=== PATIENT | female | born 1940 | race Caucasian/White ===

== ENCOUNTER 2016-11-28 10:21 | Outpatient (CLI) | payer MEDICARE ==
[2016-11-28 10:58] LABS: Anion Gap 14 mmol/L (10-20); BUN (Urea Nitrogen) 19 mg/dL (9.8-20.1); Calc. Creatinine Clearance 0 mL/min (70-130); Calcium 8.8 mg/dL (7.8-10.44); Carbon Dioxide 26 mmol/L (23-31); Chloride 103 mmol/L (98-107); Estimated GFR-MDRD 75; Glucose 204 mg/dL (83-110); Potassium 4.4 mmol/L (3.5-5.1); Sodium 139 mmol/L (136-145)
== END 2016-11-28 10:22 ==
LOC: MADLABBHPM 10:21
PROVIDERS: ATTEND Family Medicine
DX: I87.2 Venous insufficiency (chronic) (peripheral) (principal)
CPT/HCPCS: 36415; 80048

== ENCOUNTER 2016-12-05 14:43 | Inpatient (IN) | payer MEDICARE ==
[~2016-12-05 14:43] MED LIST: Sodium Chloride 0.9% 100 ML BAG ONE
[2016-12-05 15:14] LABS: INR-International Normal Ratio 1.1; PTT 29.1 SEC (22.9-36.1)
[2016-12-05 15:15] LABS: #Basophils 0.1 thou/uL (0.0-0.2); #Eosinphils 0.4 thou/uL (0.0-0.7); #Lymphocytes 1.8 thou/uL (1.20-3.40); #Monocytes 0.4 thou/uL (0.11-0.59); #Neutrophils 3.6 thou/uL (1.40-6.50); %Basophils 1.1 % (0.0-1.0); %Lymphocytes 29.4 % (21.0-51.0); %Monocytes 5.9 % (0.0-10.0); %Neutrophils 57.6 % (42.0-75.0); Hemoglobin 11.6 g/dL (12.0-16.0); Mean Corpuscular HGB CONC 32.8 g/dL (32.0-36.0); Mean Corpuscular Hemoglobin 27.5 pg (27.0-31.0); Mean Corpuscular Volume 83.9 fl (81.0-99.0); Mean Platelet Volume 8.9 fL (7.4-10.4); Platelet Count 234 thou/uL (130-400); RBC Distribution Width 12.4 % (11.5-14.5); Red Blood Cell (RBC) Count 4.23 mill/uL (4.20-5.40); White Blood Cell (WBC) Count 6.2 thou/uL (4.8-10.8)
[2016-12-05] MEDS ORDERED: Adacel (T-DAP) 0.5 ML VIAL ONE (15:16)
[2016-12-05] MEDS ORDERED: Furosemide 40 MG/4 ML VIAL ONE (15:16)
[2016-12-05 15:26] LABS: ALT (SGPT) 7 U/L (0-55); AST (SGOT) 11 U/L (5-34); Albumin 4.1 g/dL (3.4-4.8); Alkaline Phosphatase 95 U/L (40-150); Anion Gap 16 mmol/L (10-20); BUN (Urea Nitrogen) 14 mg/dL (9.8-20.1); Bilirubin, Total Less than 0.3 mg/dL (0.2-1.2); CK (CPK) 98 U/L (29-168); Calc. Creatinine Clearance 0 mL/min (70-130); Calcium 8.8 mg/dL (7.8-10.44); Carbon Dioxide 24 mmol/L (23-31); Chloride 102 mmol/L (98-107); Estimated GFR-MDRD 54; Globulin 2.7 g/dL (2.4-3.5); Glucose 204 mg/dL (83-110); Potassium 4.6 mmol/L (3.5-5.1); Protein, Total 6.8 g/dL (5.8-8.1); Sodium 137 mmol/L (136-145)
[2016-12-05 15:27] LABS: CKMB 2.7 ng/mL (0-6.6); Troponin I Less than 0.010 ng/mL (< 0.028)
--- NOTE | 2016-12-05 15:39 | RAD ---
PORTABLE CHEST 1 VIEW: DATE: 12/05/16. TIME: 3:11 p.m. HISTORY: Dyspnea. FINDINGS: Comparison is made with the exam of 10/25/15. The heart is enlarged. No confluent areas of consolidation, pneumothorax, gera pulmonary edema, or pleural effusions are seen. There is continued elevation of the right hemidiaphragm. IMPRESSION: Stable exam. No acute process. POS: SHAYLEE
[2016-12-05 15:50] LABS: Bilirubin Negative (Negative); Blood, Urine Moderate (Negative); Glucose, Urine (Dipstick) Negative (Negative); Leukocyte Small (Negative); Nitrite Positive (Negative); Protein, Urine (Dipstick) Negative (Neg-Trace)
[2016-12-05 15:54] LABS: Clarity Cloudy (Clear)
[2016-12-05 15:55] LABS: Bacteria/HPF 3+ HPF (None Seen); Other Microscopic Description C&S SET UP; Squamous Epithelial 0-3 HPF (0-3)
[2016-12-05] MEDS ORDERED: Ciprofloxacin 500 MG TAB ONE (16:16)
[2016-12-05] MEDS ORDERED: cefTRIAXone\\ROCEPHIN 1 GM VIAL ONE (16:16)
[2016-12-05] MEDS ORDERED: Bisacodyl 5 MG TAB PO PRN (20:21)
[2016-12-05] MEDS ORDERED: Loperamide HCl 2 MG CAP PO PRN ×2 (20:21→20:22)
[2016-12-05] MEDS ORDERED: Sodium Chloride 0.9% 1,000 ML IV SCH (20:30)
[2016-12-05] MEDS ORDERED: Enoxaparin Sodium 40 MG/0.4 ML SYRINGE SC SCH (20:30)
[2016-12-05] MEDS ORDERED: Clotrimazole 1% Cream 15 GM TUBE TOP SCH (21:30)
[2016-12-05] MEDS: traMADol HCl 50 MG TAB PO PRN (21:43)
[2016-12-05] MEDS ORDERED: Gabapentin 100 MG CAP PO SCH (22:00)
[2016-12-06] MEDS: Acetaminophen 325 MG TAB PO PRN (01:09)
[2016-12-06] MEDS: cefTRIAXone\\ROCEPHIN 1 GM in Sodium Chloride 0.9% 100 ML IVPB SCH ×2 (03:46→16:39)
[2016-12-06 05:24] LABS: #Basophils 0.1 thou/uL (0.0-0.2); #Eosinphils 0.2 thou/uL (0.0-0.7); #Lymphocytes 1.5 thou/uL (1.20-3.40); #Monocytes 0.4 thou/uL (0.11-0.59); %Basophils 1.1 % (0.0-1.0); %Eosinophils 3.9 % (0.0-10.0); %Lymphocytes 23.8 % (21.0-51.0); %Monocytes 7.1 % (0.0-10.0); %Neutrophils 64.1 % (42.0-75.0); Hemoglobin 10.5 g/dL (12.0-16.0); Mean Corpuscular Hemoglobin 27.7 pg (27.0-31.0); Mean Corpuscular Volume 84.1 fl (81.0-99.0); Mean Platelet Volume 8.3 fL (7.4-10.4); Platelet Count 196 thou/uL (130-400); RBC Distribution Width 12.3 % (11.5-14.5); Red Blood Cell (RBC) Count 3.79 mill/uL (4.20-5.40); White Blood Cell (WBC) Count 6.2 thou/uL (4.8-10.8)
[2016-12-06] MEDS: Levothyroxine Sodium 100 MCG TAB PO SCH (05:38)
[2016-12-06 05:42] LABS: Anion Gap 15 mmol/L (10-20)
[2016-12-06] MEDS ORDERED: Furosemide 40 MG/4 ML VIAL SLOW IVP SCH (06:00)
[2016-12-06] MEDS ORDERED: Non-Formulary Item 1 EACH (Cyclobenzaprine Hcl [Cyclobenzaprine Hcl] 5 MG) PO PRN (08:15)
[2016-12-06] MEDS ORDERED: traMADol HCl 50 MG TAB PO PRN (08:15)
[2016-12-06] MEDS ORDERED: Cyclobenzaprine 10 MG TAB PO PRN (08:28)
[2016-12-06] MEDS: Spironolactone 25 MG TAB PO SCH (08:37)
[2016-12-06] MEDS: Aspirin 325 MG TAB PO SCH (08:38)
[2016-12-06] MEDS: Clotrimazole 1% Cream 15 GM TUBE TOP SCH ×2 (08:38→20:58)
[2016-12-06] MEDS: Lisinopril 10 MG TAB PO SCH (08:39)
[2016-12-06] MEDS: Gabapentin 100 MG CAP PO SCH ×3 (08:39→20:57)
[2016-12-06] MEDS: Furosemide 40 MG TAB PO SCH ×2 (08:48→14:08)
[2016-12-06] MEDS ORDERED: Levothyroxine Sodium 100 MCG TAB PO SCH (09:00)
[2016-12-06] MEDS ORDERED: Gabapentin 100 MG CAP PO SCH (09:00)
[2016-12-06] MEDS ORDERED: Lisinopril 10 MG TAB PO SCH (09:00)
[2016-12-06 09:03] LABS: ALT (SGPT) 8 U/L (0-55); AST (SGOT) 11 U/L (5-34); Albumin 3.4 g/dL (3.4-4.8); Alkaline Phosphatase 81 U/L (40-150); BUN (Urea Nitrogen) 15 mg/dL (9.8-20.1); Bilirubin, Total Less than 0.3 mg/dL (0.2-1.2); Calc. Creatinine Clearance 55 mL/min (70-130); Calcium 8.6 mg/dL (7.8-10.44); Carbon Dioxide 25 mmol/L (23-31); Chloride 101 mmol/L (98-107); Estimated GFR-MDRD 58; Globulin 2.7 g/dL (2.4-3.5); Glucose 109 mg/dL (83-110); Potassium 4.5 mmol/L (3.5-5.1); Protein, Total 6.1 g/dL (5.8-8.1); Sodium 137 mmol/L (136-145)
--- NOTE | 2016-12-06 10:21 | HP ---
DATE OF ADMISSION: 12/05/2016 CHIEF COMPLAINT: Swelling and redness of the right lower leg. HISTORY OF PRESENT ILLNESS: The patient is a 76-year-old white female who has a history of severe v enous insufficiency of the lower extremity, complicated by chronic edema and stasis dermatitis. 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 She now resides in assisted living where she is able to ambulate with the use of a walker and transfer independently and dress independently. The patient was last seen in my office on 11/28/2016 for acute paronychia of the left thumb that was treated with Septra witho ut problem with resolution of the paronychia. The patient was brought to the emergency room on the late afternoon of the day of admission because of marked increased swelling in her lower extremities with increased redness and blistering in the r ight leg. She was not running fever. She was evaluated in the emergency room and felt to have flui d overload and cellulitis and marked edema of the lower extremities. Her chest x-ray showed cardiom egaly with no evidence of acute failure. Her lab work showed H and H of 11.6 and 35.5 with a white cell count of 6200 with 58% neutrophils, 29% lymphocytes, and platelet count of 234,000. Her sodium was 137, potassium 4.6, BUN 14, creatinine 1, GFR 54, glucose 204. B-type natriuretic peptide 64, troponin I less than 0.01. CK-MB 2.7. TSH 2.6, albumin 4.1. Her urinalysis showed specific gravit y of 1.020, positive nitrite, 7-10 RBCs, 11-20 WBCs, 0-3 epithelials cells and 3+ bacteria. Her INR is 1.1. D-dimer was 4.2, normal less than 0.43. Patient was admitted with the diagnosis of cellul itis of the right lower extremity complicated by blistering of the right lower leg and fluid overloa d. The patient was started on IV antibiotics with Levaquin and ceftriaxone and was given an initial dose of Lasix 80 mg IV and was placed at bed rest. The patient was seen early on the morning of 12/06/2016, she said she was feeling good, her leg was not hurting, she was able to review with me the history of the above. Patient said her leg is not h urting, but had been very red and more swelled than usual yesterday. Patient said her leg feels goo d today and the swelling has gone down. PAST HISTORY: Patient has hypertension, severe venous insufficiency of the lower extremities, compl icated by chronic stasis dermatitis, generalized osteoarthritis, hypothyroidism, history of cervical myelopathy from a severe cervical stenosis presenting with paralysis of the right upper extremity a nd severe weakness of the left upper extremity. Patient underwent a decompression in [facility] on 10/2014 with marked improvement, but has been left with some weakness in the right upper extrem ity. 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 Patient has had tonsillectomy, low back surgery with laminectomy in 1961, 1965 and the third time in 1979. She has also had a hysterectomy. Patient was hospitalized in 10/2015 for hemoptysis, felt to be se condary to bronchiectasis and has resolved. The patient underwent an EGD by Dr. Antony on 10/24/2015, showed blood in the hypopharynx, otherwise unremarkable. During that admission, a CTA was done felice t showed probable bronchiectasis that resolved on the antibiotics. PRESENT MEDICINES: Tramadol 50 mg 1 b.i.d. p.r.n., triamcinolone cream 0.1% applied to the areas of itch, rash 3 times a day as needed, gabapentin 100 mg 2 t.i.d., levothyroxine 100 mcg daily, Lasix 40 mg b.i.d., lisinopril 10 mg daily, cyclobenzaprine 5 mg 1 t.i.d. as needed, ibuprofen 200 mg 1 ev geri 6 hours as needed. ALLERGIES: MORPHINE causes nausea and vomiting, SULFAMETHOXAZOLE, TRIMETHOPRIM was listed as an all ergy, but patient just completed a course of this without difficulty. REVIEW OF SYSTEMS: CONSTITUTIONAL: The patient has had no fever. She has had no change in her weight. HEAD AND NECK: No complaints. PULMONARY: The patient said she has not been short of breath. CARDIOVASCULAR: No chest pain. GASTROINTESTINAL: The patient said she had just a little nausea last evening, but that is passed. Patient has had no abdominal pain. The patient had no change in her bowel habits. GENITOURINARY: No complaints. ADLs: The patient is able to dress herself, can shower with standby assistance, ambulates with the use of a walker and can transfer independently. HABITS: Alcohol, none. Tobacco, none. SOCIAL HISTORY: Patient is a who resides in assisted living. PHYSICAL EXAMINATION: GENERAL: Shows a very pleasant 76-year-old white female, who is lying in bed. She is awake, alert, answers questions appropriately. She is oriented x3. VITAL SIGNS: Shows a temperature of 99, pulse 77, respirations 18, O2 sat 96% on room air, blood pr essure 129/60, her weight is 153. Her output has been approximately 1500 since admission last eveni ng. HEAD: Normocephalic. EYES: Pupils were equal, round, and reactive. Sclerae nonicteric. EARS: TMs are clear. NOSE: Normal. MOUTH AND THROAT: Normal. NECK: Carotids are equal and strong, no bruits. Thyroid not enlarged. LUNGS: Clear. HEART: Regular rate, no murmurs. ABDOMEN: Obese. There is no organomegaly nor areas of tenderness. EXTREMITIES: Lower extremities: The edema is almost totally resolved in the lower extremities. Th ere is just trace edema left. Patient has some chronic discoloration of the legs with brown, initia lly little scaling from her chronic stasis and on the right lower leg over the distal third, the ski n is pink and warm to the touch. Apparently on admission, this was very red. On the anterior right lower leg, there is a blister that is intact. It is about 6 x 4 cm. Left thumb, the area of the a cute paronychia, the swelling has gone. The skin is just a little pink, but appears the paronychia is resolved. NEUROLOGIC: Patient is alert and oriented x3. Patient has moderate strength in the lower extremiti es are equal. In the upper extremities, the right arm is weaker than the left. She has a little tr ouble with extension in the hand and abducting the arm, has just a few degrees of abduction. IMPRESSION: 1. Cellulitis of the right lower leg. 2. Severe venous insufficiency of the lower extremities. A. Complicated by acute exacerbation with marked increase edema, particularly of the right leg, prob ably prompted by the cellulitis that has improved as of the morning of 12/06/2016. B. Complicated by chronic stasis dermatitis. 3. Hypertension. 4. Hypothyroidism. 5. Generalized osteoarthritis. 6. Severe cervical spinal stenosis, complicated by myelopathy with weakness of the upper extremitie s. Status post decompression in anterior fusion 10/2014 with marked improvement in weakness in the upper extremities. 7. Failed surgical low back syndrome. 8. Generalized weakness. 9. Acute paronychia of the left thumb on 11/28/2016, resolved. PLAN: Patient will be admitted to the hospital for IV antibiotics, IV Lasix. She has already had a n excellent diuresis with resolution of the swelling. We will continue the IV antibiotics. We will switch her to oral Lasix and have PT and OT work with her. CODE STATUS: Full code.
[2016-12-06] MEDS: traMADol HCl 50 MG TAB PO PRN ×2 (14:07→21:14)
[2016-12-06] MEDS: Enoxaparin Sodium 40 MG/0.4 ML SYRINGE SC SCH (17:15)
[2016-12-07] MEDS: Ondansetron ODT 4 MG TAB PO PRN ×3 (00:22→21:01)
[2016-12-07] MEDS: cefTRIAXone\\ROCEPHIN 1 GM in Sodium Chloride 0.9% 100 ML IVPB SCH ×2 (04:10→16:21)
[2016-12-07 04:58] LABS: #Basophils 0.1 thou/uL (0.0-0.2); #Eosinphils 0.3 thou/uL (0.0-0.7); #Lymphocytes 1.8 thou/uL (1.20-3.40); #Monocytes 0.4 thou/uL (0.11-0.59); #Neutrophils 3.5 thou/uL (1.40-6.50); %Basophils 0.9 % (0.0-1.0); %Eosinophils 4.9 % (0.0-10.0); %Lymphocytes 30.1 % (21.0-51.0); %Monocytes 6.4 % (0.0-10.0); %Neutrophils 57.7 % (42.0-75.0); Hemoglobin 11.4 g/dL (12.0-16.0); Mean Corpuscular HGB CONC 32.4 g/dL (32.0-36.0); Mean Corpuscular Hemoglobin 27.6 pg (27.0-31.0); Mean Platelet Volume 7.9 fL (7.4-10.4); Platelet Count 199 thou/uL (130-400); RBC Distribution Width 12.2 % (11.5-14.5); Red Blood Cell (RBC) Count 4.14 mill/uL (4.20-5.40); White Blood Cell (WBC) Count 6.1 thou/uL (4.8-10.8)
[2016-12-07 05:00] LABS: Manual Diff?? NO
[2016-12-07] MEDS: Levothyroxine Sodium 100 MCG TAB PO SCH (05:14)
[2016-12-07 05:20] LABS: Anion Gap 16 mmol/L (10-20); BUN (Urea Nitrogen) 19 mg/dL (9.8-20.1); Calc. Creatinine Clearance 47 mL/min (70-130); Calcium 8.7 mg/dL (7.8-10.44); Carbon Dioxide 26 mmol/L (23-31); Chloride 100 mmol/L (98-107); Estimated GFR-MDRD 49; Glucose 130 mg/dL (83-110); Potassium 4.9 mmol/L (3.5-5.1); Sodium 137 mmol/L (136-145)
[2016-12-07] MEDS: traMADol HCl 50 MG TAB PO PRN (08:14)
[2016-12-07] MEDS: Aspirin 325 MG TAB PO SCH (08:16)
[2016-12-07] MEDS: Furosemide 40 MG TAB PO SCH ×2 (08:16→14:05)
[2016-12-07] MEDS: Gabapentin 100 MG CAP PO SCH ×3 (08:16→21:01)
[2016-12-07] MEDS: Lisinopril 10 MG TAB PO SCH (08:16)
[2016-12-07] MEDS: Clotrimazole 1% Cream 15 GM TUBE TOP SCH ×2 (08:17→21:03)
[2016-12-07] MEDS: Spironolactone 25 MG TAB PO SCH (08:17)
--- NOTE | 2016-12-07 09:23 | PRG ---
DATE OF SERVICE: 12/07/2016 SUBJECTIVE: The patient said her legs feel better. She said her back is sore, which is a chronic p roblem due to her failed surgical back syndrome. OBJECTIVE: The patient is lying in bed, looks a little uncomfortable from her back. Otherwise, she in no acute distress. Her temp is 97.9, pulse 70, respirations 20, O2 saturation 94% on room air, blood pressure 119/58. Lungs are clear. Heart, regular rate. Lower extremities, the edema has res olved. The redness is resolved. Blister on the anterior lower leg has ruptured. There is just sav e serous drainage on the dressing. Lab shows an H\T\H of 11.4 and 35.2, white cell count 6100 with 58% segs, 30% lymphocytes, platelet count of 199,000. Sodium 135, potassium 4.9, BUN 19, creatinine 1.09, GFR 49, glucose 130. ASSESSMENT: 1. Cellulitis of the right lower leg. A. Resolving as of 12/07/2016. 2. Severe venous insufficiency of the lower extremities. A. Complicated by acute exacerbation with marked increase edema, particularly the right leg, pr obably prompted by the cellulitis. Edema has resolving and cellulitis resolving as of 12/07/2016. B. Complicated by chronic stasis dermatitis. 3. Hypertension. 4. Hypothyroidism. 5. Generalized osteoarthritis. 6. Severe cervical spinal stenosis, complicated by myelopathy with weakness of the upper extremitie s. Status post decompression in anterior fusion 10/2014 with marked improvement in weakness in the upper extremities. 7. Failed surgical low back syndrome. 8. Generalized weakness. 9. Acute paronychia of the left thumb on 11/28/2016, resolved. PLAN: Continue the IV antibiotics. Continue oral furosemide. Will change the dressing on the righ t lower leg to just an Adaptic over the blistered area that ruptured, covered by Mepilex. Continue physical therapy. Will order Tylenol for the pain and also order a Gaymar pump for moist heat to th e back.
[2016-12-07] MEDS: Enoxaparin Sodium 40 MG/0.4 ML SYRINGE SC SCH (18:00)
[2016-12-08] MEDS: cefTRIAXone\\ROCEPHIN 1 GM in Sodium Chloride 0.9% 100 ML IVPB SCH ×2 (04:37→17:00)
[2016-12-08] MEDS: Levothyroxine Sodium 100 MCG TAB PO SCH (05:39)
--- NOTE | 2016-12-08 09:10 | PRG ---
DATE OF SERVICE: 12/08/2016 SUBJECTIVE: The patient said she is feeling better. Her legs feel better. She has asked to leave the catheter in another day because it is so hard for her to get up. The swelling has been down in her legs. She said the Gaymar pump providing the moist heat has been a great help for her back. OBJECTIVE: The patient is sitting up in her bed eating her breakfast. She looks very comfortable a nd in no distress. Her temperature is 98.1, pulse 74, respirations 18, O2 sat 92% on room air, bloo d pressure 117/54. Lungs are clear. Heart, regular rate. Extremities, no edema. The blistered ar ea over the anterior lower leg is no longer distended. There is only drainage from the area. There is no overlying redness. The area looks much improved. The patient's urine grew gram negative terry , colony count greater than 100,000. Sensitivity pending. ASSESSMENT: 1. Cellulitis of the right lower leg. A. Resolving as of 12/07/2016. 2. Severe venous insufficiency of the lower extremities. A. Complicated by acute exacerbation with marked increased edema as a result of the cellulitis. 1. Edema is controlled and cellulitis resolved. The blister is drying up on the right lowe r leg as of 12/08/2016. B. Complicated by chronic stasis dermatitis. 1. Controlled. 3. Hypertension. 4. Hypothyroidism. 5. Generalized osteoarthritis. 6. Severe cervical spinal stenosis, complicated by myelopathy with weakness of the upper extremitie s. Status post decompression in anterior fusion 10/2014 with marked improvement in weakness in the upper extremities. 7. Failed surgical low back syndrome. 8. Generalized weakness. 9. Acute paronychia of the left thumb on 11/28/2016, resolved. 10. Urinary tract infection. A. Culture pending as of 12/08/2016. PLAN: Overall the patient looks better. Continue present care. Apply Claudia lotion with Kenalog to the legs b.i.d., continue physical therapy.
[2016-12-08] MEDS: Gabapentin 100 MG CAP PO SCH ×4 (09:29→20:47)
[2016-12-08] MEDS: Spironolactone 25 MG TAB PO SCH (09:29)
[2016-12-08] MEDS: Ibuprofen 200 MG TAB PO PRN ×2 (09:29→20:52)
[2016-12-08] MEDS: Aspirin 325 MG TAB PO SCH (09:29)
[2016-12-08] MEDS: Furosemide 40 MG TAB PO SCH ×3 (09:30→17:05)
[2016-12-08] MEDS: Lisinopril 10 MG TAB PO SCH (09:30)
[2016-12-08] MEDS: Clotrimazole 1% Cream 15 GM TUBE TOP SCH ×2 (09:33→20:46)
[2016-12-08] MEDS: Ondansetron ODT 4 MG TAB PO PRN (11:07)
[2016-12-08] MEDS: Emollient 15 oz bottle 450 ML, Triamcinolone Acetonide 200 MG TOP SCH ×4 (15:17→20:47)
[2016-12-08] MEDS: Acetaminophen 325 MG TAB PO PRN (17:05)
[2016-12-08] MEDS: Enoxaparin Sodium 40 MG/0.4 ML SYRINGE SC SCH (18:35)
[2016-12-09] MEDS: cefTRIAXone\\ROCEPHIN 1 GM in Sodium Chloride 0.9% 100 ML IVPB SCH (04:09)
[2016-12-09] MEDS: Levothyroxine Sodium 100 MCG TAB PO SCH (05:13)
[2016-12-09 05:30] VITALS: BMI 39.0
[2016-12-09] MEDS ORDERED: Sterile Water Irrigation 1,000 ML BOT ONE (07:00)
[2016-12-09 08:16] VITALS: BP 132/63; TEMP 97.9
[2016-12-09] MEDS: Spironolactone 25 MG TAB PO SCH (08:17)
[2016-12-09] MEDS: Furosemide 40 MG TAB PO SCH (08:18)
[2016-12-09] MEDS: Aspirin 325 MG TAB PO SCH (08:18)
[2016-12-09] MEDS: Gabapentin 100 MG CAP PO SCH (08:18)
[2016-12-09] MEDS: traMADol HCl 50 MG TAB PO PRN (08:19)
[2016-12-09] MEDS: Acetaminophen 325 MG TAB PO PRN (08:21)
[2016-12-09] MEDS: Lisinopril 10 MG TAB PO SCH (08:21)
--- NOTE | 2016-12-09 09:17 | PRG ---
DATE OF SERVICE: 12/09/2016 SUBJECTIVE: This morning, physical therapy has had her up and walking with a walker. She walks slow ly, requires assistance with transferring, her legs feeling better, but she said her disorder is alejandro ulders, which is a chronic ache and pain. OBJECTIVE: The patient is sitting in a wheelchair, taking a break from her walking with the physica l therapist. She is a little uncomfortable from shoulder pain. Her temp is 97.9, pulse 62, respira tions 20, O2 sat 95%, blood pressure 132/63. Her lungs are clear. Heart, regular rate. Lower extr emities: No edema, no redness. Her urine culture grew an E. coli, colony count greater than 100,00 0, susceptibility report pending. ASSESSMENT: 1. Cellulitis of the right lower leg. A. Resolved as of 12/09/2016. 2. Severe venous insufficiency of the lower extremities. A. Complicated by acute exacerbation with marked increased edema as a result of the cellulitis. 1. Edema is controlled and cellulitis resolved. The blister is drying up on the right lowe r leg as of 12/09/2016. B. Complicated by chronic stasis dermatitis. 1. Controlled. 3. Hypertension. 4. Hypothyroidism. 5. Generalized osteoarthritis. 6. Severe cervical spinal stenosis, complicated by myelopathy with weakness of the upper extremitie s. Status post decompression in anterior fusion 10/2014 with marked improvement in weakness in the upper extremities. 7. Failed surgical low back syndrome. 8. Generalized weakness. A. Little improved where she is able to ambulate with a walker with assistance, but still requi res assistance with transference. 9. Acute paronychia of the left thumb on 11/28/2016, resolved. 10. Urinary tract infection. A. Culture growing E. coli, colony count greater than 100,000, susceptibility report is pending as of 12/09/2016. PLAN: We will stop the IV access and the Levaquin and ceftriaxone. We will continue the Levaquin p.o. We will move patient to an extended care for continuation of physical therapy. [facility] to [facility], the patient had been in an assisted living. This acute illness has left her too weak to be able to manage at her functional level in an assisted living. Patient is still not able to transfer independently and walking ability is limited. We will move the patient for extended care for zi nuation of physical therapy in an effort to try to improve her general functional capabilities.
== END 2016-12-09 11:19 | disposition swing bed (61) | DRG 603 ==
LOC: MADERS 14:43 → MADMS 18:46
PROVIDERS: ADMIT Family Medicine; ATTEND Family Medicine
DX: L03.115 Cellulitis of right lower limb (principal); I11.0 Hypertensive heart disease with heart failure; I50.9 Heart failure, unspecified; N39.0 Urinary tract infection, site not specified; I87.2 Venous insufficiency (chronic) (peripheral); E03.9 Hypothyroidism, unspecified; M19.90 Unspecified osteoarthritis, unspecified site; M48.02 Spinal stenosis, cervical region; Z98.1 Arthrodesis status; M54.5 Low back pain; E87.70 Fluid overload, unspecified; R53.1 Weakness; B96.20 Unspecified Escherichia coli [E. coli] as the cause of diseases classified elsewhere
CPT/HCPCS: 36415; 51702; 71010; 80048; 80053; 81003; 81015; 82550; 82553; 83880; 84443; 84484; 85025; 85379; 85610; 85730; 87077; 87086; 87186; 90471; 90715; 96365; 96367; 96375; A4216; A4217; G8978-GP-CL; G8979-GP-CJ; J0696; J1650; J1940; J1956; J3301; J7050; Q0162

== ENCOUNTER 2016-12-09 07:05 | Inpatient (IN) | payer MEDICARE ==
[2016-12-09] MEDS ORDERED: Non-Formulary Item 1 EACH (Cyclobenzaprine Hcl [Cyclobenzaprine Hcl] 5 MG) PO PRN (08:41)
[2016-12-09] MEDS: Furosemide 40 MG TAB PO SCH ×2 (12:56→21:03)
[2016-12-09] MEDS: Levothyroxine Sodium 100 MCG TAB PO SCH (12:56)
[2016-12-09] MEDS: Lisinopril 10 MG TAB PO SCH (12:56)
[2016-12-09] MEDS: Gabapentin 100 MG CAP PO SCH ×3 (12:56→21:03)
[2016-12-09] MEDS: Keri Lotion 15 oz BOT TOP SCH ×2 (16:28→21:33)
[2016-12-09] MEDS: Enoxaparin Sodium 40 MG/0.4 ML SYRINGE SC SCH (18:26)
[2016-12-09] MEDS: traMADol HCl 50 MG TAB PO PRN (19:00)
[2016-12-09] MEDS ORDERED: Triamcinolone 0.1% Cream 15 GM TUBE TOP SCH (21:00)
[2016-12-09] MEDS: Betamethasone 0.1% Cream 15 GM TUBE TOP SCH (21:33)
[2016-12-09] MEDS: Ondansetron ODT 4 MG TAB SL PRN (22:53)
[2016-12-10] MEDS: Spironolactone 25 MG TAB PO SCH (08:45)
[2016-12-10] MEDS: Gabapentin 100 MG CAP PO SCH ×3 (08:45→21:34)
[2016-12-10] MEDS: Furosemide 40 MG TAB PO SCH ×2 (08:45→21:34)
[2016-12-10] MEDS: Levothyroxine Sodium 100 MCG TAB PO SCH (08:46)
[2016-12-10] MEDS: Betamethasone 0.1% Cream 15 GM TUBE TOP SCH ×2 (08:46→21:47)
[2016-12-10] MEDS: Lisinopril 10 MG TAB PO SCH (08:46)
[2016-12-10] MEDS: Keri Lotion 15 oz BOT TOP SCH ×2 (08:47→21:47)
--- NOTE | 2016-12-10 13:52 | PRG ---
DATE OF SERVICE: 12/10/2016 SUBJECTIVE: The patient said she is feeling better today, just weak. She seems to give out easily much more than prior to this acute illness today, though she feels a little better, yesterday she koch d a little nausea and headache but she woke up free of the headache. OBJECTIVE: GENERAL: The patient is alert and appears in no acute distress. VITAL SIGNS: Her vital signs shows a temperature of 97.7, pulse 61, blood pressure 130/61, respirat ions 16, O2 sat 95% on room air. Her weight is 249. LUNGS: Clear. HEART: Regular rate. EXTREMITIES: There is no edema. The blistered areas have drained and the overlying skin is drying on the lower leg. There is little redness from the stasis dermatitis on the lower legs. LABORATORY DATA: Urine culture has grown E. coli, colony count greater than 100,000. Organism is r esistant to the Levaquin, sensitive to the ceftriaxone and nitrofurantoin. ASSESSMENT: 1. Cellulitis of the right lower leg. A. Resolved as of 12/09/2016. 2. Severe venous insufficiency of the lower extremities. A. Complicated by acute exacerbation with marked increased edema as a result of the cellulitis. 1. Edema is controlled and cellulitis resolved. The blister is drying up on the right lowe r leg as of 12/10/2016. B. Complicated by chronic stasis dermatitis. 1. Controlled except for some mild redness and irritation to the skin as of 12/10/2016. 3. Hypertension. 4. Hypothyroidism. 5. Generalized osteoarthritis. 6. Severe cervical spinal stenosis, complicated by myelopathy with weakness of the upper extremitie s. Status post decompression in anterior fusion 10/2014 with marked improvement in weakness in the upper extrem ities. 7. Failed surgical low back syndrome. 8. Generalized weakness. A. Little improved where she is able to ambulate with a walker with assistance, but still requi res assistance with transference. 9. Acute paronychia of the left thumb on 11/28/2016, resolved. 10. Urinary tract infection. A. Culture grew E. coli, colony count greater than 100, 000, organism resistant to Levaquin, bu t sensitive to ceftriaxone and cephalosporins. PLAN: Continue physical therapy. We will stop the Levaquin and place her instead on Omnicef or cef dinir 300 mg b.i.d., continue physical therapy, continue the Claudia Kenalog to the legs b.i.d.
[2016-12-10] MEDS: Enoxaparin Sodium 40 MG/0.4 ML SYRINGE SC SCH (17:47)
[2016-12-10] MEDS: Cefdinir 300 MG CAP PO SCH (21:34)
[2016-12-11] MEDS: Spironolactone 25 MG TAB PO SCH (08:33)
[2016-12-11] MEDS: Furosemide 40 MG TAB PO SCH ×2 (08:34→20:53)
[2016-12-11] MEDS: Gabapentin 100 MG CAP PO SCH ×3 (08:34→20:53)
[2016-12-11] MEDS: Levothyroxine Sodium 100 MCG TAB PO SCH (08:34)
[2016-12-11] MEDS: Betamethasone 0.1% Cream 15 GM TUBE TOP SCH ×2 (08:35→20:52)
[2016-12-11] MEDS: Cefdinir 300 MG CAP PO SCH ×2 (08:35→20:53)
[2016-12-11] MEDS: Lisinopril 10 MG TAB PO SCH (08:35)
[2016-12-11] MEDS: Keri Lotion 15 oz BOT TOP SCH ×2 (08:36→20:53)
[2016-12-11] MEDS: traMADol HCl 50 MG TAB PO PRN (12:07)
[2016-12-11] MEDS: Ondansetron ODT 4 MG TAB SL PRN (12:07)
[2016-12-11] MEDS: Ibuprofen 200 MG TAB PO PRN (12:54)
[2016-12-11] MEDS: Cyclobenzaprine 10 MG TAB PO PRN (15:59)
[2016-12-11] MEDS: Enoxaparin Sodium 40 MG/0.4 ML SYRINGE SC SCH (18:12)
[2016-12-12] MEDS: Cyclobenzaprine 10 MG TAB PO PRN (04:10)
[2016-12-12] MEDS: Cefdinir 300 MG CAP PO SCH ×2 (08:21→20:38)
[2016-12-12] MEDS: Lisinopril 10 MG TAB PO SCH (08:21)
[2016-12-12] MEDS: Gabapentin 100 MG CAP PO SCH ×3 (08:22→20:38)
[2016-12-12] MEDS: Levothyroxine Sodium 100 MCG TAB PO SCH (08:22)
[2016-12-12] MEDS: Furosemide 40 MG TAB PO SCH ×2 (08:22→20:38)
[2016-12-12] MEDS: Spironolactone 25 MG TAB PO SCH (08:22)
[2016-12-12] MEDS: Ondansetron ODT 4 MG TAB SL PRN (09:53)
--- NOTE | 2016-12-12 10:11 | PRG ---
DATE OF SERVICE: 12/12/2016 SUBJECTIVE: The patient said she is feeling better. Her legs feel good. OBJECTIVE: The patient is lying in bed with the head elevated. She appears very comfortable and in no distress. Her temperature is 98, pulse 61, respirations 20, O2 saturation 94% on room air, bloo d pressure 119/61. Her lungs are clear. Heart, regular rate. Extremities, no edema. The lower le gs, there is no edema. There is no redness. The area where the blister is, is all healing. There is no open area on the right lower leg. The left lower leg, there is no open lesion, ASSESSMENT: 1. Cellulitis of the right lower leg. A. Resolved as of 12/09/2016. B. No recurrence as of 12/12/2016. 2. Severe venous insufficiency of the lower extremities. A. Complicated by acute exacerbation with marked increased edema as a result of the cellulitis. 1. Edema is controlled, cellulitis resolved. The blistered area has healed on the right l ower leg as of 12/12/2016. B. Complicated by chronic stasis dermatitis. 1. Controlled as of 12/12/2016. 3. Hypertension. 4. Hypothyroidism. 5. Generalized osteoarthritis. 6. Severe cervical spinal stenosis, complicated by myelopathy with weakness of the upper extremitie s. Status post decompression in anterior fusion 10/2014 with marked improvement in weakness in the upper extrem ities. 7. Failed surgical low back syndrome. 8. Generalized weakness. A. Improved as of 12/12/2016. 9. Acute paronychia of the left thumb on 11/28/2016, resolved. 10. Urinary tract infection. A. Culture grew E. coli, colony count greater than 100, 000, organism resistant to Levaquin, bu t sensitive to ceftriaxone and cephalosporins. PLAN: Continue physical therapy. Had suggested removal of catheter, but the patient said she is st ill weak would like to leave it just a little bit longer until her strength gets a little better. W e will leave this in for another day or 2 and then stop. Continue physical therapy.
[2016-12-12] MEDS: traMADol HCl 50 MG TAB PO PRN (11:01)
[2016-12-12] MEDS: Acetaminophen 325 MG TAB PO PRN (11:02)
[2016-12-12] MEDS: Betamethasone 0.1% Cream 15 GM TUBE TOP SCH (11:04)
[2016-12-12] MEDS: Keri Lotion 15 oz BOT TOP SCH (11:04)
[2016-12-12] MEDS: Enoxaparin Sodium 40 MG/0.4 ML SYRINGE SC SCH (17:11)
[2016-12-13] MEDS: Lisinopril 10 MG TAB PO SCH (08:51)
[2016-12-13] MEDS: traMADol HCl 50 MG TAB PO PRN ×2 (08:51→15:35)
[2016-12-13] MEDS: Cefdinir 300 MG CAP PO SCH ×2 (08:52→20:57)
[2016-12-13] MEDS: Gabapentin 100 MG CAP PO SCH ×3 (08:52→20:57)
[2016-12-13] MEDS: Spironolactone 25 MG TAB PO SCH (08:52)
[2016-12-13] MEDS: Furosemide 40 MG TAB PO SCH ×2 (08:52→20:56)
[2016-12-13] MEDS: Levothyroxine Sodium 100 MCG TAB PO SCH (08:53)
[2016-12-13] MEDS: Keri Lotion 15 oz BOT TOP SCH ×3 (08:53→20:56)
[2016-12-13] MEDS: Triamcinolone 0.1% Cream 15 GM TUBE TOP SCH ×3 (08:53→20:58)
[2016-12-13] MEDS: Ibuprofen 200 MG TAB PO PRN (17:19)
[2016-12-13] MEDS: Enoxaparin Sodium 40 MG/0.4 ML SYRINGE SC SCH (17:19)
[2016-12-14 09:21] LABS: #Basophils 0.1 thou/uL (0.0-0.2); #Eosinphils 0.5 thou/uL (0.0-0.7); #Lymphocytes 1.6 thou/uL (1.20-3.40); #Monocytes 0.3 thou/uL (0.11-0.59); #Neutrophils 4.1 thou/uL (1.40-6.50); %Basophils 1.3 % (0.0-1.0); %Eosinophils 7.4 % (0.0-10.0); %Lymphocytes 24.2 % (21.0-51.0); %Monocytes 4.8 % (0.0-10.0); %Neutrophils 62.2 % (42.0-75.0); Hemoglobin 12.3 g/dL (12.0-16.0); Mean Corpuscular Hemoglobin 27.4 pg (27.0-31.0); Mean Corpuscular Volume 85.8 fl (81.0-99.0); Mean Platelet Volume 8.3 fL (7.4-10.4); Platelet Count 222 thou/uL (130-400); RBC Distribution Width 12.7 % (11.5-14.5); Red Blood Cell (RBC) Count 4.48 mill/uL (4.20-5.40); White Blood Cell (WBC) Count 6.6 thou/uL (4.8-10.8)
[2016-12-14] MEDS: Levothyroxine Sodium 100 MCG TAB PO SCH (09:26)
[2016-12-14] MEDS: Gabapentin 100 MG CAP PO SCH ×3 (09:26→20:17)
[2016-12-14] MEDS: Keri Lotion 15 oz BOT TOP SCH ×2 (09:27→20:17)
[2016-12-14] MEDS: Lisinopril 10 MG TAB PO SCH (09:27)
[2016-12-14] MEDS: Spironolactone 25 MG TAB PO SCH (09:27)
[2016-12-14] MEDS: Furosemide 40 MG TAB PO SCH ×2 (09:27→20:17)
[2016-12-14] MEDS: Cefdinir 300 MG CAP PO SCH ×2 (09:27→20:17)
[2016-12-14] MEDS: Triamcinolone 0.1% Cream 15 GM TUBE TOP SCH ×2 (09:28→20:18)
--- NOTE | 2016-12-14 12:20 | PRG ---
DATE OF SERVICE: 12/14/2016 SUBJECTIVE: The patient said she is doing very well. Her strength is better and she is walking a l ittle further transferring a little easier. Still has requested the catheter remain in until she ge ts a little stronger. OBJECTIVE: The patient lying in bed, looks comfortable and in no distress. Her vital signs shows a temperature of 96.8, pulse 61, respirations 22, O2 sat 96%, blood pressure 96/48, earlier 120/[address] evening, this morning is pending. Lungs clear. Heart, regular rate. Lower extremities, edema i s resolved, blistered area is healed. The patient has some petechial or eruption over the distal th ird of both lower legs. ASSESSMENT: 1. Cellulitis of the right lower leg. A. Resolved as of 12/09/2016. B. No recurrence as of 12/14/2016. 2. Severe venous insufficiency of the lower extremities. A. Complicated by acute exacerbation with marked increased edema as a result of the cellulitis. 1. Edema is controlled, cellulitis resolved. The blistered area has healed on the right l ower leg as of 12/12/2016. B. Complicated by chronic stasis dermatitis. 1. Controlled as of 12/14/2016. 3. Hypertension. 4. Hypothyroidism. 5. Generalized osteoarthritis. 6. Severe cervical spinal stenosis, complicated by myelopathy with weakness of the upper extremitie s. Status post decompression in anterior fusion 10/2014 with marked improvement in weakness in the upper extrem ities. 7. Failed surgical low back syndrome. 8. Generalized weakness. A. Improved as of 12/14/2016. 9. Acute paronychia of the left thumb on 11/28/2016, resolved. 10. Urinary tract infection. A. Culture grew E. coli, colony count greater than 100, 000, organism resistant to Levaquin, bu t sensitive to ceftriaxone and cephalosporins. 11. Petechial eruption on the lower legs. PLAN: We will check CBC and platelet count. We will stop the ibuprofen. Continue PT.
[2016-12-14] MEDS: traMADol HCl 50 MG TAB PO PRN (14:45)
[2016-12-14] MEDS: Enoxaparin Sodium 40 MG/0.4 ML SYRINGE SC SCH (18:04)
[2016-12-15] MEDS: Lisinopril 10 MG TAB PO SCH (08:32)
[2016-12-15] MEDS: Cefdinir 300 MG CAP PO SCH ×2 (08:32→20:18)
[2016-12-15] MEDS: Gabapentin 100 MG CAP PO SCH ×3 (08:32→20:18)
[2016-12-15] MEDS: Spironolactone 25 MG TAB PO SCH (08:33)
[2016-12-15] MEDS: Clotrimazole 1% Cream 15 GM TUBE TOP PRN (08:33)
[2016-12-15] MEDS: Furosemide 40 MG TAB PO SCH ×2 (08:33→20:18)
[2016-12-15] MEDS: Levothyroxine Sodium 100 MCG TAB PO SCH (08:33)
[2016-12-15] MEDS: Keri Lotion 15 oz BOT TOP SCH ×2 (08:34→20:18)
[2016-12-15] MEDS: Triamcinolone 0.1% Cream 15 GM TUBE TOP SCH ×2 (08:35→20:19)
[2016-12-15] MEDS: Enoxaparin Sodium 40 MG/0.4 ML SYRINGE SC SCH (18:00)
[2016-12-15] MEDS: traMADol HCl 50 MG TAB PO PRN (20:28)
[2016-12-16] MEDS: Polyethylene Glycol 3350 17 GM Packet PO SCH (09:36)
[2016-12-16] MEDS: Gabapentin 100 MG CAP PO SCH ×3 (09:36→20:30)
[2016-12-16] MEDS: Lisinopril 10 MG TAB PO SCH (09:36)
[2016-12-16] MEDS: Cefdinir 300 MG CAP PO SCH ×2 (09:36→20:31)
[2016-12-16] MEDS: Levothyroxine Sodium 100 MCG TAB PO SCH (09:37)
[2016-12-16] MEDS: Furosemide 40 MG TAB PO SCH ×2 (09:37→20:31)
[2016-12-16] MEDS: Spironolactone 25 MG TAB PO SCH (09:37)
[2016-12-16] MEDS: Keri Lotion 15 oz BOT TOP SCH ×2 (09:39→20:31)
[2016-12-16] MEDS: Triamcinolone 0.1% Cream 15 GM TUBE TOP SCH ×2 (09:39→20:31)
[2016-12-16] MEDS: Clotrimazole 1% Cream 15 GM TUBE TOP PRN (09:40)
--- NOTE | 2016-12-16 16:12 | PRG ---
DATE OF SERVICE: 12/16/2016 SUBJECTIVE: The patient said she is feeling better. She is doing better with her therapy and trans eddie. She is not, though, back to her baseline to where she could adequately manage herself back at assisted living. Her legs feel better. OBJECTIVE: The patient is lying in bed. She is in very good spirits and appears very comfortable. Her temperature is 98, pulse 64, respirations 18, O2 sat 94% on room air, blood pressure 134/60. T he patient's lungs are clear. Heart, regular rate. Extremities have trace edema. There is still t he petechial rash over the distal third of both lower legs, but this is stable. A CBC that was done on the showed an H\T\H of 12.3 and 38.4, WBC count 6600 and platelet count was 222,000. ASSESSMENT: 1. Cellulitis of the right lower leg. A. Resolved as of 12/09/2016. B. No recurrence as of 12/16/2016. 2. Severe venous insufficiency of the lower extremities. A. Complicated by acute exacerbation with marked increased edema as a result of the cellulitis. 1. Edema is controlled, cellulitis resolved. The blistered area has healed on the right l ower leg as of 12/12/2016. B. Complicated by chronic stasis dermatitis. 1. Controlled. Petechial rash of the lower legs is stable as of 12/16/2016. 3. Hypertension. 4. Hypothyroidism. 5. Generalized osteoarthritis. 6. Severe cervical spinal stenosis, complicated by myelopathy with weakness of the upper extremitie s. Status post decompression in anterior fusion 10/2014 with marked improvement in weakness in the upper extrem ities. 7. Failed surgical low back syndrome. 8. Generalized weakness. A. Improved as of 12/16/2016. 9. Acute paronychia of the left thumb on 11/28/2016, resolved. 10. Urinary tract infection. A. Culture grew E. coli, colony count greater than 100, 000, organism resistant to Levaquin, bu t sensitive to ceftriaxone and cephalosporins. PLAN: Complete the antibiotics for the urinary tract infection. Continue physical therapy. The alma mejia still would like to have the cath a little longer. Anticipate that this will be removed on Mo nday 12/19/2016 which she is agreeable with.
[2016-12-16] MEDS: Enoxaparin Sodium 40 MG/0.4 ML SYRINGE SC SCH (18:00)
[2016-12-17] MEDS: Cefdinir 300 MG CAP PO SCH ×2 (08:44→20:00)
[2016-12-17] MEDS: Spironolactone 25 MG TAB PO SCH (08:44)
[2016-12-17] MEDS: Polyethylene Glycol 3350 17 GM Packet PO SCH (08:44)
[2016-12-17] MEDS: Gabapentin 100 MG CAP PO SCH ×3 (08:44→20:01)
[2016-12-17] MEDS: Lisinopril 10 MG TAB PO SCH (08:44)
[2016-12-17] MEDS: Levothyroxine Sodium 100 MCG TAB PO SCH (08:45)
[2016-12-17] MEDS: Furosemide 40 MG TAB PO SCH ×2 (08:45→20:01)
[2016-12-17] MEDS: Keri Lotion 15 oz BOT TOP SCH (08:48)
[2016-12-17] MEDS: Triamcinolone 0.1% Cream 15 GM TUBE TOP SCH (08:48)
[2016-12-17] MEDS: Enoxaparin Sodium 40 MG/0.4 ML SYRINGE SC SCH (17:48)
[2016-12-18] MEDS ORDERED: Furosemide 40 MG TAB PO SCH (06:45)
[2016-12-18] MEDS: Cefdinir 300 MG CAP PO SCH ×2 (08:22→20:55)
[2016-12-18] MEDS: Gabapentin 100 MG CAP PO SCH ×3 (08:22→20:55)
[2016-12-18] MEDS: Polyethylene Glycol 3350 17 GM Packet PO SCH (08:22)
[2016-12-18] MEDS: Levothyroxine Sodium 100 MCG TAB PO SCH (08:22)
[2016-12-18] MEDS: Furosemide 40 MG TAB PO SCH ×2 (08:23→15:13)
[2016-12-18] MEDS: Lisinopril 10 MG TAB PO SCH (08:24)
[2016-12-18] MEDS: Spironolactone 25 MG TAB PO SCH (08:24)
[2016-12-18] MEDS: Keri Lotion 15 oz BOT TOP SCH ×3 (08:27→21:16)
[2016-12-18] MEDS: Triamcinolone 0.1% Cream 15 GM TUBE TOP SCH ×3 (08:27→21:17)
[2016-12-18] MEDS: Enoxaparin Sodium 40 MG/0.4 ML SYRINGE SC SCH (17:50)
[2016-12-19] MEDS: Furosemide 40 MG TAB PO SCH ×2 (05:32→14:51)
[2016-12-19] MEDS: Cefdinir 300 MG CAP PO SCH (08:21)
[2016-12-19] MEDS: Spironolactone 25 MG TAB PO SCH (08:21)
[2016-12-19] MEDS: Polyethylene Glycol 3350 17 GM Packet PO SCH (08:21)
[2016-12-19] MEDS: Levothyroxine Sodium 100 MCG TAB PO SCH (08:22)
[2016-12-19] MEDS: Lisinopril 10 MG TAB PO SCH (08:22)
[2016-12-19] MEDS: Gabapentin 100 MG CAP PO SCH ×3 (08:22→21:02)
[2016-12-19] MEDS: Keri Lotion 15 oz BOT TOP SCH ×2 (08:23→21:03)
[2016-12-19] MEDS: Triamcinolone 0.1% Cream 15 GM TUBE TOP SCH ×2 (08:25→21:02)
[2016-12-19] MEDS: traMADol HCl 50 MG TAB PO PRN (08:29)
--- NOTE | 2016-12-19 09:39 | PRG ---
DATE OF SERVICE: 12/19/2016 SUBJECTIVE: The patient said she is feeling better. She is feeling stronger. Her legs are feeling better. The patient has requested that her Hopson catheter removed on 12/17/2016. This w as removed and she has since not had any trouble voiding. She said it was starting to interfere wit h her ability to get around. She is doing fine voiding. OBJECTIVE: The patient is sitting up in wheelchair eating her breakfast. She is alert and appears very comfortable, in no distress. Temp 96.8, pulse 62, blood pressure 145/67, respirations 18, O2 s aturation 98%. Lungs are clear. Heart, regular rate. Extremities; there is no edema. The petechi al rash has sort of coalesced and has a little purplish discoloration. There is no broken area to t he skin and this rash is not any larger and there is no new petechial eruption. This is overall imp roved. ASSESSMENT: 1. Cellulitis of the right lower leg. A. Resolved as of 12/09/2016. B. No recurrence as of 12/19/2016. 2. Severe venous insufficiency of the lower extremities. A. Complicated by acute exacerbation with marked increased edema as a result of the cellulitis. 1. Edema is controlled, cellulitis resolved. The blistered area has healed on the right l ower leg as of 12/12/2016. B. Complicated by chronic stasis dermatitis. 1. Control petechial rash fading as of 12/23/2016. 3. Hypertension. 4. Hypothyroidism. 5. Generalized osteoarthritis. 6. Severe cervical spinal stenosis, complicated by myelopathy with weakness of the upper extremitie s. Status post decompression in anterior fusion 10/2014 with marked improvement in weakness in the upper extrem ities. 7. Failed surgical low back syndrome. 8. Generalized weakness. A. Improved as of 12/23/2016. 9. Acute paronychia of the left thumb on 11/28/2016, resolved. 10. Urinary tract infection. A. Culture grew E. coli, colony count greater than 100, 000, organism resistant to Levaquin, bu t sensitive to ceftriaxone and cephalosporins. PLAN: Hopson catheter was removed on 12/17/2016 and she has had no subsequent difficulty voiding. H er strength is improving. The patient has completed a 10 day course of the cefdinir for the urinary tract infection. We will stop the cefdinir. Continue physical therapy.
[2016-12-19] MEDS: Acetaminophen 325 MG TAB PO PRN (14:54)
[2016-12-19] MEDS: Enoxaparin Sodium 40 MG/0.4 ML SYRINGE SC SCH (17:11)
[2016-12-20] MEDS: Furosemide 40 MG TAB PO SCH ×2 (05:57→15:24)
[2016-12-20] MEDS: Lisinopril 10 MG TAB PO SCH (08:25)
[2016-12-20] MEDS: Gabapentin 100 MG CAP PO SCH ×3 (08:25→20:23)
[2016-12-20] MEDS: Spironolactone 25 MG TAB PO SCH (08:25)
[2016-12-20] MEDS: Polyethylene Glycol 3350 17 GM Packet PO SCH (08:26)
[2016-12-20] MEDS: Levothyroxine Sodium 100 MCG TAB PO SCH (08:26)
[2016-12-20] MEDS: Keri Lotion 15 oz BOT TOP SCH ×2 (08:27→20:24)
[2016-12-20] MEDS: Triamcinolone 0.1% Cream 15 GM TUBE TOP SCH ×2 (08:27→20:24)
[2016-12-20] MEDS: Enoxaparin Sodium 40 MG/0.4 ML SYRINGE SC SCH (17:27)
[2016-12-20] MEDS: traMADol HCl 50 MG TAB PO PRN (20:23)
[2016-12-21] MEDS: Furosemide 40 MG TAB PO SCH ×2 (05:54→15:10)
[2016-12-21] MEDS: Polyethylene Glycol 3350 17 GM Packet PO SCH (08:22)
[2016-12-21] MEDS: Lisinopril 10 MG TAB PO SCH (08:22)
[2016-12-21] MEDS: Levothyroxine Sodium 100 MCG TAB PO SCH (08:22)
[2016-12-21] MEDS: Gabapentin 100 MG CAP PO SCH ×3 (08:22→20:13)
[2016-12-21] MEDS: Triamcinolone 0.1% Cream 15 GM TUBE TOP SCH ×2 (08:23→20:14)
[2016-12-21] MEDS: Spironolactone 25 MG TAB PO SCH (08:23)
[2016-12-21] MEDS: Keri Lotion 15 oz BOT TOP SCH ×2 (08:23→20:13)
--- NOTE | 2016-12-21 10:23 | PRG ---
DATE OF SERVICE: 12/21/2016 SUBJECTIVE: The patient said she is doing better. She is transferring easier. She is walking furt her. Her legs are feeling better. The patient thinks she is making good progress with therapy. OBJECTIVE: The patient is sitting up in a wheelchair. She is alert, talkative spirits are happy. Her vital signs shows a temperature of 97.6, pulse 67, blood pressure 138/62, respirations 20, O2 sa t 95% on room air. Her lungs are clear. Heart; regular rate. Extremities; there is no edema. The re is still the purplish discoloration to areas over the distal third of lower legs where the petech ial rash was present. This is stable and anticipate gradual continual fading. ASSESSMENT: 1. Cellulitis of the right lower leg. A. Resolved as of 12/09/2016. B. No recurrence as of 12/21/2016. 2. Severe venous insufficiency of the lower extremities. A. Complicated by acute exacerbation with marked increased edema as a result of the cellulitis. 1. Edema is controlled, cellulitis resolved. The blistered area has healed on the right l ower leg as of 12/12/2016. B. Complicated by chronic stasis dermatitis. 1. Control petechial rash fading as of 12/21/2016. C. Controlled as of 12/21/2016. 3. Hypertension. 4. Hypothyroidism. 5. Generalized osteoarthritis. 6. Severe cervical spinal stenosis, complicated by myelopathy with weakness of the upper extremitie s. Status post decompression in anterior fusion 10/2014 with marked improvement in weakness in the upper extrem ities. 7. Failed surgical low back syndrome. 8. Generalized weakness. A. Improved as of 12/21/2016. 9. Acute paronychia of the left thumb on 11/28/2016, resolved. 10. Urinary tract infection. A. Culture grew E. coli, colony count greater than 100, 000, organism resistant to Levaquin, bu t sensitive to ceftriaxone and cephalosporins. B. Completed a 10 day course of Cefdinir on 12/19/2016. PLAN: Continue physical therapy. The patient has made excellent overall progress. Will continue t he physical therapy and will target 1 more week here for continued therapy and then I think the juan pablo ent will be able to return to assisted living. She is good with this plan.
[2016-12-21] MEDS: Enoxaparin Sodium 40 MG/0.4 ML SYRINGE SC SCH (18:11)
[2016-12-21] MEDS: traMADol HCl 50 MG TAB PO PRN (19:47)
[2016-12-22] MEDS: traMADol HCl 50 MG TAB PO PRN (02:47)
[2016-12-22] MEDS: Furosemide 40 MG TAB PO SCH ×2 (05:51→14:37)
[2016-12-22] MEDS: Cyclobenzaprine 10 MG TAB PO PRN (08:15)
[2016-12-22] MEDS: Lisinopril 10 MG TAB PO SCH (08:15)
[2016-12-22] MEDS: Gabapentin 100 MG CAP PO SCH ×3 (08:16→20:25)
[2016-12-22] MEDS: Spironolactone 25 MG TAB PO SCH (08:16)
[2016-12-22] MEDS: Polyethylene Glycol 3350 17 GM Packet PO SCH (08:17)
[2016-12-22] MEDS: Levothyroxine Sodium 100 MCG TAB PO SCH (08:17)
[2016-12-22] MEDS: Keri Lotion 15 oz BOT TOP SCH ×2 (08:34→20:27)
[2016-12-22] MEDS: Triamcinolone 0.1% Cream 15 GM TUBE TOP SCH ×2 (08:35→20:27)
[2016-12-22] MEDS: Enoxaparin Sodium 40 MG/0.4 ML SYRINGE SC SCH (18:02)
[2016-12-23] MEDS: Furosemide 40 MG TAB PO SCH ×2 (05:21→14:01)
[2016-12-23] MEDS: Keri Lotion 15 oz BOT TOP SCH ×2 (08:10→20:45)
[2016-12-23] MEDS: Lisinopril 10 MG TAB PO SCH (08:12)
[2016-12-23] MEDS: Gabapentin 100 MG CAP PO SCH ×3 (08:12→20:47)
[2016-12-23] MEDS: Spironolactone 25 MG TAB PO SCH (08:12)
[2016-12-23] MEDS: traMADol HCl 50 MG TAB PO PRN (08:13)
[2016-12-23] MEDS: Levothyroxine Sodium 100 MCG TAB PO SCH (08:13)
[2016-12-23] MEDS: Polyethylene Glycol 3350 17 GM Packet PO SCH (08:14)
[2016-12-23] MEDS: Triamcinolone 0.1% Cream 15 GM TUBE TOP SCH ×2 (08:17→20:50)
[2016-12-23 10:12] LABS: #Basophils 0.1 thou/uL (0.0-0.2); #Eosinphils 0.3 thou/uL (0.0-0.7); #Lymphocytes 1.5 thou/uL (1.20-3.40); #Monocytes 0.3 thou/uL (0.11-0.59); #Neutrophils 3.9 thou/uL (1.40-6.50); %Basophils 0.9 % (0.0-1.0); %Eosinophils 5.6 % (0.0-10.0); %Lymphocytes 24.4 % (21.0-51.0); %Monocytes 5.3 % (0.0-10.0); %Neutrophils 63.8 % (42.0-75.0); Mean Corpuscular HGB CONC 32.1 g/dL (32.0-36.0); Mean Corpuscular Hemoglobin 27.6 pg (27.0-31.0); Mean Platelet Volume 8.4 fL (7.4-10.4); Platelet Count 203 thou/uL (130-400); RBC Distribution Width 12.6 % (11.5-14.5); Red Blood Cell (RBC) Count 3.99 mill/uL (4.20-5.40); White Blood Cell (WBC) Count 6.1 thou/uL (4.8-10.8)
[2016-12-23 10:22] LABS: Anion Gap 14 mmol/L (10-20); BUN (Urea Nitrogen) 23 mg/dL (9.8-20.1); Calc. Creatinine Clearance 107 mL/min (70-130); Calcium 8.6 mg/dL (7.8-10.44); Carbon Dioxide 24 mmol/L (23-31); Chloride 104 mmol/L (98-107); Estimated GFR-MDRD 69; Glucose 189 mg/dL (83-110); Potassium 4.5 mmol/L (3.5-5.1); Sodium 137 mmol/L (136-145)
--- NOTE | 2016-12-23 10:45 | PRG ---
DATE OF SERVICE: 12/23/2016 SUBJECTIVE: The patient said she is feeling better, a little tired this morning as she just complet ed a PT session. Therapist said she is doing very good. Her endurance is improving. Her walking i s improving. She is walking with a walker with wheels with just standby assistance. OBJECTIVE: The patient is standing, walking with the use of her walker. She appears very comfortab le, in no distress. Her temperature is 98.3, pulse 67, respirations 20, O2 sat 96% on room air, blo od pressure 143/76. Her weight is 256, 4 pounds over the last 4 days, up 2 pounds from yesterday. The patient's lungs are clear. Heart, regular rate. Extremities, no edema. A petechial rash that had become confluent and then purplish is fading was no expansion. ASSESSMENT: 1. Cellulitis of the right lower leg. A. Resolved as of 12/09/2016. B. No recurrence as of 12/23/2016. 2. Severe venous insufficiency of the lower extremities. A. Complicated by acute exacerbation with marked increased edema as a result of the cellulitis. 1. Edema is controlled, cellulitis resolved. The blistered area has healed on the right l ower leg as of 12/12/2016. B. Complicated by chronic stasis dermatitis. 1. Control petechial rash fading as of 12/21/2016. C. Controlled as of 12/23/2016. 3. Hypertension. 4. Hypothyroidism. 5. Generalized osteoarthritis. 6. Severe cervical spinal stenosis, complicated by myelopathy with weakness of the upper extremitie s. Status post decompression in anterior fusion 10/2014 with marked improvement in weakness in the upper extrem ities. 7. Failed surgical low back syndrome. 8. Generalized weakness. A. Improved as of 12/23/2016. 9. Acute paronychia of the left thumb on 11/28/2016, resolved. 10. Urinary tract infection. A. Culture grew E. coli, colony count greater than 100, 000, organism resistant to Levaquin, bu t sensitive to ceftriaxone and cephalosporins. B. Completed a 10 day course of Cefdinir on 12/19/2016. PLAN: Continue present care. Continue physical therapy. We will check CBC and basic metabolic [place].
[2016-12-23] MEDS: Enoxaparin Sodium 40 MG/0.4 ML SYRINGE SC SCH (17:45)
[2016-12-23] MEDS: Cyclobenzaprine 10 MG TAB PO PRN (19:38)
[2016-12-23] MEDS: Acetaminophen 325 MG TAB PO PRN (19:38)
[2016-12-24] MEDS: Furosemide 40 MG TAB PO SCH ×2 (05:07→14:29)
[2016-12-24] MEDS: Polyethylene Glycol 3350 17 GM Packet PO SCH (08:28)
[2016-12-24] MEDS: Gabapentin 100 MG CAP PO SCH ×3 (08:28→20:05)
[2016-12-24] MEDS: Levothyroxine Sodium 100 MCG TAB PO SCH (08:31)
[2016-12-24] MEDS: Spironolactone 25 MG TAB PO SCH (08:31)
[2016-12-24] MEDS: Lisinopril 10 MG TAB PO SCH (08:32)
[2016-12-24] MEDS: Keri Lotion 15 oz BOT TOP SCH ×2 (08:32→20:05)
[2016-12-24] MEDS: Triamcinolone 0.1% Cream 15 GM TUBE TOP SCH ×2 (08:33→20:05)
[2016-12-24] MEDS: Enoxaparin Sodium 40 MG/0.4 ML SYRINGE SC SCH (17:07)
[2016-12-25] MEDS: Cyclobenzaprine 10 MG TAB PO PRN (04:29)
[2016-12-25] MEDS: Furosemide 40 MG TAB PO SCH ×2 (05:50→14:12)
[2016-12-25] MEDS: Polyethylene Glycol 3350 17 GM Packet PO SCH (08:20)
[2016-12-25] MEDS: Gabapentin 100 MG CAP PO SCH ×3 (08:21→21:02)
[2016-12-25] MEDS: Levothyroxine Sodium 100 MCG TAB PO SCH (08:23)
[2016-12-25] MEDS: Lisinopril 10 MG TAB PO SCH (08:23)
[2016-12-25] MEDS: Spironolactone 25 MG TAB PO SCH (08:24)
[2016-12-25] MEDS: Triamcinolone 0.1% Cream 15 GM TUBE TOP SCH ×2 (08:25→21:04)
[2016-12-25] MEDS: Keri Lotion 15 oz BOT TOP SCH ×2 (08:25→21:04)
[2016-12-25] MEDS: traMADol HCl 50 MG TAB PO PRN (08:45)
[2016-12-25] MEDS: Enoxaparin Sodium 40 MG/0.4 ML SYRINGE SC SCH (17:07)
[2016-12-26] MEDS: Furosemide 40 MG TAB PO SCH ×2 (06:12→14:50)
[2016-12-26] MEDS: Gabapentin 100 MG CAP PO SCH ×3 (08:25→20:38)
[2016-12-26] MEDS: Lisinopril 10 MG TAB PO SCH (08:26)
[2016-12-26] MEDS: Levothyroxine Sodium 100 MCG TAB PO SCH (08:26)
[2016-12-26] MEDS: Spironolactone 25 MG TAB PO SCH (08:26)
[2016-12-26] MEDS: Keri Lotion 15 oz BOT TOP SCH (08:29)
[2016-12-26] MEDS: Clotrimazole 1% Cream 15 GM TUBE TOP PRN (08:29)
[2016-12-26] MEDS: Polyethylene Glycol 3350 17 GM Packet PO SCH (08:29)
--- NOTE | 2016-12-26 09:21 | PRG ---
DATE OF SERVICE: 12/26/2016 SUBJECTIVE: The patient said she is feeling better. Her legs feel better. She is walking better a nd a little further. She said she is still getting up, but has some assistance. She is really not back to her baseline strength to where she will be able to safely manage in assisted living. OBJECTIVE: The patient is sitting up in a wheelchair, looks very comfortable and in no distress. H er vital signs shows a temperature of 97.8, pulse 70, respirations are 18, O2 sat 95% on room air, b lood pressure 127/60. Her lungs are clear. Heart; regular rate. Extremities, no edema. The purpl deirdre rash on the lower leg continues to fade. This is a result of a petechial rash that became confl uent. No new lesions have occurred. ASSESSMENT: 1. Cellulitis of the right lower leg. A. Resolved as of 12/09/2016. B. No recurrence as of 12/26/2016. 2. Severe venous insufficiency of the lower extremities. A. Complicated by acute exacerbation with marked increased edema as a result of the cellulitis. 1. Edema is controlled, cellulitis resolved. The blistered area has healed on the right l ower leg as of 12/12/2016. B. Complicated by chronic stasis dermatitis. 1. Petechial rash that had become confluent and purplish is still present, but gradually fa ding as of 12/26/2016. C. Controlled as of 12/26/2016. 3. Hypertension. 4. Hypothyroidism. 5. Generalized osteoarthritis. 6. Severe cervical spinal stenosis, complicated by myelopathy with weakness of the upper extremitie s. Status post decompression in anterior fusion 10/2014 with marked improvement in weakness in the upper extrem ities. 7. Failed surgical low back syndrome. 8. Generalized weakness. A. Improved as of 12/23/2016. 9. Acute paronychia of the left thumb on 11/28/2016, resolved. 10. Urinary tract infection. A. Culture grew E. coli, colony count greater than 100, 000, organism resistant to Levaquin, bu t sensitive to ceftriaxone and cephalosporins. B. Completed a 10 day course of Cefdinir on 12/19/2016. PLAN: The patient continues to improve. The petechial rash that had become confluent and purplish is gradually fading. We will continue the physical therapy. She is doing better overall, but has n ot yet reached a safe ability to transfer that would allow her to return to assisted living. Romana coronel had considered letting her go back to assisted living in the next 2-3 days, but think she is goi ng to need longer stay here, probably at least another week to try to help improve on her transfers .
[2016-12-26] MEDS: Triamcinolone 0.1% Cream 15 GM TUBE TOP SCH (14:50)
[2016-12-26] MEDS: Enoxaparin Sodium 40 MG/0.4 ML SYRINGE SC SCH (18:06)
[2016-12-26] MEDS: Emollient 15 oz bottle 450 ML, Triamcinolone Acetonide 200 MG TOP SCH ×2 (21:00)
[2016-12-27] MEDS: Furosemide 40 MG TAB PO SCH ×2 (06:29→13:24)
[2016-12-27] MEDS: Levothyroxine Sodium 100 MCG TAB PO SCH (06:30)
[2016-12-27] MEDS: Lisinopril 10 MG TAB PO SCH (08:45)
[2016-12-27] MEDS: Cyclobenzaprine 10 MG TAB PO PRN (08:45)
[2016-12-27] MEDS: Spironolactone 25 MG TAB PO SCH (08:45)
[2016-12-27] MEDS: Gabapentin 100 MG CAP PO SCH ×3 (08:45→20:47)
[2016-12-27] MEDS: Polyethylene Glycol 3350 17 GM Packet PO SCH (08:46)
[2016-12-27] MEDS: Emollient 15 oz bottle 450 ML, Triamcinolone Acetonide 200 MG TOP SCH ×4 (08:47→20:51)
[2016-12-27] MEDS: Enoxaparin Sodium 40 MG/0.4 ML SYRINGE SC SCH (17:27)
[2016-12-27 22:07] LABS: Bilirubin Negative (Negative); Blood, Urine Negative (Negative); Clarity Hazy (Clear); Glucose, Urine (Dipstick) Negative (Negative); Leukocyte Trace (Negative); Nitrite Negative (Negative); Protein, Urine (Dipstick) Negative (Neg-Trace); Specific Gravity, Urine 1.015 (1.005-1.030); Urobilinogen 0.2 mg/dL (0.2-1.0); pH, Urine 5.5 (5.0-9.0)
[2016-12-27 22:43] LABS: RBC/HPF 0-3 HPF (0-3)
[2016-12-27 22:44] LABS: Bacteria/HPF 4+ HPF (None Seen)
[2016-12-28] MEDS: traMADol HCl 50 MG TAB PO PRN (04:45)
[2016-12-28] MEDS: Furosemide 40 MG TAB PO SCH ×2 (06:11→15:00)
[2016-12-28] MEDS: Levothyroxine Sodium 100 MCG TAB PO SCH (06:12)
[2016-12-28] MEDS: Polyethylene Glycol 3350 17 GM Packet PO SCH (08:18)
[2016-12-28] MEDS: Spironolactone 25 MG TAB PO SCH (08:18)
[2016-12-28] MEDS: Lisinopril 10 MG TAB PO SCH (08:18)
[2016-12-28] MEDS: Gabapentin 100 MG CAP PO SCH ×3 (08:18→20:41)
[2016-12-28] MEDS: Emollient 15 oz bottle 450 ML, Triamcinolone Acetonide 200 MG TOP SCH ×4 (08:19→20:41)
[2016-12-28] MEDS: Cipro 250 MG TAB PO SCH ×2 (08:55→18:00)
[2016-12-28] MEDS ORDERED: Cipro 250 MG TAB PO SCH (09:00)
--- NOTE | 2016-12-28 09:09 | PRG ---
DATE OF SERVICE: 12/28/2016 SUBJECTIVE: The patient said she thinks she is doing a little better with her walking, still needs assistance with transfer such that she could not manage back at assisted living. The patient said s he thinks she has aggravated her chronic low back pain. She has a Gaymar pump that she will use on this and it has helped her with other aches and pains. OBJECTIVE: The patient is sitting up in a wheelchair. She is alert, talkative, appears comfortable and in no distress. Her temperature is 96.4, pulse 74, respirations 20, O2 saturation 94%, blood p ressure 127/60. Lungs are clear. Heart, regular rate. Extremities, trace edema. The purplish ar ea on the left lower leg is continuing to fade. A voided urine specimen was done in response to genevieve quent urination and shows 11-20 WBCs, 4-6 epithelial cells, 4+ bacteria, nitrite negative. ASSESSMENT: 1. Cellulitis of the right lower leg. A. Resolved as of 12/09/2016. B. No recurrence as of 12/28/2016. 2. Severe venous insufficiency of the lower extremities. A. Complicated by acute exacerbation with marked increased edema as a result of the cellulitis. 1. Edema is controlled, cellulitis resolved. The blistered area has healed on the right l ower leg as of 12/12/2016. B. Complicated by chronic stasis dermatitis. 1. Petechial rash that had become confluent and purplish is still present, but gradually fa ding as of 12/28/2016. C. Controlled as of 12/28/2016. 3. Hypertension. 4. Hypothyroidism. 5. Generalized osteoarthritis. 6. Severe cervical spinal stenosis, complicated by myelopathy with weakness of the upper extremitie s. Status post decompression in anterior fusion 10/2014 with marked improvement in weakness in the upper extrem ities. 7. Failed surgical low back syndrome. 8. Generalized weakness. A. Improved as of 12/23/2016. 9. Acute paronychia of the left thumb on 11/28/2016, resolved. 10. Urinary tract infection. A. Culture grew E. coli, colony count greater than 100, 000, organism resistant to Levaquin, bu t sensitive to ceftriaxone and cephalosporins. B. Completed a 10 day course of Cefdinir on 12/19/2016. C. Possible urinary tract infection manifest with frequent urination. Urine culture pending as of 12/28/2016. PLAN: Continue physical therapy. Utilize the Gaymar pump for the low back pain. This will provide moist heat. Continue physical therapy. We will start patient on Cipro for a possible UTI.
[2016-12-28] MEDS: Enoxaparin Sodium 40 MG/0.4 ML SYRINGE SC SCH (17:59)
[2016-12-29] MEDS: traMADol HCl 50 MG TAB PO PRN ×2 (05:19→23:01)
[2016-12-29] MEDS: Cipro 250 MG TAB PO SCH ×2 (05:20→17:50)
[2016-12-29] MEDS: Furosemide 40 MG TAB PO SCH ×2 (05:20→15:55)
[2016-12-29] MEDS: Levothyroxine Sodium 100 MCG TAB PO SCH (05:20)
[2016-12-29] MEDS: Polyethylene Glycol 3350 17 GM Packet PO SCH (09:26)
[2016-12-29] MEDS: Gabapentin 100 MG CAP PO SCH ×3 (09:26→20:22)
[2016-12-29] MEDS: Lisinopril 10 MG TAB PO SCH (09:27)
[2016-12-29] MEDS: Spironolactone 25 MG TAB PO SCH (09:27)
[2016-12-29] MEDS: Emollient 15 oz bottle 450 ML, Triamcinolone Acetonide 200 MG TOP SCH ×4 (09:28→20:22)
[2016-12-29] MEDS: Enoxaparin Sodium 40 MG/0.4 ML SYRINGE SC SCH (17:51)
[2016-12-30] MEDS: Furosemide 40 MG TAB PO SCH ×2 (05:27→14:23)
[2016-12-30] MEDS: Cyclobenzaprine 10 MG TAB PO PRN (05:27)
[2016-12-30] MEDS: Levothyroxine Sodium 100 MCG TAB PO SCH (05:27)
[2016-12-30] MEDS: Cipro 250 MG TAB PO SCH (05:27)
[2016-12-30] MEDS: Spironolactone 25 MG TAB PO SCH (08:24)
[2016-12-30] MEDS: Gabapentin 100 MG CAP PO SCH ×3 (08:25→20:48)
[2016-12-30] MEDS: Emollient 15 oz bottle 450 ML, Triamcinolone Acetonide 200 MG TOP SCH ×4 (08:25→20:48)
[2016-12-30] MEDS: Polyethylene Glycol 3350 17 GM Packet PO SCH (08:25)
[2016-12-30] MEDS: Lisinopril 10 MG TAB PO SCH (08:25)
--- NOTE | 2016-12-30 09:34 | PRG ---
DATE OF SERVICE: 12/30/2016 SUBJECTIVE: The patient said she feels good this morning. Her legs feel good. The rash on the low er legs is fading. She said she is making progress with therapy, but still a little trouble getting up and down. She has not yet at a point where she is comfortable trying to go back to assisted [facility], but that certainly is her goal. OBJECTIVE: The patient is sitting up in a wheelchair, preparing to eat her breakfast. She looks ve ry comfortable, smiling and in no distress. Her vital signs show a temperature of 98.2, pulse 67, r espirations 18, O2 sat 97% on room air, blood pressure 146/65, earlier 128/63. Her lungs are clear. Heart, regular rate. Extremities; there is no edema. The rash over the anterior lower leg is fad ing. The urine culture is growing E. coli, colony count greater than 100,000. Organism is resistan t to Cipro, but sensitive to nitrofurantoin. ASSESSMENT: 1. Cellulitis of the right lower leg. A. Resolved as of 12/09/2016. B. No recurrence as of 12/30/2016. 2. Severe venous insufficiency of the lower extremities. A. Complicated by acute exacerbation with marked increased edema as a result of the cellulitis. 1. Edema is controlled, cellulitis resolved. The blistered area has healed on the right l ower leg as of 12/12/2016. B. Complicated by chronic stasis dermatitis. 1. Petechial rash that had become confluent and purplish is still present, but gradually fa ding as of 12/30/2016. C. Controlled as of 12/30/2016. 3. Hypertension. 4. Hypothyroidism. 5. Generalized osteoarthritis. 6. Severe cervical spinal stenosis, complicated by myelopathy with weakness of the upper extremitie s. Status post decompression in anterior fusion 10/2014 with marked improvement in weakness in the upper extrem ities. 7. Failed surgical low back syndrome. 8. Generalized weakness. A. Improved as of 12/30/2016. 9. Acute paronychia of the left thumb on 11/28/2016, resolved. 10. Urinary tract infection. A. Culture grew E. coli, colony count greater than 100, 000, organism resistant to Levaquin, bu t sensitive to ceftriaxone and cephalosporins. B. Completed a 10 day course of Cefdinir on 12/19/2016. C. Recurrent urinary tract infection, manifest with urinary frequency. Urine culture collected on 12/28/2016 is growing E. coli, colony count greater than 100,000, resistant to the Cipro that was started on 12/28/2016, but sensitive to nitrofurantoin. PLAN: Continue physical therapy. I visited with patient about her continued stay. She is very hap py to remain because her strength and ability to transfer is not such that she could safely go back to assisted living and she really does not want enter a [place] [facility] facility. We will continue therapy. I feel like her condition will continue to improve that will allow her to return to assisted living. We will discontinue the Cipro since the E. coli is resistant and place her on Macrobid 100 mg b.i.d. for 10 days, which the E. coli is sensitive to.
[2016-12-30] MEDS: Nitrofurantoin Monohyd/M-Cryst 100 MG CAP PO SCH ×2 (09:43→20:48)
[2016-12-30] MEDS: Enoxaparin Sodium 40 MG/0.4 ML SYRINGE SC SCH (17:11)
[2016-12-31] MEDS: Furosemide 40 MG TAB PO SCH ×2 (05:45→15:04)
[2016-12-31] MEDS: Levothyroxine Sodium 100 MCG TAB PO SCH (05:45)
[2016-12-31] MEDS: Spironolactone 25 MG TAB PO SCH (08:57)
[2016-12-31] MEDS: Gabapentin 100 MG CAP PO SCH ×3 (08:57→21:24)
[2016-12-31] MEDS: Polyethylene Glycol 3350 17 GM Packet PO SCH (08:57)
[2016-12-31] MEDS: Nitrofurantoin Monohyd/M-Cryst 100 MG CAP PO SCH ×2 (08:58→21:23)
[2016-12-31] MEDS: Lisinopril 10 MG TAB PO SCH (08:58)
[2016-12-31] MEDS: Emollient 15 oz bottle 450 ML, Triamcinolone Acetonide 200 MG TOP SCH ×4 (08:58→21:24)
[2016-12-31] MEDS: Enoxaparin Sodium 40 MG/0.4 ML SYRINGE SC SCH (17:52)
[2017-01-01] MEDS: traMADol HCl 50 MG TAB PO PRN (02:57)
[2017-01-01] MEDS: Levothyroxine Sodium 100 MCG TAB PO SCH (05:18)
[2017-01-01] MEDS: Furosemide 40 MG TAB PO SCH ×2 (05:18→14:57)
[2017-01-01] MEDS: Nitrofurantoin Monohyd/M-Cryst 100 MG CAP PO SCH ×2 (08:19→20:46)
[2017-01-01] MEDS: Lisinopril 10 MG TAB PO SCH (08:19)
[2017-01-01] MEDS: Polyethylene Glycol 3350 17 GM Packet PO SCH (08:20)
[2017-01-01] MEDS: Gabapentin 100 MG CAP PO SCH ×3 (08:20→20:46)
[2017-01-01] MEDS: Spironolactone 25 MG TAB PO SCH (08:20)
[2017-01-01] MEDS: Emollient 15 oz bottle 450 ML, Triamcinolone Acetonide 200 MG TOP SCH ×4 (08:21→20:46)
[2017-01-01] MEDS: Enoxaparin Sodium 40 MG/0.4 ML SYRINGE SC SCH (17:51)
[2017-01-01] MEDS: Ondansetron ODT 4 MG TAB SL PRN (20:46)
[2017-01-02] MEDS: Levothyroxine Sodium 100 MCG TAB PO SCH (05:07)
[2017-01-02] MEDS: Furosemide 40 MG TAB PO SCH ×2 (05:07→14:01)
[2017-01-02] MEDS: Gabapentin 100 MG CAP PO SCH ×3 (08:39→20:15)
--- NOTE | 2017-01-02 08:39 | PRG ---
DATE OF SERVICE: 01/02/2017 SUBJECTIVE: The patient said she is doing alright. She just feels a little weaker. She has been h aving some intermittent nausea, but no vomiting. Suspect this has been related to the Macrobid and I asked the nurse to be sure this is given with food. OBJECTIVE: The patient is sitting up in her wheelchair. She is alert, looks very comfortable, in n o distress. Temp 97.2, pulse 65, respirations 22, O2 sat 98% on room air, blood pressure 131/99. L ungs are clear. Heart, regular rate. Extremities; there is no edema. The purplish discolored rash over the anterior lower leg is still present, but still continues to get a little smaller and fade. ASSESSMENT: 1. Cellulitis of the right lower leg. A. Resolved as of 12/09/2016. B. No recurrence as of 01/02/2017. 2. Severe venous insufficiency of the lower extremities. A. Complicated by acute exacerbation with marked increased edema as a result of the cellulitis. 1. Edema is controlled, cellulitis resolved. The blistered area has healed on the right l ower leg as of 12/12/2016. B. Complicated by chronic stasis dermatitis. 1. Petechial rash that had become confluent and purplish is still present, but gradually fa ding as of 01/02/2017. C. Controlled as of 01/02/2017. 3. Hypertension. 4. Hypothyroidism. 5. Generalized osteoarthritis. 6. Severe cervical spinal stenosis, complicated by myelopathy with weakness of the upper extremitie s. Status post decompression in anterior fusion 10/2014 with marked improvement in weakness in the upper extrem ities. 7. Failed surgical low back syndrome. 8. Generalized weakness. A. Improved as of 01/02/2017. 9. Acute paronychia of the left thumb on 11/28/2016, resolved. 10. Urinary tract infection. A. Culture grew E. coli, colony count greater than 100, 000, organism resistant to Levaquin, bu t sensitive to ceftriaxone and cephalosporins. B. Completed a 10 day course of Cefdinir on 12/19/2016. C. Started on Macrobid on 12/30/2016. PLAN: The patient is on her fourth day of 10 of nitrofurantoin. This is to be given with food to t ry to minimize some of the intermittent nausea. Continue physical therapy.
[2017-01-02] MEDS: Lisinopril 10 MG TAB PO SCH (08:40)
[2017-01-02] MEDS: Nitrofurantoin Monohyd/M-Cryst 100 MG CAP PO SCH ×2 (08:41→20:16)
[2017-01-02] MEDS: Spironolactone 25 MG TAB PO SCH (08:41)
[2017-01-02] MEDS: Polyethylene Glycol 3350 17 GM Packet PO SCH (08:42)
[2017-01-02] MEDS: Emollient 15 oz bottle 450 ML, Triamcinolone Acetonide 200 MG TOP SCH ×4 (08:42→20:16)
[2017-01-02] MEDS: Enoxaparin Sodium 40 MG/0.4 ML SYRINGE SC SCH (17:58)
[2017-01-02] MEDS: Ondansetron ODT 4 MG TAB SL PRN (20:16)
[2017-01-03] MEDS: Furosemide 40 MG TAB PO SCH ×2 (06:11→13:38)
[2017-01-03] MEDS: Levothyroxine Sodium 100 MCG TAB PO SCH (06:12)
[2017-01-03] MEDS: Gabapentin 100 MG CAP PO SCH ×3 (08:46→20:13)
[2017-01-03] MEDS: Polyethylene Glycol 3350 17 GM Packet PO SCH (08:46)
[2017-01-03] MEDS: Nitrofurantoin Monohyd/M-Cryst 100 MG CAP PO SCH ×2 (08:47→20:13)
[2017-01-03] MEDS: Lisinopril 10 MG TAB PO SCH (08:47)
[2017-01-03] MEDS: Emollient 15 oz bottle 450 ML, Triamcinolone Acetonide 200 MG TOP SCH ×4 (08:47→20:16)
[2017-01-03] MEDS: Spironolactone 25 MG TAB PO SCH (08:47)
[2017-01-03] MEDS: Enoxaparin Sodium 40 MG/0.4 ML SYRINGE SC SCH (17:10)
[2017-01-03] MEDS: traMADol HCl 50 MG TAB PO PRN (20:14)
[2017-01-04] MEDS: Furosemide 40 MG TAB PO SCH ×2 (05:53→16:10)
[2017-01-04] MEDS: Levothyroxine Sodium 100 MCG TAB PO SCH (05:54)
[2017-01-04] MEDS: Gabapentin 100 MG CAP PO SCH ×3 (08:55→21:16)
[2017-01-04] MEDS: Spironolactone 25 MG TAB PO SCH (08:55)
[2017-01-04] MEDS: Lisinopril 10 MG TAB PO SCH (08:55)
[2017-01-04] MEDS: Nitrofurantoin Monohyd/M-Cryst 100 MG CAP PO SCH ×2 (08:55→21:16)
[2017-01-04] MEDS: Polyethylene Glycol 3350 17 GM Packet PO SCH (08:56)
--- NOTE | 2017-01-04 10:26 | PRG ---
DATE OF SERVICE: 01/04/2017 SUBJECTIVE: The patient said she is doing better. Her strength is better. She feels better, but s he is still not back to her baseline to where she feels like she can comfortably manage at the [facility]. OBJECTIVE: The patient is sitting up in a wheelchair, alert and oriented x3, appears very comfortab le, in no distress. Temp 98.7, pulse 81, respirations 20, O2 sat 93% on room air, blood pressure 12 2/58. Lungs are clear. Heart, regular rate. Extremities have trace edema, rash present on the low er legs, but this purplish discoloration is very slowly fading. ASSESSMENT: 1. Cellulitis of the right lower leg. A. Resolved as of 12/09/2016. B. No recurrence as of 01/04/2017. 2. Severe venous insufficiency of the lower extremities. A. Complicated by acute exacerbation with marked increased edema as a result of the cellulitis. 1. Edema is controlled, cellulitis resolved. The blistered area has healed on the right l ower leg as of 12/12/2016. B. Complicated by chronic stasis dermatitis. 1. Petechial rash that had become confluent and purplish is still present, but gradually fa ding as of 01/02/2017. C. Controlled as of 01/04/2017. 3. Hypertension. 4. Hypothyroidism. 5. Generalized osteoarthritis. 6. Severe cervical spinal stenosis, complicated by myelopathy with weakness of the upper extremitie s. Status post decompression in anterior fusion 10/2014 with marked improvement in weakness in the upper extrem ities. 7. Failed surgical low back syndrome. 8. Generalized weakness. A. Improved as of 01/04/2017. 9. Acute paronychia of the left thumb on 11/28/2016, resolved. 10. Urinary tract infection. A. Culture grew E. coli, colony count greater than 100, 000, organism resistant to Levaquin, bu t sensitive to ceftriaxone and cephalosporins. B. Completed a 10 day course of Cefdinir on 12/19/2016. C. Started on Macrobid on 12/30/2016. PLAN: The patient continues to gradually improve, her strength is improving, but she is still not s kai enough to be able to manage in assisted living. She is not wanting to go to a [place] [facility] [place]. I think that she will continue to gradually improve such that she will eventually be able to return to assisted living, at least this is the goal that she is trying to achieve and this certainly I thi nk is reasonable. We will continue her physical therapy at least for another week [facility].
[2017-01-04] MEDS: Ondansetron ODT 4 MG TAB SL PRN (13:26)
[2017-01-04] MEDS: Emollient 15 oz bottle 450 ML, Triamcinolone Acetonide 200 MG TOP SCH ×4 (13:27→21:16)
[2017-01-04] MEDS: Enoxaparin Sodium 40 MG/0.4 ML SYRINGE SC SCH (18:48)
[2017-01-05] MEDS: Furosemide 40 MG TAB PO SCH ×2 (06:06→14:58)
[2017-01-05] MEDS: Levothyroxine Sodium 100 MCG TAB PO SCH (06:06)
[2017-01-05] MEDS: Spironolactone 25 MG TAB PO SCH (08:37)
[2017-01-05] MEDS: Lisinopril 10 MG TAB PO SCH (08:38)
[2017-01-05] MEDS: Gabapentin 100 MG CAP PO SCH ×3 (08:38→20:44)
[2017-01-05] MEDS: Nitrofurantoin Monohyd/M-Cryst 100 MG CAP PO SCH ×2 (08:39→20:45)
[2017-01-05] MEDS: Polyethylene Glycol 3350 17 GM Packet PO SCH (08:40)
[2017-01-05] MEDS: Emollient 15 oz bottle 450 ML, Triamcinolone Acetonide 200 MG TOP SCH ×4 (09:51→20:46)
[2017-01-05] MEDS: Enoxaparin Sodium 40 MG/0.4 ML SYRINGE SC SCH (17:32)
[2017-01-06] MEDS: Furosemide 40 MG TAB PO SCH ×2 (05:43→14:35)
[2017-01-06] MEDS: Levothyroxine Sodium 100 MCG TAB PO SCH (05:43)
[2017-01-06] MEDS: Acetaminophen 325 MG TAB PO PRN ×3 (07:51→20:45)
[2017-01-06] MEDS: Spironolactone 25 MG TAB PO SCH (07:51)
[2017-01-06 08:13] LABS: Bilirubin Negative (Negative); Blood, Urine Negative (Negative); Clarity Clear (Clear); Glucose, Urine (Dipstick) Negative (Negative); Leukocyte Negative (Negative); Nitrite Negative (Negative); Protein, Urine (Dipstick) Negative (Neg-Trace); Specific Gravity, Urine 1.015 (1.005-1.030); Urobilinogen 0.2 mg/dL (0.2-1.0); pH, Urine 6.5 (5.0-9.0)
[2017-01-06 08:22] LABS: RBC/HPF None Seen HPF (0-3)
[2017-01-06 08:23] LABS: Bacteria/HPF None Seen HPF (None Seen); WBC/HPF 0-3 HPF (0-3)
[2017-01-06 08:44] LABS: Eosinophils 7 % (0-10); Hemoglobin 11.1 g/dL (12.0-16.0); Lymphocytes 15 % (21-51); MDiff Complete? YES; Mean Corpuscular HGB CONC 33.1 g/dL (32.0-36.0); Mean Corpuscular Hemoglobin 28.7 pg (27.0-31.0); Mean Corpuscular Volume 86.5 fl (81.0-99.0); Mean Platelet Volume 9.2 fL (7.4-10.4); Monocytes 4 % (0-10); Neutrophil 74 % (42-75); PLT Morphology Comment Appears Adequate; Platelet Count 156 thou/uL (130-400); RBC Distribution Width 12.8 % (11.5-14.5); Red Blood Cell (RBC) Count 3.88 mill/uL (4.20-5.40); White Blood Cell (WBC) Count 8.4 thou/uL (4.8-10.8)
[2017-01-06] MEDS: Gabapentin 100 MG CAP PO SCH ×3 (08:58→20:13)
[2017-01-06] MEDS: Lisinopril 10 MG TAB PO SCH (08:58)
[2017-01-06] MEDS: Nitrofurantoin Monohyd/M-Cryst 100 MG CAP PO SCH ×2 (08:58→20:12)
[2017-01-06] MEDS: Polyethylene Glycol 3350 17 GM Packet PO SCH (08:58)
[2017-01-06] MEDS: Emollient 15 oz bottle 450 ML, Triamcinolone Acetonide 200 MG TOP SCH ×4 (08:59→20:13)
[2017-01-06] MEDS: Ondansetron ODT 4 MG TAB SL PRN ×2 (09:06→17:24)
--- NOTE | 2017-01-06 09:10 | PRG ---
DATE OF SERVICE: 01/06/2017 SUBJECTIVE: The patient said she does not feel quite as well this morning, yet she said she has had a little chill. She said the nurses told her she had a little fever this morning. Yesterday she s aid she was coughing a little bit. OBJECTIVE: The patient is lying in bed, is alert and appears comfortable in no distress. Her vital signs show her temp is 100.8. Her pulse 86, respirations 20, O2 sat was 93% on 2 liters. Earlier the O2 sat was 88, blood pressure 136/63. Lungs are clear. Heart, regular rate. Lower extremities , no edema. The purplish rash on the lower legs continues to fade. A cath UA was done and showed s pecific gravity 1.015, nitrite was negative, WBCs, 0-3, epithelials cells, 4-6, RBCs none seen, and no bacteria was seen. Chest x-ray has been just completed, report has not yet been seen and CBC pen ding. ASSESSMENT: 1. Cellulitis of the right lower leg. A. Resolved as of 12/09/2016. B. No recurrence as of 01/06/2017. 2. Severe venous insufficiency of the lower extremities. A. Complicated by acute exacerbation with marked increased edema as a result of the cellulitis. 1. Edema is controlled, cellulitis resolved. The blistered area has healed on the right l ower leg as of 12/12/2016. B. Complicated by chronic stasis dermatitis. 1. Petechial rash that had become confluent and purplish is still present, but gradually fa ding as of 01/06/2017. C. Controlled as of 01/06/2017. 3. Hypertension. 4. Hypothyroidism. 5. Generalized osteoarthritis. 6. Severe cervical spinal stenosis, complicated by myelopathy with weakness of the upper extremitie s. Status post decompression in anterior fusion 10/2014 with marked improvement in weakness in the upper extrem ities. 7. Failed surgical low back syndrome. 8. Generalized weakness. A. Improved as of 01/04/2017. 9. Acute paronychia of the left thumb on 11/28/2016, resolved. 10. Urinary tract infection. A. Culture grew E. coli, colony count greater than 100, 000, organism resistant to Levaquin, bu t sensitive to ceftriaxone and cephalosporins. B. Completed a 10 day course of Cefdinir on 12/19/2016. C. Started on Macrobid on 12/30/2016. D. Cath UA shows no WBCs, nor bacteria as of 01/06/2017. 11. Fever up to 100.8 as of 01/06/2017. PLAN: Cath UA was obtained this morning and reviewed and showed no evidence of infection. CBC orde red and pending and chest x-ray has been completed, but film has not been posted, this will be revie wed. The patient is presently on the Macrodantin for the urinary tract infection that she will comp lete on 01/08/2017. We will review chest x-ray before further recommendations are made.
--- NOTE | 2017-01-06 10:25 | RAD ---
PORTABLE CHEST 1 VIEW: Date: 01/06/17 Time: 0904 hours HISTORY: Coronary artery disease. FINDINGS: Comparison made with exam of 12/05/16. The heart is enlarged. The lungs are well expanded without focal areas of consolidation, pneumothora x, gera pulmonary edema, or pleural effusions. There is continued mild elevation of the right hemid iaphragm. IMPRESSION: No acute process. POS: DOUGLAS
[2017-01-06] MEDS: Enoxaparin Sodium 40 MG/0.4 ML SYRINGE SC SCH (18:02)
[2017-01-07] MEDS: Furosemide 40 MG TAB PO SCH ×2 (04:40→14:25)
[2017-01-07] MEDS: Acetaminophen 325 MG TAB PO PRN ×3 (04:40→16:52)
[2017-01-07] MEDS: Levothyroxine Sodium 100 MCG TAB PO SCH (04:40)
[2017-01-07] MEDS: Polyethylene Glycol 3350 17 GM Packet PO SCH (08:50)
[2017-01-07] MEDS: Nitrofurantoin Monohyd/M-Cryst 100 MG CAP PO SCH (08:50)
[2017-01-07] MEDS: Spironolactone 25 MG TAB PO SCH (08:50)
[2017-01-07] MEDS: Lisinopril 10 MG TAB PO SCH (08:52)
[2017-01-07] MEDS: Gabapentin 100 MG CAP PO SCH ×3 (08:52→20:41)
[2017-01-07] MEDS: Emollient 15 oz bottle 450 ML, Triamcinolone Acetonide 200 MG TOP SCH ×4 (08:58→20:44)
[2017-01-07 09:20] LABS: Hemoglobin 10.2 g/dL (12.0-16.0); Mean Corpuscular HGB CONC 33.3 g/dL (32.0-36.0); Mean Corpuscular Volume 86.9 fl (81.0-99.0); Mean Platelet Volume 8.9 fL (7.4-10.4); Platelet Count 152 thou/uL (130-400); RBC Distribution Width 12.6 % (11.5-14.5); Red Blood Cell (RBC) Count 3.51 mill/uL (4.20-5.40); White Blood Cell (WBC) Count 9.4 thou/uL (4.8-10.8)
[2017-01-07 09:21] LABS: Lymphocytes 15 % (21-51); MDiff Complete? YES; Neutrophil 77 % (42-75)
[2017-01-07 09:22] LABS: Eosinophils 5 % (0-10); Hypochromia SLIGHT = 6-15 cells (100X) (0-5/hpf); Monocytes 3 % (0-10)
--- NOTE | 2017-01-07 12:43 | PRG ---
DATE OF SERVICE: 01/07/2017 SUBJECTIVE: The patient said she feels better today. Yesterday, she developed headache, generalize d aches and pains, fatigue, sore throat and temperature did go up to 102. Her chest x-ray showed no change. No evidence of acute infiltrate. CBC and urine were normal. A nasal swab was performed f or influenza A and B both of which were negative. It is felt that the patient probably has flu-like illness, just remained symptomatically, now this is morning of 01/07/2017, she said she feels santos r. Her throat is not hurting her. Her head is not hurting. She is still a little tired. The nurs es noticed that she developed a little rash over her lower extremities. The patient did say she had a little itching on her bottom. OBJECTIVE: The patient lying in bed, looks alert, looks like she feels well and appears in no distr ess. Her vital signs shows a temperature of 100.8, her temperature max went up to 101.9 last evenin g, her blood pressure is 107/53, pulse 80, respirations 18, O2 sat 92% on 1 liter. Her O2 sat had b een down to 86% on room air. Lungs are clear. Heart, regular rate. Lower extremities, there is tr garima edema. A purplish confluent petechial rash that had formed over the lower leg continues to fade . The patient though has developed a new rash over the lower extremities that is macular eruption a nd did not see any on the trunk as of yet. Her lab shows an H\T\H of 10.2 and 30.4. White cell cou nt 9400 with 77% segs, 15% lymphocytes, and platelet count 152,000. ASSESSMENT: 1. Cellulitis of the right lower leg. A. Resolved as of 12/09/2016. B. No recurrence as of 01/07/2017. 2. Severe venous insufficiency of the lower extremities. A. Complicated by acute exacerbation with marked increased edema as a result of the cellulitis. 1. Edema is controlled, cellulitis resolved. The blistered area has healed on the right l ower leg as of 12/12/2016. B. Complicated by chronic stasis dermatitis. 1. Petechial rash that had become confluent and purplish is still present, but gradually fa ding as of 01/07/2017. C. Controlled except for some mild edema as of 01/07/2017. 3. Hypertension. 4. Hypothyroidism. 5. Generalized osteoarthritis. 6. Severe cervical spinal stenosis, complicated by myelopathy with weakness of the upper extremitie s. Status post decompression in anterior fusion 10/2014 with marked improvement in weakness in the upper extrem ities. 7. Failed surgical low back syndrome. 8. Generalized weakness. A. Improved as of 01/04/2017. 9. Acute paronychia of the left thumb on 11/28/2016, resolved. 10. Urinary tract infection. A. Culture grew E. coli, colony count greater than 100, 000, organism resistant to Levaquin, bu t sensitive to ceftriaxone and cephalosporins. B. Completed a 10 day course of Cefdinir on 12/19/2016. C. Started on Macrobid on 12/30/2016. D. Cath UA shows no WBCs, nor bacteria as of 01/06/2017. 11. Flu-like illness, onset 01/06/2017. A. Symptoms little improved, fever diminished, but not resolved as of 01/07/2017. 12. Macular eruption over the lower extremity. A. Suspect related to the Macrobid that was started on 12/30/2016. PLAN: The patient overall looks better today. I do not see any source of any bacterial infection. I feel like this has probably been a flu-like illness. We will continue to observe her. She has d eveloped a little macular eruption over the lower extremity that may be associated with this febrile illness, probable viral, but also could be related to the Macrobid. This is patient's 9th day of M acrobid. She did receive a dose this morning. We will discontinue this. Continue to observe if sh e spikes temperature, again we will obtain blood cultures. For now we will just continue symptomati c therapy.
[2017-01-07] MEDS: Enoxaparin Sodium 40 MG/0.4 ML SYRINGE SC SCH (17:56)
[2017-01-07] MEDS: traMADol HCl 50 MG TAB PO PRN (20:41)
[2017-01-08] MEDS: Levothyroxine Sodium 100 MCG TAB PO SCH (05:46)
[2017-01-08] MEDS: Furosemide 40 MG TAB PO SCH ×2 (05:46→13:58)
[2017-01-08] MEDS: Acetaminophen 325 MG TAB PO PRN (05:48)
[2017-01-08 08:10] LABS: Anion Gap 14 mmol/L (10-20); BUN (Urea Nitrogen) 28 mg/dL (9.8-20.1); Calc. Creatinine Clearance 77 mL/min (70-130); Calcium 7.8 mg/dL (7.8-10.44); Carbon Dioxide 25 mmol/L (23-31); Chloride 101 mmol/L (98-107); Estimated GFR-MDRD 48; Glucose 123 mg/dL (83-110); Potassium 4.1 mmol/L (3.5-5.1); Sodium 136 mmol/L (136-145)
[2017-01-08 08:23] LABS: #Basophils 0.1 thou/uL (0.0-0.2); #Eosinphils 0.8 thou/uL (0.0-0.7); #Lymphocytes 1.2 thou/uL (1.20-3.40); #Monocytes 0.5 thou/uL (0.11-0.59); %Basophils 0.7 % (0.0-1.0); %Eosinophils 8.2 % (0.0-10.0); %Lymphocytes 12.8 % (21.0-51.0); %Monocytes 5.6 % (0.0-10.0); %Neutrophils 72.7 % (42.0-75.0); Hemoglobin 9.9 g/dL (12.0-16.0); Mean Corpuscular HGB CONC 34.7 g/dL (32.0-36.0); Mean Corpuscular Volume 86.4 fl (81.0-99.0); Mean Platelet Volume 8.8 fL (7.4-10.4); Platelet Count 158 thou/uL (130-400); RBC Distribution Width 12.6 % (11.5-14.5); Red Blood Cell (RBC) Count 3.31 mill/uL (4.20-5.40); White Blood Cell (WBC) Count 9.7 thou/uL (4.8-10.8)
[2017-01-08] MEDS: Gabapentin 100 MG CAP PO SCH ×3 (08:24→20:50)
[2017-01-08] MEDS: Spironolactone 25 MG TAB PO SCH (08:24)
[2017-01-08] MEDS: Polyethylene Glycol 3350 17 GM Packet PO SCH (08:25)
[2017-01-08] MEDS: Emollient 15 oz bottle 450 ML, Triamcinolone Acetonide 200 MG TOP SCH ×4 (08:28→20:53)
[2017-01-08] MEDS: Lisinopril 10 MG TAB PO SCH (10:03)
--- NOTE | 2017-01-08 13:45 | PRG ---
DATE OF SERVICE: 01/08/2017 SUBJECTIVE: The patient said she feels better today. Still just a little nauseated, but has not koch d any vomiting. Her headaches are much better and she is no longer having the sore throat. She has been coughing some, intermittently has required supplemental O2. Overall, she thinks she is better . OBJECTIVE: GENERAL: The patient is sitting up in bed, having just eaten her breakfast. She appears comfortabl e and in no distress. VITAL SIGNS: Her temperature is 99.8; maximum temp last evening is 101.4. Her pulse 94, respiratio ns 19, O2 sat 91% on room air, blood pressure 127/61. LUNGS: Clear. HEART: Regular rate. EXTREMITIES: Patient's macular eruption over the lower extremities, more pronounced today. LABORATORY DATA: Her lab shows an H\T\H of 9.9 and 28.6, white cell count 9700 with 73% segs, 13% l ymphocytes, and platelet count of 158,000. Her sodium is 136, potassium 4.1, BUN 28, creatinine 1.1 , glucose 122. ASSESSMENT: 1. Cellulitis of the right lower leg. A. Resolved as of 12/09/2016. B. No recurrence as of 01/08/2017. 2. Severe venous insufficiency of the lower extremities. A. Complicated by acute exacerbation with marked increased edema as a result of the cellulitis. 1. Edema is controlled, cellulitis resolved. The blistered area has healed on the right l ower leg as of 12/12/2016. B. Complicated by chronic stasis dermatitis. 1. Petechial rash that had become confluent and purplish is still present, but gradually fa ding as of 01/08/2017. C. Controlled except for some mild edema as of 01/08/2017. 3. Hypertension. 4. Hypothyroidism. 5. Generalized osteoarthritis. 6. Severe cervical spinal stenosis, complicated by myelopathy with weakness of the upper extremitie s. Status post decompression in anterior fusion 10/2014 with marked improvement in weakness in the upper extrem ities. 7. Failed surgical low back syndrome. 8. Generalized weakness. A. Improved as of 01/04/2017. 9. Acute paronychia of the left thumb on 11/28/2016, resolved. 10. Urinary tract infection. A. Culture grew E. coli, colony count greater than 100, 000, organism resistant to Levaquin, bu t sensitive to ceftriaxone and cephalosporins. B. Completed a 10 day course of Cefdinir on 12/19/2016. C. Started on Macrobid on 12/30/2016. D. Cath UA shows no WBCs, nor bacteria as of 01/06/2017. 11. Flu-like illness, onset 01/06/2017. A. Symptoms have continud to improve, still running a low-grade fever as of 01/08/2017. 12. Macular eruption over the lower extremity. A. Suspect related to the Macrobid that was started on 12/30/2016. B. Etiology suspect related to the Macrobid and/or the underlying flu-like illness, stable as o f 01/08/2017. PLAN: Continue present care.
[2017-01-08] MEDS: Enoxaparin Sodium 40 MG/0.4 ML SYRINGE SC SCH (18:21)
[2017-01-09] MEDS: Furosemide 40 MG TAB PO SCH ×2 (05:13→15:11)
[2017-01-09] MEDS: Levothyroxine Sodium 100 MCG TAB PO SCH (05:13)
[2017-01-09 07:16] LABS: #Basophils 0.1 thou/uL (0.0-0.2); #Eosinphils 0.9 thou/uL (0.0-0.7); #Lymphocytes 1.3 thou/uL (1.20-3.40); #Monocytes 0.5 thou/uL (0.11-0.59); #Neutrophils 4.2 thou/uL (1.40-6.50); %Basophils 0.9 % (0.0-1.0); %Eosinophils 12.3 % (0.0-10.0); %Lymphocytes 19.2 % (21.0-51.0); %Monocytes 7.2 % (0.0-10.0); %Neutrophils 60.5 % (42.0-75.0); Hemoglobin 10.2 g/dL (12.0-16.0); Mean Corpuscular HGB CONC 33.1 g/dL (32.0-36.0); Mean Corpuscular Hemoglobin 28.5 pg (27.0-31.0); Mean Corpuscular Volume 86.1 fl (81.0-99.0); Mean Platelet Volume 8.2 fL (7.4-10.4); Platelet Count 172 thou/uL (130-400); RBC Distribution Width 12.7 % (11.5-14.5); Red Blood Cell (RBC) Count 3.57 mill/uL (4.20-5.40); White Blood Cell (WBC) Count 6.9 thou/uL (4.8-10.8)
[2017-01-09] MEDS: Lisinopril 10 MG TAB PO SCH (08:20)
[2017-01-09] MEDS: Gabapentin 100 MG CAP PO SCH ×3 (08:21→20:03)
[2017-01-09] MEDS: Spironolactone 25 MG TAB PO SCH (08:22)
[2017-01-09] MEDS: Polyethylene Glycol 3350 17 GM Packet PO SCH (08:23)
[2017-01-09] MEDS: Emollient 15 oz bottle 450 ML, Triamcinolone Acetonide 200 MG TOP SCH ×4 (08:24→20:03)
--- NOTE | 2017-01-09 10:19 | PRG ---
DATE OF SERVICE: 01/09/2017 SUBJECTIVE: The patient said she is feeling better. There is no headache, no sore throat. She meliza d her rash is not bothering her, but it has become more diffuse. OBJECTIVE: The patient is sitting up in a wheelchair. She is alert and appears comfortable in no d istress. Her temperature is 98.8, pulse 71, respirations 18, O2 sat 91% on room air, blood pressure 139/63. Lungs are clear. Heart, regular rate. Skin; the patient has a macular eruption particula rly over the legs, but it has also spread to the trunk and some areas become more confluent. Her la b shows an H\T\H of 10.2 and 30.7, WBC count 6900 with 61% segs, 19% lymphocytes, a platelet count 1 72,000. Yesterday, her sodium was 136, potassium 4.1, BUN 28, creatinine 1.1, GFR of 48, glucose 12 3. ASSESSMENT: 1. Cellulitis of the right lower leg. A. Resolved as of 12/09/2016. B. No recurrence as of 01/09/2017. 2. Severe venous insufficiency of the lower extremities. A. Complicated by acute exacerbation with marked increased edema as a result of the cellulitis. 1. Edema is controlled, cellulitis resolved. The blistered area has healed on the right l ower leg as of 12/12/2016. B. Complicated by chronic stasis dermatitis. 1. Petechial rash that had become confluent and purplish is still present, but gradually fa ding as of 01/08/2017. C. Controlled except for some mild edema as of 01/09/2017. 3. Hypertension. 4. Hypothyroidism. 5. Generalized osteoarthritis. 6. Severe cervical spinal stenosis, complicated by myelopathy with weakness of the upper extremitie s. Status post decompression in anterior fusion 10/2014 with marked improvement in weakness in the upper extrem ities. 7. Failed surgical low back syndrome. 8. Generalized weakness. A. Improved as of 01/04/2017. 9. Acute paronychia of the left thumb on 11/28/2016, resolved. 10. Urinary tract infection. A. Culture grew E. coli, colony count greater than 100, 000, organism resistant to Levaquin, bu t sensitive to ceftriaxone and cephalosporins. B. Completed a 10 day course of Cefdinir on 12/19/2016. C. Started on Macrobid on 12/30/2016. D. Cath UA shows no WBCs, nor bacteria as of 01/06/2017. 11. Flu-like illness, onset 01/06/2017. A. Symptoms have resolved and also the fever as of 01/09/2017. 12. Macular rash over the trunk and extremities. A. Suspect related to her underlying viral illness. PLAN: Continue present care. Continue physical therapy. May utilized the Kenalog cream over the a reas of rash that are itchy.
[2017-01-09] MEDS: Enoxaparin Sodium 40 MG/0.4 ML SYRINGE SC SCH (17:52)
[2017-01-10] MEDS: Furosemide 40 MG TAB PO SCH ×2 (05:40→13:22)
[2017-01-10] MEDS: Levothyroxine Sodium 100 MCG TAB PO SCH (05:40)
[2017-01-10] MEDS: Gabapentin 100 MG CAP PO SCH ×3 (08:07→20:35)
[2017-01-10] MEDS: Lisinopril 10 MG TAB PO SCH (08:07)
[2017-01-10] MEDS: traMADol HCl 50 MG TAB PO PRN (08:08)
[2017-01-10] MEDS: Spironolactone 25 MG TAB PO SCH (08:08)
[2017-01-10] MEDS: Polyethylene Glycol 3350 17 GM Packet PO SCH (08:43)
[2017-01-10] MEDS: Emollient 15 oz bottle 450 ML, Triamcinolone Acetonide 200 MG TOP SCH ×4 (08:43→20:35)
--- NOTE | 2017-01-10 10:14 | PRG ---
DATE OF SERVICE: 01/10/2017 SUBJECTIVE: The patient said she is feeling better today. She said she thinks her rash is better a nd she has had no fever. OBJECTIVE: The patient is sitting up in a wheelchair having breakfast. She appears very comfortabl e and in no distress. Her temperature is 97.9, pulse 65, respirations 20, O2 sat 96% on room air, b lood pressure 153/70. Lungs are clear. Heart, regular rate. Skin; the macular rash that is over t he trunk and extremities that has become confluent in many areas is fading, but not resolved. ASSESSMENT: 1. Cellulitis of the right lower leg. A. Resolved as of 12/09/2016. B. No recurrence as of 01/10/2017. 2. Severe venous insufficiency of the lower extremities. A. Complicated by acute exacerbation with marked increased edema as a result of the cellulitis. 1. Edema is controlled, cellulitis resolved. The blistered area has healed on the right l ower leg as of 12/12/2016. B. Complicated by chronic stasis dermatitis. 1. Petechial rash that had become confluent and purplish is still present, but gradually fa ding as of 01/08/2017. C. Controlled except for some mild edema as of 01/10/2017. 3. Hypertension. 4. Hypothyroidism. 5. Generalized osteoarthritis. 6. Severe cervical spinal stenosis, complicated by myelopathy with weakness of the upper extremitie s. Status post decompression in anterior fusion 10/2014 with marked improvement in weakness in the upper extrem ities. 7. Failed surgical low back syndrome. 8. Generalized weakness. A. Improved as of 01/04/2017. 9. Acute paronychia of the left thumb on 11/28/2016, resolved. 10. Urinary tract infection. A. Culture grew E. coli, colony count greater than 100, 000, organism resistant to Levaquin, bu t sensitive to ceftriaxone and cephalosporins. B. Completed a 10 day course of Cefdinir on 12/19/2016. C. Started on Macrobid on 12/30/2016. D. Cath UA shows no WBCs, nor bacteria as of 01/06/2017. 11. Flu-like illness, onset 01/06/2017. A. Symptoms have resolved and also the fever as of 01/09/2017. B. Patient remains afebrile, symptoms resolved and rash beginning to fade a little as of 2016. 12. Macular rash over the trunk and extremities. A. Suspect related to her underlying viral illness. B. Improved as of 01/10/2017. PLAN: Continue present care. Continue PT.
[2017-01-10] MEDS: Enoxaparin Sodium 40 MG/0.4 ML SYRINGE SC SCH (17:52)
[2017-01-10] MEDS: Acetaminophen 325 MG TAB PO PRN (21:47)
[2017-01-11 05:06] LABS: Anion Gap 13 mmol/L (10-20); BUN (Urea Nitrogen) 19 mg/dL (9.8-20.1); Calc. Creatinine Clearance 111 mL/min (70-130); Calcium 8.3 mg/dL (7.8-10.44); Carbon Dioxide 25 mmol/L (23-31); Chloride 104 mmol/L (98-107); Estimated GFR-MDRD 72; Glucose 136 mg/dL (83-110); Sodium 138 mmol/L (136-145)
[2017-01-11] MEDS: Furosemide 40 MG TAB PO SCH ×2 (05:13→14:30)
[2017-01-11] MEDS: Levothyroxine Sodium 100 MCG TAB PO SCH (05:13)
[2017-01-11] MEDS: Spironolactone 25 MG TAB PO SCH (08:05)
[2017-01-11] MEDS: Polyethylene Glycol 3350 17 GM Packet PO SCH (08:05)
[2017-01-11] MEDS: Gabapentin 100 MG CAP PO SCH ×3 (08:06→20:06)
[2017-01-11] MEDS: Lisinopril 10 MG TAB PO SCH (08:06)
[2017-01-11] MEDS: Emollient 15 oz bottle 450 ML, Triamcinolone Acetonide 200 MG TOP SCH ×4 (08:08→20:06)
--- NOTE | 2017-01-11 08:57 | PRG ---
DATE OF SERVICE: 01/11/2017 SUBJECTIVE: The patient feels good this morning. She said she has not had any more fever and her r homer is fading. She is working with physical therapy and making progress. She does not yet feel com fortable yet trying to return to assisted living. OBJECTIVE: The patient is sitting up in a wheelchair. She is alert and appears very comfortable an d in no distress. Her vital signs show a temperature of 97.5, pulse 84, respirations 22, O2 sat 97% on room air, blood pressure 139/60. Lungs are clear. Heart, regular rate. Legs have just trace e myles, a little purplish rash over the anterior lower legs has continued to fade and resolve. Her ma cular eruption over the extremities and trunk is fading and looks much better. ASSESSMENT: 1. Cellulitis of the right lower leg. A. Resolved as of 12/09/2016. B. No recurrence as of 01/11/2017. 2. Severe venous insufficiency of the lower extremities. A. Complicated by acute exacerbation with marked increased edema as a result of the cellulitis. 1. Edema is controlled, cellulitis resolved. The blistered area has healed on the right l ower leg as of 12/12/2016. B. Complicated by chronic stasis dermatitis. 1. Petechial rash that had become confluent and purplish is still present, but gradually fa ding as of 01/08/2017. C. Controlled except for some mild edema as of 01/11/2017. 3. Hypertension. 4. Hypothyroidism. 5. Generalized osteoarthritis. 6. Severe cervical spinal stenosis, complicated by myelopathy with weakness of the upper extremitie s. Status post decompression in anterior fusion 10/2014 with marked improvement in weakness in the upper extrem ities. 7. Failed surgical low back syndrome. 8. Generalized weakness. A. Improved as of 01/11/2017. 9. Acute paronychia of the left thumb on 11/28/2016, resolved. 10. Urinary tract infection. A. Culture grew E. coli, colony count greater than 100, 000, organism resistant to Levaquin, bu t sensitive to ceftriaxone and cephalosporins. B. Completed a 10 day course of Cefdinir on 12/19/2016. C. Started on Macrobid on 12/30/2016. D. Cath UA shows no WBCs, nor bacteria as of 01/06/2017. 11. Flu-like illness, onset 01/06/2017. A. Symptoms have resolved and also the fever as of 01/09/2017. B. Resolved with gradual fading of the macular rash as of 01/11/2017. 12. Macular rash over the trunk and extremities. A. Suspect related to her underlying viral illness. B. Improved with fading of the rash as of 01/11/2017. PLAN: Continue present care. Continue physical therapy. The patient's condition is gradually impr oving. Her strength is gradually improving, but she is still not quite ready to return to assisted living. She is still having some trouble with transfers. We will target next week for probable dis charge to assisted living.
[2017-01-11] MEDS: Enoxaparin Sodium 40 MG/0.4 ML SYRINGE SC SCH (18:14)
[2017-01-11] MEDS: Cyclobenzaprine 10 MG TAB PO PRN (18:22)
[2017-01-12] MEDS: Furosemide 40 MG TAB PO SCH ×2 (05:45→14:04)
[2017-01-12] MEDS: Levothyroxine Sodium 100 MCG TAB PO SCH (05:45)
[2017-01-12] MEDS: Polyethylene Glycol 3350 17 GM Packet PO SCH (08:25)
[2017-01-12] MEDS: Gabapentin 100 MG CAP PO SCH ×3 (08:26→20:11)
[2017-01-12] MEDS: Spironolactone 25 MG TAB PO SCH (08:26)
[2017-01-12] MEDS: Lisinopril 10 MG TAB PO SCH (08:27)
[2017-01-12] MEDS: Emollient 15 oz bottle 450 ML, Triamcinolone Acetonide 200 MG TOP SCH ×4 (08:27→20:11)
[2017-01-12] MEDS: Cyclobenzaprine 10 MG TAB PO PRN (09:13)
[2017-01-12] MEDS: Acetaminophen 325 MG TAB PO PRN (09:13)
[2017-01-12] MEDS: Enoxaparin Sodium 40 MG/0.4 ML SYRINGE SC SCH (17:59)
[2017-01-13] MEDS: Acetaminophen 325 MG TAB PO PRN (03:13)
[2017-01-13] MEDS: Cyclobenzaprine 10 MG TAB PO PRN (03:13)
[2017-01-13] MEDS: Levothyroxine Sodium 100 MCG TAB PO SCH (05:48)
[2017-01-13] MEDS: Furosemide 40 MG TAB PO SCH ×2 (05:48→14:38)
[2017-01-13] MEDS: Spironolactone 25 MG TAB PO SCH (08:47)
[2017-01-13] MEDS: Gabapentin 100 MG CAP PO SCH ×3 (08:47→20:36)
[2017-01-13] MEDS: Lisinopril 10 MG TAB PO SCH (08:47)
[2017-01-13] MEDS: Polyethylene Glycol 3350 17 GM Packet PO SCH (08:48)
[2017-01-13] MEDS: Emollient 15 oz bottle 450 ML, Triamcinolone Acetonide 200 MG TOP SCH ×4 (08:48→20:37)
--- NOTE | 2017-01-13 10:34 | PRG ---
DATE OF SERVICE: 01/13/2017 SUBJECTIVE: The patient said she is feeling good. She had a good night. She has had no more fever . She is getting better with her strength, still having trouble with her transfer, but this is also improving. OBJECTIVE: The patient is sitting up in a wheelchair. She is alert, smiling, and appears very comf ortable and in no distress. Her temperature is 98, pulse 67, respirations 20, O2 sat 95% on room ai r, blood pressure 173/74, last night was 130/60. The patient has not yet had her blood pressure med icine this morning. Her lungs are clear. Heart, regular rate. Extremities, no edema. The macular eruption over the trunk and extremities are all resolving. The purplish rash over the anterior low er leg continues to fade and slowly resolve. ASSESSMENT: 1. Cellulitis of the right lower leg. A. Resolved as of 12/09/2016. B. No recurrence as of 01/13/2017. 2. Severe venous insufficiency of the lower extremities. A. Complicated by acute exacerbation with marked increased edema as a result of the cellulitis. 1. Edema is controlled, cellulitis resolved. The blistered area has healed on the right l ower leg as of 12/12/2016. B. Complicated by chronic stasis dermatitis. 1. Petechial rash that had become confluent and purplish is still present, but gradually fa ding as of 01/08/2017. C. Controlled as of 01/13/2017. 3. Hypertension. 4. Hypothyroidism. 5. Generalized osteoarthritis. 6. Severe cervical spinal stenosis, complicated by myelopathy with weakness of the upper extremitie s. Status post decompression in anterior fusion 10/2014 with marked improvement in weakness in the upper extrem ities. 7. Failed surgical low back syndrome. 8. Generalized weakness. A. Improved, still is needing assistance with transfers as of 01/13/2017. 9. Acute paronychia of the left thumb on 11/28/2016, resolved. 10. Urinary tract infection. A. Culture grew E. coli, colony count greater than 100, 000, organism resistant to Levaquin, bu t sensitive to ceftriaxone and cephalosporins. B. Completed a 10 day course of Cefdinir on 12/19/2016. C. Started on Macrobid on 12/30/2016. D. Cath UA shows no WBCs, nor bacteria as of 01/06/2017. 11. Flu-like illness, onset 01/06/2017. A. Symptoms have resolved and also the fever as of 01/09/2017. B. Resolved as of 01/13/2017. 12. Macular rash over the trunk and extremities. A. Suspect related to her underlying viral illness. B. Resolving as of 01/13/2017. PLAN: Continue present care. Continue the physical therapy. The patient's hope is maybe next week to return to assisted living, but that will depend upon by her ability to safely transfer independe ntly. Therapy is working on this.
[2017-01-13] MEDS: Enoxaparin Sodium 40 MG/0.4 ML SYRINGE SC SCH (18:02)
[2017-01-13] MEDS: traMADol HCl 50 MG TAB PO PRN (20:36)
[2017-01-14] MEDS: Furosemide 40 MG TAB PO SCH ×2 (05:44→14:53)
[2017-01-14] MEDS: Levothyroxine Sodium 100 MCG TAB PO SCH (05:44)
[2017-01-14] MEDS: Lisinopril 10 MG TAB PO SCH (09:37)
[2017-01-14] MEDS: Spironolactone 25 MG TAB PO SCH (09:37)
[2017-01-14] MEDS: Gabapentin 100 MG CAP PO SCH ×3 (09:37→20:41)
[2017-01-14] MEDS: Polyethylene Glycol 3350 17 GM Packet PO SCH (09:38)
[2017-01-14] MEDS: Emollient 15 oz bottle 450 ML, Triamcinolone Acetonide 200 MG TOP SCH ×4 (09:38→20:43)
[2017-01-14] MEDS: Enoxaparin Sodium 40 MG/0.4 ML SYRINGE SC SCH (17:55)
[2017-01-15] MEDS: traMADol HCl 50 MG TAB PO PRN (03:23)
[2017-01-15] MEDS: Furosemide 40 MG TAB PO SCH ×2 (05:27→14:52)
[2017-01-15] MEDS: Levothyroxine Sodium 100 MCG TAB PO SCH (05:27)
[2017-01-15] MEDS: Polyethylene Glycol 3350 17 GM Packet PO SCH (08:45)
[2017-01-15] MEDS: Emollient 15 oz bottle 450 ML, Triamcinolone Acetonide 200 MG TOP SCH ×4 (08:46→20:56)
[2017-01-15] MEDS: Lisinopril 10 MG TAB PO SCH (08:46)
[2017-01-15] MEDS: Gabapentin 100 MG CAP PO SCH ×3 (08:46→20:55)
[2017-01-15] MEDS: Spironolactone 25 MG TAB PO SCH (08:46)
[2017-01-15] MEDS: Enoxaparin Sodium 40 MG/0.4 ML SYRINGE SC SCH (17:36)
[2017-01-16] MEDS: Levothyroxine Sodium 100 MCG TAB PO SCH (06:01)
[2017-01-16] MEDS: Furosemide 40 MG TAB PO SCH ×2 (06:01→14:00)
[2017-01-16] MEDS: Spironolactone 25 MG TAB PO SCH (07:59)
[2017-01-16] MEDS: Polyethylene Glycol 3350 17 GM Packet PO SCH (09:35)
[2017-01-16] MEDS: Gabapentin 100 MG CAP PO SCH ×3 (09:35→20:34)
[2017-01-16] MEDS: Lisinopril 10 MG TAB PO SCH (09:36)
[2017-01-16] MEDS: Emollient 15 oz bottle 450 ML, Triamcinolone Acetonide 200 MG TOP SCH ×4 (09:37→20:34)
--- NOTE | 2017-01-16 10:54 | PRG ---
DATE OF SERVICE: 01/16/2017 SUBJECTIVE: The patient thinks she is doing fine. She has no complaints this morning. OBJECTIVE: GENERAL: The patient is sitting up in her wheelchair. She is alert and appears very comfortable an d in no distress. VITAL SIGNS: Her temperature is 98, pulse 72, blood pressure 126/60, respirations 20, and O2 satura tions 96% on room air. LUNGS: Clear. HEART: Regular rate. EXTREMITIES: Lower extremities, edema is just trace. The purplish rash on the anterior lower legs continues to fade and she gradually resolving, macular ruptures resolved. ASSESSMENT: 1. Cellulitis of the right lower leg. A. Resolved as of 12/09/2016. B. No recurrence as of 01/16/2017. 2. Severe venous insufficiency of the lower extremities. A. Complicated by acute exacerbation with marked increased edema as a result of the cellulitis. 1. Edema is controlled, cellulitis resolved. The blistered area has healed on the right l ower leg as of 12/12/2016. B. Complicated by chronic stasis dermatitis. 1. Petechial rash that had become confluent and purplish is still present, but gradually fa ding as of 01/08/2017. C. Controlled as of 01/16/2017. 3. Hypertension. 4. Hypothyroidism. 5. Generalized osteoarthritis. 6. Severe cervical spinal stenosis, complicated by myelopathy with weakness of the upper extremitie s. Status post decompression in anterior fusion 10/2014 with marked improvement in weakness in the upper extrem ities. 7. Failed surgical low back syndrome. 8. Generalized weakness. A. Continued improvement and still needing assistance with transfers as of 01/16/2017. 9. Acute paronychia of the left thumb on 11/28/2016, resolved. 10. Urinary tract infection. A. Culture grew E. coli, colony count greater than 100, 000, organism resistant to Levaquin, bu t sensitive to ceftriaxone and cephalosporins. B. Completed a 10 day course of Cefdinir on 12/19/2016. C. Started on Macrobid on 12/30/2016. D. Cath UA shows no WBCs, nor bacteria as of 01/06/2017. 11. Flu-like illness, onset 01/06/2017. A. Symptoms have resolved and also the fever as of 01/09/2017. B. Resolved as of 01/16/2017. 12. Macular rash over the trunk and extremities. A. Suspect related to her underlying viral illness. B. Resolving as of 01/13/2017. PLAN: Continue physical therapy, once the patient is able to more independently transfer and safely , we will consider transferring back to assisted living.
[2017-01-16] MEDS: Enoxaparin Sodium 40 MG/0.4 ML SYRINGE SC SCH (17:47)
[2017-01-17] MEDS: Levothyroxine Sodium 100 MCG TAB PO SCH (05:41)
[2017-01-17] MEDS: Furosemide 40 MG TAB PO SCH ×2 (05:42→13:20)
[2017-01-17] MEDS: Lisinopril 10 MG TAB PO SCH (08:24)
[2017-01-17] MEDS: Spironolactone 25 MG TAB PO SCH (08:24)
[2017-01-17] MEDS: Polyethylene Glycol 3350 17 GM Packet PO SCH (08:24)
[2017-01-17] MEDS: Gabapentin 100 MG CAP PO SCH ×3 (08:24→20:37)
[2017-01-17] MEDS: Emollient 15 oz bottle 450 ML, Triamcinolone Acetonide 200 MG TOP SCH ×4 (08:25→20:38)
[2017-01-17] MEDS: Cyclobenzaprine 10 MG TAB PO PRN (16:58)
[2017-01-17] MEDS: traMADol HCl 50 MG TAB PO PRN (16:59)
[2017-01-17] MEDS: Enoxaparin Sodium 40 MG/0.4 ML SYRINGE SC SCH (17:02)
[2017-01-18] MEDS: Furosemide 40 MG TAB PO SCH ×2 (05:58→14:09)
[2017-01-18] MEDS: Levothyroxine Sodium 100 MCG TAB PO SCH (05:59)
[2017-01-18] MEDS: Spironolactone 25 MG TAB PO SCH (08:04)
--- NOTE | 2017-01-18 09:08 | PRG ---
DATE OF SERVICE: 01/18/2017 SUBJECTIVE: The patient said she feels better. She has had no fever. She said she is walking bett er. She is getting up easier, but still says she has get up off at night, still needs a little help . She is still unsure if she could accomplish this without us, at least a standby assistance in an assisted living. OBJECTIVE: GENERAL: The patient is sitting up in a wheelchair. She is alert and appears very comfortable, in no distress. VITAL SIGNS: Show temperature 97.8, pulse 60, respirations 18, O2 sat 97% on room air, blood pressu re 137/60. LUNGS: Clear. HEART: Regular rate. SKIN: Macular eruption has resolved. Her rash over the anterior lower leg continues to fade. She does have just trace edema of the lower legs. ASSESSMENT: 1. Cellulitis of the right lower leg. A. Resolved as of 12/09/2016. B. No recurrence as of 01/18/2017. 2. Severe venous insufficiency of the lower extremities. A. Complicated by acute exacerbation with marked increased edema as a result of the cellulitis. 1. Edema is controlled, cellulitis resolved. The blistered area has healed on the right l ower leg as of 12/12/2016. B. Complicated by chronic stasis dermatitis. 1. Petechial rash that had become confluent and purplish is still present, but gradually fa ding as of 01/08/2017. C. Controlled as of 01/18/2017. 3. Hypertension. 4. Hypothyroidism. 5. Generalized osteoarthritis. 6. Severe cervical spinal stenosis, complicated by myelopathy with weakness of the upper extremitie s. Status post decompression in anterior fusion 10/2014 with marked improvement in weakness in the upper extrem ities. 7. Failed surgical low back syndrome. 8. Generalized weakness. A. Continued improvement and still needing assistance with transfers as of 01/16/2017. 9. Acute paronychia of the left thumb on 11/28/2016, resolved. 10. Urinary tract infection. A. Culture grew E. coli, colony count greater than 100, 000, organism resistant to Levaquin, bu t sensitive to ceftriaxone and cephalosporins. B. Completed a 10 day course of Cefdinir on 12/19/2016. C. Started on Macrobid on 12/30/2016. D. Cath UA shows no WBCs, nor bacteria as of 01/06/2017. 11. Flu-like illness, onset 01/06/2017. A. Symptoms have resolved and also the fever as of 01/09/2017. B. Resolved as of 01/16/2017. 12. Macular rash over the trunk and extremities. A. Suspect related to her underlying viral illness. B. Resolving as of 01/13/2017. PLAN: Overall, the patient is making continual progress. She still though having a little trouble with her transfer and needing at least some standby assistance. I am sure that she will have adequa te help in the assisted living. After visiting with her, she will remain here for continued strengt hening exercise, gait training, and work on her transfers. She hopes to be able to return to assist ed living.
[2017-01-18] MEDS: Polyethylene Glycol 3350 17 GM Packet PO SCH (09:18)
[2017-01-18] MEDS: Lisinopril 10 MG TAB PO SCH (09:19)
[2017-01-18] MEDS: Gabapentin 100 MG CAP PO SCH ×3 (09:19→21:37)
[2017-01-18] MEDS: Emollient 15 oz bottle 450 ML, Triamcinolone Acetonide 200 MG TOP SCH ×4 (09:27→21:38)
[2017-01-18] MEDS: Enoxaparin Sodium 40 MG/0.4 ML SYRINGE SC SCH (17:57)
[2017-01-19] MEDS: traMADol HCl 50 MG TAB PO PRN (06:22)
[2017-01-19] MEDS: Furosemide 40 MG TAB PO SCH ×2 (06:22→14:41)
[2017-01-19] MEDS: Levothyroxine Sodium 100 MCG TAB PO SCH (06:22)
[2017-01-19] MEDS: Spironolactone 25 MG TAB PO SCH (06:26)
[2017-01-19] MEDS: Emollient 15 oz bottle 450 ML, Triamcinolone Acetonide 200 MG TOP SCH ×4 (08:40→22:27)
[2017-01-19] MEDS: Lisinopril 10 MG TAB PO SCH (08:41)
[2017-01-19] MEDS: Polyethylene Glycol 3350 17 GM Packet PO SCH (08:41)
[2017-01-19] MEDS: Gabapentin 100 MG CAP PO SCH ×3 (08:46→22:25)
[2017-01-19] MEDS: Enoxaparin Sodium 40 MG/0.4 ML SYRINGE SC SCH (17:53)
[2017-01-20] MEDS: traMADol HCl 50 MG TAB PO PRN ×3 (06:10→21:13)
[2017-01-20] MEDS: Levothyroxine Sodium 100 MCG TAB PO SCH (06:10)
[2017-01-20] MEDS: Furosemide 40 MG TAB PO SCH ×2 (06:11→15:19)
[2017-01-20] MEDS: Spironolactone 25 MG TAB PO SCH (09:14)
[2017-01-20] MEDS: Lisinopril 10 MG TAB PO SCH (09:14)
[2017-01-20] MEDS: Polyethylene Glycol 3350 17 GM Packet PO SCH (09:15)
[2017-01-20] MEDS: Gabapentin 100 MG CAP PO SCH ×3 (09:15→21:14)
[2017-01-20] MEDS: Emollient 15 oz bottle 450 ML, Triamcinolone Acetonide 200 MG TOP SCH ×4 (09:16→21:15)
--- NOTE | 2017-01-20 14:44 | PRG ---
DATE OF SERVICE: 01/20/2017 SUBJECTIVE: The patient thinks she is doing pretty well with the exception. She is having a lot of pain in her low back. She has spondylosis of her low back and has periodic flareups. She said thi s has been limiting her activity, presently the medication and the heat alone helps, but it does not completely relieve the symptoms. OBJECTIVE: GENERAL: The patient is sitting up in a wheelchair. She is alert and appears comfortable in no dis tress. VITAL SIGNS: Her temperature is 98, pulse 68, blood pressure 149/69, respirations 20, O2 sat 93% on room air and blood pressure 135/65. LUNGS: Clear. HEART: Regular rate. EXTREMITIES: Just recent edema. ASSESSMENT: 1. Cellulitis of the right lower leg. A. Resolved as of 12/09/2016. B. No recurrence as of 01/20/2017. 2. Severe venous insufficiency of the lower extremities. A. Complicated by acute exacerbation with marked increased edema as a result of the cellulitis. 1. Edema is controlled, cellulitis resolved. The blistered area has healed on the right l ower leg as of 12/12/2016. B. Complicated by chronic stasis dermatitis. 1. Petechial rash that had become confluent and purplish is still present, but gradually fa ding as of 01/08/2017. C. Controlled as of 01/20/2017. 3. Hypertension. 4. Hypothyroidism. 5. Generalized osteoarthritis. 6. Severe cervical spinal stenosis, complicated by myelopathy with weakness of the upper extremitie s. Status post decompression in anterior fusion 10/2014 with marked improvement in weakness in the upper extrem ities. 7. Failed surgical low back syndrome. A. Acute exacerbation as of 01/20/2017. 8. Generalized weakness. A. Continued improvement and still needing assistance with transfers as of 01/20/2017. 9. Acute paronychia of the left thumb on 11/28/2016, resolved. 10. Urinary tract infection. A. Culture grew E. coli, colony count greater than 100, 000, organism resistant to Levaquin, bu t sensitive to ceftriaxone and cephalosporins. B. Completed a 10 day course of Cefdinir on 12/19/2016. C. Started on Macrobid on 12/30/2016. D. Cath UA shows no WBCs, nor bacteria as of 01/06/2017. 11. Flu-like illness, onset 01/06/2017. A. Symptoms have resolved and also the fever as of 01/09/2017. B. Resolved as of 01/16/2017. 12. Macular rash over the trunk and extremities. A. Suspect related to her underlying viral illness. B. Resolved as of 01/20/2017. PLAN: Will continue the Gaymar pump for more steep to the back. Continue the Tylenol. We will topher ce the patient on prednisone. We will start her off on 20 mg for several days and then taper this. We will also discontinue her Lovenox with her increased activity which she has requested. Continue physical therapy.
[2017-01-21] MEDS: Furosemide 40 MG TAB PO SCH ×2 (06:04→14:02)
[2017-01-21] MEDS: Levothyroxine Sodium 100 MCG TAB PO SCH (06:05)
[2017-01-21] MEDS: Polyethylene Glycol 3350 17 GM Packet PO SCH (08:32)
[2017-01-21] MEDS: Gabapentin 100 MG CAP PO SCH ×3 (08:33→21:22)
[2017-01-21] MEDS: Spironolactone 25 MG TAB PO SCH (08:33)
[2017-01-21] MEDS: Lisinopril 10 MG TAB PO SCH (08:34)
[2017-01-21] MEDS: predniSONE 20 MG TAB PO SCH (08:34)
[2017-01-21] MEDS: Emollient 15 oz bottle 450 ML, Triamcinolone Acetonide 200 MG TOP SCH ×4 (08:34→21:23)
[2017-01-21] MEDS: Acetaminophen 325 MG TAB PO PRN (21:22)
[2017-01-22] MEDS: Furosemide 40 MG TAB PO SCH ×2 (05:27→13:46)
[2017-01-22] MEDS: Levothyroxine Sodium 100 MCG TAB PO SCH (05:27)
[2017-01-22] MEDS: Cyclobenzaprine 10 MG TAB PO PRN ×2 (08:19→22:03)
[2017-01-22] MEDS: Polyethylene Glycol 3350 17 GM Packet PO SCH (08:19)
[2017-01-22] MEDS: Gabapentin 100 MG CAP PO SCH ×3 (08:19→22:02)
[2017-01-22] MEDS: traMADol HCl 50 MG TAB PO PRN (08:20)
[2017-01-22] MEDS: Spironolactone 25 MG TAB PO SCH (08:20)
[2017-01-22] MEDS: Lisinopril 10 MG TAB PO SCH (08:20)
[2017-01-22] MEDS: Emollient 15 oz bottle 450 ML, Triamcinolone Acetonide 200 MG TOP SCH ×4 (08:21→21:00)
[2017-01-22] MEDS: predniSONE 20 MG TAB PO SCH (08:21)
[2017-01-23] MEDS: Levothyroxine Sodium 100 MCG TAB PO SCH (05:54)
[2017-01-23] MEDS: Furosemide 40 MG TAB PO SCH ×2 (05:54→14:30)
[2017-01-23] MEDS: Spironolactone 25 MG TAB PO SCH (09:11)
[2017-01-23] MEDS: Lisinopril 10 MG TAB PO SCH (09:12)
[2017-01-23] MEDS: predniSONE 20 MG TAB PO SCH (09:12)
[2017-01-23] MEDS: Polyethylene Glycol 3350 17 GM Packet PO SCH (09:12)
[2017-01-23] MEDS: Gabapentin 100 MG CAP PO SCH ×3 (09:12→21:27)
--- NOTE | 2017-01-23 09:14 | PRG ---
DATE OF SERVICE: 01/23/2017 SUBJECTIVE: The patient said she is little more tired this morning. Her back is feeling better. OBJECTIVE: The patient is sitting up in a chair. She is alert and appears comfortable and in no di stress. Temp 97.8, pulse 69, respirations 18, blood pressure 133/67, O2 sat 97% on room air. Lungs clear. Heart, regular rate. Extremities have trace edema. ASSESSMENT: 1. Cellulitis of the right lower leg. A. Resolved as of 12/09/2016. B. No recurrence as 01/23/2017. 2. Severe venous insufficiency of the lower extremities. A. Complicated by acute exacerbation with marked increased edema as a result of the cellulitis. 1. Edema is controlled, cellulitis resolved. The blistered area has healed on the right l ower leg as of 12/12/2016. B. Complicated by chronic stasis dermatitis. 1. Petechial rash that had become confluent and purplish is still present, but gradually fa ding as of 01/08/2017. C. Controlled as of 01/23/2017. 3. Hypertension. 4. Hypothyroidism. 5. Generalized osteoarthritis. 6. Severe cervical spinal stenosis, complicated by myelopathy with weakness of the upper extremitie s. Status post decompression in anterior fusion 10/2014 with marked improvement in weakness in the upper extrem ities. 7. Failed surgical low back syndrome. A. Acute exacerbation as of 01/20/2017. 1. Improved as of 01/23/2017. 8. Generalized weakness. A. Continual improvement, still a little bit less anxious about her ability to transfer indepen dently. 9. Acute paronychia of the left thumb on 11/28/2016, resolved. 10. Urinary tract infection. A. Culture grew E. coli, colony count greater than 100, 000, organism resistant to Levaquin, bu t sensitive to ceftriaxone and cephalosporins. B. Completed a 10 day course of Cefdinir on 12/19/2016. C. Started on Macrobid on 12/30/2016. D. Cath UA shows no WBCs, nor bacteria as of 01/06/2017. 11. Flu-like illness, onset 01/06/2017. A. Symptoms have resolved and also the fever as of 01/09/2017. B. Resolved as of 01/16/2017. 12. Macular rash over the trunk and extremities. A. Suspect related to her underlying viral illness. B. Resolved as of 01/20/2017. PLAN: Continue present care. Continue the prednisone. This is her third day of 20 mg.
[2017-01-23] MEDS: Emollient 15 oz bottle 450 ML, Triamcinolone Acetonide 200 MG TOP SCH ×2 (20:00)
[2017-01-23] MEDS: traMADol HCl 50 MG TAB PO PRN (21:24)
[2017-01-24] MEDS: Furosemide 40 MG TAB PO SCH ×2 (05:32→14:43)
[2017-01-24] MEDS: Levothyroxine Sodium 100 MCG TAB PO SCH (05:33)
[2017-01-24] MEDS: Emollient 15 oz bottle 450 ML, Triamcinolone Acetonide 200 MG TOP SCH ×6 (07:42→20:54)
[2017-01-24] MEDS: Spironolactone 25 MG TAB PO SCH (07:43)
[2017-01-24] MEDS: Gabapentin 100 MG CAP PO SCH ×3 (09:01→20:53)
[2017-01-24] MEDS: predniSONE 20 MG TAB PO SCH (09:01)
[2017-01-24] MEDS: Lisinopril 10 MG TAB PO SCH (09:01)
[2017-01-24] MEDS: Polyethylene Glycol 3350 17 GM Packet PO SCH (09:01)
[2017-01-24] MEDS: Acetaminophen 325 MG TAB PO PRN (20:53)
[2017-01-25] MEDS: Furosemide 40 MG TAB PO SCH ×2 (05:59→14:24)
[2017-01-25] MEDS: Levothyroxine Sodium 100 MCG TAB PO SCH (05:59)
[2017-01-25] MEDS: Spironolactone 25 MG TAB PO SCH (08:29)
[2017-01-25] MEDS: predniSONE 20 MG TAB PO SCH (08:32)
[2017-01-25] MEDS: Gabapentin 100 MG CAP PO SCH ×3 (08:32→20:48)
[2017-01-25] MEDS: Lisinopril 10 MG TAB PO SCH (08:32)
[2017-01-25] MEDS: Emollient 15 oz bottle 450 ML, Triamcinolone Acetonide 200 MG TOP SCH ×4 (08:33→20:48)
[2017-01-25] MEDS: Polyethylene Glycol 3350 17 GM Packet PO SCH (08:33)
--- NOTE | 2017-01-25 21:12 | PRG ---
DATE OF SERVICE: 01/25/2017 SUBJECTIVE: The patient said she is feeling better. Her back is better. She is doing better with therapy, getting up and down on her own. OBJECTIVE: GENERAL: The patient is sitting up in a wheelchair, alert, appears in no distress. VITAL SIGNS: Her temp is 97.6, pulse 62, blood pressure 144/78, respirations 18, O2 sat 96% on room air. LUNGS: Clear. HEART: Regular rate. EXTREMITIES: Show chronic stasis changes and trace edema. ASSESSMENT: 1. Cellulitis of the right lower leg. A. Resolved as of 12/09/2016. B. No recurrence as 01/25/2017. 2. Severe venous insufficiency of the lower extremities. A. Complicated by acute exacerbation with marked increased edema as a result of the cellulitis. 1. Edema is controlled, cellulitis resolved. The blistered area has healed on the right l ower leg as of 12/12/2016. B. Complicated by chronic stasis dermatitis. 1. Petechial rash that had become confluent and purplish is still present, but gradually fa ding as of 01/08/2017. C. Controlled as of 01/25/2017. 3. Hypertension. 4. Hypothyroidism. 5. Generalized osteoarthritis. 6. Severe cervical spinal stenosis, complicated by myelopathy with weakness of the upper extremitie s. Status post decompression in anterior fusion 10/2014 with marked improvement in weakness in the upper extrem ities. 7. Failed surgical low back syndrome. A. Acute exacerbation as of 01/20/2017. 1. Continued to improve as of 01/25/2017. 8. Generalized weakness. A. Continued improvement. 9. Acute paronychia of the left thumb on 11/28/2016, resolved. 10. Urinary tract infection. A. Culture grew E. coli, colony count greater than 100, 000, organism resistant to Levaquin, bu t sensitive to ceftriaxone and cephalosporins. B. Completed a 10 day course of Cefdinir on 12/19/2016. C. Started on Macrobid on 12/30/2016. D. Cath UA shows no WBCs, nor bacteria as of 01/06/2017. 11. Flu-like illness, onset 01/06/2017. A. Symptoms have resolved and also the fever as of 01/09/2017. B. Resolved as of 01/16/2017. 12. Macular rash over the trunk and extremities. A. Suspect related to her underlying viral illness. B. Resolved as of 01/20/2017. PLAN: Continue present care. We will reduce the prednisone to 10 mg a day. We will target the dis charge to assisted living on 01/27/2017. The patient thinks her strength has improved such that [facility]
[2017-01-26 04:57] VITALS: BMI 38.8
[2017-01-26] MEDS: Cyclobenzaprine 10 MG TAB PO PRN ×2 (05:16→23:21)
[2017-01-26] MEDS: Furosemide 40 MG TAB PO SCH (05:16)
[2017-01-26] MEDS: Levothyroxine Sodium 100 MCG TAB PO SCH (05:16)
[2017-01-26] MEDS: predniSONE 10 MG TAB PO SCH (08:48)
[2017-01-26] MEDS: Lisinopril 10 MG TAB PO SCH (08:48)
[2017-01-26] MEDS: Gabapentin 100 MG CAP PO SCH ×2 (08:48→20:16)
[2017-01-26] MEDS: Spironolactone 25 MG TAB PO SCH (08:48)
[2017-01-26] MEDS: Polyethylene Glycol 3350 17 GM Packet PO SCH (08:49)
[2017-01-26] MEDS: Emollient 15 oz bottle 450 ML, Triamcinolone Acetonide 200 MG TOP SCH ×4 (08:50→20:18)
[2017-01-27] MEDS: Furosemide 40 MG TAB PO SCH ×3 (05:47→14:54)
[2017-01-27] MEDS: Levothyroxine Sodium 100 MCG TAB PO SCH (05:48)
[2017-01-27] MEDS: Gabapentin 100 MG CAP PO SCH ×2 (07:17→09:55)
[2017-01-27 08:20] VITALS: BP 155/68; TEMP 97.8
[2017-01-27] MEDS: Lisinopril 10 MG TAB PO SCH (09:55)
[2017-01-27] MEDS: predniSONE 10 MG TAB PO SCH (09:55)
[2017-01-27] MEDS: Polyethylene Glycol 3350 17 GM Packet PO SCH (09:56)
[2017-01-27] MEDS: Spironolactone 25 MG TAB PO SCH (09:56)
[2017-01-27] MEDS: Emollient 15 oz bottle 450 ML, Triamcinolone Acetonide 200 MG TOP SCH ×2 (14:54)
--- NOTE | 2017-01-27 22:58 | DIS ---
DATE OF ADMISSION: To Acute Care on 12/06/2016, transferred to extended care on 12/09/2016. DATE OF DISCHARGE: 01/27/2017 FINAL DIAGNOSES: 1. Cellulitis of the right lower leg. A. Resolved as of 12/09/2016. B. No recurrence as 01/27/2017. 2. Severe venous insufficiency of the lower extremities. A. Complicated by acute exacerbation with marked increased edema as a result of the cellulitis. 1. Edema is controlled, cellulitis resolved. The blistered area has healed on the right l ower leg as of 12/12/2016. B. Complicated by chronic stasis dermatitis. 1. Petechial rash that had become confluent and purplish is still present, but gradually fa ding as of 01/08/2017. C. Controlled as of 01/27/2017. 3. Hypertension. 4. Hypothyroidism. 5. Generalized osteoarthritis. 6. Severe cervical spinal stenosis, complicated by myelopathy with weakness of the upper extremitie s. Status post decompression in anterior fusion 10/2014 with marked improvement in weakness in the upper extrem ities. 7. Failed surgical low back syndrome. A. Resolved as of 01/27/2017. 8. Generalized weakness. A. Improved as of 01/27/2017. 9. Acute paronychia of the left thumb on 11/28/2016, resolved. 10. Urinary tract infection. A. Culture grew E. coli, colony count greater than 100, 000, organism resistant to Levaquin, bu t sensitive to ceftriaxone and cephalosporins. B. Completed a 10 day course of Cefdinir on 12/19/2016. C. Started on Macrobid on 12/30/2016. D. Cath UA shows no WBCs, nor bacteria as of 01/06/2017. 11. Flu-like illness, onset 01/06/2017. A. Symptoms have resolved and also the fever as of 01/09/2017. B. Resolved as of 01/16/2017. 12. Macular rash over the trunk and extremities. A. Suspect related to her underlying viral illness. B. Resolved as of 01/20/2017. SUMMARY: The patient is a 76-year-old white female who has a history of severe venous insufficiency of the lower extremities complicated by chronic edema and stasis dermatitis. Additionally, she has hypertension and a failed surgical back syndrome. She also has a history of severe cervical stenos is complicated by myelopathy that left her with near total paralysis of the right upper extremity an d some in the lab after which she underwent a decompressive surgery and anterior fusion on 5 with marked improvement in her use of her arms. She still left weak and difficulty with ambulatio n, but has been able to progress functionally to where she could manage in an assisted living. She ambulates with the use of a walker and was able to transfer and dress independently. The patient wa s brought to the emergency room on the afternoon of the day of admission because of marked increased swelling in the lower extremities and marked increased redness and blistering on the right lower le g. She was much weaker than usual and could not transfer independently and could not ambulate with the use of a walker. On her exam, she appeared weak, but oriented x3. Her temp was 99, O2 sat 96%. Lungs clear. Her legs showed edema of the lower extremities and chronic reddish blue few to the l ower extremity with chronic stasis changes of the right lower leg over the distal third was very pin k and warm to the touch and had been very red and had been blistering over the anterior part of the lower leg. She had recently been treated for an acute paronychia of the left thumb that had resolve d. The patient was admitted to the hospital with the diagnosis of cellulitis of the right lower leg and severe venous insufficiency of the lower extremity. Complicated by an acute exacerbation with marked increased edema, particularly of the right complicated by cellulitis and blistering of the sk in. She also had marked increase weakness where she was at this time, no longer able to managed her ADLs or ambulate her transfer. HOSPITAL COURSE: The patient was admitted to the hospital where she was initially treated with IV L asix and IV antibiotics. She was initially placed at bed rest and she was placed on Claudia lotion wit h Kenalog for the stasis dermatitis and a dressing was applied over the ulcerated skin area, coverin g that area with Silvadene, Adaptic and a wrap, this quickly healed and the cellulitis gradually res olved and the edema resolved allowing her to be switched to oral antibiotics. She was moved to [facility] on 12/09/2016 to complete the IV antibiotics in the care of the legs, the blistered area o f the legs, resolved and the edema resolved. She was left extremely weak and was not able to transf er independently and needed help with walking. Initially during her hospitalization due to her weak ness and the use of the IV Lasix. Hopson catheter was used, this was later stopped. Her edema resol neal and her strength improved some. She was also placed on Lovenox for DVT prophylaxis. Her IV ant ibiotics were able to be discontinued. During her admission, she developed a urinary tract infectio n with E. coli with colony count greater than 100,000, that was sensitive to ceftriaxone. She compl eted a 10-day course of cefdinir on 12/19/2016 and completed a 10-day course of Macrobid. The patie nt had another urinary tract infection that again grew E. coli on 12/28 that was resistant to Cipro and the cephalosporins, but sensitive to nitrofurantoin. She was treated with a 10-day course of [facility] Macrobid and had no more recurrence of the UTI. The patient also developed a viral exanthem manif est with just achiness, fever and a macular eruption that resolved. The patient continued to [facility], made continue progress with her physical therapy. Eventually, she was walking up to 275 feet wit h her rolling walker with just standby assistance. [facility]. She was doing very well. All the edema was resolved. The macular rash had resolved. The ulceration on the anterior right lower leg had resolved. The c ellulitis had resolved. Her strength was back to her baseline where she was ambulating with the use of a walker and transferring independently. She felt at this point, she can now managed back at [facility] assisted living. The patient was discharged to assisted living in [place] on 01/27/2017. DISPOSITION: DIET: Regular diet, no added salt. MEDICATIONS: Acetaminophen 325 mg 2 every 4 hours as needed, cyclobenzaprine 5 mg t.i.d. p.r.n., fu rosemide 40 mg b.i.d., gabapentin 200 mg t.i.d., levothyroxine 100 mcg daily, lisinopril 10 mg daily , Claudia lotion 15 ounces and triamcinolone 200 mg apply to the legs sparingly b.i.d., spironolactone 12.5 mg daily, tramadol 50 mg b.i.d. as needed for pain. FOLLOW UP: The patient will be seen in my office in 2 weeks with a CBC and basic metabolic panel. CODE STATUS: FULL CODE.
== END 2017-01-27 14:50 | DRG 603 ==
LOC: MADMS 11:24
PROVIDERS: ADMIT Family Medicine; ATTEND Family Medicine
DX: L03.115 Cellulitis of right lower limb (principal); G95.89 Other specified diseases of spinal cord; M48.02 Spinal stenosis, cervical region; N39.0 Urinary tract infection, site not specified; L97.911 Non-pressure chronic ulcer of unspecified part of right lower leg limited to breakdown of skin; B96.20 Unspecified Escherichia coli [E. coli] as the cause of diseases classified elsewhere; L03.012 Cellulitis of left finger; B09 Unspecified viral infection characterized by skin and mucous membrane lesions; I87.2 Venous insufficiency (chronic) (peripheral); I10 Essential (primary) hypertension; M15.9 Polyosteoarthritis, unspecified; E03.9 Hypothyroidism, unspecified; Z98.1 Arthrodesis status; R60.0 Localized edema; Z16.23 Resistance to quinolones and fluoroquinolones; M96.1 Postlaminectomy syndrome, not elsewhere classified; M47.896 Other spondylosis, lumbar region
CPT/HCPCS: 36415; 71010; 80048; 81001; 81003; 81015; 85007; 85025; 85027; 87077; 87086; 87186; A4353; G8978-GP-CK; G8979-GP-CJ; J1650; J3301; J7506; J7512; Q0162

== ENCOUNTER 2017-02-24 08:53 | Outpatient (CLI) | payer MEDICARE ==
[2017-02-24 09:36] LABS: Anion Gap 14 mmol/L (10-20); BUN (Urea Nitrogen) 22 mg/dL (9.8-20.1); Calc. Creatinine Clearance 0 mL/min (70-130); Carbon Dioxide 28 mmol/L (23-31); Chloride 103 mmol/L (98-107); Estimated GFR-MDRD 70; Glucose 166 mg/dL (83-110); Potassium 4.6 mmol/L (3.5-5.1); Sodium 140 mmol/L (136-145)
== END 2017-02-24 08:54 | disposition home or self-care (01) ==
LOC: MADLABBHPM 08:53
PROVIDERS: ATTEND Family Medicine
DX: I87.2 Venous insufficiency (chronic) (peripheral) (principal)
CPT/HCPCS: 36415; 80048

== ENCOUNTER 2017-04-07 17:07 | Emergency (ER) | payer MEDICARE ==
[2017-04-07] MEDS ORDERED: cefTRIAXone\\ROCEPHIN 2 GM VIAL ONE (18:16)
[2017-04-07] MEDS ORDERED: Sodium Chloride 0.9% 100 ML BAG ONE (18:20)
[2017-04-07] MEDS ORDERED: Acetaminophen/Codeine 30-300mg Tablet ONE (18:24)
[2017-04-07] MEDS ORDERED: Doxycycline 100 MG CAP ONE (18:24)
[2017-04-07] MEDS ORDERED: diphenhydrAMINE HCl 50 MG/ML 1 ML VIAL ONE (18:24)
[2017-04-07 19:04] LABS: #Basophils 0.1 thou/uL (0.0-0.2); #Eosinphils 0.3 thou/uL (0.0-0.7); #Lymphocytes 1.5 thou/uL (1.20-3.40); #Monocytes 0.5 thou/uL (0.11-0.59); #Neutrophils 5.4 thou/uL (1.40-6.50); %Basophils 0.8 % (0.0-1.0); %Eosinophils 4.1 % (0.0-10.0); %Lymphocytes 19.6 % (21.0-51.0); %Monocytes 5.8 % (0.0-10.0); %Neutrophils 69.8 % (42.0-75.0); Hemoglobin 11.2 g/dL (12.0-16.0); Mean Corpuscular Hemoglobin 28.2 pg (27.0-31.0); Mean Corpuscular Volume 87.9 fl (81.0-99.0); Platelet Count 180 thou/uL (130-400); RBC Distribution Width 12.1 % (11.5-14.5); Red Blood Cell (RBC) Count 3.99 mill/uL (4.20-5.40); White Blood Cell (WBC) Count 7.8 thou/uL (4.8-10.8)
[2017-04-07 19:26] LABS: ALT (SGPT) 10 U/L (8-55); AST (SGOT) 13 U/L (5-34); Albumin 3.9 g/dL (3.4-4.8); Alkaline Phosphatase 82 U/L (40-150); Anion Gap 17 mmol/L (10-20); BUN (Urea Nitrogen) 18 mg/dL (9.8-20.1); Bilirubin, Total 0.3 mg/dL (0.2-1.2); CRP (Inflammatory) 1.59 mg/dL (= or < 0.5); Calc. Creatinine Clearance 0 mL/min (70-130); Calcium 8.8 mg/dL (7.8-10.44); Carbon Dioxide 25 mmol/L (23-31); Chloride 101 mmol/L (98-107); Estimated GFR-MDRD 53; Globulin 3.1 g/dL (2.4-3.5); Glucose 163 mg/dL (83-110); Sodium 139 mmol/L (136-145)
== END 2017-04-07 19:55 ==
LOC: MADERS 17:07
DX: L03.116 Cellulitis of left lower limb (principal); L03.115 Cellulitis of right lower limb; E87.70 Fluid overload, unspecified; I11.0 Hypertensive heart disease with heart failure; I50.9 Heart failure, unspecified; M19.90 Unspecified osteoarthritis, unspecified site; E03.9 Hypothyroidism, unspecified; Z86.73 Personal history of transient ischemic attack (TIA), and cerebral infarction without residual deficits
CPT/HCPCS: 36415; 80053; 83880; 85025; 86140; 96365; 96375; J0696; J1200; J7050

== ENCOUNTER 2017-04-10 16:07 | Inpatient (IN) | payer MEDICARE ==
[2017-04-10 17:25] LABS: #Basophils 0.1 thou/uL (0.0-0.2); #Eosinphils 0.3 thou/uL (0.0-0.7); #Lymphocytes 1.8 thou/uL (1.20-3.40); #Monocytes 0.4 thou/uL (0.11-0.59); #Neutrophils 4.4 thou/uL (1.40-6.50); %Basophils 1.3 % (0.0-1.0); %Eosinophils 4.8 % (0.0-10.0); %Lymphocytes 25.7 % (21.0-51.0); %Monocytes 5.1 % (0.0-10.0); %Neutrophils 63.1 % (42.0-75.0); Hemoglobin 11.5 g/dL (12.0-16.0); Mean Corpuscular HGB CONC 33.1 g/dL (32.0-36.0); Mean Corpuscular Hemoglobin 28.5 pg (27.0-31.0); Platelet Count 195 thou/uL (130-400); RBC Distribution Width 11.9 % (11.5-14.5); Red Blood Cell (RBC) Count 4.04 mill/uL (4.20-5.40); White Blood Cell (WBC) Count 6.9 thou/uL (4.8-10.8)
[2017-04-10] MEDS ORDERED: traMADol HCl 50 MG TAB PO PRN (17:29)
[2017-04-10 17:36] LABS: ALT (SGPT) 9 U/L (8-55); AST (SGOT) 13 U/L (5-34); Alkaline Phosphatase 82 U/L (40-150); Anion Gap 20 mmol/L (10-20); BUN (Urea Nitrogen) 27 mg/dL (9.8-20.1); Bilirubin, Total 0.3 mg/dL (0.2-1.2); Calc. Creatinine Clearance 67 mL/min (70-130); Calcium 8.8 mg/dL (7.8-10.44); Carbon Dioxide 21 mmol/L (23-31); Chloride 99 mmol/L (98-107); Estimated GFR-MDRD 39; Globulin 3.4 g/dL (2.4-3.5); Glucose 173 mg/dL (83-110); Potassium 4.5 mmol/L (3.5-5.1); Protein, Total 7.4 g/dL (6.0-8.3); Sodium 135 mmol/L (136-145)
[2017-04-10 17:46] LABS: Bilirubin Negative (Negative); Blood, Urine Negative (Negative); Clarity Hazy (Clear); Glucose, Urine (Dipstick) Negative (Negative); Leukocyte Negative (Negative); Nitrite Negative (Negative); Protein, Urine (Dipstick) Negative (Neg-Trace); RBC/HPF 0-3 HPF (0-3); Squamous Epithelial 0-3 HPF (0-3); Urobilinogen 0.2 mg/dL (0.2-1.0); WBC/HPF None Seen HPF (0-3)
[2017-04-10 17:47] LABS: Bacteria/HPF Rare-Few HPF (None Seen)
[2017-04-10] MEDS: cefTRIAXone\\ROCEPHIN 2 GM in Sodium Chloride 0.9% 100 ML IVPB SCH (19:25)
[2017-04-10] MEDS: Enoxaparin Sodium 40 MG/0.4 ML SYRINGE SC SCH (19:32)
[2017-04-10] MEDS: traMADol HCl 50 MG TAB PO PRN (19:39)
--- NOTE | 2017-04-10 19:41 | RAD ---
CHEST PA AND LATERAL TWO VIEWS: 04/10/17 HISTORY: 76-year-old female with increased swelling. Heart size is normal. Atherosclerosis of the aorta. No confluent pneumonia, overt edema, or pleural effusion. Stable from prior study. IMPRESSION: Atherosclerosis of the aorta. No acute intrathoracic disease. Stable from prior study. POS: SHAYLEE
[2017-04-10] MEDS: Gabapentin 100 MG CAP PO SCH (20:10)
[2017-04-10] MEDS: Furosemide 40 MG/4 ML VIAL SLOW IVP SCH (20:11)
[2017-04-10] MEDS ORDERED: Keri Lotion 15 oz BOT TOP SCH (21:00)
[2017-04-10] MEDS: Emollient 15 oz bottle 450 ML, Triamcinolone Acetonide 200 MG TOP SCH ×2 (21:02)
[2017-04-11] MEDS: Cyclobenzaprine 10 MG TAB PO PRN ×2 (00:24→14:12)
[2017-04-11 05:21] LABS: #Basophils 0.1 thou/uL (0.0-0.2); #Eosinphils 0.4 thou/uL (0.0-0.7); #Monocytes 0.4 thou/uL (0.11-0.59); #Neutrophils 3.5 thou/uL (1.40-6.50); %Basophils 1.4 % (0.0-1.0); %Eosinophils 5.8 % (0.0-10.0); %Lymphocytes 30.8 % (21.0-51.0); %Monocytes 6.4 % (0.0-10.0); %Neutrophils 55.8 % (42.0-75.0); Hemoglobin 10.6 g/dL (12.0-16.0); Mean Corpuscular HGB CONC 32.9 g/dL (32.0-36.0); Mean Corpuscular Hemoglobin 28.7 pg (27.0-31.0); Mean Corpuscular Volume 87.3 fl (81.0-99.0); Mean Platelet Volume 8.1 fL (7.4-10.4); Platelet Count 186 thou/uL (130-400); RBC Distribution Width 11.6 % (11.5-14.5); Red Blood Cell (RBC) Count 3.69 mill/uL (4.20-5.40); White Blood Cell (WBC) Count 6.3 thou/uL (4.8-10.8)
[2017-04-11 05:35] LABS: Anion Gap 18 mmol/L (10-20); BUN (Urea Nitrogen) 27 mg/dL (9.8-20.1); Calc. Creatinine Clearance 69 mL/min (70-130); Calcium 8.4 mg/dL (7.8-10.44); Carbon Dioxide 22 mmol/L (23-31); Chloride 100 mmol/L (98-107); Estimated GFR-MDRD 40; Glucose 128 mg/dL (83-110); Potassium 4.2 mmol/L (3.5-5.1); Sodium 136 mmol/L (136-145)
[2017-04-11] MEDS: Furosemide 40 MG/4 ML VIAL SLOW IVP SCH ×2 (08:34→20:40)
[2017-04-11] MEDS: Spironolactone 25 MG TAB PO SCH (08:34)
[2017-04-11] MEDS: Gabapentin 100 MG CAP PO SCH ×3 (08:34→20:40)
[2017-04-11] MEDS: Lisinopril 10 MG TAB PO SCH (08:35)
[2017-04-11] MEDS: Polyethylene Glycol 3350 17 GM Packet PO SCH (08:35)
[2017-04-11] MEDS: Emollient 15 oz bottle 450 ML, Triamcinolone Acetonide 200 MG TOP SCH ×4 (08:36→20:45)
[2017-04-11] MEDS ORDERED: Levothyroxine Sodium 100 MCG TAB PO SCH (09:45)
[2017-04-11] MEDS: traMADol HCl 50 MG TAB PO PRN ×2 (09:56→19:26)
[2017-04-11] MEDS: Enoxaparin Sodium 40 MG/0.4 ML SYRINGE SC SCH (17:30)
[2017-04-11] MEDS: cefTRIAXone\\ROCEPHIN 2 GM in Sodium Chloride 0.9% 100 ML IVPB SCH (17:30)
[2017-04-12] MEDS: traMADol HCl 50 MG TAB PO PRN ×2 (02:51→13:26)
[2017-04-12 05:15] LABS: #Basophils 0.1 thou/uL (0.0-0.2); #Eosinphils 0.3 thou/uL (0.0-0.7); #Lymphocytes 1.5 thou/uL (1.20-3.40); #Monocytes 0.6 thou/uL (0.11-0.59); #Neutrophils 4.8 thou/uL (1.40-6.50); %Basophils 1.3 % (0.0-1.0); %Lymphocytes 20.6 % (21.0-51.0); %Monocytes 7.7 % (0.0-10.0); %Neutrophils 66.5 % (42.0-75.0); Hemoglobin 11.2 g/dL (12.0-16.0); Mean Corpuscular HGB CONC 33.7 g/dL (32.0-36.0); Mean Corpuscular Hemoglobin 29.7 pg (27.0-31.0); Mean Corpuscular Volume 87.9 fl (81.0-99.0); Mean Platelet Volume 8.2 fL (7.4-10.4); Platelet Count 193 thou/uL (130-400); RBC Distribution Width 11.8 % (11.5-14.5); Red Blood Cell (RBC) Count 3.76 mill/uL (4.20-5.40); White Blood Cell (WBC) Count 7.3 thou/uL (4.8-10.8)
[2017-04-12 05:30] LABS: Anion Gap 19 mmol/L (10-20); BUN (Urea Nitrogen) 35 mg/dL (9.8-20.1); Calc. Creatinine Clearance 54 mL/min (70-130); Calcium 8.2 mg/dL (7.8-10.44); Carbon Dioxide 22 mmol/L (23-31); Chloride 99 mmol/L (98-107); Estimated GFR-MDRD 30; Glucose 172 mg/dL (83-110); Potassium 5.4 mmol/L (3.5-5.1); Sodium 135 mmol/L (136-145)
[2017-04-12] MEDS: Levothyroxine Sodium 100 MCG TAB PO SCH (05:31)
[2017-04-12 05:32] LABS: Hemoglobin A1c 7.5 % (4.0-6.0)
[2017-04-12] MEDS: Cyclobenzaprine 10 MG TAB PO PRN ×2 (05:40→13:27)
[2017-04-12] MEDS: Clindamycin 150 MG CAP PO SCH ×3 (08:53→23:32)
[2017-04-12] MEDS: Furosemide 40 MG TAB PO SCH ×2 (08:53→13:09)
[2017-04-12] MEDS: Lisinopril 10 MG TAB PO SCH (08:54)
[2017-04-12] MEDS: Polyethylene Glycol 3350 17 GM Packet PO SCH (08:54)
[2017-04-12] MEDS: Gabapentin 100 MG CAP PO SCH ×3 (08:54→20:30)
[2017-04-12] MEDS: Spironolactone 25 MG TAB PO SCH (08:55)
[2017-04-12] MEDS: Emollient 15 oz bottle 450 ML, Triamcinolone Acetonide 200 MG TOP SCH ×4 (08:59→20:36)
[2017-04-12] MEDS: cefTRIAXone\\ROCEPHIN 2 GM in Sodium Chloride 0.9% 100 ML IVPB SCH (17:21)
[2017-04-12] MEDS: Enoxaparin Sodium 40 MG/0.4 ML SYRINGE SC SCH (17:28)
[2017-04-12] MEDS ORDERED: Milk Of Magnesia 30 ML UDCUP PO PRN (23:31)
[2017-04-12] MEDS ORDERED: Bisacodyl 10 MG SUPP PR PRN (23:31)
[2017-04-13 05:28] LABS: Anion Gap 18 mmol/L (10-20); BUN (Urea Nitrogen) 35 mg/dL (9.8-20.1); Calc. Creatinine Clearance 65 mL/min (70-130); Calcium 8.3 mg/dL (7.8-10.44); Carbon Dioxide 23 mmol/L (23-31); Chloride 99 mmol/L (98-107); Estimated GFR-MDRD 38; Glucose 145 mg/dL (83-110); Potassium 5.4 mmol/L (3.5-5.1); Sodium 135 mmol/L (136-145)
[2017-04-13] MEDS: Levothyroxine Sodium 100 MCG TAB PO SCH (05:48)
[2017-04-13 06:18] VITALS: BMI 39.9
[2017-04-13 08:28] VITALS: BP 126/60; TEMP 100.1
[2017-04-13] MEDS: Lisinopril 10 MG TAB PO SCH (08:36)
[2017-04-13] MEDS: Gabapentin 100 MG CAP PO SCH (08:36)
[2017-04-13] MEDS: Polyethylene Glycol 3350 17 GM Packet PO SCH (08:36)
[2017-04-13] MEDS: Furosemide 40 MG TAB PO SCH (08:36)
[2017-04-13] MEDS: Clindamycin 150 MG CAP PO SCH (08:39)
[2017-04-13] MEDS: Emollient 15 oz bottle 450 ML, Triamcinolone Acetonide 200 MG TOP SCH ×2 (08:47)
== END 2017-04-13 09:36 | disposition home or self-care (01) | DRG 603 ==
LOC: MADMS 16:07
PROVIDERS: ADMIT Family Medicine; ATTEND Family Medicine
DX: L03.116 Cellulitis of left lower limb (principal); G95.89 Other specified diseases of spinal cord; I87.2 Venous insufficiency (chronic) (peripheral); M48.02 Spinal stenosis, cervical region; N18.3 Chronic kidney disease, stage 3 (moderate); L03.115 Cellulitis of right lower limb; E03.9 Hypothyroidism, unspecified; M19.90 Unspecified osteoarthritis, unspecified site; Z66 Do not resuscitate; I12.9 Hypertensive chronic kidney disease with stage 1 through stage 4 chronic kidney disease, or unspecified chronic kidney disease; N61.1 Abscess of the breast and nipple
CPT/HCPCS: 36415; 36416; 71020; 80048; 80053; 81001; 83036; 84443; 85025; 87040; A4216; J0696; J1650; J1940; J3301; J7050

== ENCOUNTER 2017-04-12 10:45 | Inpatient (IN) | payer MEDICARE ==
[2017-04-13] MEDS ORDERED: Cyclobenzaprine 10 MG TAB PO PRN (08:12)
[2017-04-13] MEDS ORDERED: Bisacodyl 10 MG SUPP PR PRN (08:12)
[2017-04-13] MEDS ORDERED: Milk Of Magnesia 30 ML UDCUP PO PRN (08:12)
[2017-04-13] MEDS ORDERED: traMADol HCl 50 MG TAB PO PRN ×2 (08:12→14:41)
[2017-04-13] MEDS ORDERED: Gabapentin 100 MG CAP PO SCH (09:00)
[2017-04-13] MEDS ORDERED: Triamcinolone 40 MG/ML VIAL TOP SCH (09:00)
[2017-04-13] MEDS ORDERED: Keri Lotion 15 oz BOT TOP SCH (09:00)
[2017-04-13] MEDS: Acetaminophen 325 MG TAB PO PRN ×2 (10:53→21:12)
[2017-04-13] MEDS: Furosemide 40 MG TAB PO SCH ×2 (10:53→20:58)
[2017-04-13] MEDS: Lisinopril 10 MG TAB PO SCH (10:54)
[2017-04-13] MEDS: Polyethylene Glycol 3350 17 GM Packet PO SCH (10:55)
[2017-04-13] MEDS: Gabapentin 100 MG CAP PO SCH ×2 (14:59→20:58)
[2017-04-13] MEDS: Emollient 15 oz bottle 450 ML, Triamcinolone Acetonide 200 MG TOP SCH ×4 (15:00→20:59)
[2017-04-13] MEDS: Enoxaparin Sodium 40 MG/0.4 ML SYRINGE SC SCH (17:18)
[2017-04-13] MEDS: Clindamycin 150 MG CAP PO SCH (17:18)
[2017-04-13] MEDS: cefTRIAXone\\ROCEPHIN 2 GM VIAL IVPB SCH (17:19)
[2017-04-14] MEDS: Clindamycin 150 MG CAP PO SCH ×3 (00:04→16:35)
[2017-04-14 06:01] LABS: #Basophils 0.1 thou/uL (0.0-0.2); #Eosinphils 0.4 thou/uL (0.0-0.7); #Lymphocytes 1.5 thou/uL (1.20-3.40); #Monocytes 0.5 thou/uL (0.11-0.59); #Neutrophils 5.1 thou/uL (1.40-6.50); %Eosinophils 5.2 % (0.0-10.0); %Lymphocytes 19.5 % (21.0-51.0); %Monocytes 6.5 % (0.0-10.0); %Neutrophils 67.7 % (42.0-75.0); Hemoglobin 10.9 g/dL (12.0-16.0); Mean Corpuscular HGB CONC 33.9 g/dL (32.0-36.0); Mean Corpuscular Hemoglobin 29.7 pg (27.0-31.0); Mean Corpuscular Volume 87.5 fl (81.0-99.0); Mean Platelet Volume 8.1 fL (7.4-10.4); Platelet Count 182 thou/uL (130-400); RBC Distribution Width 11.9 % (11.5-14.5); Red Blood Cell (RBC) Count 3.68 mill/uL (4.20-5.40); White Blood Cell (WBC) Count 7.5 thou/uL (4.8-10.8)
[2017-04-14 06:11] LABS: Anion Gap 18 mmol/L (10-20); BUN (Urea Nitrogen) 35 mg/dL (9.8-20.1); Calc. Creatinine Clearance 75 mL/min (70-130); Calcium 8.5 mg/dL (7.8-10.44); Carbon Dioxide 24 mmol/L (23-31); Chloride 99 mmol/L (98-107); Estimated GFR-MDRD 45; Glucose 138 mg/dL (83-110); Potassium 4.6 mmol/L (3.5-5.1); Sodium 136 mmol/L (136-145)
[2017-04-14] MEDS: Furosemide 40 MG TAB PO SCH ×2 (08:55→21:12)
[2017-04-14] MEDS: Lisinopril 10 MG TAB PO SCH (08:56)
[2017-04-14] MEDS: Polyethylene Glycol 3350 17 GM Packet PO SCH (08:56)
[2017-04-14] MEDS: Gabapentin 100 MG CAP PO SCH ×3 (08:56→21:12)
[2017-04-14] MEDS: Emollient 15 oz bottle 450 ML, Triamcinolone Acetonide 200 MG TOP SCH ×6 (08:58→21:12)
[2017-04-14] MEDS: cefTRIAXone\\ROCEPHIN 2 GM VIAL IVPB SCH (17:24)
[2017-04-14] MEDS: Enoxaparin Sodium 40 MG/0.4 ML SYRINGE SC SCH (17:26)
[2017-04-15] MEDS: Clindamycin 150 MG CAP PO SCH ×3 (00:16→15:19)
[2017-04-15] MEDS: Levothyroxine Sodium 100 MCG TAB PO SCH (06:12)
[2017-04-15 08:40] LABS: Anion Gap 19 mmol/L (10-20); BUN (Urea Nitrogen) 26 mg/dL (9.8-20.1); Calc. Creatinine Clearance 87 mL/min (70-130); Calcium 8.9 mg/dL (7.8-10.44); Carbon Dioxide 25 mmol/L (23-31); Chloride 99 mmol/L (98-107); Estimated GFR-MDRD 55; Glucose 148 mg/dL (83-110); Potassium 4.8 mmol/L (3.5-5.1); Sodium 138 mmol/L (136-145)
[2017-04-15] MEDS: Lisinopril 10 MG TAB PO SCH (08:49)
[2017-04-15] MEDS: Gabapentin 100 MG CAP PO SCH ×3 (08:49→20:17)
[2017-04-15] MEDS: Polyethylene Glycol 3350 17 GM Packet PO SCH (08:49)
[2017-04-15] MEDS: Furosemide 40 MG TAB PO SCH ×2 (08:49→20:16)
[2017-04-15] MEDS: Emollient 15 oz bottle 450 ML, Triamcinolone Acetonide 200 MG TOP SCH ×6 (08:50→20:17)
[2017-04-15] MEDS: Enoxaparin Sodium 40 MG/0.4 ML SYRINGE SC SCH (17:23)
[2017-04-15] MEDS: cefTRIAXone\\ROCEPHIN 2 GM VIAL IVPB SCH (17:24)
[2017-04-16] MEDS: Clindamycin 150 MG CAP PO SCH ×3 (00:03→15:11)
[2017-04-16] MEDS: Levothyroxine Sodium 100 MCG TAB PO SCH (06:01)
[2017-04-16] MEDS: Furosemide 40 MG TAB PO SCH ×2 (08:45→20:46)
[2017-04-16] MEDS: Polyethylene Glycol 3350 17 GM Packet PO SCH (08:46)
[2017-04-16] MEDS: Lisinopril 10 MG TAB PO SCH (08:46)
[2017-04-16] MEDS: Gabapentin 100 MG CAP PO SCH ×3 (08:46→20:46)
[2017-04-16] MEDS: Emollient 15 oz bottle 450 ML, Triamcinolone Acetonide 200 MG TOP SCH ×6 (08:47→20:46)
[2017-04-16] MEDS: Enoxaparin Sodium 40 MG/0.4 ML SYRINGE SC SCH (18:01)
[2017-04-17] MEDS: Clindamycin 150 MG CAP PO SCH ×3 (00:49→16:54)
[2017-04-17] MEDS: Levothyroxine Sodium 100 MCG TAB PO SCH (06:03)
[2017-04-17] MEDS: Lisinopril 10 MG TAB PO SCH (08:37)
[2017-04-17] MEDS: Polyethylene Glycol 3350 17 GM Packet PO SCH (08:38)
[2017-04-17] MEDS: Furosemide 40 MG TAB PO SCH ×2 (08:38→21:14)
[2017-04-17] MEDS: Gabapentin 100 MG CAP PO SCH ×3 (08:38→21:14)
[2017-04-17] MEDS: Emollient 15 oz bottle 450 ML, Triamcinolone Acetonide 200 MG TOP SCH ×6 (08:38→21:14)
[2017-04-17] MEDS: Acetaminophen 325 MG TAB PO PRN (12:16)
[2017-04-17] MEDS: Enoxaparin Sodium 40 MG/0.4 ML SYRINGE SC SCH (17:51)
[2017-04-18] MEDS: Clindamycin 150 MG CAP PO SCH ×4 (00:19→23:55)
[2017-04-18] MEDS: Levothyroxine Sodium 100 MCG TAB PO SCH (05:09)
[2017-04-18] MEDS: Acetaminophen 325 MG TAB PO PRN (09:05)
[2017-04-18] MEDS: Lisinopril 10 MG TAB PO SCH (09:06)
[2017-04-18] MEDS: Polyethylene Glycol 3350 17 GM Packet PO SCH (09:06)
[2017-04-18] MEDS: Gabapentin 100 MG CAP PO SCH ×3 (09:06→21:26)
[2017-04-18] MEDS: Furosemide 40 MG TAB PO SCH ×2 (09:06→21:26)
[2017-04-18] MEDS: Emollient 15 oz bottle 450 ML, Triamcinolone Acetonide 200 MG TOP SCH ×6 (09:07→21:26)
[2017-04-18] MEDS: Enoxaparin Sodium 40 MG/0.4 ML SYRINGE SC SCH (17:04)
[2017-04-19] MEDS: Levothyroxine Sodium 100 MCG TAB PO SCH (05:34)
[2017-04-19] MEDS: Furosemide 40 MG TAB PO SCH ×2 (08:55→20:32)
[2017-04-19] MEDS: Lisinopril 10 MG TAB PO SCH (08:55)
[2017-04-19] MEDS: Gabapentin 100 MG CAP PO SCH ×3 (08:55→20:32)
[2017-04-19] MEDS: Clindamycin 150 MG CAP PO SCH ×3 (08:55→23:52)
[2017-04-19] MEDS: Emollient 15 oz bottle 450 ML, Triamcinolone Acetonide 200 MG TOP SCH ×6 (08:55→20:33)
[2017-04-19] MEDS: Polyethylene Glycol 3350 17 GM Packet PO SCH (08:55)
[2017-04-19] MEDS ORDERED: Mag-Al Plus 1200 MG/1200 MG/120 MG/30 ML UDCUP PO PRN (17:16)
[2017-04-19] MEDS: Enoxaparin Sodium 40 MG/0.4 ML SYRINGE SC SCH (17:26)
[2017-04-20] MEDS: Levothyroxine Sodium 100 MCG TAB PO SCH (05:04)
[2017-04-20] MEDS: Gabapentin 100 MG CAP PO SCH ×3 (08:36→20:39)
[2017-04-20] MEDS: Emollient 15 oz bottle 450 ML, Triamcinolone Acetonide 200 MG TOP SCH ×6 (08:36→20:39)
[2017-04-20] MEDS: Polyethylene Glycol 3350 17 GM Packet PO SCH (08:36)
[2017-04-20] MEDS: Lisinopril 10 MG TAB PO SCH (08:36)
[2017-04-20] MEDS: Furosemide 40 MG TAB PO SCH ×2 (08:36→20:39)
[2017-04-20] MEDS: Clindamycin 150 MG CAP PO SCH ×3 (08:36→23:06)
[2017-04-20] MEDS: Enoxaparin Sodium 40 MG/0.4 ML SYRINGE SC SCH (18:03)
[2017-04-21 05:01] LABS: #Basophils 0.1 thou/uL (0.0-0.2); #Eosinphils 0.4 thou/uL (0.0-0.7); #Lymphocytes 1.8 thou/uL (1.20-3.40); #Monocytes 0.5 thou/uL (0.11-0.59); #Neutrophils 4.2 thou/uL (1.40-6.50); %Basophils 1.4 % (0.0-1.0); %Eosinophils 5.1 % (0.0-10.0); %Lymphocytes 26.3 % (21.0-51.0); %Monocytes 6.6 % (0.0-10.0); %Neutrophils 60.6 % (42.0-75.0); Hemoglobin 10.4 g/dL (12.0-16.0); Mean Corpuscular Hemoglobin 28.6 pg (27.0-31.0); Mean Corpuscular Volume 86.5 fl (81.0-99.0); Mean Platelet Volume 7.4 fL (7.4-10.4); Platelet Count 180 thou/uL (130-400); RBC Distribution Width 11.5 % (11.5-14.5); Red Blood Cell (RBC) Count 3.64 mill/uL (4.20-5.40); White Blood Cell (WBC) Count 6.9 thou/uL (4.8-10.8)
[2017-04-21] MEDS: Levothyroxine Sodium 100 MCG TAB PO SCH (05:09)
[2017-04-21 05:21] LABS: Anion Gap 13 mmol/L (10-20); BUN (Urea Nitrogen) 33 mg/dL (9.8-20.1); Calc. Creatinine Clearance 102 mL/min (70-130); Calcium 8.2 mg/dL (7.8-10.44); Carbon Dioxide 24 mmol/L (23-31); Chloride 103 mmol/L (98-107); Estimated GFR-MDRD 65; Glucose 184 mg/dL (83-110); Potassium 4.5 mmol/L (3.5-5.1); Sodium 135 mmol/L (136-145)
[2017-04-21] MEDS: Furosemide 40 MG TAB PO SCH ×2 (08:27→21:03)
[2017-04-21] MEDS: Gabapentin 100 MG CAP PO SCH ×3 (08:27→21:03)
[2017-04-21] MEDS: Clindamycin 150 MG CAP PO SCH ×3 (08:27→16:19)
[2017-04-21] MEDS: Lisinopril 10 MG TAB PO SCH (08:28)
[2017-04-21] MEDS: Emollient 15 oz bottle 450 ML, Triamcinolone Acetonide 200 MG TOP SCH ×6 (08:28→21:03)
[2017-04-21] MEDS: Polyethylene Glycol 3350 17 GM Packet PO SCH (08:35)
[2017-04-21] MEDS: Enoxaparin Sodium 40 MG/0.4 ML SYRINGE SC SCH (18:12)
[2017-04-21] MEDS: Acetaminophen 325 MG TAB PO PRN (23:29)
[2017-04-21] MEDS ORDERED: Fluconazole 100 MG TAB PO SCH (23:45)
[2017-04-21] MEDS ORDERED: Clotrimazole 1% Cream 15 GM TUBE TOP SCH (23:45)
[2017-04-22] MEDS: Clindamycin 150 MG CAP PO SCH ×3 (00:07→15:32)
[2017-04-22] MEDS: Levothyroxine Sodium 100 MCG TAB PO SCH (05:56)
[2017-04-22] MEDS ORDERED: Fluconazole 100 MG TAB PO SCH (09:00)
[2017-04-22] MEDS: Polyethylene Glycol 3350 17 GM Packet PO SCH (09:27)
[2017-04-22] MEDS: Gabapentin 100 MG CAP PO SCH ×3 (09:27→20:37)
[2017-04-22] MEDS: Furosemide 40 MG TAB PO SCH ×2 (09:28→20:37)
[2017-04-22] MEDS: Clotrimazole 1% Cream 15 GM TUBE TOP SCH ×2 (09:28→20:39)
[2017-04-22] MEDS: Emollient 15 oz bottle 450 ML, Triamcinolone Acetonide 200 MG TOP SCH ×6 (09:31→20:37)
[2017-04-22] MEDS: Lisinopril 10 MG TAB PO SCH (09:31)
[2017-04-22] MEDS: Enoxaparin Sodium 40 MG/0.4 ML SYRINGE SC SCH (18:07)
[2017-04-22] MEDS: Fluconazole 100 MG TAB PO SCH (20:37)
[2017-04-23] MEDS: Clindamycin 150 MG CAP PO SCH ×2 (02:06→09:28)
[2017-04-23] MEDS: Levothyroxine Sodium 100 MCG TAB PO SCH (05:15)
[2017-04-23] MEDS: Polyethylene Glycol 3350 17 GM Packet PO SCH (09:28)
[2017-04-23] MEDS: Gabapentin 100 MG CAP PO SCH ×3 (09:28→20:29)
[2017-04-23] MEDS: Furosemide 40 MG TAB PO SCH ×2 (09:29→20:29)
[2017-04-23] MEDS: Clotrimazole 1% Cream 15 GM TUBE TOP SCH ×2 (09:29→20:28)
[2017-04-23] MEDS: Lisinopril 10 MG TAB PO SCH (09:29)
[2017-04-23] MEDS: Emollient 15 oz bottle 450 ML, Triamcinolone Acetonide 200 MG TOP SCH ×6 (09:29→20:31)
[2017-04-23] MEDS: Enoxaparin Sodium 40 MG/0.4 ML SYRINGE SC SCH (18:05)
[2017-04-23] MEDS: Fluconazole 100 MG TAB PO SCH (20:31)
[2017-04-24] MEDS: Levothyroxine Sodium 100 MCG TAB PO SCH (05:38)
[2017-04-24] MEDS: Furosemide 40 MG TAB PO SCH ×2 (08:45→21:27)
[2017-04-24] MEDS: Lisinopril 10 MG TAB PO SCH (08:45)
[2017-04-24] MEDS: Gabapentin 100 MG CAP PO SCH ×3 (08:45→21:27)
[2017-04-24] MEDS: Emollient 15 oz bottle 450 ML, Triamcinolone Acetonide 200 MG TOP SCH ×6 (08:45→21:27)
[2017-04-24] MEDS: Clotrimazole 1% Cream 15 GM TUBE TOP SCH ×2 (08:46→21:27)
[2017-04-24] MEDS: Polyethylene Glycol 3350 17 GM Packet PO SCH (08:46)
[2017-04-24] MEDS: Enoxaparin Sodium 40 MG/0.4 ML SYRINGE SC SCH (17:30)
[2017-04-24] MEDS: Fluconazole 100 MG TAB PO SCH (21:27)
[2017-04-25] MEDS: Levothyroxine Sodium 100 MCG TAB PO SCH (06:05)
[2017-04-25] MEDS: Lisinopril 10 MG TAB PO SCH (08:30)
[2017-04-25] MEDS: Furosemide 40 MG TAB PO SCH ×2 (08:30→21:42)
[2017-04-25] MEDS: Gabapentin 100 MG CAP PO SCH ×3 (08:30→21:43)
[2017-04-25] MEDS: Clotrimazole 1% Cream 15 GM TUBE TOP SCH ×2 (08:30→21:42)
[2017-04-25] MEDS: Polyethylene Glycol 3350 17 GM Packet PO SCH (08:31)
[2017-04-25] MEDS: Emollient 15 oz bottle 450 ML, Triamcinolone Acetonide 200 MG TOP SCH ×6 (08:31→21:47)
[2017-04-25] MEDS: Enoxaparin Sodium 40 MG/0.4 ML SYRINGE SC SCH (17:58)
[2017-04-25] MEDS: Fluconazole 100 MG TAB PO SCH (21:45)
[2017-04-26] MEDS: Levothyroxine Sodium 100 MCG TAB PO SCH (06:11)
[2017-04-26] MEDS: Polyethylene Glycol 3350 17 GM Packet PO SCH (08:24)
[2017-04-26] MEDS: Furosemide 40 MG TAB PO SCH ×2 (08:24→20:15)
[2017-04-26] MEDS: Gabapentin 100 MG CAP PO SCH ×3 (08:24→20:15)
[2017-04-26] MEDS: Clotrimazole 1% Cream 15 GM TUBE TOP SCH ×2 (08:24→20:16)
[2017-04-26] MEDS: Lisinopril 10 MG TAB PO SCH (08:24)
[2017-04-26] MEDS: Emollient 15 oz bottle 450 ML, Triamcinolone Acetonide 200 MG TOP SCH ×6 (08:26→20:16)
[2017-04-26] MEDS: Enoxaparin Sodium 40 MG/0.4 ML SYRINGE SC SCH (18:14)
[2017-04-26] MEDS: Fluconazole 100 MG TAB PO SCH (20:15)
[2017-04-27] MEDS: Levothyroxine Sodium 100 MCG TAB PO SCH (05:47)
[2017-04-27] MEDS: Gabapentin 100 MG CAP PO SCH ×3 (08:25→20:38)
[2017-04-27] MEDS: Polyethylene Glycol 3350 17 GM Packet PO SCH (08:25)
[2017-04-27] MEDS: Lisinopril 10 MG TAB PO SCH (08:25)
[2017-04-27] MEDS: Furosemide 40 MG TAB PO SCH ×2 (08:25→20:38)
[2017-04-27] MEDS: Clotrimazole 1% Cream 15 GM TUBE TOP SCH ×2 (08:25→20:39)
[2017-04-27] MEDS: Emollient 15 oz bottle 450 ML, Triamcinolone Acetonide 200 MG TOP SCH ×6 (08:26→20:37)
[2017-04-27] MEDS: Acetaminophen 325 MG TAB PO PRN (08:41)
[2017-04-27] MEDS: Enoxaparin Sodium 40 MG/0.4 ML SYRINGE SC SCH (18:38)
[2017-04-27] MEDS: Fluconazole 100 MG TAB PO SCH (20:41)
[2017-04-28] MEDS: Levothyroxine Sodium 100 MCG TAB PO SCH (05:40)
[2017-04-28] MEDS: Clotrimazole 1% Cream 15 GM TUBE TOP SCH ×2 (09:03→21:51)
[2017-04-28] MEDS: Furosemide 40 MG TAB PO SCH ×2 (09:03→21:50)
[2017-04-28] MEDS: Lisinopril 10 MG TAB PO SCH (09:03)
[2017-04-28] MEDS: Gabapentin 100 MG CAP PO SCH ×3 (09:03→21:50)
[2017-04-28] MEDS: Emollient 15 oz bottle 450 ML, Triamcinolone Acetonide 200 MG TOP SCH ×6 (09:04→21:50)
[2017-04-28] MEDS: Polyethylene Glycol 3350 17 GM Packet PO SCH (09:04)
[2017-04-28] MEDS: Enoxaparin Sodium 40 MG/0.4 ML SYRINGE SC SCH (17:01)
[2017-04-28] MEDS: Acetaminophen 325 MG TAB PO PRN (21:50)
[2017-04-29] MEDS: Levothyroxine Sodium 100 MCG TAB PO SCH (05:59)
[2017-04-29] MEDS: Emollient 15 oz bottle 450 ML, Triamcinolone Acetonide 200 MG TOP SCH ×6 (09:00→20:58)
[2017-04-29] MEDS: Lisinopril 10 MG TAB PO SCH (09:32)
[2017-04-29] MEDS: Furosemide 40 MG TAB PO SCH ×2 (09:32→20:58)
[2017-04-29] MEDS: Gabapentin 100 MG CAP PO SCH ×3 (09:32→20:58)
[2017-04-29] MEDS: Clotrimazole 1% Cream 15 GM TUBE TOP SCH ×2 (15:57→20:58)
[2017-04-29] MEDS: Polyethylene Glycol 3350 17 GM Packet PO SCH (18:19)
[2017-04-29] MEDS: Enoxaparin Sodium 40 MG/0.4 ML SYRINGE SC SCH (18:26)
[2017-04-30] MEDS: Levothyroxine Sodium 100 MCG TAB PO SCH (05:41)
[2017-04-30] MEDS: Gabapentin 100 MG CAP PO SCH ×3 (08:47→20:34)
[2017-04-30] MEDS: Lisinopril 10 MG TAB PO SCH (08:47)
[2017-04-30] MEDS: Furosemide 40 MG TAB PO SCH ×2 (08:48→20:34)
[2017-04-30] MEDS: Emollient 15 oz bottle 450 ML, Triamcinolone Acetonide 200 MG TOP SCH ×6 (08:48→20:34)
[2017-04-30] MEDS: Clotrimazole 1% Cream 15 GM TUBE TOP SCH ×2 (08:50→20:34)
[2017-04-30] MEDS: Polyethylene Glycol 3350 17 GM Packet PO SCH (08:50)
[2017-04-30] MEDS: Enoxaparin Sodium 40 MG/0.4 ML SYRINGE SC SCH (17:35)
[2017-05-01] MEDS: Levothyroxine Sodium 100 MCG TAB PO SCH (05:46)
[2017-05-01] MEDS: Lisinopril 10 MG TAB PO SCH (09:14)
[2017-05-01] MEDS: Furosemide 40 MG TAB PO SCH ×2 (09:14→19:27)
[2017-05-01] MEDS: Gabapentin 100 MG CAP PO SCH ×3 (09:14→19:27)
[2017-05-01] MEDS: Clotrimazole 1% Cream 15 GM TUBE TOP SCH ×2 (09:15→19:27)
[2017-05-01] MEDS: Polyethylene Glycol 3350 17 GM Packet PO SCH (09:15)
[2017-05-01] MEDS: Emollient 15 oz bottle 450 ML, Triamcinolone Acetonide 200 MG TOP SCH ×6 (09:16→19:27)
[2017-05-01] MEDS: Enoxaparin Sodium 40 MG/0.4 ML SYRINGE SC SCH (17:18)
[2017-05-02] MEDS: Levothyroxine Sodium 100 MCG TAB PO SCH (05:34)
[2017-05-02] MEDS: Lisinopril 10 MG TAB PO SCH (08:50)
[2017-05-02] MEDS: Gabapentin 100 MG CAP PO SCH ×3 (08:50→20:15)
[2017-05-02] MEDS: Furosemide 40 MG TAB PO SCH ×2 (08:51→20:14)
[2017-05-02] MEDS: Emollient 15 oz bottle 450 ML, Triamcinolone Acetonide 200 MG TOP SCH ×6 (08:51→20:15)
[2017-05-02] MEDS: Polyethylene Glycol 3350 17 GM Packet PO SCH (08:51)
[2017-05-02] MEDS: Clotrimazole 1% Cream 15 GM TUBE TOP SCH ×2 (08:52→20:15)
[2017-05-02] MEDS: Enoxaparin Sodium 40 MG/0.4 ML SYRINGE SC SCH (18:18)
[2017-05-03] MEDS ORDERED: Levothyroxine Sodium 100 MCG TAB ONE (06:00)
[2017-05-03] MEDS ORDERED: Gabapentin 100 MG CAP ONE (09:00)
[2017-05-03] MEDS ORDERED: Lisinopril 10 MG TAB ONE (09:00)
[2017-05-03] MEDS ORDERED: Furosemide 40 MG TAB ONE (09:00)
[2017-05-03] MEDS: Polyethylene Glycol 3350 17 GM Packet PO SCH (11:36)
[2017-05-03] MEDS: Clotrimazole 1% Cream 15 GM TUBE TOP SCH ×2 (11:36→21:49)
[2017-05-03] MEDS: Levothyroxine Sodium 100 MCG TAB PO SCH (11:36)
[2017-05-03] MEDS: Furosemide 40 MG TAB PO SCH ×2 (11:36→21:50)
[2017-05-03] MEDS: Lisinopril 10 MG TAB PO SCH (11:36)
[2017-05-03] MEDS: Gabapentin 100 MG CAP PO SCH ×3 (11:36→21:50)
[2017-05-03] MEDS: Emollient 15 oz bottle 450 ML, Triamcinolone Acetonide 200 MG TOP SCH ×6 (11:37→21:51)
[2017-05-03] MEDS: Enoxaparin Sodium 40 MG/0.4 ML SYRINGE SC SCH (17:55)
[2017-05-04] MEDS: Levothyroxine Sodium 100 MCG TAB PO SCH (05:42)
[2017-05-04] MEDS: Gabapentin 100 MG CAP PO SCH ×3 (09:27→21:54)
[2017-05-04] MEDS: Furosemide 40 MG TAB PO SCH ×2 (09:27→15:09)
[2017-05-04] MEDS: Clotrimazole 1% Cream 15 GM TUBE TOP SCH ×2 (09:27→21:53)
[2017-05-04] MEDS: Lisinopril 10 MG TAB PO SCH (09:27)
[2017-05-04] MEDS: Polyethylene Glycol 3350 17 GM Packet PO SCH (09:28)
[2017-05-04] MEDS: Emollient 15 oz bottle 450 ML, Triamcinolone Acetonide 200 MG TOP SCH ×6 (09:28→21:53)
[2017-05-04] MEDS: Enoxaparin Sodium 40 MG/0.4 ML SYRINGE SC SCH (18:01)
[2017-05-05] MEDS: Levothyroxine Sodium 100 MCG TAB PO SCH (06:34)
[2017-05-05] MEDS: Emollient 15 oz bottle 450 ML, Triamcinolone Acetonide 200 MG TOP SCH ×6 (10:00→21:42)
[2017-05-05] MEDS: Clotrimazole 1% Cream 15 GM TUBE TOP SCH ×2 (10:00→21:43)
[2017-05-05] MEDS: Gabapentin 100 MG CAP PO SCH ×3 (10:03→21:42)
[2017-05-05] MEDS: Furosemide 40 MG TAB PO SCH ×2 (10:03→15:37)
[2017-05-05] MEDS: Lisinopril 10 MG TAB PO SCH (10:04)
[2017-05-05] MEDS: Polyethylene Glycol 3350 17 GM Packet PO SCH (10:04)
[2017-05-05] MEDS: Enoxaparin Sodium 40 MG/0.4 ML SYRINGE SC SCH (18:30)
[2017-05-06] MEDS: Levothyroxine Sodium 100 MCG TAB PO SCH (06:17)
[2017-05-06] MEDS: Gabapentin 100 MG CAP PO SCH ×3 (08:41→21:25)
[2017-05-06] MEDS: Furosemide 40 MG TAB PO SCH ×2 (08:41→15:00)
[2017-05-06] MEDS: Lisinopril 10 MG TAB PO SCH (08:41)
[2017-05-06] MEDS: Polyethylene Glycol 3350 17 GM Packet PO SCH (08:41)
[2017-05-06] MEDS: Emollient 15 oz bottle 450 ML, Triamcinolone Acetonide 200 MG TOP SCH ×6 (08:41→21:25)
[2017-05-06] MEDS: Clotrimazole 1% Cream 15 GM TUBE TOP SCH ×2 (08:42→21:26)
[2017-05-06] MEDS: Enoxaparin Sodium 40 MG/0.4 ML SYRINGE SC SCH (18:00)
[2017-05-07] MEDS: Levothyroxine Sodium 100 MCG TAB PO SCH (05:05)
[2017-05-07] MEDS: Furosemide 40 MG TAB PO SCH ×2 (08:41→15:08)
[2017-05-07] MEDS: Polyethylene Glycol 3350 17 GM Packet PO SCH (08:41)
[2017-05-07] MEDS: Gabapentin 100 MG CAP PO SCH ×3 (08:41→21:45)
[2017-05-07] MEDS: Lisinopril 10 MG TAB PO SCH (08:41)
[2017-05-07] MEDS: Clotrimazole 1% Cream 15 GM TUBE TOP SCH ×2 (08:43→21:46)
[2017-05-07] MEDS: Emollient 15 oz bottle 450 ML, Triamcinolone Acetonide 200 MG TOP SCH ×6 (08:44→21:45)
[2017-05-07] MEDS: Enoxaparin Sodium 40 MG/0.4 ML SYRINGE SC SCH (18:09)
[2017-05-07] MEDS: Acetaminophen 325 MG TAB PO PRN (21:45)
[2017-05-08 06:01] LABS: #Basophils 0.1 thou/uL (0.0-0.2); #Eosinphils 0.4 thou/uL (0.0-0.7); #Lymphocytes 1.5 thou/uL (1.20-3.40); #Monocytes 0.3 thou/uL (0.11-0.59); %Eosinophils 6.3 % (0.0-10.0); %Monocytes 5.3 % (0.0-10.0); %Neutrophils 63.3 % (42.0-75.0); Hemoglobin 10.8 g/dL (12.0-16.0); Mean Corpuscular HGB CONC 32.9 g/dL (32.0-36.0); Mean Platelet Volume 8.6 fL (7.4-10.4); Platelet Count 168 thou/uL (130-400); RBC Distribution Width 11.7 % (11.5-14.5); Red Blood Cell (RBC) Count 3.73 mill/uL (4.20-5.40); White Blood Cell (WBC) Count 6.4 thou/uL (4.8-10.8)
[2017-05-08] MEDS: Levothyroxine Sodium 100 MCG TAB PO SCH (06:01)
[2017-05-08 06:19] LABS: ALT (SGPT) 10 U/L (8-55); AST (SGOT) 10 U/L (5-34); Albumin 3.5 g/dL (3.4-4.8); Alkaline Phosphatase 73 U/L (40-150); Anion Gap 14 mmol/L (10-20); BUN (Urea Nitrogen) 22 mg/dL (9.8-20.1); Bilirubin, Total 0.3 mg/dL (0.2-1.2); Calc. Creatinine Clearance 98 mL/min (70-130); Calcium 8.9 mg/dL (7.8-10.44); Carbon Dioxide 26 mmol/L (23-31); Chloride 105 mmol/L (98-107); Estimated GFR-MDRD 61; Glucose 146 mg/dL (83-110); Potassium 4.3 mmol/L (3.5-5.1); Protein, Total 6.5 g/dL (6.0-8.3); Sodium 141 mmol/L (136-145)
[2017-05-08] MEDS: Furosemide 40 MG TAB PO SCH ×2 (09:11→14:16)
[2017-05-08] MEDS: Gabapentin 100 MG CAP PO SCH ×3 (09:11→21:20)
[2017-05-08] MEDS: Lisinopril 10 MG TAB PO SCH (09:11)
[2017-05-08] MEDS: Polyethylene Glycol 3350 17 GM Packet PO SCH (09:12)
[2017-05-08] MEDS: Emollient 15 oz bottle 450 ML, Triamcinolone Acetonide 200 MG TOP SCH ×6 (09:18→21:20)
[2017-05-08] MEDS: Clotrimazole 1% Cream 15 GM TUBE TOP SCH ×2 (09:18→21:20)
[2017-05-08] MEDS: Enoxaparin Sodium 40 MG/0.4 ML SYRINGE SC SCH (17:41)
[2017-05-08] MEDS: Acetaminophen 325 MG TAB PO PRN (21:19)
[2017-05-09] MEDS: Levothyroxine Sodium 100 MCG TAB PO SCH (06:17)
[2017-05-09] MEDS: Gabapentin 100 MG CAP PO SCH ×3 (09:15→22:05)
[2017-05-09] MEDS: Furosemide 40 MG TAB PO SCH ×2 (09:15→14:20)
[2017-05-09] MEDS: Lisinopril 10 MG TAB PO SCH (09:15)
[2017-05-09] MEDS: Clotrimazole 1% Cream 15 GM TUBE TOP SCH ×2 (09:15→22:06)
[2017-05-09] MEDS: Polyethylene Glycol 3350 17 GM Packet PO SCH (09:15)
[2017-05-09] MEDS: Emollient 15 oz bottle 450 ML, Triamcinolone Acetonide 200 MG TOP SCH ×6 (09:16→22:09)
[2017-05-09] MEDS: Enoxaparin Sodium 40 MG/0.4 ML SYRINGE SC SCH (18:14)
[2017-05-09] MEDS: Acetaminophen 325 MG TAB PO PRN (22:05)
[2017-05-10] MEDS: Levothyroxine Sodium 100 MCG TAB PO SCH (05:16)
[2017-05-10] MEDS: Polyethylene Glycol 3350 17 GM Packet PO SCH (09:18)
[2017-05-10] MEDS: Gabapentin 100 MG CAP PO SCH ×3 (09:18→20:29)
[2017-05-10] MEDS: Clotrimazole 1% Cream 15 GM TUBE TOP SCH ×2 (09:19→20:30)
[2017-05-10] MEDS: Furosemide 40 MG TAB PO SCH ×2 (09:19→14:26)
[2017-05-10] MEDS: Lisinopril 10 MG TAB PO SCH (09:19)
[2017-05-10] MEDS: Acetaminophen 325 MG TAB PO PRN ×2 (09:23→20:29)
[2017-05-10] MEDS: Emollient 15 oz bottle 450 ML, Triamcinolone Acetonide 200 MG TOP SCH ×6 (09:26→20:30)
[2017-05-10] MEDS: Enoxaparin Sodium 40 MG/0.4 ML SYRINGE SC SCH (18:24)
[2017-05-11] MEDS: Levothyroxine Sodium 100 MCG TAB PO SCH (05:53)
[2017-05-11] MEDS: Furosemide 40 MG TAB PO SCH ×2 (08:51→15:05)
[2017-05-11] MEDS: Gabapentin 100 MG CAP PO SCH ×3 (08:51→21:09)
[2017-05-11] MEDS: Lisinopril 10 MG TAB PO SCH (08:51)
[2017-05-11] MEDS: Emollient 15 oz bottle 450 ML, Triamcinolone Acetonide 200 MG TOP SCH ×6 (08:51→21:09)
[2017-05-11] MEDS: Polyethylene Glycol 3350 17 GM Packet PO SCH (08:51)
[2017-05-11] MEDS: Clotrimazole 1% Cream 15 GM TUBE TOP SCH ×2 (08:52→21:10)
[2017-05-11] MEDS: Acetaminophen 325 MG TAB PO PRN ×2 (10:51→21:09)
[2017-05-11] MEDS: Enoxaparin Sodium 40 MG/0.4 ML SYRINGE SC SCH (18:41)
[2017-05-12] MEDS: Levothyroxine Sodium 100 MCG TAB PO SCH (05:39)
[2017-05-12] MEDS: Lisinopril 10 MG TAB PO SCH (08:10)
[2017-05-12] MEDS: Furosemide 40 MG TAB PO SCH ×2 (08:10→14:55)
[2017-05-12] MEDS: Gabapentin 100 MG CAP PO SCH ×3 (08:10→20:23)
[2017-05-12] MEDS: Polyethylene Glycol 3350 17 GM Packet PO SCH (08:10)
[2017-05-12] MEDS: Clotrimazole 1% Cream 15 GM TUBE TOP SCH ×2 (08:11→20:23)
[2017-05-12] MEDS: Emollient 15 oz bottle 450 ML, Triamcinolone Acetonide 200 MG TOP SCH ×6 (08:11→20:24)
[2017-05-12] MEDS: Enoxaparin Sodium 40 MG/0.4 ML SYRINGE SC SCH (17:52)
[2017-05-12] MEDS: Acetaminophen 325 MG TAB PO PRN (20:23)
[2017-05-13] MEDS: Levothyroxine Sodium 100 MCG TAB PO SCH (06:10)
[2017-05-13] MEDS: Furosemide 40 MG TAB PO SCH ×2 (08:03→14:00)
[2017-05-13] MEDS: Lisinopril 10 MG TAB PO SCH (08:03)
[2017-05-13] MEDS: Clotrimazole 1% Cream 15 GM TUBE TOP SCH ×2 (08:03→20:40)
[2017-05-13] MEDS: Gabapentin 100 MG CAP PO SCH ×3 (08:04→20:40)
[2017-05-13] MEDS: Emollient 15 oz bottle 450 ML, Triamcinolone Acetonide 200 MG TOP SCH ×6 (08:04→20:41)
[2017-05-13] MEDS: Polyethylene Glycol 3350 17 GM Packet PO SCH (09:45)
[2017-05-13] MEDS: Enoxaparin Sodium 40 MG/0.4 ML SYRINGE SC SCH (17:03)
[2017-05-13] MEDS: Acetaminophen 325 MG TAB PO PRN (20:40)
[2017-05-14] MEDS: Levothyroxine Sodium 100 MCG TAB PO SCH (05:59)
[2017-05-14] MEDS: Gabapentin 100 MG CAP PO SCH ×3 (08:16→20:52)
[2017-05-14] MEDS: Clotrimazole 1% Cream 15 GM TUBE TOP SCH ×2 (08:16→20:53)
[2017-05-14] MEDS: Lisinopril 10 MG TAB PO SCH (08:17)
[2017-05-14] MEDS: Furosemide 40 MG TAB PO SCH ×2 (08:17→14:09)
[2017-05-14] MEDS: Polyethylene Glycol 3350 17 GM Packet PO SCH (08:18)
[2017-05-14] MEDS: Emollient 15 oz bottle 450 ML, Triamcinolone Acetonide 200 MG TOP SCH ×6 (08:22→20:53)
[2017-05-14] MEDS: Enoxaparin Sodium 40 MG/0.4 ML SYRINGE SC SCH (17:04)
[2017-05-14] MEDS: Acetaminophen 325 MG TAB PO PRN (20:52)
[2017-05-15] MEDS: Levothyroxine Sodium 100 MCG TAB PO SCH (05:50)
[2017-05-15] MEDS: Gabapentin 100 MG CAP PO SCH ×3 (08:52→19:59)
[2017-05-15] MEDS: Lisinopril 10 MG TAB PO SCH (08:52)
[2017-05-15] MEDS: Furosemide 40 MG TAB PO SCH ×2 (08:52→14:14)
[2017-05-15] MEDS: Polyethylene Glycol 3350 17 GM Packet PO SCH (08:53)
[2017-05-15] MEDS: Emollient 15 oz bottle 450 ML, Triamcinolone Acetonide 200 MG TOP SCH ×6 (08:53→19:59)
[2017-05-15] MEDS: Clotrimazole 1% Cream 15 GM TUBE TOP SCH ×2 (08:54→20:00)
[2017-05-15] MEDS: Enoxaparin Sodium 40 MG/0.4 ML SYRINGE SC SCH (17:51)
[2017-05-15] MEDS: Acetaminophen 325 MG TAB PO PRN (19:58)
[2017-05-16] MEDS: Levothyroxine Sodium 100 MCG TAB PO SCH (05:49)
[2017-05-16] MEDS: Lisinopril 10 MG TAB PO SCH (08:26)
[2017-05-16] MEDS: Clotrimazole 1% Cream 15 GM TUBE TOP SCH ×2 (08:26→21:11)
[2017-05-16] MEDS: Furosemide 40 MG TAB PO SCH ×2 (08:26→13:29)
[2017-05-16] MEDS: Gabapentin 100 MG CAP PO SCH ×3 (08:26→21:11)
[2017-05-16] MEDS: Polyethylene Glycol 3350 17 GM Packet PO SCH (08:27)
[2017-05-16] MEDS: Emollient 15 oz bottle 450 ML, Triamcinolone Acetonide 200 MG TOP SCH ×6 (08:28→21:11)
[2017-05-16] MEDS ORDERED: Sodium Chloride Irrig Solution 250 ML BOT ONE (11:53)
[2017-05-16] MEDS: Enoxaparin Sodium 40 MG/0.4 ML SYRINGE SC SCH (17:27)
[2017-05-16] MEDS: Acetaminophen 325 MG TAB PO PRN (21:11)
[2017-05-17] MEDS: Levothyroxine Sodium 100 MCG TAB PO SCH (05:51)
[2017-05-17] MEDS: Clotrimazole 1% Cream 15 GM TUBE TOP SCH ×2 (09:26→21:38)
[2017-05-17] MEDS: Polyethylene Glycol 3350 17 GM Packet PO SCH (09:27)
[2017-05-17] MEDS: Gabapentin 100 MG CAP PO SCH ×3 (09:27→21:38)
[2017-05-17] MEDS: Emollient 15 oz bottle 450 ML, Triamcinolone Acetonide 200 MG TOP SCH ×6 (09:27→21:41)
[2017-05-17] MEDS: Lisinopril 10 MG TAB PO SCH (09:27)
[2017-05-17] MEDS: Furosemide 40 MG TAB PO SCH ×2 (09:27→13:28)
--- NOTE | 2017-05-17 14:55 | PRG ---
DATE OF SERVICE: 05/17/2017 SUBJECTIVE: The patient said she is doing really well with her physical therapy. She said she is m aking further progress. Patient has been sitting in a Sandra chair that allows her to recline with he r feet elevated. She has been very comfortable with this and said her legs just look great when the y are elevated. She does not have this availability at the assisted living. OBJECTIVE: GENERAL: The patient is sitting in a lounge chair with her feet elevated, looks very comfortable an d in no distress. VITAL SIGNS: Her temp 97.7, pulse 70, blood pressure 162/71, respirations 16, O2 sat 95% on room ai r. LUNGS: Clear. HEART: Regular rate. EXTREMITIES: Lower extremities there is no edema with legs elevated. There is no reddish or bluish hue. There is some chronic hemosiderin deposition in the lower legs, but no ulcerations. Legs pre sently look excellent. ASSESSMENT: 1. Weakness and gait abnormality, gradually improving. 2. Cellulitis of the lower extremities, resolved with no recurrence. 3. Stasis dermatitis of the lower extremities, excellent control. 4. Venous insufficiency of the lower extremities, controlled. 5. Diabetes type 2, controlled. PLAN: Continue physical therapy. The patient is making gradual progress. Her strength is improvin g. She with a little more time and demonstration of transferring independently, she will be able to return to assisted living, targeting Monday05/24/2017 for discharge.
[2017-05-17] MEDS: Enoxaparin Sodium 40 MG/0.4 ML SYRINGE SC SCH (17:22)
[2017-05-17] MEDS: Acetaminophen 325 MG TAB PO PRN (21:38)
[2017-05-18] MEDS: Levothyroxine Sodium 100 MCG TAB PO SCH (05:55)
[2017-05-18] MEDS: Clotrimazole 1% Cream 15 GM TUBE TOP SCH ×2 (08:21→21:32)
[2017-05-18] MEDS: Lisinopril 10 MG TAB PO SCH (08:22)
[2017-05-18] MEDS: Gabapentin 100 MG CAP PO SCH ×3 (08:22→21:32)
[2017-05-18] MEDS: Furosemide 40 MG TAB PO SCH ×2 (08:23→13:40)
[2017-05-18] MEDS: Emollient 15 oz bottle 450 ML, Triamcinolone Acetonide 200 MG TOP SCH ×6 (08:23→21:32)
[2017-05-18] MEDS: Polyethylene Glycol 3350 17 GM Packet PO SCH (08:23)
[2017-05-18] MEDS: Enoxaparin Sodium 40 MG/0.4 ML SYRINGE SC SCH (17:31)
[2017-05-18] MEDS: Acetaminophen 325 MG TAB PO PRN (21:31)
[2017-05-19] MEDS: Levothyroxine Sodium 100 MCG TAB PO SCH (05:03)
[2017-05-19] MEDS: Furosemide 40 MG TAB PO SCH ×2 (09:48→14:44)
[2017-05-19] MEDS: Clotrimazole 1% Cream 15 GM TUBE TOP SCH ×2 (09:48→21:39)
[2017-05-19] MEDS: Lisinopril 10 MG TAB PO SCH (09:48)
[2017-05-19] MEDS: Gabapentin 100 MG CAP PO SCH ×3 (09:48→21:39)
[2017-05-19] MEDS: Polyethylene Glycol 3350 17 GM Packet PO SCH (09:49)
[2017-05-19] MEDS: Emollient 15 oz bottle 450 ML, Triamcinolone Acetonide 200 MG TOP SCH ×6 (09:51→21:39)
--- NOTE | 2017-05-19 11:08 | PRG ---
DATE OF SERVICE: 05/19/2017 SUBJECTIVE: The patient says she is doing very good. She feels good. Her legs are feeling good. She continues to make progress with physical therapy. She is walking up to 150 feet twice a day. S he is walking with the use of a rolling walker. She is transferring with standby assistance, her ge neral strength is improving. OBJECTIVE: GENERAL: The patient is sitting up in a bedside chair. She is alert, appears very comfortable, in no distress. VITAL SIGNS: Her temperature is 97.8, pulse 73, respirations 20, O2 sat 98% on room air, blood pres sure 125/70. LUNGS: Clear. HEART: Regular rate. EXTREMITIES: No edema. The legs dependent, there is a little reddish hue. There is no ulceration. ASSESSMENT: 1. Weakness and gait abnormality, continues to improve. 2. Cellulitis of the lower extremities, resolved with no recurrence. 3. Stasis dermatitis of the lower extremities, excellent control. 4. Venous insufficiency of the lower extremities, controlled. 5. Diabetes type 2, controlled. PLAN: Continue physical therapy 05/24/2017 for discharge back to assisted [facility].
[2017-05-19] MEDS: Enoxaparin Sodium 40 MG/0.4 ML SYRINGE SC SCH (17:47)
[2017-05-19] MEDS: Acetaminophen 325 MG TAB PO PRN (21:38)
[2017-05-20] MEDS: Levothyroxine Sodium 100 MCG TAB PO SCH (06:09)
[2017-05-20] MEDS: Gabapentin 100 MG CAP PO SCH ×3 (08:36→20:52)
[2017-05-20] MEDS: Lisinopril 10 MG TAB PO SCH (08:36)
[2017-05-20] MEDS: Polyethylene Glycol 3350 17 GM Packet PO SCH (08:36)
[2017-05-20] MEDS: Furosemide 40 MG TAB PO SCH ×2 (08:36→14:41)
[2017-05-20] MEDS: Clotrimazole 1% Cream 15 GM TUBE TOP SCH ×2 (08:42→20:52)
[2017-05-20] MEDS: Emollient 15 oz bottle 450 ML, Triamcinolone Acetonide 200 MG TOP SCH ×6 (08:42→20:54)
[2017-05-20] MEDS: Enoxaparin Sodium 40 MG/0.4 ML SYRINGE SC SCH (18:06)
[2017-05-20] MEDS: Acetaminophen 325 MG TAB PO PRN (20:52)
[2017-05-21] MEDS: Levothyroxine Sodium 100 MCG TAB PO SCH (05:55)
[2017-05-21] MEDS: Lisinopril 10 MG TAB PO SCH (08:58)
[2017-05-21] MEDS: Gabapentin 100 MG CAP PO SCH ×3 (08:59→20:35)
[2017-05-21] MEDS: Furosemide 40 MG TAB PO SCH ×2 (08:59→14:28)
[2017-05-21] MEDS: Emollient 15 oz bottle 450 ML, Triamcinolone Acetonide 200 MG TOP SCH ×6 (08:59→20:35)
[2017-05-21] MEDS: Clotrimazole 1% Cream 15 GM TUBE TOP SCH ×2 (08:59→20:36)
[2017-05-21] MEDS: Polyethylene Glycol 3350 17 GM Packet PO SCH (08:59)
[2017-05-21] MEDS: Enoxaparin Sodium 40 MG/0.4 ML SYRINGE SC SCH (18:18)
[2017-05-21] MEDS: Acetaminophen 325 MG TAB PO PRN (20:35)
[2017-05-22] MEDS: Levothyroxine Sodium 100 MCG TAB PO SCH (05:28)
[2017-05-22 05:57] LABS: #Basophils 0.1 thou/uL (0.0-0.2); #Eosinphils 0.3 thou/uL (0.0-0.7); #Lymphocytes 1.5 thou/uL (1.20-3.40); #Monocytes 0.4 thou/uL (0.11-0.59); #Neutrophils 3.8 thou/uL (1.40-6.50); %Basophils 1.2 % (0.0-1.0); %Eosinophils 5.4 % (0.0-10.0); %Monocytes 6.2 % (0.0-10.0); %Neutrophils 62.2 % (42.0-75.0); Hemoglobin 10.7 g/dL (12.0-16.0); Mean Corpuscular HGB CONC 32.8 g/dL (32.0-36.0); Mean Corpuscular Hemoglobin 28.7 pg (27.0-31.0); Mean Corpuscular Volume 87.3 fl (81.0-99.0); Mean Platelet Volume 8.4 fL (7.4-10.4); Platelet Count 147 thou/uL (130-400); RBC Distribution Width 11.9 % (11.5-14.5); Red Blood Cell (RBC) Count 3.74 mill/uL (4.20-5.40); White Blood Cell (WBC) Count 6.1 thou/uL (4.8-10.8)
[2017-05-22 06:03] LABS: Anion Gap 12 mmol/L (10-20); BUN (Urea Nitrogen) 20 mg/dL (9.8-20.1); Calc. Creatinine Clearance 105 mL/min (70-130); Calcium 8.8 mg/dL (7.8-10.44); Carbon Dioxide 29 mmol/L (23-31); Chloride 104 mmol/L (98-107); Estimated GFR-MDRD 68; Glucose 182 mg/dL (83-110); Potassium 4.3 mmol/L (3.5-5.1); Sodium 141 mmol/L (136-145)
[2017-05-22 06:11] LABS: Hemoglobin A1c 7.4 % (4.0-6.0)
[2017-05-22] MEDS: Furosemide 40 MG TAB PO SCH ×2 (08:32→14:43)
[2017-05-22] MEDS: Lisinopril 10 MG TAB PO SCH (08:32)
[2017-05-22] MEDS: Gabapentin 100 MG CAP PO SCH ×3 (08:33→20:24)
[2017-05-22] MEDS: Emollient 15 oz bottle 450 ML, Triamcinolone Acetonide 200 MG TOP SCH ×6 (08:33→20:27)
[2017-05-22] MEDS: Polyethylene Glycol 3350 17 GM Packet PO SCH (08:33)
[2017-05-22] MEDS: Clotrimazole 1% Cream 15 GM TUBE TOP SCH ×2 (08:33→20:27)
--- NOTE | 2017-05-22 09:03 | PRG ---
DATE OF SERVICE: 05/22/2017 SUBJECTIVE: The patient said she is doing just fine. She is making good progress with physical the rapy and she is looking forward to her anticipated discharge on 05/24/2017. OBJECTIVE: GENERAL APPEARANCE: The patient is sitting up in a wheelchair. She is alert and oriented x3, appea rs comfortable, in no distress. VITAL SIGNS: Showed temperature 97.1, pulse 67, blood pressure 144/66, respirations 20, and O2 sat 98% on room air. LUNGS: Clear. HEART: Regular rate. EXTREMITIES: No edema, no ulcerations, no redness. LABORATORY DATA: H\T\H is 10.7 and 32.6, white cell count 6,100, 62% segs, 25% lymphocytes. Sodium 141, potassium 4.3, BUN 20, creatinine 0.82, glucose 182, and hemoglobin A1c 5.4. ASSESSMENT: 1. Weakness and gait abnormality, improved. 2. Cellulitis, lower extremities, resolved. No recurrence. 3. Stasis dermatitis of lower extremities, controlled. 4. Venous insufficiency of the lower extremities, controlled. 5. Diabetes type 2. A. Hemoglobin A1c is 7.4 with FBS of 182. PLAN: Continue present care. Continue physical therapy. We will start patient on metformin 500 mg b.i.d. Anticipate discharge on 05/24/2017.
[2017-05-22] MEDS: Acetaminophen 325 MG TAB PO PRN ×2 (15:31→20:23)
[2017-05-22] MEDS: Enoxaparin Sodium 40 MG/0.4 ML SYRINGE SC SCH (17:22)
[2017-05-23 02:51] VITALS: BMI 41.6
[2017-05-23] MEDS: Levothyroxine Sodium 100 MCG TAB PO SCH (05:40)
[2017-05-23] MEDS: Emollient 15 oz bottle 450 ML, Triamcinolone Acetonide 200 MG TOP SCH ×6 (08:44→20:15)
[2017-05-23] MEDS: Gabapentin 100 MG CAP PO SCH ×3 (08:44→20:14)
[2017-05-23] MEDS: Lisinopril 10 MG TAB PO SCH (08:44)
[2017-05-23] MEDS: Furosemide 40 MG TAB PO SCH ×2 (08:44→14:36)
[2017-05-23] MEDS: Polyethylene Glycol 3350 17 GM Packet PO SCH (08:44)
[2017-05-23] MEDS: Clotrimazole 1% Cream 15 GM TUBE TOP SCH ×2 (08:44→20:15)
[2017-05-23] MEDS: Enoxaparin Sodium 40 MG/0.4 ML SYRINGE SC SCH (17:00)
[2017-05-23] MEDS: Acetaminophen 325 MG TAB PO PRN (20:17)
[2017-05-24] MEDS: Levothyroxine Sodium 100 MCG TAB PO SCH (05:07)
[2017-05-24] MEDS: Lisinopril 10 MG TAB PO SCH (08:01)
[2017-05-24] MEDS: Gabapentin 100 MG CAP PO SCH (08:01)
[2017-05-24] MEDS: Furosemide 40 MG TAB PO SCH (08:01)
[2017-05-24] MEDS: Polyethylene Glycol 3350 17 GM Packet PO SCH (08:06)
[2017-05-24] MEDS: Emollient 15 oz bottle 450 ML, Triamcinolone Acetonide 200 MG TOP SCH ×2 (08:06)
[2017-05-24] MEDS: Clotrimazole 1% Cream 15 GM TUBE TOP SCH (08:07)
[2017-05-24 08:38] VITALS: BP 127/57; TEMP 98.3
--- NOTE | 2017-05-24 09:57 | DIS ---
FINAL DIAGNOSES: 1. Weakness and gait abnormality. Marked improvement. 2. Cellulitis of the lower extremities. Resolved. No recurrence. 3. Venous insufficiency of the lower extremity, controlled. 4. Chronic stasis dermatitis of the lower extremities, controlled. 5. Diabetes type 2. A. Hemoglobin A1c 7.4. 6. Furuncle of the left breast, spontaneously drained and healed. 7. Hypertension. 8. Hypothyroidism. 9. Severe cervical spinal stenosis complicated by myelopathy with weakness of the upper extremity. A. Status post decompression and anterior fusion 10/2014 with marked improvement in the weakness minesh ving her with some residual weakness in the upper extremities. 10. Generalized osteoarthritis. 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 REASON FOR ADMISSION: The patient is a 76-year-old white female who has a history of severe venous insufficiency of the lower extremity complicated by chronic stasis dermatitis. She has limited mobi lity, most of the time she sits up in a chair. She ambulates with the use of a walker. She has sav e weakness in her upper extremities secondary to a severe cervical spine stenosis with myelopathy th at required surgical decompression and fusion in 10/2014. The patient has hypertension, diabetes ty pe 2 that has been diet controlled and the patient presented to my office a few days prior to admiss [facility] with increased swelling in her legs. There was chronic edema with chronic lipodystrophic change s, but there was no increased heat nor redness or findings of cellulitis. The patient was managed w ith increased bed rest and elevation of the legs and increased dose of Lasix. Over the next couple of days, her legs got worse, became extremely red and painful. She also had early furuncle formatio n over the left breast for which she had been placed on Bactrim and this was improving. The patient returned to my office on the day of admission because of increasing swelling, redness in the leg, i ncreased weakness where she was unable to get up and around and manage herself in assisted living. She also developed a pinkness in her face that was felt to be secondary to the sulfa. On exam, the patient was afebrile. Her lungs were clear. Her legs were markedly edematous and very erythematosu s with increased warmth. She had also dark bluish patches over both legs and some streaks of rednes s extending up into the upper leg of the right leg. The patient had a furuncle over the left breast that was beginning to drain. This was very small and she had pinkness in her face that was felt to be from the Septra. The patient was hospitalized for cellulitis of the lower extremity that had be en unresponsive to outpatient management, increasing weakness where she was not ambulatory and unabl e to take care of herself, increased pain in her leg. She also had the furuncle of the left breast that was beginning to drain and anticipate resolution on its own. The redness in the face was felt to be secondary to the Bactrim which was stopped. HOSPITAL COURSE: Patient was admitted to acute care on 04/10/2017, was placed on IV antibiotics wit h Rocephin and was also placed on oral clindamycin. The patient was placed on IV Lasix to help with resolution of the swelling and on Claudia Kenalog application to the legs. Over the next several days , the patient showed marked improvement with improvement in the swelling and resolution of the redne ss. Gradually the furuncle of the left breast, resolved. The patient was moved to extended care on 04/13/2017 for continued IV antibiotics and for physical therapy due to her severe decline in her f unctional capabilities, leaving her unable to take care of herself and unable to be discharged back to assisted living. The patient's condition was one of continual improvement. Her swelling of the legs resolved and she had been switched to oral Lasix. The cellulitis of the lower extremities reso lved and the IV Rocephin was stopped and she completed a 10 day course of the clindamycin. The furu ncle of the left breast drained and resolved. The venous insufficiency was well controlled with the increased rest and elevation of the legs. Previously had tried support stockings with her, but she just could not tolerate these nor would she will be able to put these on herself. The patient's ch ronic stasis dermatitis, improved as the edema resolved. She was placed on Claudia lotion with Kenalog 15 ounces 200 mg of Kenalog. These were applied to the legs twice a day, markedly help with the de rmatitis. The leg gradually improved, the lipodystrophic changes resolved and the pain in her legs resolved. Initially she required some tramadol to help control the pain, but as this improved she w as able to manage any pain with Tylenol alone. The patient was placed on Lovenox for DVT prophylaxi s. Her blood pressure was in good control. She was started on metformin 500 mg b.i.d. for her diab etes. Her hemoglobin A1c was 7.4. The patient's strength markedly improved, worked with physical therapy. The patient was walking up to 150 feet twice a day and some days 200 feet. She was working out on a NuStep that allowed her bi cycling exercise her legs with movement of the arms. She was transferring independently with just s tandby assistance. Her strength gradually improved such that she felt that she could manage back at the assisted living. On 05/24/2017 the patient was discharged back to assisted living in excellent condition. DISPOSITION: DIET: Regular diet. No added salt. ACTIVITIES: Ambulate with the use of a walker. Up in a chair as tolerated with the feet elevated. We will arrange for outpatient physical therapy for continued strengthening exercise and gait train ing. Please check glucometer 3 times a week. MEDICATIONS: Acetaminophen 325 mg 2 every 4 hours as needed for pain, Dulcolax suppository 10 mg 1 per rectum p.r.n. constipation. Furosemide 40 mg b.i.d., gabapentin 100 mg t.i.d., levothyroxine 10 0 mcg daily, lisinopril 10 mg daily, Mylanta 30 mL every 4 hours as needed, MiraLax 17 grams in 8 ou nces of water daily, metformin 500 mg daily. FOLLOW UP: The patient will be seen in followup in my office in 2 weeks. CODE STATUS: Full code.
== END 2017-05-24 10:25 | disposition home health service (06) | DRG 603 ==
LOC: UNDOADMIN 04-13 09:45 → MADMS 04-13 09:45 → UNDOADMIN 05-06 09:45 → MADMS 05-06 09:45 → UNDODISIN 05-24 10:25
PROVIDERS: ADMIT Family Medicine; ATTEND Family Medicine
DX: L03.116 Cellulitis of left lower limb (principal); E11.9 Type 2 diabetes mellitus without complications; M47.12 Other spondylosis with myelopathy, cervical region; E03.9 Hypothyroidism, unspecified; I10 Essential (primary) hypertension; B37.49 Other urogenital candidiasis; N61.1 Abscess of the breast and nipple; N76.0 Acute vaginitis; L03.115 Cellulitis of right lower limb; R26.9 Unspecified abnormalities of gait and mobility; I87.2 Venous insufficiency (chronic) (peripheral); M48.02 Spinal stenosis, cervical region; M19.90 Unspecified osteoarthritis, unspecified site; Z98.1 Arthrodesis status; M96.1 Postlaminectomy syndrome, not elsewhere classified
CPT/HCPCS: 36415; 80048; 80053; 83036; 85025; G8978-GP-CJ; G8978-GP-CM; G8979-GP-CI; G8979-GP-CJ; J0696; J1650; J3301

== ENCOUNTER 2017-06-30 13:15 | Outpatient (CLI) | payer MEDICARE ==
[2017-06-30 13:33] LABS: #Basophils 0.1 thou/uL (0.0-0.2); #Eosinphils 0.3 thou/uL (0.0-0.7); #Lymphocytes 1.9 thou/uL (1.20-3.40); #Monocytes 0.4 thou/uL (0.11-0.59); #Neutrophils 4.8 thou/uL (1.40-6.50); %Lymphocytes 25.7 % (21.0-51.0); %Monocytes 5.6 % (0.0-10.0); %Neutrophils 63.7 % (42.0-75.0); Hemoglobin 11.8 g/dL (12.0-16.0); Mean Corpuscular HGB CONC 31.7 g/dL (32.0-36.0); Mean Corpuscular Hemoglobin 27.7 pg (27.0-31.0); Mean Corpuscular Volume 87.1 fl (81.0-99.0); Mean Platelet Volume 8.7 fL (7.4-10.4); Platelet Count 207 thou/uL (130-400); RBC Distribution Width 11.9 % (11.5-14.5); Red Blood Cell (RBC) Count 4.27 mill/uL (4.20-5.40); White Blood Cell (WBC) Count 7.5 thou/uL (4.8-10.8)
[2017-06-30 14:51] LABS: Anion Gap 18 mmol/L (10-20); BUN (Urea Nitrogen) 28 mg/dL (9.8-20.1); Calc. Creatinine Clearance 0 mL/min (70-130); Calcium 8.8 mg/dL (7.8-10.44); Carbon Dioxide 24 mmol/L (23-31); Chloride 102 mmol/L (98-107); Estimated GFR-MDRD 44; Glucose 108 mg/dL (83-110); Potassium 4.2 mmol/L (3.5-5.1); Sodium 140 mmol/L (136-145)
== END 2017-06-30 13:16 | disposition home or self-care (01) ==
LOC: MADLABBHPM 13:15
PROVIDERS: ATTEND Family Medicine
DX: E11.9 Type 2 diabetes mellitus without complications (principal); I10 Essential (primary) hypertension
CPT/HCPCS: 36415; 80048; 85025

== ENCOUNTER 2017-08-17 17:26 | Outpatient (CLI) | payer MEDICARE ==
[2017-08-17 17:36] LABS: #Basophils 0.1 thou/uL (0.0-0.2); #Eosinphils 0.3 thou/uL (0.0-0.7); #Lymphocytes 1.9 thou/uL (1.20-3.40); #Monocytes 0.4 thou/uL (0.11-0.59); %Basophils 1.2 % (0.0-1.0); %Eosinophils 3.6 % (0.0-10.0); %Lymphocytes 25.2 % (21.0-51.0); %Monocytes 5.4 % (0.0-10.0); %Neutrophils 64.7 % (42.0-75.0); Hemoglobin 11.1 g/dL (12.0-16.0); Mean Corpuscular HGB CONC 32.3 g/dL (32.0-36.0); Mean Corpuscular Hemoglobin 28.8 pg (27.0-31.0); Mean Corpuscular Volume 89.2 fl (81.0-99.0); Mean Platelet Volume 8.6 fL (7.4-10.4); Platelet Count 220 thou/uL (130-400); RBC Distribution Width 11.8 % (11.5-14.5); Red Blood Cell (RBC) Count 3.86 mill/uL (4.20-5.40); White Blood Cell (WBC) Count 7.7 thou/uL (4.8-10.8)
[2017-08-17 17:46] LABS: Anion Gap 15 mmol/L (10-20); BUN (Urea Nitrogen) 32 mg/dL (9.8-20.1); Calc. Creatinine Clearance 0 mL/min (70-130); Calcium 8.8 mg/dL (7.8-10.44); Carbon Dioxide 28 mmol/L (23-31); Chloride 97 mmol/L (98-107); Estimated GFR-MDRD 41; Glucose 193 mg/dL (83-110); Potassium 4.4 mmol/L (3.5-5.1); Sodium 136 mmol/L (136-145)
== END 2017-08-17 17:27 | disposition home or self-care (01) ==
LOC: MADLAB 17:26
PROVIDERS: ATTEND Family Medicine
DX: E11.9 Type 2 diabetes mellitus without complications (principal); I10 Essential (primary) hypertension
CPT/HCPCS: 80048; 85025

== ENCOUNTER 2017-09-25 22:42 | Emergency (ER) | payer MEDICARE ==
[~2017-09-25 22:42] MED LIST changes: +Sodium Chloride 0.9% 1,000 ML BAG ONE; -Sodium Chloride 0.9% 100 ML BAG ONE
[2017-09-25] MEDS ORDERED: cefTRIAXone\\ROCEPHIN 1 GM VIAL ONE (23:07)
[2017-09-25] MEDS ORDERED: Ketorolac Tromethamine 30 MG/ML VIAL ONE (23:07)
--- NOTE | 2017-09-25 23:26 | RAD ---
PORTABLE CHEST: Date: 09-25-17 Provided Clinical History: Dyspnea. FINDINGS: Comparison is made with 01-06-17. Cardiac and mediastinal silhouette is within normal limits. Atherosc lerosis involves the aortic arch. No focal consolidation, pleural fluid or pneumothorax apparent. IMPRESSION: No evidence for an acute cardiopulmonary process. POS: [facility]
[2017-09-25 23:53] LABS: Anion Gap 20 mmol/L (10-20); BUN (Urea Nitrogen) 30 mg/dL (9.8-20.1); Calc. Creatinine Clearance 0 mL/min (70-130); Calcium 8.5 mg/dL (7.8-10.44); Carbon Dioxide 22 mmol/L (23-31); Chloride 101 mmol/L (98-107); Estimated GFR-MDRD 40; Glucose 165 mg/dL (83-110); Potassium 3.8 mmol/L (3.5-5.1); Sodium 139 mmol/L (136-145)
[2017-09-26 00:01] LABS: CKMB 1.2 ng/mL (0-6.6); Troponin I 0.011 ng/mL (< 0.028)
[2017-09-26 00:15] LABS: Hemoglobin 9.7 g/dL (12.0-16.0); Mean Corpuscular HGB CONC 32.6 g/dL (32.0-36.0); Mean Corpuscular Hemoglobin 29.3 pg (27.0-31.0); Platelet Count 166 thou/uL (130-400); RBC Distribution Width 11.9 % (11.5-14.5); Red Blood Cell (RBC) Count 3.31 mill/uL (4.20-5.40); White Blood Cell (WBC) Count 6.4 thou/uL (4.8-10.8)
[2017-09-26 00:17] LABS: Band 3 % (5-11); Eosinophils 4 % (0-10); MDiff Complete? YES; Neutrophil 60 % (42-75)
[2017-09-26 00:18] LABS: Delete Auto Diff?? YES; Hypochromia SLIGHT = 6-15 cells (100X) (0-5/hpf); Lymphocytes 26 % (21-51); Monocytes 7 % (0-10)
[2017-09-26] MEDS ORDERED: methylPREDNISolone Sod Succ/PF 125 MG/2 ML VIAL ONE (00:30)
== END 2017-09-26 02:00 ==
LOC: MADERS 22:42
DX: J20.9 Acute bronchitis, unspecified (principal); E03.9 Hypothyroidism, unspecified; I11.0 Hypertensive heart disease with heart failure; I50.9 Heart failure, unspecified
CPT/HCPCS: 36415; 71010; 80048; 82553; 83880; 84484; 85025; 93005; 94640; 96361; 96374; 96375; J0696; J1885; J2930; J7050; J7620

== ENCOUNTER 2017-12-06 13:25 | Outpatient (CLI) | payer MEDICARE ==
[2017-12-06 14:45] LABS: Glucose 168 mg/dL (83-110)
[2017-12-07 10:09] LABS: Glucose 168 mg/dL (83-110)
== END 2017-12-06 13:26 | disposition home or self-care (01) ==
LOC: MADLABBHPM 13:25
PROVIDERS: ATTEND Family Medicine
DX: E11.9 Type 2 diabetes mellitus without complications (principal)
CPT/HCPCS: 36415; 82947

== ENCOUNTER 2018-01-22 14:14 | Inpatient (IN) | payer MEDICARE ==
[2018-01-22] MEDS ORDERED: Milk Of Magnesia 30 ML UDCUP PO PRN ×2 (17:43→17:48)
[2018-01-22] MEDS ORDERED: Acetaminophen 325 MG TAB PO PRN (17:43)
[2018-01-22] MEDS ORDERED: Mag-Al Plus 1200 MG/1200 MG/120 MG/30 ML UDCUP PO PRN (17:48)
[2018-01-22] MEDS ORDERED: Polyethylene Glycol 3350 17 GM Packet PO PRN (17:48)
[2018-01-22] MEDS: Cephalexin 250 MG CAP PO SCH (18:33)
--- NOTE | 2018-01-22 19:59 | HP ---
DATE OF ADMISSION: 01/22/2018 Admitted to Extended Care at [facility]. CHIEF COMPLAINT: Weakness. HISTORY OF PRESENT ILLNESS: The patient is a 77-year-old white female who has a history of severe ve nous insufficiency of the lower extremities. Complicated by chronic stasis dermatitis for which she has had multiple episodes of cellulitis. She has limited mobility, most of the time she sits up in a chair. She ambulates with the use of a walker. She has weakness of her upper extremities secondary to a severe cervical spine stenosis with myelopathy that required surgical decompression and fusion in 10/2014. She also has hypertension and diabetes type 2 recently, which she has been placed on med ication. The patient lives in assisted living and usually is able to dress herself, transfer and mob ilize independently with a wheelchair. She requires help for all her instrumental ADLs. The patient developed increasing swelling, redness and pain in the right leg prompting her to be hospitalized at [facility] from 01/17/2018 until 01/22/2018 for the cellulitis of the right lower extremi ty. She was treated with IV antibiotics using vancomycin and IV Rocephin. Venous Doppler study was done of the right lower extremity that did not show any evidence of deep vein thrombosis and she was placed on Lovenox for DVT prophylaxis. She markedly improved and was switched to cephalexin and Vibr amycin orally. It was elected to transfer her to [facility] to [facility] care due to her weakne ss. She had improved, but her functional capability had not returned to her prehospital level. She was able to get up, sit up in a chair with assistance, was able to ambulate with assistance short dis tances. Her capabilities were not such that she could return to assisted living. The patient was tr ansferred to [facility] on the afternoon of 01/22/2018. She was seen there in her room and was able to review the history of what had occurred with her. She said she is feeling a lot better whil e the swelling in the right leg has gone down. The redness has resolved and the pain has resolved. The right leg is always larger than the left leg. PAST MEDICAL HISTORY: Hospitalized at [facility] from 01/17/2018 until 01/22/2018. Her marissa lulitis of the right lower leg treated with IV vancomycin and Rocephin. Venous Doppler showed no rosmery dence of DVT in the right leg, hospitalized at [facility] from 05/06/2017 to 05/24/2017 for marissa lulitis of the lower extremities, weakness, gait abnormality, and deconditioning. The patient has hy pertension, severe venous insufficiency of the lower extremity, complicated by chronic stasis dermati tis, generalized osteoarthritis, hypothyroidism, cervical myelopathy from severe cervical stenosis pr esenting with paralysis of the right upper extremity and severe weakness of the left upper extremity, required surgical decompression and anterior fusion in 10/2014 with marked improvement, but is still left her with some weakness in the upper extremities, more on the right. The patient has chronic lo w back pain secondary to failed surgical back syndrome. The patient has had tonsillectomy, low back surgery with laminectomy in 1961, 1965 and the third time in 1979. She has had a hysterectomy, hospi talized in 10/2015 for hemoptysis secondary to the bronchitis and bronchiectasis that resolved. EGD in 10/2015 showed blood in the hypopharynx, otherwise unremarkable. CT scan during that admission sh owed probable bronchiectasis that resolved on antibiotics. PRESENT MEDICINES: Florastor 250 mg daily, doxycycline 100 mg b.i.d. for 10 days, cephalexin 250 mg q.i.d. for 7 days, 7 days also on the doxycycline, lisinopril 10 mg daily, Aldactone 12.5 mg daily, g limepiride 1 mg b.i.d., Claudia lotion with Kenalog 15 ounces 200 mg apply to the legs b.i.d., gabapenti n 100 mg t.i.d., levothyroxine 100 mcg daily, furosemide 40 mg 2 tablets in the morning and 1 in the afternoon, MiraLax 17 grams in 8 ounces water daily as needed, acetaminophen 325 mg 2 every 4 hours a s needed, Milk of magnesia p.r.n. ALLERGIES: MORPHINE causes nausea and vomiting, metformin, nausea and diarrhea and TRIMETHOPRIM. REVIEW OF SYSTEMS: Patient denies any recent weight gain or loss. Patient does not think she has koch d any fever. Head and neck: No complaints. Pulmonary: No shortness of breath. Cardiovascular: N o chest pain. Gastrointestinal: No nausea or vomiting. Genitourinary: No complaints. Extremities : Chronic swelling in the lower legs. Managed with elevation, cannot wear support hose, physically just cannot these own. ACTIVITIES OF DAILY LIVING: Patient able to dress herself, bathe herself and standby assistance, fee d herself, able to transfer, mobile with using a wheelchair. HABITS: Alcohol none. Tobacco none. SOCIAL HISTORY: Patient is a . The patient lives in assisted living. PHYSICAL EXAMINATION: GENERAL: Shows a very pleasant 77-year-old white female who is sitting up in a wheelchair preparing to have her supper. She is alert and oriented x3, appears comfortable in no distress. VITAL SIGNS: Shows a temperature 97.4, pulse 63, respirations 20, O2 saturation 97% on room air, blo od pressure 147/64, weight 274, last weight in the office was 272. HEAD: Normocephalic. EYES: Pupils were equal, round, reactive. Sclerae nonicteric. EARS: TMs are clear. NOSE: Normal. MOUTH AND THROAT: Normal. NECK: Carotids are equal and strong, no bruits. Thyroid not enlarged. LUNGS: Clear. HEART: Regular rate. No murmurs. ABDOMEN: Soft with no organomegaly, nor areas of tenderness. The lower extremities, right lower leg is larger than the left. There is a little pinkness over the posterior aspect of the lower leg, the re is chronic stasis changes with some little bluish hue to the lower extremities when dependent and some scalene and hyperpigmentation. There is 2+ edema in the lower legs. There is no increased heat . NEUROLOGIC: The patient is alert, oriented x3. She has weakness and decreased range of motion in th e right arm and also on the left, but not as much as the right. IMPRESSION: 1. Generalized weakness and gait abnormality. A. Marked decline in her functional capabilities after recent hospitalization for cellulitis. 2. Recent hospitalization at [facility] from 01/17/2018 until 01/22/2018 for cellulitis o f the right lower leg, treated with IV vancomycin and Rocephin. Venous Doppler showed no evidence of DVT. A. Resolving. B. On 7-day course of oral cephalexin and doxycycline as of 01/22/2018. 3. Severe venous insufficiency of the lower extremity. A. Right worse than left. B. Complicated by recent cellulitis of the right lower leg requiring hospitalization at [facility] from 01/17/2018 to 01/22/2018. 4. Chronic stasis dermatitis of the lower extremities. 5. Diabetes type 2. 6. Hypertension. 7. Hypothyroidism. 8. Generalized osteoarthritis. 9. Severe cervical spinal stenosis complicated by myelopathy with weakness of the lower extremities. A. Status post decompression and anterior fusion in 10/2014 with marked improvement, but leaving her with some residual weakness in the upper extremities, right more than the left. 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 11. Constipation. 12. Chronic kidney disease. PLAN: The patient has been transferred to [facility] to extended care due to her increased wea kness. She has had decline in her functional capability compared to prior to her hospitalization. W ith this decline, she is not able to manage to live in assisted living where she resided prior to thi s recent hospital stay. The plans will be to complete her course of 7-day course of oral antibiotics . We will continue the Lovenox. PT will work with her in an effort to try to improve her general fu nctional capabilities and her gait, general strength. We will restart patient on Claudia Kenalog in the lower extremities. See orders.
[2018-01-22] MEDS: Gabapentin 100 MG CAP PO SCH (20:57)
[2018-01-22] MEDS: Doxycycline 100 MG CAP PO SCH (20:57)
[2018-01-22] MEDS: Glimepiride 2 MG TAB PO SCH (20:57)
[2018-01-22] MEDS: Emollient 15 oz bottle 450 ML, Triamcinolone Acetonide 200 MG TOP SCH (20:58)
[2018-01-22] MEDS: Acetaminophen 325 MG TAB PO PRN (21:08)
[2018-01-23] MEDS: Cephalexin 250 MG CAP PO SCH ×4 (00:02→17:49)
[2018-01-23 05:12] LABS: #Basophils 0.1 thou/uL (0.0-0.2); #Eosinphils 0.3 thou/uL (0.0-0.7); #Lymphocytes 1.3 thou/uL (1.20-3.40); #Monocytes 0.5 thou/uL (0.11-0.59); %Basophils 1.2 % (0.0-1.0); %Eosinophils 5.2 % (0.0-10.0); %Lymphocytes 21.1 % (21.0-51.0); %Neutrophils 64.5 % (42.0-75.0); Hemoglobin 9.5 g/dL (12.0-16.0); Mean Corpuscular HGB CONC 33.9 g/dL (32.0-36.0); Mean Corpuscular Hemoglobin 29.9 pg (27.0-31.0); Mean Platelet Volume 7.3 fL (7.4-10.4); Platelet Count 172 thou/uL (130-400); Red Blood Cell (RBC) Count 3.17 mill/uL (4.20-5.40); White Blood Cell (WBC) Count 6.2 thou/uL (4.8-10.8)
[2018-01-23 05:26] LABS: Anion Gap 15 mmol/L (10-20); BUN (Urea Nitrogen) 30 mg/dL (9.8-20.1); Calc. Creatinine Clearance 86 mL/min (70-130); Calcium 8.8 mg/dL (7.8-10.44); Carbon Dioxide 26 mmol/L (23-31); Chloride 106 mmol/L (98-107); Estimated GFR-MDRD 50; Glucose 105 mg/dL (83-110); Potassium 4.7 mmol/L (3.5-5.1); Sodium 142 mmol/L (136-145)
[2018-01-23] MEDS: Levothyroxine Sodium 100 MCG TAB PO SCH (05:33)
[2018-01-23] MEDS: Enoxaparin Sodium 40 MG/0.4 ML SYRINGE SC SCH (08:29)
[2018-01-23] MEDS: Spironolactone 25 MG TAB PO SCH (08:29)
[2018-01-23] MEDS: Saccharomyces boulardii 250 MG CAP PO SCH (08:29)
[2018-01-23] MEDS: Gabapentin 100 MG CAP PO SCH ×3 (08:29→20:38)
[2018-01-23] MEDS: Furosemide 80 MG TAB PO SCH (08:30)
[2018-01-23] MEDS: Lisinopril 10 MG TAB PO SCH (08:30)
[2018-01-23] MEDS: Multivit, Therapeutic 1 TAB PO SCH (08:30)
[2018-01-23] MEDS: Glimepiride 2 MG TAB PO SCH ×2 (08:30→20:38)
[2018-01-23] MEDS: Emollient 15 oz bottle 450 ML, Triamcinolone Acetonide 200 MG TOP SCH ×2 (08:31→20:39)
[2018-01-23] MEDS: Doxycycline 100 MG CAP PO SCH ×2 (08:31→20:38)
--- NOTE | 2018-01-23 11:05 | PRG ---
DATE OF SERVICE: 01/23/2018 SUBJECTIVE: The patient said she feels better today. Her legs feel better. She had a very restful night. OBJECTIVE: The patient is up in a wheelchair. She looks very comfortable and in no distress. Her t emperature is 97, pulse 67, respirations 18, O2 sat 96% on room air, blood pressure 141/63. Lungs we re clear. Heart, regular rate. Extremities, there is a little pink hue to the legs, more on the rig ht, particularly where the cellulitis was. There is no increased heat. The edema is better. The sk in is softer now that they are using the Claudia Kenalog cream. Her labs shows an H&H of 9.5 and 27.9, white blood cell count 6200 with 65% segs, 21% lymphocytes, and a platelet count of 172,000. Sodium 142, potassium 4.7, BUN 30, creatinine 1.06, GFR 50, glucose 151. ASSESSMENT: 1. Generalized weakness and gait abnormality. A. Marked decline in her functional capabilities after recent hospitalization for cellulitis. B. Improved as of 01/23/2018. 2. Recent hospitalization at [facility] from 01/17/2018 until 01/22/2018 for cellulitis o f the right lower leg, treated with IV vancomycin and Rocephin. Venous Doppler showed no evidence of DVT. A. Resolving with no evidence of recurrence as of 01/23/2018. B. On 7-day course of oral cephalexin and doxycycline as of 01/22/2018. 3. Severe venous insufficiency of the lower extremity. A. Right worse than left. B. Complicated by recent cellulitis of the right lower leg requiring hospitalization at [facility] from 01/17/2018 to 01/22/2018. 4. Chronic stasis dermatitis of the lower extremities. 5. Diabetes type 2. 6. Hypertension. 7. Hypothyroidism. 8. Generalized osteoarthritis. 9. Severe cervical spinal stenosis complicated by myelopathy with weakness of the lower extremities. A. Status post decompression and anterior fusion in 10/2014 with marked improvement, but leaving her with some residual weakness in the upper extremities, right more than the left. 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 11. Constipation. 12. Chronic kidney disease. 13. Anemia of chronic illness. PLAN: Continue present care. Continue PT.
[2018-01-23] MEDS: Furosemide 40 MG TAB PO SCH (12:05)
[2018-01-23] MEDS: Acetaminophen 325 MG TAB PO PRN (20:39)
[2018-01-24] MEDS: Cephalexin 250 MG CAP PO SCH ×5 (00:19→23:59)
[2018-01-24] MEDS: Levothyroxine Sodium 100 MCG TAB PO SCH (05:11)
[2018-01-24] MEDS: Emollient 15 oz bottle 450 ML, Triamcinolone Acetonide 200 MG TOP SCH ×2 (08:05→20:04)
[2018-01-24] MEDS: Multivit, Therapeutic 1 TAB PO SCH (08:05)
[2018-01-24] MEDS: Lisinopril 10 MG TAB PO SCH (08:05)
[2018-01-24] MEDS: Saccharomyces boulardii 250 MG CAP PO SCH (08:05)
[2018-01-24] MEDS: Gabapentin 100 MG CAP PO SCH ×3 (08:05→20:04)
[2018-01-24] MEDS: Furosemide 80 MG TAB PO SCH (08:05)
[2018-01-24] MEDS: Doxycycline 100 MG CAP PO SCH ×2 (08:05→20:03)
[2018-01-24] MEDS: Spironolactone 25 MG TAB PO SCH (08:06)
[2018-01-24] MEDS: Enoxaparin Sodium 40 MG/0.4 ML SYRINGE SC SCH (08:06)
[2018-01-24] MEDS: Glimepiride 2 MG TAB PO SCH ×2 (08:06→20:04)
[2018-01-24] MEDS: Furosemide 40 MG TAB PO SCH (11:58)
[2018-01-24] MEDS ORDERED: Milk Of Magnesia 30 ML UDCUP PO PRN (15:00)
[2018-01-24] MEDS: Acetaminophen 325 MG TAB PO PRN (19:10)
[2018-01-25] MEDS: Levothyroxine Sodium 100 MCG TAB PO SCH (05:41)
[2018-01-25] MEDS: Cephalexin 250 MG CAP PO SCH ×3 (05:41→17:18)
[2018-01-25] MEDS: Enoxaparin Sodium 40 MG/0.4 ML SYRINGE SC SCH (08:41)
[2018-01-25] MEDS: Acetaminophen 325 MG TAB PO PRN ×2 (08:45→20:21)
[2018-01-25] MEDS: Saccharomyces boulardii 250 MG CAP PO SCH (08:46)
[2018-01-25] MEDS: Doxycycline 100 MG CAP PO SCH ×2 (08:46→20:22)
[2018-01-25] MEDS: Glimepiride 2 MG TAB PO SCH ×2 (08:46→20:22)
[2018-01-25] MEDS: Furosemide 80 MG TAB PO SCH (08:47)
[2018-01-25] MEDS: Multivit, Therapeutic 1 TAB PO SCH (08:47)
[2018-01-25] MEDS: Spironolactone 25 MG TAB PO SCH (08:48)
[2018-01-25] MEDS: Lisinopril 10 MG TAB PO SCH (08:49)
[2018-01-25] MEDS: Gabapentin 100 MG CAP PO SCH ×3 (08:49→20:22)
[2018-01-25] MEDS: Emollient 15 oz bottle 450 ML, Triamcinolone Acetonide 200 MG TOP SCH ×2 (08:49→20:22)
--- NOTE | 2018-01-25 08:50 | PRG ---
DATE OF SERVICE: 01/25/2018 SUBJECTIVE: The patient says she is feeling better. She is doing more with physical therapy. She i s walking a little further, overall feeling better. OBJECTIVE: The patient is sitting up in a wheelchair. She is alert, appears very comfortable and in no distress. Her vital signs show a temperature 97.7, pulse 64, respirations 22, O2 sat 96% on room air, blood pressure 121/56. Her lungs are clear. Heart, regular rate. Extremities; there is no re dness. There is some chronic edema, but overall these look better. FBS yesterday morning fasting wa s 78. This morning's is pending. ASSESSMENT: 1. Generalized weakness and gait abnormality. A. Marked decline in her functional capabilities after recent hospitalization for cellulitis. B. Improved as of 01/25/2018. 2. Recent hospitalization at [facility] from 01/17/2018 until 01/22/2018 for cellulitis o f the right lower leg, treated with IV vancomycin and Rocephin. Venous Doppler showed no evidence of DVT. A. Resolving with no evidence of recurrence as of 01/23/2018. B. On 7-day course of oral cephalexin and doxycycline as of 01/22/2018. 3. Severe venous insufficiency of the lower extremity. A. Right worse than left. B. Complicated by recent cellulitis of the right lower leg requiring hospitalization at [facility] from 01/17/2018 to 01/22/2018. C. Improved as of 01/25/2018. 4. Chronic stasis dermatitis of the lower extremities. A. Improved as of 01/25/2018. 5. Diabetes type 2. 6. Hypertension. 7. Hypothyroidism. 8. Generalized osteoarthritis. 9. Severe cervical spinal stenosis complicated by myelopathy with weakness of the lower extremities. A. Status post decompression and anterior fusion in 10/2014 with marked improvement, but leaving her with some residual weakness in the upper extremities, right more than the left. 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 11. Constipation. 12. Chronic kidney disease. 13. Anemia of chronic illness. PLAN: Continue present care. Continue physical therapy.
[2018-01-25] MEDS: Furosemide 40 MG TAB PO SCH (11:34)
[2018-01-26] MEDS: Cephalexin 250 MG CAP PO SCH ×5 (00:08→23:48)
[2018-01-26] MEDS: Levothyroxine Sodium 100 MCG TAB PO SCH (05:50)
[2018-01-26] MEDS: Saccharomyces boulardii 250 MG CAP PO SCH (08:35)
[2018-01-26] MEDS: Doxycycline 100 MG CAP PO SCH ×2 (08:35→20:18)
[2018-01-26] MEDS: Acetaminophen 325 MG TAB PO PRN ×2 (08:35→19:49)
[2018-01-26] MEDS: Furosemide 80 MG TAB PO SCH (08:36)
[2018-01-26] MEDS: Lisinopril 10 MG TAB PO SCH (08:36)
[2018-01-26] MEDS: Spironolactone 25 MG TAB PO SCH (08:36)
[2018-01-26] MEDS: Glimepiride 2 MG TAB PO SCH ×2 (08:36→20:18)
[2018-01-26] MEDS: Multivit, Therapeutic 1 TAB PO SCH (08:36)
[2018-01-26] MEDS: Gabapentin 100 MG CAP PO SCH ×3 (08:36→20:18)
[2018-01-26] MEDS: Emollient 15 oz bottle 450 ML, Triamcinolone Acetonide 200 MG TOP SCH ×2 (08:37→20:21)
[2018-01-26] MEDS: Enoxaparin Sodium 40 MG/0.4 ML SYRINGE SC SCH (08:37)
--- NOTE | 2018-01-26 10:19 | PRG ---
DATE OF SERVICE: 01/26/2018 SUBJECTIVE: The patient said she is doing better. The patient says her legs are still sensitive, bu t every day are improving. OBJECTIVE: The patient is sitting up in a wheelchair, having finished her breakfast. She looks very comfortable, in no distress. Her vital signs show a temperature of 98, pulse 67, respirations 20, O 2 saturation 97% on room air, blood pressure 131/62. Lungs were clear. Heart, regular rate. Lower extremities, legs have some chronic edema, but the legs are smaller than yesterday. There is a littl e pinkness to the skin, but no increased heat. The skin is softer and there is no scaling. Overall the skin looks better. There is still the chronic stasis changes with the discoloration of the skin. ASSESSMENT: 1. Generalized weakness and gait abnormality. A. Marked decline in her functional capabilities after recent hospitalization for cellulitis. B. Improved as of 01/26/2018. 2. Recent hospitalization at [facility] from 01/17/2018 until 01/22/2018 for cellulitis o f the right lower leg, treated with IV vancomycin and Rocephin. Venous Doppler showed no evidence of DVT. A. Resolving with no evidence of recurrence as of 01/26/2018. B. On 7-day course of oral cephalexin and doxycycline as of 01/22/2018. 3. Severe venous insufficiency of the lower extremity. A. Right worse than left. B. Complicated by recent cellulitis of the right lower leg requiring hospitalization at [facility] from 01/17/2018 to 01/22/2018. C. Improved as of 01/26/2018. 4. Chronic stasis dermatitis of the lower extremities. A. Improved as of 01/26/2018. 5. Diabetes type 2. 6. Hypertension. 7. Hypothyroidism. 8. Generalized osteoarthritis. 9. Severe cervical spinal stenosis complicated by myelopathy with weakness of the lower extremities. A. Status post decompression and anterior fusion in 10/2014 with marked improvement, but leaving her with some residual weakness in the upper extremities, right more than the left. 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 11. Constipation. 12. Chronic kidney disease. 13. Anemia of chronic illness. PLAN: Continue present care. Encourage the patient to take period of rest lying in the bed with the legs elevated twice a day to help control the chronic venous insufficiency. The patient is not able to wear her support hose. Continue physical therapy.
[2018-01-26] MEDS: Furosemide 40 MG TAB PO SCH (11:53)
[2018-01-27] MEDS: Acetaminophen 325 MG TAB PO PRN ×3 (04:54→23:44)
[2018-01-27] MEDS: Cephalexin 250 MG CAP PO SCH ×4 (05:32→23:45)
[2018-01-27] MEDS: Levothyroxine Sodium 100 MCG TAB PO SCH (05:32)
[2018-01-27] MEDS: Enoxaparin Sodium 40 MG/0.4 ML SYRINGE SC SCH (09:42)
[2018-01-27] MEDS: Saccharomyces boulardii 250 MG CAP PO SCH (09:43)
[2018-01-27] MEDS: Lisinopril 10 MG TAB PO SCH (09:43)
[2018-01-27] MEDS: Doxycycline 100 MG CAP PO SCH ×2 (09:43→20:31)
[2018-01-27] MEDS: Gabapentin 100 MG CAP PO SCH ×3 (09:43→20:32)
[2018-01-27] MEDS: Multivit, Therapeutic 1 TAB PO SCH (09:43)
[2018-01-27] MEDS: Spironolactone 25 MG TAB PO SCH (09:43)
[2018-01-27] MEDS: Glimepiride 2 MG TAB PO SCH ×2 (09:43→20:32)
[2018-01-27] MEDS: Furosemide 80 MG TAB PO SCH (09:44)
[2018-01-27] MEDS: Emollient 15 oz bottle 450 ML, Triamcinolone Acetonide 200 MG TOP SCH ×2 (09:44→20:32)
[2018-01-27] MEDS: Furosemide 40 MG TAB PO SCH (12:01)
[2018-01-28] MEDS: Acetaminophen 325 MG TAB PO PRN ×3 (05:57→19:28)
[2018-01-28] MEDS: Levothyroxine Sodium 100 MCG TAB PO SCH (05:57)
[2018-01-28] MEDS: Cephalexin 250 MG CAP PO SCH ×4 (05:57→23:50)
[2018-01-28] MEDS: Saccharomyces boulardii 250 MG CAP PO SCH (08:37)
[2018-01-28] MEDS: Doxycycline 100 MG CAP PO SCH ×2 (08:37→20:49)
[2018-01-28] MEDS: Glimepiride 2 MG TAB PO SCH ×2 (08:38→20:49)
[2018-01-28] MEDS: Gabapentin 100 MG CAP PO SCH ×3 (08:38→20:49)
[2018-01-28] MEDS: Furosemide 80 MG TAB PO SCH (08:38)
[2018-01-28] MEDS: Enoxaparin Sodium 40 MG/0.4 ML SYRINGE SC SCH (08:38)
[2018-01-28] MEDS: Spironolactone 25 MG TAB PO SCH (08:38)
[2018-01-28] MEDS: Multivit, Therapeutic 1 TAB PO SCH (08:38)
[2018-01-28] MEDS: Lisinopril 10 MG TAB PO SCH (08:38)
[2018-01-28] MEDS: Emollient 15 oz bottle 450 ML, Triamcinolone Acetonide 200 MG TOP SCH ×2 (08:39→20:51)
[2018-01-28] MEDS: Furosemide 40 MG TAB PO SCH (11:59)
[2018-01-29] MEDS: Cephalexin 250 MG CAP PO SCH ×3 (05:13→17:26)
[2018-01-29] MEDS: Levothyroxine Sodium 100 MCG TAB PO SCH (05:13)
[2018-01-29] MEDS: Enoxaparin Sodium 40 MG/0.4 ML SYRINGE SC SCH (08:10)
[2018-01-29] MEDS: Saccharomyces boulardii 250 MG CAP PO SCH (08:10)
[2018-01-29] MEDS: Multivit, Therapeutic 1 TAB PO SCH (08:10)
[2018-01-29] MEDS: Acetaminophen 325 MG TAB PO PRN ×2 (08:11→20:41)
[2018-01-29] MEDS: Doxycycline 100 MG CAP PO SCH ×2 (08:11→20:42)
[2018-01-29] MEDS: Spironolactone 25 MG TAB PO SCH (08:11)
[2018-01-29] MEDS: Furosemide 80 MG TAB PO SCH (08:11)
[2018-01-29] MEDS: Glimepiride 2 MG TAB PO SCH ×2 (08:11→20:42)
[2018-01-29] MEDS: Emollient 15 oz bottle 450 ML, Triamcinolone Acetonide 200 MG TOP SCH ×2 (08:12→20:42)
[2018-01-29] MEDS: Gabapentin 100 MG CAP PO SCH ×3 (08:12→20:42)
[2018-01-29] MEDS: Lisinopril 10 MG TAB PO SCH (08:12)
--- NOTE | 2018-01-29 10:13 | PRG ---
DATE OF SERVICE: 01/29/2018 SUBJECTIVE: The patient said she is feeling better. Sometimes has some pain in her upper back and n clementina, which is chronic. I have order the Gaymar pump for moist heat application when she needs this. The patient says her legs feel better. OBJECTIVE: The patient is sitting up this morning in her wheelchair. She is alert, talkative, appea rs very comfortable, in no distress. Temp 97.8, pulse 66, respirations 18, O2 sat 100% on room air, blood pressure 127/77. Lungs are clear. Heart, regular rate. Extremities; the skin of the lower le g looks much better. She has chronic stasis changes, but the skin is much more supple, it is not sca ly. There is no redness. There is no increased heat. There is some mild edema, but overall less th an what it has been. ASSESSMENT: 1. Generalized weakness and gait abnormality. A. Marked decline in her functional capabilities after recent hospitalization for cellulitis. B. Improved as of 01/29/2018. 2. Recent hospitalization at [facility] from 01/17/2018 until 01/22/2018 for cellulitis o f the right lower leg, treated with IV vancomycin and Rocephin. Venous Doppler showed no evidence of DVT. A. Resolving with no evidence of recurrence as of 01/29/2018. B. On 7-day course of oral cephalexin and doxycycline as of 01/22/2018. 3. Severe venous insufficiency of the lower extremity. A. Right worse than left. B. Complicated by recent cellulitis of the right lower leg requiring hospitalization at [facility] from 01/17/2018 to 01/22/2018. C. Improved as of 01/29/2018. 4. Chronic stasis dermatitis of the lower extremities. A. Improved as of 01/29/2018. 5. Diabetes type 2. 6. Hypertension. 7. Hypothyroidism. 8. Generalized osteoarthritis. 9. Severe cervical spinal stenosis complicated by myelopathy with weakness of the lower extremities. A. Status post decompression and anterior fusion in 10/2014 with marked improvement, but leaving her with some residual weakness in the upper extremities, right more than the left. 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 11. Constipation. 12. Chronic kidney disease. 13. Anemia of chronic illness. PLAN: Continue present care. Continue physical therapy.
[2018-01-29] MEDS: Furosemide 40 MG TAB PO SCH (11:54)
[2018-01-30] MEDS: Levothyroxine Sodium 100 MCG TAB PO SCH (05:00)
[2018-01-30] MEDS: Enoxaparin Sodium 40 MG/0.4 ML SYRINGE SC SCH (08:55)
[2018-01-30] MEDS: Lisinopril 10 MG TAB PO SCH (08:56)
[2018-01-30] MEDS: Furosemide 80 MG TAB PO SCH (08:56)
[2018-01-30] MEDS: Gabapentin 100 MG CAP PO SCH ×3 (08:56→20:04)
[2018-01-30] MEDS: Multivit, Therapeutic 1 TAB PO SCH (08:56)
[2018-01-30] MEDS: Glimepiride 2 MG TAB PO SCH ×2 (08:56→20:04)
[2018-01-30] MEDS: Emollient 15 oz bottle 450 ML, Triamcinolone Acetonide 200 MG TOP SCH ×2 (08:57→20:05)
[2018-01-30] MEDS: Saccharomyces boulardii 250 MG CAP PO SCH (08:57)
[2018-01-30] MEDS: Spironolactone 25 MG TAB PO SCH (08:57)
[2018-01-30] MEDS: Acetaminophen 325 MG TAB PO PRN ×2 (09:01→19:30)
[2018-01-30] MEDS: Furosemide 40 MG TAB PO SCH (12:01)
[2018-01-31] MEDS: Acetaminophen 325 MG TAB PO PRN ×3 (04:36→20:28)
[2018-01-31] MEDS: Levothyroxine Sodium 100 MCG TAB PO SCH (05:22)
[2018-01-31] MEDS: Enoxaparin Sodium 40 MG/0.4 ML SYRINGE SC SCH (09:00)
[2018-01-31] MEDS: Multivit, Therapeutic 1 TAB PO SCH (09:01)
[2018-01-31] MEDS: Gabapentin 100 MG CAP PO SCH ×3 (09:01→20:28)
[2018-01-31] MEDS: Saccharomyces boulardii 250 MG CAP PO SCH (09:01)
[2018-01-31] MEDS: Furosemide 80 MG TAB PO SCH (09:02)
[2018-01-31] MEDS: Spironolactone 25 MG TAB PO SCH (09:02)
[2018-01-31] MEDS: Lisinopril 10 MG TAB PO SCH (09:03)
[2018-01-31] MEDS: Glimepiride 2 MG TAB PO SCH ×2 (09:03→20:28)
[2018-01-31] MEDS: Emollient 15 oz bottle 450 ML, Triamcinolone Acetonide 200 MG TOP SCH ×2 (09:04→20:39)
--- NOTE | 2018-01-31 10:17 | PRG ---
DATE OF SERVICE: 01/31/2018 SUBJECTIVE: The patient said she is feeling better. She is doing more. She is walking a little fur ther and transferring better, but still not back to her baseline before the cellulitis. Her legs are not hurting. OBJECTIVE: The patient is sitting up on the NuStep working her arms and legs. She is alert, appears in no distress. Temp 98.2, pulse 63, respirations 18, O2 saturation 98% on room air, blood pressure 120/60. Lungs are clear. Heart, regular rate. Extremities have trace edema. There is no redness. Skin looks much better. There is still the chronic skin discoloration from the stasis. FBS yester day morning was 79. This morning's is pending. ASSESSMENT: 1. Generalized weakness and gait abnormality. A. Marked decline in her functional capabilities after recent hospitalization for cellulitis. B. Improved, walking further, transferring better as of 01/31/2018. 2. Recent hospitalization at [facility] from 01/17/2018 until 01/22/2018 for cellulitis o f the right lower leg, treated with IV vancomycin and Rocephin. Venous Doppler showed no evidence of DVT. A. Resolving with no evidence of recurrence as of 01/29/2018. B. Completed the 7-day course of cephalexin and doxycycline. 3. Severe venous insufficiency of the lower extremity. A. Right worse than left. B. Complicated by recent cellulitis of the right lower leg requiring hospitalization at [facility] from 01/17/2018 to 01/22/2018. C. Improved as of 01/29/2018. 4. Chronic stasis dermatitis of the lower extremities. A. Controlled as of 01/31/2018. 5. Diabetes type 2. 6. Hypertension. 7. Hypothyroidism. 8. Generalized osteoarthritis. 9. Severe cervical spinal stenosis complicated by myelopathy with weakness of the lower extremities. A. Status post decompression and anterior fusion in 10/2014 with marked improvement, but leaving her with some residual weakness in the upper extremities, right more than the left. 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 11. Constipation. 12. Chronic kidney disease. 13. Anemia of chronic illness. PLAN: Continue present care.
[2018-01-31] MEDS: Furosemide 40 MG TAB PO SCH (12:43)
[2018-02-01 05:24] LABS: #Basophils 0.1 thou/uL (0.0-0.2); #Eosinphils 0.3 thou/uL (0.0-0.7); #Lymphocytes 1.5 thou/uL (1.20-3.40); #Monocytes 0.4 thou/uL (0.11-0.59); #Neutrophils 3.9 thou/uL (1.40-6.50); %Basophils 1.4 % (0.0-1.0); %Eosinophils 5.7 % (0.0-10.0); %Lymphocytes 24.6 % (21.0-51.0); %Neutrophils 62.4 % (42.0-75.0); Mean Corpuscular HGB CONC 33.2 g/dL (32.0-36.0); Mean Corpuscular Hemoglobin 29.3 pg (27.0-31.0); Mean Corpuscular Volume 88.3 fl (81.0-99.0); Mean Platelet Volume 6.8 fL (7.4-10.4); Platelet Count 183 thou/uL (130-400); RBC Distribution Width 11.7 % (11.5-14.5); Red Blood Cell (RBC) Count 3.08 mill/uL (4.20-5.40); White Blood Cell (WBC) Count 6.2 thou/uL (4.8-10.8)
[2018-02-01 05:32] LABS: Anion Gap 16 mmol/L (10-20); BUN (Urea Nitrogen) 39 mg/dL (9.8-20.1); Calc. Creatinine Clearance 87 mL/min (70-130); Calcium 8.5 mg/dL (7.8-10.44); Carbon Dioxide 24 mmol/L (23-31); Chloride 108 mmol/L (98-107); Estimated GFR-MDRD 51; Glucose 95 mg/dL (83-110); Potassium 4.5 mmol/L (3.5-5.1); Sodium 143 mmol/L (136-145)
[2018-02-01] MEDS: Levothyroxine Sodium 100 MCG TAB PO SCH (05:50)
[2018-02-01] MEDS: Enoxaparin Sodium 40 MG/0.4 ML SYRINGE SC SCH (08:19)
[2018-02-01] MEDS: Lisinopril 10 MG TAB PO SCH (08:20)
[2018-02-01] MEDS: Furosemide 80 MG TAB PO SCH (08:20)
[2018-02-01] MEDS: Gabapentin 100 MG CAP PO SCH ×3 (08:20→20:08)
[2018-02-01] MEDS: Glimepiride 2 MG TAB PO SCH ×2 (08:21→20:08)
[2018-02-01] MEDS: Spironolactone 25 MG TAB PO SCH (08:21)
[2018-02-01] MEDS: Emollient 15 oz bottle 450 ML, Triamcinolone Acetonide 200 MG TOP SCH ×2 (08:22→20:09)
[2018-02-01] MEDS: Multivit, Therapeutic 1 TAB PO SCH (08:22)
[2018-02-01] MEDS: Saccharomyces boulardii 250 MG CAP PO SCH (08:22)
[2018-02-01] MEDS: Acetaminophen 325 MG TAB PO PRN ×2 (08:26→20:11)
[2018-02-01] MEDS: Furosemide 40 MG TAB PO SCH (12:10)
[2018-02-01 19:12] VITALS: BMI 42.6
[2018-02-02] MEDS: Levothyroxine Sodium 100 MCG TAB PO SCH (04:59)
[2018-02-02] MEDS: Lisinopril 10 MG TAB PO SCH (08:48)
[2018-02-02] MEDS: Enoxaparin Sodium 40 MG/0.4 ML SYRINGE SC SCH (08:48)
[2018-02-02] MEDS: Multivit, Therapeutic 1 TAB PO SCH (08:48)
[2018-02-02] MEDS: Furosemide 80 MG TAB PO SCH (08:48)
[2018-02-02] MEDS: Saccharomyces boulardii 250 MG CAP PO SCH (08:49)
[2018-02-02] MEDS: Glimepiride 2 MG TAB PO SCH ×2 (08:49→20:00)
[2018-02-02] MEDS: Spironolactone 25 MG TAB PO SCH (08:49)
[2018-02-02] MEDS: Emollient 15 oz bottle 450 ML, Triamcinolone Acetonide 200 MG TOP SCH ×2 (08:49→20:01)
[2018-02-02] MEDS: Gabapentin 100 MG CAP PO SCH ×3 (08:49→20:00)
[2018-02-02] MEDS: Acetaminophen 325 MG TAB PO PRN ×3 (08:54→20:02)
--- NOTE | 2018-02-02 12:00 | PRG ---
DATE OF SERVICE: 02/02/2018 SUBJECTIVE: The patient was seen and she is making good progress. She is working with physical therapy supervisor clarence and has already been to physical therapy this morning. She is getting good workout at [facility]rapy [facility] using the NuStep and exercising her arms and her legs. She is walking up to 200 fe et 2 times a day with a rolling walker. She is transferring better and said she is getting back to h er strength prior to her cellulitis and thinks soon she will be able to return to assisted living and manage. OBJECTIVE: The patient is alert, sitting up in a wheelchair, appears comfortable, in no distress. T emp 98.2, pulse 71, blood pressure 150/63, O2 sat 97% on room air, respirations 18, blood pressure 15 0/63, earlier 143/63. Lungs are clear. Heart, regular rhythm. Extremities, has trace edema, the sk in is in good condition. There is a chronic discoloration from the chronic stasis, but there is no i ncreased heat nor rash. Her lab shows a H&H of 9 and 27.2, WBC count 6200 with 62% segs, 25% lymphoc ytes, and platelet count of 183,000. Her sodium 143, potassium 4.5, BUN 39, creatinine 1.04. FBS 95 . ASSESSMENT: 1. Generalized weakness and gait abnormality. A. Marked decline in her functional capabilities after recent hospitalization for cellulitis. B. Marked improvement. Walking with the use of a walker up to 200 feet. Transferring with standby assistance as of 02/02/2018. 2. Recent hospitalization at [facility] from 01/17/2018 until 01/22/2018 for cellulitis o f the right lower leg, treated with IV vancomycin and Rocephin. Venous Doppler showed no evidence of DVT. A. Resolving with no evidence of recurrence as of 01/29/2018. B. Completed the 7-day course of cephalexin and doxycycline. 3. Severe venous insufficiency of the lower extremity. A. Right worse than left. B. Complicated by recent cellulitis of the right lower leg requiring hospitalization at [facility] from 01/17/2018 to 01/22/2018. C. Stable as of 02/02/2018. 4. Chronic stasis dermatitis of the lower extremities. A. Controlled as of 02/02/2018. 5. Diabetes type 2. 6. Hypertension. 7. Hypothyroidism. 8. Generalized osteoarthritis. 9. Severe cervical spinal stenosis complicated by myelopathy with weakness of the lower extremities. A. Status post decompression and anterior fusion in 10/2014 with marked improvement, but leaving her with some residual weakness in the upper extremities, right more than the left. 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 11. Constipation. 12. Chronic kidney disease. 13. Anemia of chronic illness. PLAN: Continue present care. The patient will benefit by further physical therapy. Targeting a dis charge back to assisted living on 02/07/2018.
[2018-02-02] MEDS: Furosemide 40 MG TAB PO SCH (12:03)
[2018-02-03] MEDS: Levothyroxine Sodium 100 MCG TAB PO SCH (06:09)
[2018-02-03] MEDS: Enoxaparin Sodium 40 MG/0.4 ML SYRINGE SC SCH (08:10)
[2018-02-03] MEDS: Glimepiride 2 MG TAB PO SCH ×2 (08:11→20:08)
[2018-02-03] MEDS: Furosemide 80 MG TAB PO SCH (08:11)
[2018-02-03] MEDS: Gabapentin 100 MG CAP PO SCH ×3 (08:11→20:08)
[2018-02-03] MEDS: Lisinopril 10 MG TAB PO SCH (08:12)
[2018-02-03] MEDS: Multivit, Therapeutic 1 TAB PO SCH (08:12)
[2018-02-03] MEDS: Saccharomyces boulardii 250 MG CAP PO SCH (08:12)
[2018-02-03] MEDS: Spironolactone 25 MG TAB PO SCH (08:13)
[2018-02-03] MEDS: Emollient 15 oz bottle 450 ML, Triamcinolone Acetonide 200 MG TOP SCH ×2 (08:14→20:08)
[2018-02-03] MEDS: Acetaminophen 325 MG TAB PO PRN ×2 (08:16→19:13)
[2018-02-03] MEDS: Furosemide 40 MG TAB PO SCH (11:38)
[2018-02-04] MEDS: Levothyroxine Sodium 100 MCG TAB PO SCH (05:12)
[2018-02-04] MEDS: Lisinopril 10 MG TAB PO SCH (08:30)
[2018-02-04] MEDS: Saccharomyces boulardii 250 MG CAP PO SCH (08:30)
[2018-02-04] MEDS: Acetaminophen 325 MG TAB PO PRN ×2 (08:30→20:36)
[2018-02-04] MEDS: Glimepiride 2 MG TAB PO SCH ×2 (08:30→20:37)
[2018-02-04] MEDS: Enoxaparin Sodium 40 MG/0.4 ML SYRINGE SC SCH (08:30)
[2018-02-04] MEDS: Spironolactone 25 MG TAB PO SCH (08:30)
[2018-02-04] MEDS: Furosemide 80 MG TAB PO SCH (08:30)
[2018-02-04] MEDS: Gabapentin 100 MG CAP PO SCH ×3 (08:30→20:37)
[2018-02-04] MEDS: Multivit, Therapeutic 1 TAB PO SCH (08:30)
[2018-02-04] MEDS: Emollient 15 oz bottle 450 ML, Triamcinolone Acetonide 200 MG TOP SCH ×2 (08:30→20:40)
[2018-02-04] MEDS: Furosemide 40 MG TAB PO SCH (13:29)
[2018-02-04] MEDS: Polyethylene Glycol 3350 17 GM Packet PO PRN (20:41)
[2018-02-05] MEDS: Levothyroxine Sodium 100 MCG TAB PO SCH (05:19)
[2018-02-05] MEDS: Furosemide 80 MG TAB PO SCH (08:02)
[2018-02-05] MEDS: Enoxaparin Sodium 40 MG/0.4 ML SYRINGE SC SCH (08:02)
[2018-02-05] MEDS: Gabapentin 100 MG CAP PO SCH ×3 (08:02→20:05)
[2018-02-05] MEDS: Saccharomyces boulardii 250 MG CAP PO SCH (08:03)
[2018-02-05] MEDS: Multivit, Therapeutic 1 TAB PO SCH (08:03)
[2018-02-05] MEDS: Lisinopril 10 MG TAB PO SCH (08:03)
[2018-02-05] MEDS: Glimepiride 2 MG TAB PO SCH ×2 (08:03→20:05)
[2018-02-05] MEDS: Spironolactone 25 MG TAB PO SCH (08:04)
[2018-02-05] MEDS: Emollient 15 oz bottle 450 ML, Triamcinolone Acetonide 200 MG TOP SCH ×2 (08:04→20:06)
[2018-02-05] MEDS: Acetaminophen 325 MG TAB PO PRN ×2 (09:50→19:29)
--- NOTE | 2018-02-05 10:26 | PRG ---
DATE OF SERVICE: 02/05/2018 SUBJECTIVE: The patient said she is doing better. She is doing better with her walking and transfer s and think she will be fine to return to assisted living on 02/07/2018. She still has oc casional little soreness in the right posterior leg, but overall this gets less and less. Her swelli ng is better. OBJECTIVE: The patient is sitting up in a chair. She is alert, appears very comfortable. Her tempe rature is 98.6, pulse 66, respirations 20, O2 sat 96%, blood pressure 128/60. Lungs are clear. Hear t; regular rate. Extremities have trace edema. There is chronic discoloration of the skin from the stasis, but the skin is not scaly. There are no open wounds, no increased heat or ulcerations. Ther e is trace edema. Overall, the legs look better. ASSESSMENT: 1. Generalized weakness and gait abnormality. A. Marked decline in her functional capabilities after recent hospitalization for cellulitis. B. Marked improvement. Walking with the use of a walker up to 200 feet. Transferring with standby assistance as of 02/05/2018. 2. Recent hospitalization at [facility] from 01/17/2018 until 01/22/2018 for cellulitis o f the right lower leg, treated with IV vancomycin and Rocephin. Venous Doppler showed no evidence of DVT. A. Resolving with no evidence of recurrence as of 01/29/2018. B. Completed the 7-day course of cephalexin and doxycycline. 3. Severe venous insufficiency of the lower extremity. A. Right worse than left. B. Complicated by recent cellulitis of the right lower leg requiring hospitalization at [facility] from 01/17/2018 to 01/22/2018. C. Stable as of 02/05/2018. 4. Chronic stasis dermatitis of the lower extremities. A. Controlled as of 02/05/2018. 5. Diabetes type 2. 6. Hypertension. 7. Hypothyroidism. 8. Generalized osteoarthritis. 9. Severe cervical spinal stenosis complicated by myelopathy with weakness of the lower extremities. A. Status post decompression and anterior fusion in 10/2014 with marked improvement, but leaving her with some residual weakness in the upper extremities, right more than the left. 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 11. Constipation. 12. Chronic kidney disease. 13. Anemia of chronic illness. PLAN: The patient doing very well. Continue present care. Continue physical therapy. Anticipate d ischarge back to assisted living on 02/07/2018.
[2018-02-05] MEDS: Furosemide 40 MG TAB PO SCH (11:57)
[2018-02-05] MEDS: Polyethylene Glycol 3350 17 GM Packet PO PRN (19:30)
[2018-02-06] MEDS: Acetaminophen 325 MG TAB PO PRN ×3 (04:25→20:26)
[2018-02-06] MEDS: Levothyroxine Sodium 100 MCG TAB PO SCH (06:01)
[2018-02-06] MEDS: Enoxaparin Sodium 40 MG/0.4 ML SYRINGE SC SCH (08:37)
[2018-02-06] MEDS: Emollient 15 oz bottle 450 ML, Triamcinolone Acetonide 200 MG TOP SCH ×2 (08:37→20:30)
[2018-02-06] MEDS: Spironolactone 25 MG TAB PO SCH (08:38)
[2018-02-06] MEDS: Furosemide 80 MG TAB PO SCH (08:38)
[2018-02-06] MEDS: Lisinopril 10 MG TAB PO SCH (08:38)
[2018-02-06] MEDS: Gabapentin 100 MG CAP PO SCH ×3 (08:38→20:28)
[2018-02-06] MEDS: Saccharomyces boulardii 250 MG CAP PO SCH (08:38)
[2018-02-06] MEDS: Multivit, Therapeutic 1 TAB PO SCH (08:39)
[2018-02-06] MEDS: Glimepiride 2 MG TAB PO SCH ×2 (08:39→20:26)
[2018-02-06] MEDS: Furosemide 40 MG TAB PO SCH (12:08)
[2018-02-07] MEDS: Acetaminophen 325 MG TAB PO PRN ×2 (02:28→08:35)
[2018-02-07] MEDS: Levothyroxine Sodium 100 MCG TAB PO SCH (06:04)
[2018-02-07 06:51] VITALS: BP 121/56; TEMP 98.1
[2018-02-07] MEDS: Enoxaparin Sodium 40 MG/0.4 ML SYRINGE SC SCH (08:33)
[2018-02-07] MEDS: Furosemide 80 MG TAB PO SCH (08:34)
[2018-02-07] MEDS: Glimepiride 2 MG TAB PO SCH (08:34)
[2018-02-07] MEDS: Spironolactone 25 MG TAB PO SCH (08:34)
[2018-02-07] MEDS: Saccharomyces boulardii 250 MG CAP PO SCH (08:34)
[2018-02-07] MEDS: Multivit, Therapeutic 1 TAB PO SCH (08:34)
[2018-02-07] MEDS: Gabapentin 100 MG CAP PO SCH (08:34)
[2018-02-07] MEDS: Lisinopril 10 MG TAB PO SCH (08:34)
[2018-02-07] MEDS: Emollient 15 oz bottle 450 ML, Triamcinolone Acetonide 200 MG TOP SCH (08:35)
[2018-02-07] MEDS: Furosemide 40 MG TAB PO SCH (12:03)
--- NOTE | 2018-02-07 13:15 | DIS ---
Admitted to extended care on 01/22/2018 and discharged on 02/07/2018. FINAL DIAGNOSES: 1. Generalized weakness and gait abnormality. A. Marked decline in her functional capabilities after recent hospitalization for cellulitis. B. Marked improvement. Walks with the use of her walker up to 200 feet, transferring independently with just standby assistance as of 02/07/2018. 2. Recent hospitalization at [facility] from 01/17/2018 until 01/22/2018 for cellulitis o f the right lower leg, treated with IV vancomycin and Rocephin. Venous Doppler showed no evidence of DVT. A. Resolved with no evidence of recurrence as of 02/07/2018. B. Completed the 7-day course of cephalexin and doxycycline. 3. Severe venous insufficiency of the lower extremity. A. Right worse than left. B. Complicated by recent cellulitis of the right lower leg requiring hospitalization at [facility] from 01/17/2018 to 01/22/2018. C. Stable as of 02/05/2018. 4. Chronic stasis dermatitis of the lower extremities. A. Controlled as of 02/08/2018. 5. Diabetes type 2. 6. Hypertension. 7. Hypothyroidism. 8. Generalized osteoarthritis. 9. Severe cervical spinal stenosis complicated by myelopathy with weakness of the lower extremities. A. Status post decompression and anterior fusion in 10/2014 with marked improvement, but leaving her with some residual weakness in the upper extremities, right more than the left. 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 11. Constipation. 12. Chronic kidney disease. 13. Anemia of chronic illness. REASON FOR ADMISSION: The patient is a 77-year-old white female who has a history of severe venous i nsufficiency of the lower extremities complicated by chronic stasis dermatitis and edema. She has koch d multiple episodes of cellulitis. She has limited mobility, most of the time she sits up in a chair , usually a lounge chair allowing her feet to be elevated. She is not able to wear support hose as s he is not able to put on. She ambulates short distances with the use of a walker and has a wheelchai r she uses for longer distance. She has weakness in her upper extremities secondary to severe cervic al spine stenosis with myelopathy that required surgical decompression and fusion in 10/2014. She al so has hypertension, diabetes type 2. She is independent of her ADLs, usually has standby assistance with showering. She lives in assisted living. The patient was hospitalized at [facility] from 01/17/2018 until 01/22/2018 for cellulitis of the right lower extremity. She was treated with IV antibiotics using IV vancomycin and IV Rocephin. Venous Doppler study was done, did not show any evidence of deep vein thrombosis. She was treated with Lovenox for DVT prophylaxis. The cellulitis markedly improved and she was switched to oral cephalexin and Vibramycin. She was transferred to [facility] on 01/22/2018 for the purpose of physical therapy and occupational thera py in an effort to increase her functional capabilities such that she can return to her home there in assisted living. HOSPITAL COURSE: The patient was admitted to [facility] on 01/22/2018. Physical therapy worked w ith her and during her stay, she made marked improvement. By the time of her discharge, she was now able to walk up to 200 feet twice a day with the use of a walker. She was transferring independently , usually had more standby assistance. She had no recurrence of the cellulitis. She completed a 7-d ay course of oral cephalexin and Vibramycin. Her legs overall look better. Her edema was controlled with elevation and with her furosemide, she has receives 80 mg in the morning and 40 mg in the after noon. She was not able to utilize support stockings. She would not be able to put these on with her upper extremity weakness. The patient's chronic stasis dermatitis of her extremities was well contr olled with control of the edema and with the use of Claudia Kenalog cream. Her diabetes was well contro lled. Her FBS on the morning of discharge was 91. Her hemoglobin was 9 and hematocrit 27.2 on 02/01. By 02/07/2018 the patient was doing very well and felt that she was back to her baseline and felt like she could manage fine in the assisted living. Her condition improved such that it is felt like she could be discharged and followed back as an outpatient. DIET: Consistent carbohydrate diet. ACTIVITIES: Ambulate with the use of a walker, mobility and also allowed in wheelchair. Encourage h er to sit with her feet elevated in her lounge chair and take rest periods at least twice a day with the legs elevated. A glucometer check should be done daily before breakfast. MEDICATIONS: Claudia lotion with Kenalog 15 ounces/200 mg apply sparingly to the lower legs twice a day , acetaminophen 325 mg 2 every 4 hours as needed, furosemide 40 mg 2 in the morning and 1 at noon, ga bapentin 100 mg t.i.d., glimepiride 1 mg b.i.d., levothyroxine 100 mcg daily, lisinopril 10 mg daily, Mylanta 30 mL every 4 hours as needed for indigestion, Milk of Magnesia 30 mL daily if needed, multi vitamin 1 a day, MiraLax 17 grams, 8 ounces of water daily, spironolactone 25 mg a half a tablet roosevelt y. FOLLOW UP: The patient will be seen in followup in my office in 1-2 weeks. CODE STATUS: Full code.
== END 2018-02-07 13:41 | DRG 948 ==
LOC: MADMS 14:14
PROVIDERS: ADMIT Family Medicine; ATTEND Family Medicine
DX: R53.1 Weakness (principal); M50.00 Cervical disc disorder with myelopathy, unspecified cervical region; I87.2 Venous insufficiency (chronic) (peripheral); I83.10 Varicose veins of unspecified lower extremity with inflammation; M48.02 Spinal stenosis, cervical region; I12.9 Hypertensive chronic kidney disease with stage 1 through stage 4 chronic kidney disease, or unspecified chronic kidney disease; N18.9 Chronic kidney disease, unspecified; E11.22 Type 2 diabetes mellitus with diabetic chronic kidney disease; R26.9 Unspecified abnormalities of gait and mobility; D63.1 Anemia in chronic kidney disease; K59.00 Constipation, unspecified; E03.9 Hypothyroidism, unspecified; M19.90 Unspecified osteoarthritis, unspecified site; Z98.1 Arthrodesis status; Z88.5 Allergy status to narcotic agent; Z88.8 Allergy status to other drugs, medicaments and biological substances
CPT/HCPCS: 36415; 36416; 80048; 85025; G8978-GP-CK; G8979-GP-CI; G8987-GO-CK; G8988-GO-CI; J1650; J3301

== ENCOUNTER 2018-03-19 11:42 | Emergency (ER) | payer MEDICARE ==
[2018-03-19] MEDS ORDERED: Clindamycin 150 MG CAP ONE (12:07)
== END 2018-03-19 13:14 | disposition home or self-care (01) ==
LOC: MADERS 11:42
DX: L03.115 Cellulitis of right lower limb (principal); E11.9 Type 2 diabetes mellitus without complications; E03.9 Hypothyroidism, unspecified; M19.90 Unspecified osteoarthritis, unspecified site; I11.0 Hypertensive heart disease with heart failure; I50.9 Heart failure, unspecified; Z86.73 Personal history of transient ischemic attack (TIA), and cerebral infarction without residual deficits; Z79.899 Other long term (current) drug therapy; Z79.84 Long term (current) use of oral hypoglycemic drugs
CPT/HCPCS: 99283

== ENCOUNTER 2018-03-21 13:45 | Inpatient (IN) | payer MEDICARE ==
[2018-03-21] MEDS ORDERED: Prevnar 13-Val Conj/PF 0.5 ML SYRINGE IM ONE (15:00)
[2018-03-21] MEDS ORDERED: Acetaminophen 500 MG TAB PO PRN (15:14)
[2018-03-21] MEDS: Vancomycin HCl 1 GM in Sodium Chloride 0.9% 250 ML 250 ML IVPB SCH (15:46)
[2018-03-21 16:24] LABS: #Basophils 0.1 thou/uL (0.0-0.2); #Eosinphils 0.3 thou/uL (0.0-0.7); #Lymphocytes 1.6 thou/uL (1.20-3.40); #Monocytes 0.4 thou/uL (0.11-0.59); #Neutrophils 3.7 thou/uL (1.40-6.50); %Basophils 1.3 % (0.0-1.0); %Eosinophils 5.3 % (0.0-10.0); %Lymphocytes 25.5 % (21.0-51.0); %Monocytes 6.7 % (0.0-10.0); %Neutrophils 61.2 % (42.0-75.0); Hemoglobin 9.4 g/dL (12.0-16.0); Mean Corpuscular HGB CONC 32.7 g/dL (32.0-36.0); Mean Corpuscular Hemoglobin 28.7 pg (27.0-31.0); Mean Platelet Volume 7.7 fL (7.4-10.4); Platelet Count 174 thou/uL (130-400); RBC Distribution Width 11.5 % (11.5-14.5); Red Blood Cell (RBC) Count 3.29 mill/uL (4.20-5.40); White Blood Cell (WBC) Count 6.1 thou/uL (4.8-10.8)
[2018-03-21 16:32] LABS: ALT (SGPT) 9 U/L (8-55); AST (SGOT) 11 U/L (5-34); Albumin 3.8 g/dL (3.4-4.8); Alkaline Phosphatase 73 U/L (40-150); Anion Gap 14 mmol/L (10-20); BUN (Urea Nitrogen) 39 mg/dL (9.8-20.1); Bilirubin, Total 0.2 mg/dL (0.2-1.2); Calc. Creatinine Clearance 85 mL/min (70-130); Calcium 8.4 mg/dL (7.8-10.44); Carbon Dioxide 25 mmol/L (23-31); Chloride 108 mmol/L (98-107); Estimated GFR-MDRD 50; Globulin 2.7 g/dL (2.4-3.5); Glucose 143 mg/dL (83-110); Potassium 4.9 mmol/L (3.5-5.1); Protein, Total 6.5 g/dL (6.0-8.3); Sodium 142 mmol/L (136-145)
[2018-03-21] MEDS: cefTRIAXone\\ROCEPHIN 1 GM in Sodium Chloride 0.9% 100 ML IVPB SCH (17:07)
[2018-03-21 18:09] VITALS: BMI 42.9
[2018-03-21 20:20] LABS: Hemoglobin A1c 6.3 % (4.0-6.0)
[2018-03-21] MEDS: Emollient 15 oz bottle 450 ML, Triamcinolone Acetonide 200 MG TOP SCH (21:06)
[2018-03-21] MEDS: Gabapentin 100 MG CAP PO SCH (21:06)
--- NOTE | 2018-03-22 00:49 | HP ---
DATE OF ADMISSION: To [facility] to acute care on 03/21/2018 CHIEF COMPLAINT: Red, swelled right leg. PRESENT ILLNESS: The patient is a 77-year-old white female, who has a history of severe venous insuf ficiency of the lower extremities, complicated by chronic stasis dermatitis and edema. She has been treated multiple times with cellulitis. She has limited mobility, most of the time she sits up in a chair and gets around in a wheelchair. She uses a lounge chair to elevate her feet, not able to wear support hose. She was last hospitalized from 01/22/2018 to 02/07/2018 at [facility] for compl etion of antibiotics, for physical therapy, for cellulitis of the right lower leg that treatment was initiated at [facility] from 01/17/2018 to 01/22/2018. At that time, she also had a Doppl er of the legs that showed no evidence of any DVT. The patient resides in assisted living where she is able to independently transfer from her bed to he r wheelchair. The patient had developed increased swelling in her right leg and noticed some increas ed pain in her right lower leg. The staff there noticed the leg was extremely red and hot to the ministerio . She went to the emergency room on 03/19/2018 and was started on clindamycin 300 mg q.i.d. for a cellulitis, and was discharged back to her assisted living. The patient presented to my office 2 day s later on 03/21/2018, due to persistence of the discoloration of the leg and also due to a bubbling appearance of the skin of the leg where the rash was present. The leg has looked worse to the staff. Patient said the leg has been sore to the touch. She has not been running any fever. PAST HOSPITALIZATIONS: Multiple hospitalizations for cellulitis of her legs. Last hospitalized at [facility] from 01/24/2018 to 01/22/2018, treated with IV vancomycin and Rocephin. Venous Doppler showed no evidence of DVT. She was transferred to [facility] where she remained until 02/07/2018 for physical therapy and then returned to the assisted living. The patient was hospitaliz ed at [facility] in 05/06/2017 until 05/24/2017 for cellulitis of the lower extremities, weakne ss, gait abnormality, and deconditioning. The patient has hypertension, severe venous insufficiency of the lower extremities, complicated by chronic stasis dermatitis, generalized osteoarthritis, hypot hyroidism, cervical myelopathy with severe cervical stenosis presenting with paralysis of the right u pper extremity and severe weakness of the left upper extremity. Patient required a surgical decompre ssion and anterior fusion of the involved area of the cervical spine 10/2014. Following this, she sh owed marked improvement with weakness in the arms, but was still left with limitation of use of those arms, more on the right than the left. She has chronic low back pain secondary to failed surgical b ack syndrome. She has had tonsillectomy, low back surgery with laminectomy in 1961, 1965, and the th ird time in 1979. She has had a hysterectomy. Hospitalized in 10/2015 for hemoptysis secondary to b ronchitis and bronchiectasis that resolved. EGD in 10/2015 showed blood in the hypopharynx, otherwis e unremarkable. CT scan of the chest that admission showed bronchiectasis. The patient has diabetes , type 2; chronic kidney disease; anemia of chronic illness. PRESENT MEDICINES: Clindamycin 300 mg q.i.d., started on 03/19/2018, levothyroxine 100 mcg daily, li sinopril 10 mg daily, MiraLax 17 grams in 8 ounces of water daily, furosemide 40 mg 2 tablets in the morning and 1 in the afternoon, acetaminophen 500 mg 1-2 every 6 hours as needed, spironolactone 25 m g half a tablet daily, glimepiride 1 mg daily, gabapentin 100 mg t.i.d., Claudia lotion/Kenalog 15 ounce s/200 mg applied to the legs twice today, multivitamin daily. ALLERGIES: MORPHINE causes nausea and vomiting, METFORMIN causes nausea and diarrhea, and TRIMETHOPR IM. REVIEW OF SYSTEMS: Constitutional: The patient does not think she has had any fever. The patient h as had no recent weight gain or loss. Patient thinks her legs may be swelled a little bit more than usual. Head and Neck: No complaints. Pulmonary: No complaints. Cardiovascular: No chest pain. Gastrointestinal: No nausea or vomiting. Genitourinary: No complaints. Musculoskeletal: The sarah ent has chronic swelling in the right leg that she is intolerant of support hose. HABITS: Alcohol, none. Tobacco, none. SOCIAL HISTORY: The patient is a . Patient lives in assisted living. ADLs: The patient can ambulate only a few steps with the use of her walker. Most of the time she is mobile in her wheelchair. Patient can transfer independently. The patient can feed herself. Sarahe nt can dress herself. Patient needs standby assistance with dressing. CODE STATUS: FULL CODE. PHYSICAL EXAMINATION: GENERAL: Shows a very pleasant 77-year-old white female, who is sitting in a wheelchair. She looks comfortable and not in any acute distress. VITAL SIGNS: Shows a weight of approximately 275, height 67 inches, temperature 97.9, blood pressure 143/71, respirations 20, pulse 64, O2 sat 95% on room air. HEAD: Normocephalic and atraumatic. EYES: Pupils are equal, round, and reactive. EARS: TMs are clear. NOSE: Normal. MOUTH AND THROAT: Normal. NECK: Carotids are equal and strong, no bruits. Thyroid not enlarged. LUNGS: Clear. HEART: Regular rate. No murmurs. ABDOMEN: Obese with no organomegaly, nor areas of tenderness. LOWER EXTREMITIES: Patient has chronic 2+ edema of the lower extremities. She has a very firm edema in the mid portion of both legs. She has chronic stasis changes in both lower legs with a brown hem osiderin deposition in both legs. There is a bluish hue to both lower legs when dependent. The righ t lower leg has an area of redness that extends over the medial posterior aspect of two-thirds of the lower leg. The area initially was bright red, 2 days ago. It is now more pink, but the skin is sti ll warm to the touch. This skin over the same area has a cobblestone appearance from the edema in th e dermis and epidermis. There are areas where it is indurated, and the area is tender to the touch. NEUROLOGIC: The patient alert and oriented x3. The patient has generalized weakness, limited motion in her arms and legs. IMPRESSION: 1. Cellulitis of the right lower leg. A. Onset 03/19/2018. B. Clindamycin 300 mg p.o. q.i.d. initiated in the ER visit on 03/19/2018 and patient has only seen minimal response with decrease in the bright redness. C. Progression with increased edema in the skin and tenderness as of 03/21/2018. D. History of recurring episodes of cellulitis. 2. Severe venous insufficiency of the lower extremities. 3. Chronic stasis dermatitis of the lower extremities. A. Controlled with Claudia/Kenalog cream. 4. Diabetes, type 2. 5. Hypertension. 6. Hypothyroidism. 7. Generalized osteoarthritis. 8. Severe cervical spinal stenosis, complicated by myelopathy with weakness of the upper extremities and lower extremities. A. Status post decompression and anterior fusion of the involved area of the cervical spine in 10/28 14 with marked improvement, but leaving her with some residual weakness in the upper extremities, mor e on the right than the left. 9. 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 10. Chronic kidney disease. 11. Constipation. PLAN: The patient has had just a very limited response to her outpatient care of the cellulitis with oral clindamycin. The redness is less, but the edema in the area of involvement is worse with a cob blestone appearance of the skin with induration and tenderness. The patient will be admitted to the hospital, with the legs will be kept elevated, will be treated with moist heat application, started o n IV antibiotics with vancomycin and ceftriaxone. We will continue her routine medication. Code sta tus is FULL.
[2018-03-22] MEDS: Vancomycin HCl 1 GM in Sodium Chloride 0.9% 250 ML 250 ML IVPB SCH ×2 (04:41→16:13)
[2018-03-22] MEDS: Levothyroxine Sodium 100 MCG TAB PO SCH (05:23)
[2018-03-22 05:27] LABS: #Basophils 0.1 thou/uL (0.0-0.2); #Eosinphils 0.4 thou/uL (0.0-0.7); #Lymphocytes 1.5 thou/uL (1.20-3.40); #Monocytes 0.4 thou/uL (0.11-0.59); %Basophils 1.2 % (0.0-1.0); %Eosinophils 5.8 % (0.0-10.0); %Lymphocytes 23.8 % (21.0-51.0); %Monocytes 6.7 % (0.0-10.0); %Neutrophils 62.5 % (42.0-75.0); Hemoglobin 9.6 g/dL (12.0-16.0); Mean Corpuscular HGB CONC 32.6 g/dL (32.0-36.0); Mean Corpuscular Hemoglobin 28.4 pg (27.0-31.0); Mean Corpuscular Volume 87.3 fl (81.0-99.0); Mean Platelet Volume 7.6 fL (7.4-10.4); Platelet Count 174 thou/uL (130-400); RBC Distribution Width 11.5 % (11.5-14.5); Red Blood Cell (RBC) Count 3.39 mill/uL (4.20-5.40); White Blood Cell (WBC) Count 6.4 thou/uL (4.8-10.8)
[2018-03-22 05:32] LABS: Anion Gap 15 mmol/L (10-20); BUN (Urea Nitrogen) 34 mg/dL (9.8-20.1); Calc. Creatinine Clearance 86 mL/min (70-130); Calcium 8.6 mg/dL (7.8-10.44); Carbon Dioxide 25 mmol/L (23-31); Chloride 108 mmol/L (98-107); Estimated GFR-MDRD 50; Glucose 101 mg/dL (83-110); Potassium 4.9 mmol/L (3.5-5.1); Sodium 143 mmol/L (136-145)
[2018-03-22] MEDS: Enoxaparin Sodium 40 MG/0.4 ML SYRINGE SC SCH (08:33)
[2018-03-22] MEDS: Lisinopril 10 MG TAB PO SCH (08:34)
[2018-03-22] MEDS: Multivitamin W/ Minerals 1 TAB PO SCH (08:34)
[2018-03-22] MEDS: Glimepiride 2 MG TAB PO SCH (08:34)
[2018-03-22] MEDS: Spironolactone 25 MG TAB PO SCH (08:34)
[2018-03-22] MEDS: Gabapentin 100 MG CAP PO SCH ×3 (08:35→21:12)
[2018-03-22] MEDS: Emollient 15 oz bottle 450 ML, Triamcinolone Acetonide 200 MG TOP SCH ×2 (08:35→21:16)
[2018-03-22] MEDS: Furosemide 80 MG TAB PO SCH (08:35)
[2018-03-22] MEDS: Polyethylene Glycol 3350 17 GM Packet PO SCH (08:35)
--- NOTE | 2018-03-22 12:47 | PRG ---
DATE OF SERVICE: 03/22/2018 SUBJECTIVE: The patient said she is feeling better today. Her legs feel better. OBJECTIVE: The patient is lying in bed, is alert, appears very comfortable and in no distress. Her vital signs show a temperature 97.6, pulse 72, respirations 18, O2 sat 97% on room air, blood pressur e 132/62. Her lungs were clear. Heart, regular rate. Lower extremities; both lower extremities hav e much less edema. The right lower leg looks better. The dark pink discoloration of the medial and posterior leg has decreased, increased warmth of this area has also decreased. The cobblestoning of the skin of the same area is flattening, the induration is much better. The leg still is sensitive, but not as sensitive as yesterday. Her labs shows an H&H of 9.6 and 29.6 with a white cell count 640 0 with 63% segs, 24% lymphocytes, and a platelet count of 174,000. Her sodium was 143, potassium 4.9 . Her BUN is down from 39 to 34, creatinine is stable at 1.06, GFR stable at 50. Her glucose 101. ASSESSMENT: 1. Cellulitis of the right lower leg. A. Onset 03/19/2018. B. Clindamycin 300 mg p.o. q.i.d. initiated in the ER visit on 03/19/2018 and patient has only seen minimal response with decrease in the bright redness. C. Progression with increased edema in the skin and tenderness as of 03/21/2018. D. History of recurring episodes of cellulitis. E. Improved as of 03/22/2018. 2. Severe venous insufficiency of the lower extremities. 3. Chronic stasis dermatitis of the lower extremities. A. Controlled with Claudia/Kenalog cream. 4. Diabetes, type 2. 5. Hypertension. 6. Hypothyroidism. 7. Generalized osteoarthritis. 8. Severe cervical spinal stenosis, complicated by myelopathy with weakness of the upper extremities and lower extremities. A. Status post decompression and anterior fusion of the involved area of the cervical spine in 10/28 15 with marked improvement, but leaving her with some residual weakness in the upper extremities, mor e on the right than the left. 9. 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 10. Chronic kidney disease. A. Stable with GFR 50. 11. Constipation. 12. Anemia of chronic illness. A. Stable with hemoglobin of 9.6. PLAN: 1. Continue present care. 2. Encourage patient to get up with her meals. We will allow physical therapy and OT to work with h er and encouraged her to bed rest to help with the swelling in the legs at least 2 hours twice a day and then bed rest for her sleep at night.
[2018-03-22] MEDS: Furosemide 40 MG TAB PO SCH (14:44)
[2018-03-22] MEDS: cefTRIAXone\\ROCEPHIN 1 GM in Sodium Chloride 0.9% 100 ML IVPB SCH (17:13)
[2018-03-22] MEDS: Acetaminophen 500 MG TAB PO PRN (21:12)
[2018-03-23 04:03] LABS: Vancomycin, Trough 14.6 ug/mL
[2018-03-23 04:05] LABS: Anion Gap 14 mmol/L (10-20); BUN (Urea Nitrogen) 32 mg/dL (9.8-20.1); Calc. Creatinine Clearance 88 mL/min (70-130); Calcium 8.4 mg/dL (7.8-10.44); Carbon Dioxide 24 mmol/L (23-31); Chloride 108 mmol/L (98-107); Estimated GFR-MDRD 51; Glucose 132 mg/dL (83-110); Potassium 4.7 mmol/L (3.5-5.1); Sodium 141 mmol/L (136-145)
[2018-03-23 04:11] LABS: #Basophils 0.1 thou/uL (0.0-0.2); #Eosinphils 0.3 thou/uL (0.0-0.7); #Lymphocytes 1.6 thou/uL (1.20-3.40); #Monocytes 0.4 thou/uL (0.11-0.59); #Neutrophils 3.4 thou/uL (1.40-6.50); %Basophils 1.4 % (0.0-1.0); %Eosinophils 5.4 % (0.0-10.0); %Lymphocytes 27.3 % (21.0-51.0); %Monocytes 6.4 % (0.0-10.0); %Neutrophils 59.5 % (42.0-75.0); Mean Corpuscular HGB CONC 33.3 g/dL (32.0-36.0); Mean Corpuscular Hemoglobin 28.9 pg (27.0-31.0); Mean Corpuscular Volume 86.8 fl (81.0-99.0); Mean Platelet Volume 7.6 fL (7.4-10.4); Platelet Count 168 thou/uL (130-400); Red Blood Cell (RBC) Count 3.12 mill/uL (4.20-5.40); White Blood Cell (WBC) Count 5.7 thou/uL (4.8-10.8)
[2018-03-23] MEDS: Vancomycin HCl 1 GM in Sodium Chloride 0.9% 250 ML 250 ML IVPB SCH ×2 (04:22→16:35)
[2018-03-23] MEDS: Levothyroxine Sodium 100 MCG TAB PO SCH (05:01)
[2018-03-23] MEDS: Lisinopril 10 MG TAB PO SCH (09:16)
[2018-03-23] MEDS: Furosemide 80 MG TAB PO SCH (09:17)
[2018-03-23] MEDS: Glimepiride 2 MG TAB PO SCH (09:17)
[2018-03-23] MEDS: Spironolactone 25 MG TAB PO SCH (09:17)
[2018-03-23] MEDS: Enoxaparin Sodium 40 MG/0.4 ML SYRINGE SC SCH (09:18)
[2018-03-23] MEDS: Multivitamin W/ Minerals 1 TAB PO SCH (09:18)
[2018-03-23] MEDS: Polyethylene Glycol 3350 17 GM Packet PO SCH (09:18)
[2018-03-23] MEDS: Gabapentin 100 MG CAP PO SCH ×3 (09:18→20:33)
[2018-03-23] MEDS: Emollient 15 oz bottle 450 ML, Triamcinolone Acetonide 200 MG TOP SCH ×2 (09:19→20:37)
--- NOTE | 2018-03-23 11:45 | PRG ---
DATE OF SERVICE: 03/23/2018 SUBJECTIVE: The patient said she feels better today. Her leg feels better. The swelling is ( 00:13). She is working with physical therapy. OBJECTIVE: GENERAL: The patient is sitting up in a bedside chair eating her breakfast. She looks very comforta ble in no distress. VITAL SIGNS: Her temperature 98.2, pulse 71, blood pressure 140/65, respirations 18, O2 sat 97% on r oom air, blood pressure 138/63. LUNGS: Clear. HEART: Regular rate. LOWER EXTREMITIES: The edema is much less. The legs look smaller. There is no pitting edema. 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 The cobblestoning is flattening now. Overall, the leg looks better. Ther e was no drainage. LABORATORY DATA: Her H&H is 9 and 27, white cell count 5700 with 60% segs, 27% lymphocytes, and a pl atelet count of 168,000. Her sodium is 141, potassium 4.7, BUN 32, creatinine 1.04, GFR 51, glucose 132. ASSESSMENT: 1. Cellulitis of the right lower leg. A. Onset 03/19/2018. B. Clindamycin 300 mg p.o. q.i.d. initiated in the ER visit on 03/19/2018 and patient has only seen minimal response with decrease in the bright redness. C. Progression with increased edema in the skin and tenderness as of 03/21/2018. D. History of recurring episodes of cellulitis. E. Continued improvement as of 03/23/2018. 2. Severe venous insufficiency of the lower extremities. A. Improved as of 03/23/2018. 3. Chronic stasis dermatitis of the lower extremities. A. Controlled with Claudia/Kenalog cream. 4. Diabetes, type 2. 5. Hypertension. 6. Hypothyroidism. 7. Generalized osteoarthritis. 8. Severe cervical spinal stenosis, complicated by myelopathy with weakness of the upper extremities and lower extremities. A. Status post decompression and anterior fusion of the involved area of the cervical spine in 10/28 14 with marked improvement, but leaving her with some residual weakness in the upper extremities, mor e on the right than the left. 9. 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 10. Chronic kidney disease. A. Stable with GFR 50. 11. Constipation. 12. Anemia of chronic illness. A. Stable with hemoglobin of 9.6. 13. Generalized weakness and gait abnormality. PLAN: Continue present care. Patient's vancomycin trough level done early this morning was 14.6, wh ich is the lower limits of therapeutic for cellulitis. We will continue present medicines. Continue IV vancomycin and Rocephin.
[2018-03-23] MEDS: Furosemide 40 MG TAB PO SCH ×2 (14:42→14:45)
[2018-03-23] MEDS: cefTRIAXone\\ROCEPHIN 1 GM in Sodium Chloride 0.9% 100 ML IVPB SCH (19:19)
[2018-03-23] MEDS ORDERED: cefTRIAXone\\ROCEPHIN 1 GM in Sodium Chloride 0.9% 100 ML IVPB SCH (20:00)
[2018-03-23] MEDS: Acetaminophen 500 MG TAB PO PRN (20:32)
[2018-03-24] MEDS: Vancomycin HCl 1 GM in Sodium Chloride 0.9% 250 ML 250 ML IVPB SCH (03:57)
[2018-03-24] MEDS: Levothyroxine Sodium 100 MCG TAB PO SCH (06:30)
[2018-03-24] MEDS: Polyethylene Glycol 3350 17 GM Packet PO SCH (09:19)
[2018-03-24] MEDS: Enoxaparin Sodium 40 MG/0.4 ML SYRINGE SC SCH (09:19)
[2018-03-24] MEDS: Lisinopril 10 MG TAB PO SCH (09:19)
[2018-03-24] MEDS: Multivitamin W/ Minerals 1 TAB PO SCH (09:19)
[2018-03-24] MEDS: Gabapentin 100 MG CAP PO SCH (09:19)
[2018-03-24] MEDS: Furosemide 80 MG TAB PO SCH (09:20)
[2018-03-24] MEDS: Glimepiride 2 MG TAB PO SCH (09:20)
[2018-03-24] MEDS: Emollient 15 oz bottle 450 ML, Triamcinolone Acetonide 200 MG TOP SCH (09:20)
[2018-03-24] MEDS: Spironolactone 25 MG TAB PO SCH (09:20)
[2018-03-24 12:09] VITALS: BP 144/68; TEMP 98.6
--- NOTE | 2018-03-24 17:58 | PRG ---
DATE OF SERVICE: 03/24/2018 SUBJECTIVE: The patient said she is feeling better. Her legs feel better. OBJECTIVE: GENERAL: The patient is sitting up in a wheelchair, having just finished her breakfast. She looks v geri comfortable and in no distress. VITAL SIGNS: Her temperature is 98.1, pulse 69, respirations 20, O2 sat 95%, blood pressure 139/65. LUNGS: Clear. HEART: Regular rate.] EXTREMITIES: Just trace edema. The pink discoloration of the right lower leg is all resolving. The re is still some mild cobblestoning sensation to the skin of the lower right leg posteriorly and some medial, overall though this is much less. The area was not tender. LABORATORY DATA: Her FBS this morning was 107. ASSESSMENT: 1. Cellulitis of the right lower leg. A. Onset 03/19/2018. B. Clindamycin 300 mg p.o. q.i.d. initiated in the ER visit on 03/19/2018 and patient has only seen minimal response with decrease in the bright redness. C. Progression with increased edema in the skin and tenderness as of 03/21/2018. D. History of recurring episodes of cellulitis. E. Continued improvement as of 03/24/2018. 2. Severe venous insufficiency of the lower extremities. A. Improved as of 03/24/2018. 3. Chronic stasis dermatitis of the lower extremities. A. Controlled with Claudia/Kenalog cream. 4. Diabetes, type 2. A. Controlled as of 03/24/2018. 5. Hypertension. 6. Hypothyroidism. 7. Generalized osteoarthritis. 8. Severe cervical spinal stenosis, complicated by myelopathy with weakness of the upper extremities and lower extremities. A. Status post decompression and anterior fusion of the involved area of the cervical spine in 10/28 15 with marked improvement, but leaving her with some residual weakness in the upper extremities, mor e on the right than the left. 9. 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 10. Chronic kidney disease. A. Stable with GFR 50. 11. Constipation. 12. Anemia of chronic illness. A. Stable with hemoglobin of 9.6. 13. Generalized weakness and gait abnormality. A. Improved as of 03/24/2018. PLAN: The patient is better. We will continue the IV antibiotics. Continue physical therapy. We w ill move the patient to extended care, so that she can continue the antibiotics and physical therapy.
== END 2018-03-24 13:09 | disposition swing bed (61) | DRG 300 ==
LOC: MADMS 13:45
PROVIDERS: ADMIT Family Medicine; ATTEND Family Medicine
DX: I87.2 Venous insufficiency (chronic) (peripheral) (principal); L03.115 Cellulitis of right lower limb; G95.9 Disease of spinal cord, unspecified; E03.9 Hypothyroidism, unspecified; M15.9 Polyosteoarthritis, unspecified; M48.02 Spinal stenosis, cervical region; K59.00 Constipation, unspecified; D63.1 Anemia in chronic kidney disease; R26.9 Unspecified abnormalities of gait and mobility; I12.9 Hypertensive chronic kidney disease with stage 1 through stage 4 chronic kidney disease, or unspecified chronic kidney disease; E11.22 Type 2 diabetes mellitus with diabetic chronic kidney disease; N18.9 Chronic kidney disease, unspecified; G83.9 Paralytic syndrome, unspecified
CPT/HCPCS: 36415; 36416; 80048; 80053; 80202; 83036; 85025; A4216; G8978-GP-CK; G8979-GP-CJ; G8987-GO-CL; G8988-GO-CI; J0696; J1650; J3301; J3370; J7050

== ENCOUNTER 2018-03-24 09:55 | Inpatient (IN) | payer MEDICARE ==
[2018-03-24] MEDS ORDERED: Acetaminophen 500 MG TAB PO PRN (10:07)
[2018-03-24 13:45] VITALS: BMI 42.9
[2018-03-24] MEDS: Gabapentin 100 MG CAP PO SCH ×2 (17:09→20:51)
[2018-03-24] MEDS: Furosemide 40 MG TAB PO SCH (17:09)
[2018-03-24] MEDS: Vancomycin HCl 1 GM in Sodium Chloride 0.9% 250 ML 250 ML IVPB SCH (17:10)
[2018-03-24] MEDS: Acetaminophen 500 MG TAB PO PRN (19:14)
[2018-03-24] MEDS: cefTRIAXone\\ROCEPHIN 1 GM VIAL IVPB SCH (20:50)
[2018-03-24] MEDS: Keri Lotion 15 oz BOT TOP SCH (20:51)
[2018-03-24] MEDS ORDERED: Triamcinolone 40 MG/ML VIAL TOP SCH (21:00)
[2018-03-24] MEDS ORDERED: Emollient 15 oz bottle 450 ML, Triamcinolone Acetonide 200 MG TOP SCH (21:00)
[2018-03-25] MEDS: Vancomycin HCl 1 GM in Sodium Chloride 0.9% 250 ML 250 ML IVPB SCH ×2 (03:02→16:22)
[2018-03-25] MEDS: Levothyroxine Sodium 100 MCG TAB PO SCH (05:18)
[2018-03-25] MEDS: Gabapentin 100 MG CAP PO SCH ×3 (08:48→20:07)
[2018-03-25] MEDS: Glimepiride 2 MG TAB PO SCH (08:49)
[2018-03-25] MEDS: Enoxaparin Sodium 40 MG/0.4 ML SYRINGE SC SCH (08:49)
[2018-03-25] MEDS: Lisinopril 10 MG TAB PO SCH (08:49)
[2018-03-25] MEDS: Multivitamin W/ Minerals 1 TAB PO SCH (08:49)
[2018-03-25] MEDS: Furosemide 80 MG TAB PO SCH (08:49)
[2018-03-25] MEDS: Spironolactone 25 MG TAB PO SCH (08:50)
[2018-03-25] MEDS: Keri Lotion 15 oz BOT TOP SCH ×2 (08:50→20:07)
[2018-03-25] MEDS: Polyethylene Glycol 3350 17 GM Packet PO SCH (08:50)
[2018-03-25] MEDS: Furosemide 40 MG TAB PO SCH (14:49)
[2018-03-25] MEDS: cefTRIAXone\\ROCEPHIN 1 GM VIAL IVPB SCH (19:57)
[2018-03-25] MEDS: Acetaminophen 500 MG TAB PO PRN (21:38)
[2018-03-26] MEDS: Vancomycin HCl 1 GM in Sodium Chloride 0.9% 250 ML 250 ML IVPB SCH (03:54)
[2018-03-26] MEDS: Levothyroxine Sodium 100 MCG TAB PO SCH (06:00)
[2018-03-26 06:26] LABS: #Basophils 0.1 thou/uL (0.0-0.2); #Eosinphils 0.3 thou/uL (0.0-0.7); #Lymphocytes 1.5 thou/uL (1.20-3.40); #Monocytes 0.4 thou/uL (0.11-0.59); #Neutrophils 4.1 thou/uL (1.40-6.50); %Basophils 1.3 % (0.0-1.0); %Eosinophils 4.7 % (0.0-10.0); %Lymphocytes 23.1 % (21.0-51.0); %Monocytes 6.4 % (0.0-10.0); %Neutrophils 64.5 % (42.0-75.0); Hemoglobin 9.4 g/dL (12.0-16.0); Mean Corpuscular HGB CONC 33.2 g/dL (32.0-36.0); Mean Corpuscular Hemoglobin 28.9 pg (27.0-31.0); Mean Corpuscular Volume 86.9 fl (81.0-99.0); Mean Platelet Volume 7.1 fL (7.4-10.4); Platelet Count 164 thou/uL (130-400); RBC Distribution Width 11.2 % (11.5-14.5); Red Blood Cell (RBC) Count 3.24 mill/uL (4.20-5.40); White Blood Cell (WBC) Count 6.3 thou/uL (4.8-10.8)
[2018-03-26 06:28] LABS: Anion Gap 14 mmol/L (10-20); BUN (Urea Nitrogen) 27 mg/dL (9.8-20.1); Calc. Creatinine Clearance 100 mL/min (70-130); Calcium 8.5 mg/dL (7.8-10.44); Carbon Dioxide 24 mmol/L (23-31); Chloride 109 mmol/L (98-107); Estimated GFR-MDRD 60; Glucose 115 mg/dL (83-110); Potassium 4.6 mmol/L (3.5-5.1); Sodium 142 mmol/L (136-145)
--- NOTE | 2018-03-26 08:32 | PRG ---
DATE OF SERVICE: 03/24/2018 SUBJECTIVE: The patient said she is feeling a lot better. Her legs feel better. OBJECTIVE: GENERAL: The patient is sitting up in her wheelchair. She is alert and appears in no distress. VIT AL SIGNS: Her temperature is 98, pulse 67, respirations 18, O2 sat 96% on room air, blood pressure 1 29/58. LUNGS: Clear. HEART: Regular rate. LOWER EXTREMITIES: Trace edema. Legs have a very slight pinkness on the right lower leg with cobble stoning continues to decrease with the legs were starting to develop smoothness over the area of the cellulitis. There is no increased heat. Overall, the legs look much better. LABORATORY DATA: Her fasting blood sugar this morning was 128. ASSESSMENT: 1. Cellulitis of the right lower leg. A. Onset 03/19/2018. B. Clindamycin 300 mg p.o. q.i.d. initiated in the ER visit on 03/19/2018 and patient has only seen minimal response with decrease in the bright redness. C. Progression with increased edema in the skin and tenderness as of 03/21/2018. D. History of recurring episodes of cellulitis. E. Continued improvement as of 03/25/2018. 2. Severe venous insufficiency of the lower extremities. A. Improved as of 03/25/2018. 3. Chronic stasis dermatitis of the lower extremities. A. Controlled with Claudia/Kenalog cream. 4. Diabetes, type 2. A. Controlled as of 03/25/2018. 5. Hypertension. 6. Hypothyroidism. 7. Generalized osteoarthritis. 8. Severe cervical spinal stenosis, complicated by myelopathy with weakness of the upper extremities and lower extremities. A. Status post decompression and anterior fusion of the involved area of the cervical spine in 10/28 15 with marked improvement, but leaving her with some residual weakness in the upper extremities, mor e on the right than the left. 9. 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 10. Chronic kidney disease. A. Stable with GFR 50. 11. Constipation. 12. Anemia of chronic illness. A. Stable with hemoglobin of 9.6. 13. Generalized weakness and gait abnormality. A. Improved as of 03/25/2018. PLAN: Continue present care. We will continue the IV antibiotics, this is her 5th day. Anticipate switching her to oral antibiotics tomorrow. Continue physical therapy.
[2018-03-26] MEDS: Gabapentin 100 MG CAP PO SCH ×3 (08:53→20:32)
[2018-03-26] MEDS: Furosemide 80 MG TAB PO SCH (08:53)
[2018-03-26] MEDS: Lisinopril 10 MG TAB PO SCH (08:53)
[2018-03-26] MEDS: Clindamycin 150 MG CAP PO SCH ×3 (08:53→20:31)
[2018-03-26] MEDS: Multivitamin W/ Minerals 1 TAB PO SCH (08:54)
[2018-03-26] MEDS: Spironolactone 25 MG TAB PO SCH (08:54)
[2018-03-26] MEDS: Enoxaparin Sodium 40 MG/0.4 ML SYRINGE SC SCH (08:54)
[2018-03-26] MEDS: Glimepiride 2 MG TAB PO SCH (08:54)
[2018-03-26] MEDS: Polyethylene Glycol 3350 17 GM Packet PO SCH (08:55)
[2018-03-26] MEDS: Keri Lotion 15 oz BOT TOP SCH ×2 (08:55→20:32)
--- NOTE | 2018-03-26 09:12 | PRG ---
DATE OF SERVICE: 03/26/2018 SUBJECTIVE: The patient is feeling good this morning. She has been getting up and down better. Her legs are feeling better. OBJECTIVE: GENERAL: The patient is sitting up in a wheelchair. She is alert, talkative, appears comfortable in no distress. VITAL SIGNS: Her temperature is 98.2, pulse 64, respirations 22, O2 sat 96% on room air, blood press ure 128/62. LUNGS: Clear. HEART: Regular rate. EXTREMITIES: Lower extremities have trace edema. There is a little pink discoloration to the right lower leg in the medial posterior position with the legs dependent. There is still a little cobblest oning sensation to the leg, but there is no tenderness, nor any increased warmth. LABORATORY DATA: Her H&H is 9.4 and 28.2. White cell count 6300 with 65% segs, 23% lymphocytes. So dium 142, potassium 4.6, BUN 27, creatinine 0.9, GFR 60, glucose 115. ASSESSMENT: 1. Cellulitis of the right lower leg. A. Onset 03/19/2018. B. Clindamycin 300 mg p.o. q.i.d. initiated in the ER visit on 03/19/2018 and patient has only seen minimal response with decrease in the bright redness. C. Progression with increased edema in the skin and tenderness as of 03/21/2018. D. History of recurring episodes of cellulitis. E. Continued improvement as of 03/26/2018. 2. Severe venous insufficiency of the lower extremities. A. Stable as of 03/26/2018. 3. Chronic stasis dermatitis of the lower extremities. A. Controlled with Claudia/Kenalog cream as of 03/26/2018. 4. Diabetes, type 2. A. Controlled as of 03/24/2018. 5. Hypertension. 6. Hypothyroidism. 7. Generalized osteoarthritis. 8. Severe cervical spinal stenosis, complicated by myelopathy with weakness of the upper extremities and lower extremities. A. Status post decompression and anterior fusion of the involved area of the cervical spine in 10/28 15 with marked improvement, but leaving her with some residual weakness in the upper extremities, mor e on the right than the left. 9. 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 10. Chronic kidney disease. A. Stable with GFR 50. 11. Constipation. 12. Anemia of chronic illness. A. Stable with hemoglobin of 9.4 as of 03/26/2018. 13. Generalized weakness and gait abnormality. A. Improved as of 03/24/2018. PLAN: We will discontinue the IV vancomycin and Rocephin, stop the IV access. We will place the pat ient on clindamycin 300 mg q.i.d. Continue physical therapy.
[2018-03-26] MEDS: Furosemide 40 MG TAB PO SCH (15:18)
[2018-03-27] MEDS: Clindamycin 150 MG CAP PO SCH ×4 (01:38→20:05)
[2018-03-27] MEDS: Acetaminophen 500 MG TAB PO PRN ×2 (05:08→20:06)
[2018-03-27] MEDS: Levothyroxine Sodium 100 MCG TAB PO SCH (05:08)
[2018-03-27] MEDS: Enoxaparin Sodium 40 MG/0.4 ML SYRINGE SC SCH (08:10)
[2018-03-27] MEDS: Polyethylene Glycol 3350 17 GM Packet PO SCH (08:10)
[2018-03-27] MEDS: Glimepiride 2 MG TAB PO SCH (08:11)
[2018-03-27] MEDS: Multivitamin W/ Minerals 1 TAB PO SCH (08:11)
[2018-03-27] MEDS: Spironolactone 25 MG TAB PO SCH (08:11)
[2018-03-27] MEDS: Gabapentin 100 MG CAP PO SCH ×3 (08:11→20:06)
[2018-03-27] MEDS: Lisinopril 10 MG TAB PO SCH (08:12)
[2018-03-27] MEDS: Furosemide 80 MG TAB PO SCH (08:12)
[2018-03-27] MEDS: Keri Lotion 15 oz BOT TOP SCH ×2 (08:12→20:06)
[2018-03-27] MEDS: Furosemide 40 MG TAB PO SCH (14:15)
[2018-03-28] MEDS: Clindamycin 150 MG CAP PO SCH ×4 (02:11→20:47)
[2018-03-28] MEDS: Levothyroxine Sodium 100 MCG TAB PO SCH (06:15)
[2018-03-28] MEDS: Spironolactone 25 MG TAB PO SCH (08:15)
[2018-03-28] MEDS: Gabapentin 100 MG CAP PO SCH ×3 (08:15→20:48)
[2018-03-28] MEDS: Lisinopril 10 MG TAB PO SCH (08:15)
[2018-03-28] MEDS: Multivitamin W/ Minerals 1 TAB PO SCH (08:15)
[2018-03-28] MEDS: Glimepiride 2 MG TAB PO SCH (08:15)
[2018-03-28] MEDS: Furosemide 80 MG TAB PO SCH (08:15)
[2018-03-28] MEDS: Enoxaparin Sodium 40 MG/0.4 ML SYRINGE SC SCH (08:17)
[2018-03-28] MEDS: Keri Lotion 15 oz BOT TOP SCH ×2 (08:18→20:48)
[2018-03-28] MEDS: Polyethylene Glycol 3350 17 GM Packet PO SCH (08:18)
--- NOTE | 2018-03-28 12:12 | PRG ---
DATE OF SERVICE: 03/28/2018 SUBJECTIVE: The patient said she is doing better. She is transferring easier. She continues to wor k with physical therapy. OBJECTIVE: The patient is sitting up on a [employer] that is a style recumbent bike that also exercises the arm and doing very well on this. She appears in no distress. Her vital signs show temperature 9 8.7, pulse 68, respirations 20, O2 sat 100% on room air, blood pressure 122/62. Lungs are clear. Heart, regular rate. Lower extremities, trace edema. There is no redness over the lower legs. The right lower leg still has a little mild cobblestone feel, but there is no tendernes s, no drainage. This represents some chronic dermatolipo dystrophic changes from the stasis. Her FB S was 118. ASSESSMENT: 1. Cellulitis of the right lower leg. A. Onset 03/19/2018. B. Clindamycin 300 mg p.o. q.i.d. initiated in the ER visit on 03/19/2018 and patient has only seen minimal response with decrease in the bright redness. C. Progression with increased edema in the skin and tenderness as of 03/21/2018. D. History of recurring episodes of cellulitis. E. Clinically resolving as of 03/28/2018. 2. Severe venous insufficiency of the lower extremities. A. Stable as of 03/28/2018. 3. Chronic stasis dermatitis of the lower extremities. A. Controlled with Claudia/Kenalog cream as of 03/26/2018. 4. Diabetes, type 2. A. Controlled as of 03/28/2018. 5. Hypertension. 6. Hypothyroidism. 7. Generalized osteoarthritis. 8. Severe cervical spinal stenosis, complicated by myelopathy with weakness of the upper extremities and lower extremities. A. Status post decompression and anterior fusion of the involved area of the cervical spine in 10/28 15 with marked improvement, but leaving her with some residual weakness in the upper extremities, mor e on the right than the left. 9. 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 10. Chronic kidney disease. A. Stable with GFR 50. 11. Constipation. 12. Anemia of chronic illness. A. Stable with hemoglobin of 9.4 as of 03/26/2018. 13. Generalized weakness and gait abnormality. A. Improved as of 03/28/2018. PLAN: Continue physical therapy. Continue the oral antibiotics. Anticipate probable discharge back to assisted living tomorrow.
[2018-03-28] MEDS: Furosemide 40 MG TAB PO SCH (14:05)
[2018-03-28] MEDS: Acetaminophen 500 MG TAB PO PRN (20:54)
[2018-03-29] MEDS: Clindamycin 150 MG CAP PO SCH ×2 (03:00→09:00)
[2018-03-29] MEDS: Levothyroxine Sodium 100 MCG TAB PO SCH (05:27)
[2018-03-29 06:28] VITALS: TEMP 97.7
[2018-03-29] MEDS: Glimepiride 2 MG TAB PO SCH (07:23)
[2018-03-29] MEDS: Enoxaparin Sodium 40 MG/0.4 ML SYRINGE SC SCH (08:58)
[2018-03-29] MEDS: Polyethylene Glycol 3350 17 GM Packet PO SCH (08:58)
[2018-03-29] MEDS: Furosemide 80 MG TAB PO SCH (08:59)
[2018-03-29] MEDS: Lisinopril 10 MG TAB PO SCH (08:59)
[2018-03-29] MEDS: Gabapentin 100 MG CAP PO SCH (08:59)
[2018-03-29] MEDS: Multivitamin W/ Minerals 1 TAB PO SCH (08:59)
[2018-03-29] MEDS: Spironolactone 25 MG TAB PO SCH (08:59)
[2018-03-29] MEDS: Keri Lotion 15 oz BOT TOP SCH (09:00)
[2018-03-29 09:02] VITALS: BP 133/60
--- NOTE | 2018-03-29 13:02 | DIS ---
DATE OF ADMISSION: To acute care on 03/21/2018, transferred to extended care on 03/24/2018 DATE OF DISCHARGE: 03/29/2018 FINAL DIAGNOSES: 1. Cellulitis of the right lower leg. A. Onset 03/19/2018. B. Clindamycin 300 mg p.o. q.i.d. initiated in the ER visit on 03/19/2018 and patient has only seen minimal response with decrease in the bright redness. C. Progression with increased edema in the skin and tenderness as of 03/21/2018. D. History of recurring episodes of cellulitis. E. Clinically resolving as of 03/29/2018. 2. Severe venous insufficiency of the lower extremities. A. Stable as of 03/29/2018. 3. Chronic stasis dermatitis of the lower extremities. A. Controlled with Claudia/Kenalog cream as of 03/26/2018. 4. Diabetes, type 2. A. Controlled as of 03/28/2018. 5. Hypertension. 6. Hypothyroidism. 7. Generalized osteoarthritis. 8. Severe cervical spinal stenosis, complicated by myelopathy with weakness of the upper extremities and lower extremities. A. Status post decompression and anterior fusion of the involved area of the cervical spine in 10/28 15 with marked improvement, but leaving her with some residual weakness in the upper extremities, mor e on the right than the left. 9. 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 10. Chronic kidney disease. A. Stable with GFR 50. 11. Constipation. 12. Anemia of chronic illness. A. Stable with hemoglobin of 9.4 as of 03/26/2018. 13. Generalized weakness and gait abnormality. A. Improved as of 03/29/2018. REASON FOR ADMISSION: The patient is a 77-year-old white female, who has a history of severe venous insufficiency of the lower extremity, complicated by chronic stasis dermatitis and edema. She has koch d multiple episodes of cellulitis. She has limited mobility due to a cervical myelopathy that has re quired cervical decompression, but still leaving her with weakness in the lower extremity and in the arms. She resides in assisted living and is able to transfer or walk just a few steps, primarily get s around in her wheelchair, does very well in the home. The patient developed increased swelling and redness in the right lower leg, prompting her to go to the emergency room on 03/19/2018, and was fou nd to have cellulitis of the right lower leg. She was placed on clindamycin 300 mg q.i.d. The patie jana was seen in my office 2 days later, because her leg was hurting more and seemed like she was devel oping some little blistering effect to the lower right leg. She had not run any fever. On examinati on, patient was afebrile. Her right leg has had a reddish pink discoloration to the right medial pos terior lower leg that according to the caregivers was a little less red. There was still increased h eat in the leg, the leg in the area of the rash was tender, and the skin had developed a very promine nt cobblestoning effect to the skin. There was no seepage of tissue. The patient was admitted to [facility] on 03/21/2018 with a diagnosis of acute cellulitis of the right lower leg that got worse in spite of attempted outpatient management. HOSPITAL COURSE: The patient was admitted to the hospital where she was placed initially at bedrest. Moist, warm packs were applied to the leg. She was placed on DVT prophylaxis and she was placed on IV antibiotics with Rocephin and IV vancomycin. The patient remained afebrile over the next 48 hour s. She showed good improvement with marked decrease in the edema. The color had faded to just a lig ht pink and the increased warmth had faded and the cobblestoning effect to the skin had diminished, a s did the tenderness. Her trough level of vancomycin was therapeutic. Patient's condition continued to improve. She was still weak from this acute illness. Physical therapy began working with her. She was moved to extended care on 03/24/2018 for continuation of her IV antibiotics and also for phys ical therapy in an effort to improve her strength and hopefully would help her get back to her same f unctional level so she could return to assisted living. The patient's condition continued to improve . Her IV antibiotics were stopped on 03/26/2018, and she was switched to clindamycin 300 mg q.i.d., physical therapy continued to work with her, and she made good progress. The patient was walking up to 150 feet twice today with her rolling walker and was transferring independently. By 03/29/2018, t he patient remained afebrile. Her lungs remained clear. Her lower legs have the chronic trace edema . There was no redness to the leg, nor increased heat. 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 Her condition improved suc h that it is felt she could return to assisted living and function there fine. She will be left on t he clindamycin for another week. She will continue the Claudia/Kenalog cream to the legs to help contro l the stasis dermatitis. The patient has diabetes, but this has been well controlled. Her FBS on the was 111 and on 03/10 was 118. DIET: Regular diet, no added salt. ACTIVITIES: The patient may be up ad lisa. Recommend when she is up in a chair she sit in her lounge chair with her feet elevated and take at least 2 rest periods in bed with the feet elevated for an h our each and sleep in the bed at night. MEDICATIONS: Clindamycin 300 mg q.i.d. x7 days, acetaminophen 500 mg 1-2 every 6 hours as needed for pain, gabapentin 100 mg t.i.d., furosemide 80 mg in the morning and 40 mg at 2:00 p.m. daily, clinda mycin 300 mg q.i.d. x7 days, Claudia lotion with Kenalog 15 ounces 200 mg applied to the legs twice toda y, lisinopril 10 mg daily, levothyroxine 100 mcg daily, glimepiride 1 mg daily, MiraLax 17 grams in 8 ounces of water daily, multivitamin 1 a day, spironolactone 12.5 mg daily. FOLLOWUP: The patient will be seen in followup in my office in 2 weeks. CODE STATUS: FULL CODE.
== END 2018-03-29 14:00 | disposition home or self-care (01) | DRG 603 ==
LOC: MADMS 13:23
PROVIDERS: ADMIT Family Medicine; ATTEND Family Medicine
DX: L03.115 Cellulitis of right lower limb (principal); G95.9 Disease of spinal cord, unspecified; R53.1 Weakness; R26.9 Unspecified abnormalities of gait and mobility; I87.2 Venous insufficiency (chronic) (peripheral); E03.9 Hypothyroidism, unspecified; G89.29 Other chronic pain; M54.5 Low back pain; E11.22 Type 2 diabetes mellitus with diabetic chronic kidney disease; N18.2 Chronic kidney disease, stage 2 (mild); I12.9 Hypertensive chronic kidney disease with stage 1 through stage 4 chronic kidney disease, or unspecified chronic kidney disease; K59.00 Constipation, unspecified; D63.8 Anemia in other chronic diseases classified elsewhere; M15.9 Polyosteoarthritis, unspecified; M48.02 Spinal stenosis, cervical region; Z88.5 Allergy status to narcotic agent; Z88.8 Allergy status to other drugs, medicaments and biological substances; Z88.1 Allergy status to other antibiotic agents; Z79.84 Long term (current) use of oral hypoglycemic drugs; Z79.899 Other long term (current) drug therapy
CPT/HCPCS: 36415; 36416; 80048; 85025; A4216; G8987-GO-CK; G8988-GO-CI; J0696; J1650; J3370; J7050

== ENCOUNTER 2018-05-10 13:04 | Emergency (ER) | payer MEDICARE ==
[2018-05-10 13:54] LABS: #Basophils 0.1 thou/uL (0.0-0.2); #Eosinphils 0.3 thou/uL (0.0-0.7); #Lymphocytes 1.6 thou/uL (1.20-3.40); #Monocytes 0.5 thou/uL (0.11-0.59); #Neutrophils 3.5 thou/uL (1.40-6.50); %Basophils 1.3 % (0.0-1.0); %Eosinophils 5.5 % (0.0-10.0); %Lymphocytes 27.4 % (21.0-51.0); %Monocytes 7.7 % (0.0-10.0); %Neutrophils 58.1 % (42.0-75.0); Hemoglobin 10.3 g/dL (12.0-16.0); Mean Corpuscular HGB CONC 31.8 g/dL (32.0-36.0); Mean Corpuscular Hemoglobin 27.5 pg (27.0-31.0); Mean Corpuscular Volume 86.3 fL (78.0-98.0); Mean Platelet Volume 7.4 fL (7.4-10.4); Platelet Count 178 thou/uL (130-400); Red Blood Cell (RBC) Count 3.74 mill/uL (4.20-5.40)
[2018-05-10 13:59] LABS: Prothrombin Time 13.2 SEC (12.0-14.7)
[2018-05-10 14:07] LABS: ALT (SGPT) 12 U/L (8-55); AST (SGOT) 14 U/L (5-34); Albumin 4.1 g/dL (3.4-4.8); Alkaline Phosphatase 66 U/L (40-150); Anion Gap 14 mmol/L (10-20); BUN (Urea Nitrogen) 38 mg/dL (9.8-20.1); Bilirubin, Total 0.2 mg/dL (0.2-1.2); Calc. Creatinine Clearance 0 mL/min (70-130); Calcium 8.9 mg/dL (7.8-10.44); Carbon Dioxide 28 mmol/L (23-31); Chloride 104 mmol/L (98-107); Estimated GFR-MDRD 43; Globulin 3.1 g/dL (2.4-3.5); Glucose 90 mg/dL (83-110); Potassium 4.8 mmol/L (3.5-5.1); Protein, Total 7.2 g/dL (6.0-8.3); Sodium 141 mmol/L (136-145)
[2018-05-10 14:15] LABS: Bacteria/HPF 3+ HPF (None Seen); Bilirubin Negative (Negative); Blood, Urine Moderate (Negative); Clarity Hazy (Clear); Glucose, Urine (Dipstick) Negative (Negative); Leukocyte Small (Negative); Nitrite Positive (Negative); Protein, Urine (Dipstick) Negative (Neg-Trace); RBC/HPF 0-3 HPF (0-3); Squamous Epithelial 0-3 HPF (0-3); Urobilinogen 0.2 mg/dL (0.2-1.0); pH, Urine 5.5 (5.0-9.0)
--- NOTE | 2018-05-10 14:26 | RAD ---
PELVIC RADIOGRAPH: Date: 05/10/18 PROVIDED CLINICAL HISTORY: Fall. FINDINGS: Comparison with 08/17/14. There is no evidence for fracture or other acute osseous abnormality. If there is persistent clinical concern, conservative management and follow-up imaging are advised. IMPRESSION: As above. POS: [facility]
--- NOTE | 2018-05-10 14:26 | RAD ---
PORTABLE CHEST: Date: 05/10/18 PROVIDED CLINICAL HISTORY: Fall. FINDINGS: Evaluation is limited by patient body habitus and supine positioning. The cardiac silhouette appears enlarged, which may be at least partially on the basis of portable technique. There is no focal conso lidation. The supine nature of the study limits sensitivity for detection of pleural fluid and pneumo thorax. Bony thorax appears grossly intact. IMPRESSION: Cardiomegaly without evidence for an acute cardiopulmonary process. Limitations as above. POS: [facility]
[2018-05-10] MEDS ORDERED: Fentanyl 100 MCG/2 ML VIAL ONE (14:27)
--- NOTE | 2018-05-10 14:55 | CT ---
CT BRAIN: 05/10/2018 PROVIDED CLINICAL HISTORY: Fall from standing. COMPARISON: 09/23/2014 FINDINGS: The ventricular system appears normal in size and morphology. There is no evidence for intracranial hemorrhage or mass effect. Areas of diminished attenuation involve the periventricular white matter and appear similar to the prior study, compatible with chronic microvascular ischemic change. The ex tracranial soft tissues and osseous structures demonstrate no acute findings. IMPRESSION: No evidence for intracranial hemorrhage or mass effect. POS: [facility]
--- NOTE | 2018-05-10 15:01 | CT ---
CT LUMBAR SPINE: Date: 05-10-18 Provided Clinical History: Fall from standing. FINDINGS: Comparison 08-19-14. Lumbar alignment appears normal. There is no evidence for fracture. Lumbar spine degenerative changes are seen. Post-operative changes are again noted. No lytic or blastic lesions are seen. No evidence for fracture. IMPRESSION: Degenerative changes and post-operative changes without evidence for fracture or other acute osseous abnormality. POS: [facility]
--- NOTE | 2018-05-10 15:06 | CT ---
CT CERVICAL SPINE WITHOUT CONTRAST: HISTORY: Fall from standing. COMPARISON: CT cervical spine from 2014. FINDINGS: The occipital condyles are intact. The odontoid process is intact. There is mild narrowing of the a tlantodental interval. There are advanced degenerative changes at C5-C6 and C6-C7. The large posterior disk osteophyte comp luis manuel at C5-C6 severely narrows the CSF space and likely abuts the spinal cord. The lung apices have some mild scarring. No pneumothorax. The clavicles appear to be intact. As well, there is vestibular degenerative changes of the sternocl avicular joints. The visualized ribs are unremarkable. No cervical adenopathy. IMPRESSION: 1. Chronic findings. No acute fracture or malalignment. 2. Interval fusion of the C3-C4 vertebral bodies from the comparison examination. 3. Chronic appearing severe endplate height loss of T1. POS: [facility]
[2018-05-10] MEDS ORDERED: Cephalexin 500 MG CAP ONE (15:54)
== END 2018-05-10 16:00 | disposition home or self-care (01) ==
LOC: MADERS 13:04
DX: M54.5 Low back pain (principal); N39.0 Urinary tract infection, site not specified; I11.0 Hypertensive heart disease with heart failure; I50.9 Heart failure, unspecified; E11.9 Type 2 diabetes mellitus without complications; E03.9 Hypothyroidism, unspecified; M19.90 Unspecified osteoarthritis, unspecified site; Z86.73 Personal history of transient ischemic attack (TIA), and cerebral infarction without residual deficits; Z79.84 Long term (current) use of oral hypoglycemic drugs; Z79.899 Other long term (current) drug therapy; W18.30XA Fall on same level, unspecified, initial encounter
CPT/HCPCS: 36415; 51702; 70450; 71045; 72125; 72131; 72170; 80053; 81003; 81015; 85025; 85610; 93005; 96374; 96376; J3010

== ENCOUNTER 2018-05-22 16:02 | Outpatient (CLI) | payer MEDICARE ==
[2018-05-22 16:11] LABS: Anion Gap 17 mmol/L (10-20); BUN (Urea Nitrogen) 38 mg/dL (9.8-20.1); Calc. Creatinine Clearance 0 mL/min (70-130); Calcium 8.6 mg/dL (7.8-10.44); Carbon Dioxide 24 mmol/L (23-31); Chloride 104 mmol/L (98-107); Estimated GFR-MDRD 39; Glucose 125 mg/dL (83-110); Potassium 5.2 mmol/L (3.5-5.1); Sodium 140 mmol/L (136-145)
== END 2018-05-22 16:03 | disposition home or self-care (01) ==
LOC: MADLAB 16:02
PROVIDERS: ATTEND Family Medicine
DX: I12.9 Hypertensive chronic kidney disease with stage 1 through stage 4 chronic kidney disease, or unspecified chronic kidney disease (principal); N18.9 Chronic kidney disease, unspecified
CPT/HCPCS: 80048

== ENCOUNTER 2018-05-23 12:16 | Emergency (ER) | payer MEDICARE ==
[2018-05-23 13:09] LABS: #Basophils 0.1 thou/uL (0.0-0.2); #Eosinphils 0.3 thou/uL (0.0-0.7); #Lymphocytes 1.4 thou/uL (1.20-3.40); #Monocytes 0.4 thou/uL (0.11-0.59); #Neutrophils 4.4 thou/uL (1.40-6.50); %Basophils 1.1 % (0.0-1.0); %Eosinophils 4.1 % (0.0-10.0); %Lymphocytes 21.3 % (21.0-51.0); %Monocytes 6.7 % (0.0-10.0); %Neutrophils 66.8 % (42.0-75.0); Hemoglobin 9.7 g/dL (12.0-16.0); Mean Corpuscular HGB CONC 31.7 g/dL (32.0-36.0); Mean Corpuscular Hemoglobin 27.5 pg (27.0-31.0); Mean Corpuscular Volume 86.7 fL (78.0-98.0); Mean Platelet Volume 7.9 fL (7.4-10.4); Platelet Count 180 thou/uL (130-400); RBC Distribution Width 12.1 % (11.5-14.5); Red Blood Cell (RBC) Count 3.52 mill/uL (4.20-5.40); White Blood Cell (WBC) Count 6.6 thou/uL (4.8-10.8)
--- NOTE | 2018-05-23 13:18 | RAD ---
PORTABLE CHEST ONE VIEW: Date: 05-23-18 Time: 12:36 p.m. History: Chest pain. FINDINGS: Comparison is made with exam of 05-10-18. The heart is enlarged. The aorta is tortuous. The lungs are expanded without lobar consolidation, pne umothorax, gera edema or pleural effusions. IMPRESSION: No radiographic evidence of acute cardiopulmonary process. POS: [facility]
[2018-05-23 13:27] LABS: ALT (SGPT) 34 U/L (8-55); AST (SGOT) 47 U/L (5-34); Alkaline Phosphatase 80 U/L (40-150); Anion Gap 17 mmol/L (10-20); BUN (Urea Nitrogen) 40 mg/dL (9.8-20.1); Bilirubin, Total 0.9 mg/dL (0.2-1.2); Calc. Creatinine Clearance 0 mL/min (70-130); Calcium 8.7 mg/dL (7.8-10.44); Carbon Dioxide 25 mmol/L (23-31); Chloride 104 mmol/L (98-107); Estimated GFR-MDRD 39; Glucose 106 mg/dL (83-110); Magnesium 2.7 mg/dL (1.6-2.6); Sodium 141 mmol/L (136-145)
[2018-05-23] MEDS ORDERED: Fentanyl 100 MCG/2 ML VIAL ONE (14:04)
== END 2018-05-23 14:22 | disposition short-term general hospital (02) ==
LOC: MADERS 12:16
DX: R07.2 Precordial pain (principal); L03.115 Cellulitis of right lower limb; E11.9 Type 2 diabetes mellitus without complications; E03.9 Hypothyroidism, unspecified; I13.0 Hypertensive heart and chronic kidney disease with heart failure and stage 1 through stage 4 chronic kidney disease, or unspecified chronic kidney disease; I50.9 Heart failure, unspecified; N18.9 Chronic kidney disease, unspecified; Z86.73 Personal history of transient ischemic attack (TIA), and cerebral infarction without residual deficits; D63.1 Anemia in chronic kidney disease; Z79.899 Other long term (current) drug therapy
CPT/HCPCS: 36415; 71045; 80053; 83735; 84443; 84484; 85025; 93005; 96374; J3010

== ENCOUNTER 2018-05-30 16:17 | Inpatient (IN) | payer MEDICARE ==
[2018-05-30] MEDS ORDERED: Acetaminophen 500 MG TAB PO PRN (18:16)
[2018-05-30] MEDS: Amoxicillin/Potassium Clav 500 MG TAB PO SCH (20:23)
[2018-05-30] MEDS: Gabapentin 100 MG CAP PO SCH (20:23)
[2018-05-30] MEDS: Acetaminophen 500 MG TAB PO PRN (20:24)
--- NOTE | 2018-05-31 00:19 | HP ---
Admitted to [facility] on 05/30/2018. CHIEF COMPLAINT: Weak following an infection in her right leg. HISTORY OF PRESENT ILLNESS: The patient is a 77-year-old white female, who has a history of severe v enous insufficiency of her lower extremities complicated by chronic stasis dermatitis and chronic lawanda ma. She has been treated as an outpatient and inpatient for multiple episodes of cellulitis. She koch s very limited mobility due to her cervical myelopathy that required cervical decompression, but left her with weakness in the lower extremities with limited ability to ambulate, requiring a walker, and marked weakness in her upper extremities. She usually can walk a few steps and get around in a whee lchair. She resides in an assisted living, where she is able to maintain with some assistance. The patient had been seen in my office a few days prior to her admission for her cellulitis and was place d on oral antibiotics with cephalexin and bedrest. The patient a few days later developed chest pain prompting an admission to [facility] from 05/23/2018 and 05/26/2018, where she remained u ntil 05/30/2018. The initial chest pain was evaluated and her cardiac workup including a Cardiolite stress test showed no evidence of reversible or fixed ischemia. Her cardiac enzymes were negative x4 . Her EKG showed no acute changes and her transthoracic echocardiogram on 05/24/2018 showed ejection fraction of 60% to 65% with a 1/3 diastolic dysfunction and aortic valve sclerosis. The patient had no recurrence of her chest pain and chest pain was felt to be noncardiac. As part of her workup, deangelo mcdaniel also underwent abdominal ultrasound that showed cholelithiasis without obstruction and evidence of a fatty liver. The patient on admission was also noted to have severe cellulitis of her right lower extremity with marked edema, marked swelling, and cobblestoning effect to the skin and marked sensiti vity to the skin of the right lower leg. She was treated with IV vancomycin for cellulitis of the ri ght lower leg with resolution of the swelling and the redness, but was left with chronic stasis cruz es. She was also noted to have severe allodynia or hypesthesia located along the right medial outpatient coding specialist ior lower leg. The patient had been seen in consultation by Dr. Bajwa, who had recommended treatment with IV vancomycin and then switching her to cephalexin for a week and then for 6 months of Pen-Vee K for prevention of re-infection. He felt like the hypesthesia and allodynia of the leg was probably a dysesthesia secondary to her previous myelopathy and spinal injury that has left her not only with the weakness in all 4 extremities, but also with these hypesthesia. She has been placed on gabapent in. She had been on 100 mg t.i.d. and this had been up to 200 mg t.i.d. The patient showed marked i mprovement, had no recurrence of her chest pain. Had resolution of her severe swelling and the redne ss had resolved. She was thought that she had some increased redness in her legs when they were depe ndent and after they used Claudia/Kenalog. She said they have not been using that lately and she thinks her legs are doing better. She still has this severe sensitivity to the light touch to the leg. violeta has been managing her pain with Tylenol. The patient was transferred to [facility] to extend ed care for purpose of PT and OT on 05/30/2018. This hospitalization at [facility] for a week has left her very weak and with marked decline in her functional capability. PT has been workin g with her over there and she is walking, she said up to 120 feet with a walker and standby assistanc e, but still has a lot of trouble with any transfers. The patient was seen in her room soon after he r admission and she was able to give me a good history of what had occurred. PAST MEDICAL HISTORY: Hospitalized at [facility] from 05/23/2018 initially for chest pain and cardiac workup was negative with no recurrence of the chest pain, also for severe cellulitis of the right lower extremity that had not responded to the outpatient management and was treated for a w knik with IV vancomycin with marked improvement. Hospitalized at [facility] f rom 03/21/2018 to 03/29/2018 initially in acute care for cellulitis of right lower leg and then exten ded care for completion of IV antibiotics and for physical therapy. The patient has had multiple hos pitalizations for cellulitis of her legs, usually the right. Venous Doppler in 01/2018 showed no rosmery dence of DVT. She has been hospitalized at [facility] in 01/2018 for cellulitis, in 04/2017 for cellulitis. The patient has hypertension, severe venous insufficiency of lower extremities, chr onic stasis dermatitis, generalized osteoarthritis, hypothyroidism, cervical myelopathy with severe c ervical stenosis, presenting with paralysis particularly the right upper extremity and severe weaknes s of the left upper extremity and weakness of the lower extremities. The patient requires a surgical decompression and anterior fusion of the involved area of the spine in 10/2014. She showed marked i mprovement, but has been left with weakness in the arms and some in the legs. She is ambulatory for short distances using a walker. 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 She has had a tonsillectomy; multiple low back surgeries, laminectomy in 1961, 1965, and third time in 1979. She has had a hysterectomy. Hospitalized in 10/2015 for hemopty sis secondary to her bronchitis and bronchiectasis that resolved. EGD showed blood in the hypopharyn x, otherwise normal. CT of the chest showed bronchiectasis. The patient has a history of diabetes, chronic kidney disease, anemia of chronic illness. PRESENT MEDICATIONS: Claudia lotion with Kenalog 15 ounces, 200 mg that she uses on her leg once or twi ce a day as needed; acetaminophen 500 mg 1 or 2 every 6 hours as needed for pain, Augmentin 500/125 m g b.i.d. for 1 week, furosemide 40 mg daily at 2 p.m., furosemide 80 mg daily at 8 a.m., glimepiride 1 mg daily, gabapentin 200 mg t.i.d., levothyroxine 100 mcg daily, nystatin powder to skin fold areas b.i.d. as needed, multivitamin daily, lisinopril 10 mg daily, spironolactone 12.5 mg daily, MiraLAX 17 g in 18 ounce water daily. ALLERGIES: MORPHINE causes nausea and vomiting, METFORMIN causes nausea and diarrhea, and TRIMETHOPR IM. REVIEW OF SYSTEMS: Constitutional: The patient states she is better, but she is just weak. She has not had any fever. Eyes, ears, nose, and throat: No complaints. Pulmonary: No shortness of breat h. Cardiovascular: She has had no recurrence of chest pain. Gastrointestinal: The patient has had no nausea or vomiting. No change in her bowel habits. Musculoskeletal: The patient said she had h ad a fall few weeks ago and has had pain along the right posterolateral pelvic bone and some across t he low back. She has a history of chronic low back pain secondary to her failed surgical back syndro me. She also states she is having some soreness in her shoulders. ACTIVITIES OF DAILY LIVING: Ordinarily, the patient is able to walk some with the use of a walker. She usually gets around with the use of a wheelchair and walker. She said she is able to feed hersel f. She has trouble with her arms. Usually can dress herself. Usually a standby assistance for show ers. The patient is continent of stools and urine. HABITS: Alcohol, none. Tobacco, none. SOCIAL HISTORY: The patient is a . The patient resides at [facility]. CODE STATUS: Full code. PHYSICAL EXAMINATION: GENERAL: A 77-year-old white female who is awake, alert, oriented x3, who is sitting up in bed just finishing her supper. She looks comfortable and in no acute distress. VITAL SIGNS: Temperature of 98.2, pulse 68, respirations 24, O2 sat 98% on room air, blood pressure 136/68. Her weight is 275. HEAD: Normocephalic and atraumatic. EYES: Pupils were equal, round, and reactive. Sclerae are nonicteric. EARS: Left ear TM clear. Right TM has small amount of cerumen obscuring the TM. NOSE: Normal. MOUTH AND THROAT: Normal. NECK: Carotids are equal and strong. No bruits. Thyroid is not enlarged. LUNGS: Clear. HEART: Regular rate. No murmurs. ABDOMEN: Soft. The patient has a nonincarcerated ventral hernia in the epigastric region. There wa s no organomegaly. There is a little pinkness in the skin fold of the lower abdomen. EXTREMITIES: Lower extremities: There is no edema of the lower leg. She has chronic stasis changes in the lower legs. Overall, her legs look much better than usual. She has a little bit of cobblest oning to the leg along the right posterior medial aspect of the lower leg. The patient has hypesthes ia along the lower leg, particularly medial and posterior with even the lightest of touch. There was a little bit on the left also. MUSCULOSKELETAL: The patient has very limited motion in her shoulders and weakness in the arms. She is able to use her hand and feed herself. She has weakness in the lower extremities. NEUROLOGIC: She is alert and oriented x3. She has weakness in the upper and lower extremities, more in the upper with very limited range of motion of the shoulders. IMPRESSION: 1. Generalized weakness and deconditioning. A. Following recent hospitalization for cellulitis of the lower extremities. B. Complicated by marked decline in her functional capabilities and requiring assistance with her AD Ls. 2. Hospitalized at [facility] from 05/23/2018 to 05/30/2018. A. Presenting with chest pain. Cardiac workup including Cardiolite stress test showed no evidence o f reversible or fixed ischemia. Echocardiogram showed EF 60% to 65% and a grade 1/3 diastolic dysfun ction. No recurrence. B. Severe cellulitis of the right lower extremity, resolving. 3. Cellulitis of right lower extremity. A. Unresponsive to outpatient management. B. Required hospitalization at [facility] from 05/23/2018 to 05/30/2018 with receiving 7- day period of IV vancomycin. C. Marked improvement now on oral antibiotics. D. History of recurrent episodes of cellulitis. 4. Severe venous insufficiency of the lower extremities. A. Presently marked improvement with increased amount of bedrest as of 05/30/2018. 5. Chronic stasis dermatitis of the lower extremity, improved. A. Controlled as of 05/30/2018. 6. Diabetes type 2. A. Controlled with hemoglobin A1c of 6.3 on 03/21/2018. 7. Chronic kidney disease, stage 3. A. GFR 46 as of 05/24/2018. 8. Hypertension. 9. Hypothyroidism. 10. Generalized osteoarthritis. 11. Severe cervical spinal stenosis, complicated by myelopathy. Presenting with weakness and paraly sis of the upper extremity. A. Status post decompression and anterior fusion of the involved segment, 10/2014, with marked impro vement. B. Left her with residual weakness in the upper extremity with marked limitation in range of motion of the shoulder and weakness in the legs. C. Complicated by hypesthesia and allodynia of the lower extremities. 12. Chronic low back pain. A. History of failed surgical back syndrome. 13. Constipation. 14. Obesity. 15. Anemia of chronic illness. A. Hemoglobin of 10 on 05/24/2018. 16. Diastolic dysfunction with preserved ejection fraction of 60% to 65%. PLAN: The patient had been admitted to [facility] for purpose of PT and OT. We will continue her antibiotics for a week and then switch her to Pen-Vee K 500 mg b.i.d. for 6-month period. We rachell palencia utilize Lovenox for DVT prophylaxis, continue her routine medication. Her Neurontin had recently b een increased for these hypesthesia of the legs. We will see if this will help. See orders.
[2018-05-31] MEDS: Nystatin Powder 15 GM BOT TOP PRN (03:11)
[2018-05-31] MEDS: Levothyroxine Sodium 100 MCG TAB PO SCH (05:32)
[2018-05-31 05:59] LABS: #Basophils 0.1 thou/uL (0.0-0.2); #Eosinphils 0.4 thou/uL (0.0-0.7); #Lymphocytes 1.2 thou/uL (1.20-3.40); #Monocytes 0.4 thou/uL (0.11-0.59); %Basophils 1.2 % (0.0-1.0); %Eosinophils 6.9 % (0.0-10.0); %Lymphocytes 24.3 % (21.0-51.0); %Monocytes 8.7 % (0.0-10.0); %Neutrophils 58.9 % (42.0-75.0); Hemoglobin 9.8 g/dL (12.0-16.0); Mean Corpuscular HGB CONC 31.9 g/dL (32.0-36.0); Mean Corpuscular Hemoglobin 27.8 pg (27.0-31.0); Mean Corpuscular Volume 87.2 fL (78.0-98.0); Mean Platelet Volume 7.8 fL (7.4-10.4); Platelet Count 177 thou/uL (130-400); Red Blood Cell (RBC) Count 3.53 mill/uL (4.20-5.40); White Blood Cell (WBC) Count 5.1 thou/uL (4.8-10.8)
[2018-05-31 06:05] LABS: ALT (SGPT) 36 U/L (8-55); AST (SGOT) 18 U/L (5-34); Albumin 3.6 g/dL (3.4-4.8); Alkaline Phosphatase 90 U/L (40-150); Anion Gap 14 mmol/L (10-20); BUN (Urea Nitrogen) 38 mg/dL (9.8-20.1); Bilirubin, Total 0.3 mg/dL (0.2-1.2); Calc. Creatinine Clearance 77 mL/min (70-130); Calcium 8.9 mg/dL (7.8-10.44); Carbon Dioxide 24 mmol/L (23-31); Chloride 107 mmol/L (98-107); Estimated GFR-MDRD 44; Globulin 2.9 g/dL (2.4-3.5); Glucose 94 mg/dL (83-110); Potassium 4.7 mmol/L (3.5-5.1); Protein, Total 6.5 g/dL (6.0-8.3); Sodium 140 mmol/L (136-145)
[2018-05-31] MEDS: Acetaminophen 500 MG TAB PO PRN ×2 (07:34→14:29)
[2018-05-31] MEDS ORDERED: Albuterol Sulfate 2.5 mg/3 ml Neb NEB PRN (08:13)
[2018-05-31] MEDS: Keri Lotion 15 oz BOT TOP SCH ×2 (08:22→09:00)
[2018-05-31] MEDS: Polyethylene Glycol 3350 17 GM Packet PO SCH (08:23)
[2018-05-31] MEDS: Enoxaparin Sodium 40 MG/0.4 ML SYRINGE SC SCH (08:23)
[2018-05-31] MEDS: Albuterol Sulfate 2.5 mg/3 ml Neb NEB SCH ×3 (08:23→17:56)
[2018-05-31] MEDS: Amoxicillin/Potassium Clav 500 MG TAB PO SCH ×2 (08:24→21:08)
[2018-05-31] MEDS: Gabapentin 100 MG CAP PO SCH ×3 (08:24→21:09)
[2018-05-31] MEDS: Lisinopril 10 MG TAB PO SCH (08:24)
[2018-05-31] MEDS: Multivit, Therapeutic 1 TAB PO SCH (08:24)
[2018-05-31] MEDS: Spironolactone 25 MG TAB PO SCH (08:25)
[2018-05-31] MEDS: Glimepiride 2 MG TAB PO SCH (08:25)
[2018-05-31] MEDS: Furosemide 80 MG TAB PO SCH (08:25)
[2018-05-31 12:10] LABS: Hemoglobin A1c 6.4 % (4.0-6.0)
--- NOTE | 2018-05-31 12:22 | PRG ---
DATE OF SERVICE: 05/31/2018 SUBJECTIVE: The patient said she slept good last night. She is sore this morning and hurting some i n the left scapular area coming around to the lateral chest. There has been no rash over that area. She had a little mild cough. OBJECTIVE: GENERAL: The patient is lying in bed, appears in no acute distress. VITAL SIGNS: Shows a temperature 97.3, pulse 66, respirations 18, O2 sat 98% on room air, blood pres sure 131/63. LUNGS: Have some expiratory wheeze, but no rhonchi, no rales. Good breath sounds. HEART: Regular rate. BACK AND CHEST: There is no rash over the left scapular region or the lateral chest where she is kimberly ting. There is no point tenderness or bony or air crepitation. No area of bruising. EXTREMITIES: Her leg has no edema. She has chronic stasis changes. LABORATORY DATA: Her lab shows an H&H of 9.8 and 30.8, white cell count 5100 with 59% segs, 24% lymp hocytes, and a platelet count of 177,000. Sodium 140, potassium 4.7, BUN 38, creatinine 1.18, GFR 44 , glucose 106, albumin 3.6. ASSESSMENT: 1. Generalized weakness and deconditioning. A. Following recent hospitalization for cellulitis of the lower extremities. B. Complicated by marked decline in her functional capabilities and requiring assistance with her AD Ls. C. Unchanged as of 05/31/2018. 2. Hospitalized at [facility] from 05/23/2018 to 05/30/2018. A. Presenting with chest pain. Cardiac workup including Cardiolite stress test showed no evidence o f reversible or fixed ischemia. Echocardiogram showed EF 60% to 65% and a grade 1/3 diastolic dysfun ction. No recurrence. B. Severe cellulitis of the right lower extremity, resolving. 3. Cellulitis of right lower extremity. A. Unresponsive to outpatient management. B. Required hospitalization at [facility] from 05/23/2018 to 05/30/2018 with receiving 7- day period of IV vancomycin. C. Marked improvement now on oral antibiotics. D. Resolving with no redness or swelling on oral antibiotics as of 05/31/2018. 4. Severe venous insufficiency of the lower extremities. A. Presently marked improvement with increased amount of bedrest as of 05/30/2018. 5. Chronic stasis dermatitis of the lower extremity, improved. A. Controlled as of 05/31/2018. 6. Diabetes type 2. A. Controlled with hemoglobin A1c of 6.3 on 03/21/2018. 7. Chronic kidney disease, stage 3. A. GFR 46 as of 05/24/2018. B. GFR 44 on 05/31/2018. 8. Hypertension. 9. Hypothyroidism. 10. Generalized osteoarthritis. 11. Severe cervical spinal stenosis, complicated by myelopathy. Presenting with weakness and paraly sis of the upper extremity. A. Status post decompression and anterior fusion of the involved segment, 10/2014, with marked impro vement. B. Left her with residual weakness in the upper extremity with marked limitation in range of motion of the shoulder and weakness in the legs. C. Complicated by hypesthesia and allodynia of the lower extremities. 12. Chronic low back pain. A. History of failed surgical back syndrome. 13. Constipation. 14. Obesity. 15. Anemia of chronic illness. A. Hemoglobin of 10 on 05/24/2018. B. Hemoglobin of 9.8 on 05/31/2018. 16. Diastolic dysfunction with preserved ejection fraction of 60% to 65%. A. No evidence of acute congestive heart failure. 17. Asthmatic bronchitis as of 05/31/2018. PLAN: Continue present care. Continue PT, OT. Continue antibiotics. Place the patient on albutero l nebulization treatments q.i.d. and every 4 hours as needed. We will use the [employer] pump for moist heat application to the back, hip and left upper back and left thoracic area as needed.
[2018-05-31] MEDS: Furosemide 40 MG TAB PO SCH (14:23)
[2018-06-01] MEDS: Acetaminophen 500 MG TAB PO PRN ×2 (00:27→19:49)
[2018-06-01] MEDS: Albuterol Sulfate 2.5 mg/3 ml Neb NEB SCH ×5 (05:57→18:14)
[2018-06-01] MEDS: Levothyroxine Sodium 100 MCG TAB PO SCH (05:57)
[2018-06-01] MEDS: Keri Lotion 15 oz BOT TOP SCH (09:13)
[2018-06-01] MEDS: Polyethylene Glycol 3350 17 GM Packet PO SCH (09:13)
[2018-06-01] MEDS: Amoxicillin/Potassium Clav 500 MG TAB PO SCH ×2 (09:13→21:28)
[2018-06-01] MEDS: Enoxaparin Sodium 40 MG/0.4 ML SYRINGE SC SCH (09:14)
[2018-06-01] MEDS: Gabapentin 100 MG CAP PO SCH ×3 (09:14→21:28)
[2018-06-01] MEDS: Furosemide 80 MG TAB PO SCH (09:14)
[2018-06-01] MEDS: Glimepiride 2 MG TAB PO SCH (09:15)
[2018-06-01] MEDS: Multivit, Therapeutic 1 TAB PO SCH (09:15)
[2018-06-01] MEDS: Lisinopril 10 MG TAB PO SCH (09:15)
[2018-06-01] MEDS: Spironolactone 25 MG TAB PO SCH (09:16)
--- NOTE | 2018-06-01 11:42 | PRG ---
DATE OF SERVICE: 06/01/2018 SUBJECTIVE: The patient said she is feeling good this morning. She did work with physical therapy y . She said she did get a little weak during the second session and it felt like her legs wer e giving out on her a little bit. She did not feel like she was going to faint. After she rested th is sensation in her legs went away. The legs are doing better, they are not swelling, they are not i tching. She still has the hypoesthesia of the lower legs. OBJECTIVE: The patient is sitting up in bed preparing to eat her breakfast. She is alert, appears v geri comfortable, in no distress. Her temperature is 98.8, pulse 101, earlier it was 78 and temperatu re 97.9. Respirations 22, her O2 sat 94% on room air, blood pressure was 113/57. Lungs were clear. There are good breath sounds. There was no wheezing today. Heart; regular rate. Lower extremities ; no edema. The stasis dermatitis is controlled. Her blood pressure earlier was 92/53 and 108/49. Her FBS this morning was 192, hemoglobin A1c 6.4. ASSESSMENT: 1. Generalized weakness and deconditioning. A. Following recent hospitalization for cellulitis of the lower extremities. B. Complicated by marked decline in her functional capabilities and requiring assistance with her AD Ls. C. Improved as of 06/01/2018. 2. Hospitalized at [facility] from 05/23/2018 to 05/30/2018. A. Presenting with chest pain. Cardiac workup including Cardiolite stress test showed no evidence o f reversible or fixed ischemia. Echocardiogram showed EF 60% to 65% and a grade 1/3 diastolic dysfun ction. No recurrence. B. Severe cellulitis of the right lower extremity, resolving. 3. Cellulitis of right lower extremity. A. Unresponsive to outpatient management. B. Required hospitalization at [facility] from 05/23/2018 to 05/30/2018 with receiving 7- day period of IV vancomycin. C. Marked improvement now on oral antibiotics. D. Resolving with no redness or swelling on oral antibiotics as of 06/01/2018. 4. Severe venous insufficiency of the lower extremities. A. Presently no swelling and stasis dermatitis well controlled as of 06/01/2018. 5. Chronic stasis dermatitis of the lower extremity, improved. A. Controlled as of 06/01/2018. 6. Diabetes type 2. A. Controlled with hemoglobin A1c of 6.4 as on 05/31/2018. 7. Chronic kidney disease, stage 3. A. GFR 46 as of 05/24/2018. B. GFR 44 on 05/31/2018. 8. Hypertension. A. Controlled, just had a few readings that have been a little low as of 06/01/2018. 9. Hypothyroidism. 10. Generalized osteoarthritis. 11. Severe cervical spinal stenosis, complicated by myelopathy. Presenting with weakness and paraly sis of the upper extremity. A. Status post decompression and anterior fusion of the involved segment, 10/2014, with marked impro vement. B. Left her with residual weakness in the upper extremity with marked limitation in range of motion of the shoulder and weakness in the legs. C. Complicated by hypesthesia and allodynia of the lower extremities. 12. Chronic low back pain. A. History of failed surgical back syndrome. 13. Constipation. 14. Obesity. 15. Anemia of chronic illness. A. Hemoglobin of 10 on 05/24/2018. B. Hemoglobin of 9.8 on 05/31/2018. 16. Diastolic dysfunction with preserved ejection fraction of 60% to 65%. A. No evidence of acute congestive heart failure. 17. Asthmatic bronchitis as of 05/31/2018. A. Resolving. Lungs are clear with no wheezing as of 06/01/2018. PLAN: We will continue present care. The patient's blood pressure has more frequent episodes of low readings. If she has any weak spells we will back off of her diuretic, antihypertensive. I visited with the patient about a trial of Cymbalta along with the gabapentin to see if this would help with the hypoesthesia of the lower extremities and she is willing to try this. We will try her on 20 mg d aily. Continue PT and OT.
[2018-06-01] MEDS: Furosemide 40 MG TAB PO SCH (14:44)
[2018-06-02] MEDS: Levothyroxine Sodium 100 MCG TAB PO SCH (05:19)
[2018-06-02] MEDS: Albuterol Sulfate 2.5 mg/3 ml Neb NEB SCH ×4 (06:30→19:59)
[2018-06-02] MEDS: Gabapentin 100 MG CAP PO SCH ×3 (08:38→20:03)
[2018-06-02] MEDS: Glimepiride 2 MG TAB PO SCH (08:38)
[2018-06-02] MEDS: Amoxicillin/Potassium Clav 500 MG TAB PO SCH (08:38)
[2018-06-02] MEDS: Polyethylene Glycol 3350 17 GM Packet PO SCH (08:38)
[2018-06-02] MEDS: Enoxaparin Sodium 40 MG/0.4 ML SYRINGE SC SCH (08:38)
[2018-06-02] MEDS: Lisinopril 10 MG TAB PO SCH (08:39)
[2018-06-02] MEDS: Spironolactone 25 MG TAB PO SCH (08:40)
[2018-06-02] MEDS: Furosemide 80 MG TAB PO SCH (08:40)
[2018-06-02] MEDS: Multivit, Therapeutic 1 TAB PO SCH (08:40)
[2018-06-02] MEDS: Keri Lotion 15 oz BOT TOP SCH (08:40)
[2018-06-02] MEDS: Mag-Al Plus 1200 MG/1200 MG/120 MG/30 ML UDCUP PO PRN (14:54)
[2018-06-02] MEDS: Furosemide 40 MG TAB PO SCH (14:54)
[2018-06-02] MEDS: Cephalexin 500 MG CAP PO SCH ×2 (17:21→20:02)
[2018-06-02] MEDS: Acetaminophen 500 MG TAB PO PRN (20:00)
[2018-06-03] MEDS: Levothyroxine Sodium 100 MCG TAB PO SCH (05:24)
[2018-06-03] MEDS: Albuterol Sulfate 2.5 mg/3 ml Neb NEB SCH ×4 (08:11→20:57)
[2018-06-03] MEDS: Cephalexin 500 MG CAP PO SCH ×4 (09:01→20:57)
[2018-06-03] MEDS: Keri Lotion 15 oz BOT TOP SCH (09:01)
[2018-06-03] MEDS: Enoxaparin Sodium 40 MG/0.4 ML SYRINGE SC SCH (09:02)
[2018-06-03] MEDS: Furosemide 80 MG TAB PO SCH (09:02)
[2018-06-03] MEDS: Gabapentin 100 MG CAP PO SCH ×3 (09:02→20:58)
[2018-06-03] MEDS: Glimepiride 2 MG TAB PO SCH (09:03)
[2018-06-03] MEDS: Polyethylene Glycol 3350 17 GM Packet PO SCH (09:04)
[2018-06-03] MEDS: Multivit, Therapeutic 1 TAB PO SCH (09:04)
[2018-06-03] MEDS: Spironolactone 25 MG TAB PO SCH (09:04)
[2018-06-03] MEDS: Lisinopril 10 MG TAB PO SCH (09:04)
[2018-06-03] MEDS: Ondansetron ODT 4 MG TAB PO PRN (09:08)
[2018-06-03] MEDS: Furosemide 40 MG TAB PO SCH (13:00)
[2018-06-03] MEDS: Acetaminophen 500 MG TAB PO PRN (20:58)
[2018-06-04] MEDS: Levothyroxine Sodium 100 MCG TAB PO SCH (05:09)
[2018-06-04 05:53] LABS: Anion Gap 15 mmol/L (10-20); BUN (Urea Nitrogen) 56 mg/dL (9.8-20.1); Calc. Creatinine Clearance 51 mL/min (70-130); Calcium 8.9 mg/dL (7.8-10.44); Carbon Dioxide 24 mmol/L (23-31); Chloride 104 mmol/L (98-107); Estimated GFR-MDRD 28; Glucose 102 mg/dL (83-110); Potassium 6.3 mmol/L (3.5-5.1); Sodium 137 mmol/L (136-145)
[2018-06-04 05:54] LABS: #Basophils 0.1 thou/uL (0.0-0.2); #Eosinphils 0.3 thou/uL (0.0-0.7); #Lymphocytes 1.1 thou/uL (1.20-3.40); #Monocytes 0.5 thou/uL (0.11-0.59); #Neutrophils 4.3 thou/uL (1.40-6.50); %Basophils 1.3 % (0.0-1.0); %Lymphocytes 17.3 % (21.0-51.0); %Monocytes 7.8 % (0.0-10.0); %Neutrophils 68.6 % (42.0-75.0); Hemoglobin 9.8 g/dL (12.0-16.0); Mean Corpuscular HGB CONC 32.7 g/dL (32.0-36.0); Mean Corpuscular Hemoglobin 28.5 pg (27.0-31.0); Mean Corpuscular Volume 87.1 fL (78.0-98.0); Mean Platelet Volume 7.3 fL (7.4-10.4); Platelet Count 187 thou/uL (130-400); RBC Distribution Width 12.3 % (11.5-14.5); Red Blood Cell (RBC) Count 3.43 mill/uL (4.20-5.40); White Blood Cell (WBC) Count 6.3 thou/uL (4.8-10.8)
--- NOTE | 2018-06-04 08:23 | PRG ---
DATE OF SERVICE: 06/02/2018 SUBJECTIVE: The patient said she is doing alright this morning. She slept good. She woke up just a little nauseated, but was able to eat, and the nausea has resolved. She has had no vomiting. She s aid her legs are feeling better. OBJECTIVE: GENERAL: The patient is lying in bed. She looks comfortable, in no distress. VITAL SIGNS: Her temp is 99.3, pulse 75, blood pressure 125/60. Her respirations are 18, O2 sat 94% on room air. Her weight is stable at 275. LUNGS: Clear. HEART: Regular rate. EXTREMITIES: There is a little slight reddish hue to the lower legs, no edema, no ulcerations. LABORATORY DATA: FBS 101. ASSESSMENT: 1. Generalized weakness and deconditioning. A. Following recent hospitalization for cellulitis of the lower extremities. B. Complicated by marked decline in her functional capabilities and requiring assistance with her AD Ls. C. Improved as of 06/02/2018. 2. Hospitalized at [facility] from 05/23/2018 to 05/30/2018. A. Presenting with chest pain. Cardiac workup including Cardiolite stress test showed no evidence o f reversible or fixed ischemia. Echocardiogram showed EF 60% to 65% and a grade 1/3 diastolic dysfun ction. No recurrence. B. Severe cellulitis of the right lower extremity, resolving. 3. Cellulitis of right lower extremity. A. Unresponsive to outpatient management. B. Required hospitalization at [facility] from 05/23/2018 to 05/30/2018 with receiving 7- day period of IV vancomycin. C. Marked improvement now on oral antibiotics. D. Resolving with no swelling. Some mild reddish hue from the venous insufficiency as of 06/02/2018 . 4. Severe venous insufficiency of the lower extremities. A. Presently no swelling and stasis dermatitis well controlled as of 06/02/2018. 5. Chronic stasis dermatitis of the lower extremity, improved. A. Controlled as of 06/01/2018. 6. Diabetes type 2. A. Controlled with hemoglobin A1c of 6.4 as on 05/31/2018. 7. Chronic kidney disease, stage 3. A. GFR 46 as of 05/24/2018. B. GFR 44 on 05/31/2018. 8. Hypertension. A. Controlled, just had a few readings that have been a little low as of 06/01/2018. 9. Hypothyroidism. 10. Generalized osteoarthritis. 11. Severe cervical spinal stenosis, complicated by myelopathy. Presenting with weakness and paraly sis of the upper extremity. A. Status post decompression and anterior fusion of the involved segment, 10/2014, with marked impro vement. B. Left her with residual weakness in the upper extremity with marked limitation in range of motion of the shoulder and weakness in the legs. C. Complicated by hypesthesia and allodynia of the lower extremities. 12. Chronic low back pain. A. History of failed surgical back syndrome. 13. Constipation. 14. Obesity. 15. Anemia of chronic illness. A. Hemoglobin of 10 on 05/24/2018. B. Hemoglobin of 9.8 on 05/31/2018. 16. Diastolic dysfunction with preserved ejection fraction of 60% to 65%. A. No evidence of acute congestive heart failure as of 06/02/2018. 17. Asthmatic bronchitis as of 05/31/2018. A. Resolving. Lungs remain clear with no wheezing as of 06/02/2018. PLAN: Continue present care. Continue PT/OT.
[2018-06-04] MEDS: Albuterol Sulfate 2.5 mg/3 ml Neb NEB SCH ×4 (08:26→19:07)
[2018-06-04] MEDS: Acetaminophen 500 MG TAB PO PRN ×2 (08:27→17:01)
[2018-06-04] MEDS: Spironolactone 25 MG TAB PO SCH (08:28)
[2018-06-04] MEDS: Polyethylene Glycol 3350 17 GM Packet PO SCH (08:28)
[2018-06-04] MEDS: Cephalexin 500 MG CAP PO SCH ×4 (08:28→20:43)
[2018-06-04] MEDS: Glimepiride 2 MG TAB PO SCH (08:28)
[2018-06-04] MEDS: Gabapentin 100 MG CAP PO SCH ×3 (08:28→20:44)
[2018-06-04] MEDS: Furosemide 80 MG TAB PO SCH (08:29)
[2018-06-04] MEDS: Keri Lotion 15 oz BOT TOP SCH (08:29)
[2018-06-04] MEDS: Enoxaparin Sodium 40 MG/0.4 ML SYRINGE SC SCH (08:29)
[2018-06-04] MEDS: Lisinopril 10 MG TAB PO SCH (08:29)
[2018-06-04] MEDS: Multivit, Therapeutic 1 TAB PO SCH (08:30)
[2018-06-04] MEDS: Furosemide 40 MG TAB PO SCH (13:38)
--- NOTE | 2018-06-04 15:47 | PRG ---
DATE OF SERVICE: 06/04/2018 SUBJECTIVE: The patient had developed some nausea. Her Augmentin was stopped and it is replaced wit h cephalexin in which she also has Zofran oral disintegrating tablet. She use if necessary, patient says she is still a little nauseated this morning. This morning, she is out of the physical therapy department on a new step. The patient thinks that her legs feel little better. PHYSICAL EXAMINATION: VITAL SIGNS: Shows a temperature of 97.6, pulse 74, blood pressure 124/78, respirations 18, O2 sat 9 4% on room air. LUNGS: Clear. HEART: Regular rate. EXTREMITIES: Lower extremities; just trace edema. There is no increased heat or redness. ASSESSMENT: 1. Generalized weakness and deconditioning. A. Following recent hospitalization for cellulitis of the lower extremities. B. Complicated by marked decline in her functional capabilities and requiring assistance with her AD Ls. C. Improved as of 06/04/2018. 2. Hospitalized at [facility] from 05/23/2018 to 05/30/2018. A. Presenting with chest pain. Cardiac workup including Cardiolite stress test showed no evidence o f reversible or fixed ischemia. Echocardiogram showed EF 60% to 65% and a grade 1/3 diastolic dysfun ction. No recurrence. B. Severe cellulitis of the right lower extremity, resolving. 3. Cellulitis of right lower extremity. A. Unresponsive to outpatient management. B. Required hospitalization at [facility] from 05/23/2018 to 05/30/2018 with receiving 7- day period of IV vancomycin. C. Marked improvement now on oral antibiotics. D. Resolving with no swelling. Some mild reddish hue from the venous insufficiency as of 06/04/2018 . 4. Severe venous insufficiency of the lower extremities. A. Presently no swelling and stasis dermatitis well controlled as of 06/04/2018. 5. Chronic stasis dermatitis of the lower extremity, improved. A. Controlled as of 06/04/2018. 6. Diabetes type 2. A. Controlled with hemoglobin A1c of 6.4 as on 05/31/2018. 7. Chronic kidney disease, stage 3. A. GFR 46 as of 05/24/2018. B. GFR 44 on 05/31/2018. 8. Hypertension. A. Controlled, just had a few readings that have been a little low as of 06/01/2018. 9. Hypothyroidism. 10. Generalized osteoarthritis. 11. Severe cervical spinal stenosis, complicated by myelopathy. Presenting with weakness and paraly sis of the upper extremity. A. Status post decompression and anterior fusion of the involved segment, 10/2014, with marked impro vement. B. Left her with residual weakness in the upper extremity with marked limitation in range of motion of the shoulder and weakness in the legs. C. Complicated by hypesthesia and allodynia of the lower extremities. 12. Chronic low back pain. A. History of failed surgical back syndrome. 13. Constipation. 14. Obesity. 15. Anemia of chronic illness. A. Hemoglobin of 10 on 05/24/2018. B. Hemoglobin of 9.8 on 05/31/2018. 16. Diastolic dysfunction with preserved ejection fraction of 60% to 65%. A. No evidence of acute congestive heart failure as of 06/02/2018. 17. Asthmatic bronchitis as of 05/31/2018. A. Resolving. Lungs remain clear with no wheezing as of 06/04/2018. PLAN: Patient has been shifted from Augmentin to cephalexin. This will be continued until and then she will be placed on Pen-Vee K for a 6-month period. I think the nausea is probably from the A ugmentin, which was stopped. She thinks her legs appear little better. The cellulitis has resolved, but she does have neuropathic pain for which she is on the slightly higher dose of gabapentin and al so recently the Cymbalta was started. Continue PT and OT.
[2018-06-05] MEDS: Levothyroxine Sodium 100 MCG TAB PO SCH (05:40)
[2018-06-05] MEDS: Albuterol Sulfate 2.5 mg/3 ml Neb NEB SCH ×4 (08:06→18:05)
[2018-06-05] MEDS: Multivit, Therapeutic 1 TAB PO SCH (08:24)
[2018-06-05] MEDS: Gabapentin 100 MG CAP PO SCH ×3 (08:24→19:59)
[2018-06-05] MEDS: Cephalexin 500 MG CAP PO SCH ×4 (08:24→19:59)
[2018-06-05] MEDS: Glimepiride 2 MG TAB PO SCH (08:25)
[2018-06-05] MEDS: Keri Lotion 15 oz BOT TOP SCH (08:25)
[2018-06-05] MEDS: Enoxaparin Sodium 40 MG/0.4 ML SYRINGE SC SCH (08:25)
[2018-06-05] MEDS: Furosemide 80 MG TAB PO SCH (08:25)
[2018-06-05] MEDS: Polyethylene Glycol 3350 17 GM Packet PO SCH (08:30)
--- NOTE | 2018-06-05 12:49 | PRG ---
DATE OF SERVICE: 06/05/2018 SUBJECTIVE: The patient says she feels better today. The nausea has resolved. She is doing better with her physical therapy and is walking a little bit further. Her legs feel better. OBJECTIVE: GENERAL: The patient is lying in bed. Physical therapy is preparing to get her up. Later, we saw h er and she was walking in the hallway with a walker and physical therapist. She appears comfortable and in no distress. Her spirits look much better, and she looks happy. VITAL SIGNS: Shows a temperature of 98.3, pulse 71, respirations 18, O2 sat 95%, blood pressure 113/ 55. Weight stable at 275. LUNGS: Clear. HEART: Regular rate. EXTREMITIES: No edema. LABORATORY DATA: Her lab yesterday showed a potassium of 6.3, BUN of 56, creatinine up to 1.78. Her GFR down to 28. FBS 102. ASSESSMENT: 1. Generalized weakness and deconditioning. A. Following recent hospitalization for cellulitis of the lower extremities. B. Complicated by marked decline in her functional capabilities and requiring assistance with her AD Ls. C. Improved as of 06/05/2018. 2. Hospitalized at [facility] from 05/23/2018 to 05/30/2018. A. Presenting with chest pain. Cardiac workup including Cardiolite stress test showed no evidence o f reversible or fixed ischemia. Echocardiogram showed EF 60% to 65% and a grade 1/3 diastolic dysfun ction. No recurrence. B. Severe cellulitis of the right lower extremity, resolving. 3. Cellulitis of right lower extremity. A. Unresponsive to outpatient management. B. Required hospitalization at [facility] from 05/23/2018 to 05/30/2018 with receiving 7- day period of IV vancomycin. C. Marked improvement now on oral antibiotics. D. Resolved as of 06/05/2018. 4. Severe venous insufficiency of the lower extremities. A. Presently no swelling and stasis dermatitis well controlled as of 06/05/2018. 5. Chronic stasis dermatitis of the lower extremity, improved. A. Controlled as of 06/05/2018. 6. Diabetes type 2. A. Controlled with hemoglobin A1c of 6.4 as on 05/31/2018. 7. Chronic kidney disease, stage 3. A. GFR 46 as of 05/24/2018. B. GFR 44 on 05/31/2018. C. GFR has dropped to 28 with increase in the BUN and creatinine secondary to the effect of diuretic and the ARLEN inhibitor, lisinopril. 8. Hypertension. A. Controlled, just had a few readings that have been a little low as of 06/01/2018. 9. Hypothyroidism. 10. Generalized osteoarthritis. 11. Severe cervical spinal stenosis, complicated by myelopathy. Presenting with weakness and paraly sis of the upper extremity. A. Status post decompression and anterior fusion of the involved segment, 10/2014, with marked impro vement. B. Left her with residual weakness in the upper extremity with marked limitation in range of motion of the shoulder and weakness in the legs. C. Complicated by hypesthesia and allodynia of the lower extremities. 12. Chronic low back pain. A. History of failed surgical back syndrome. 13. Constipation. 14. Obesity. 15. Anemia of chronic illness. A. Hemoglobin of 10 on 05/24/2018. B. Hemoglobin of 9.8 on 05/31/2018. 16. Diastolic dysfunction with preserved ejection fraction of 60% to 65%. A. No evidence of acute congestive heart failure as of 06/05/2018. 17. Asthmatic bronchitis as of 05/31/2018. A. Resolved as of 06/05/2018. 18. Hyperkalemia. A. Secondary to the effect of the spironolactone and lisinopril. PLAN: Overall, the patient looks better. The nausea is resolved. She has had a decline in her clyde l function with increase in her potassium as results of the spironolactone, diuretics, and ARLEN inhibi tor. We will stop the lisinopril and the spironolactone. We will recheck potassium in the morning.
[2018-06-05] MEDS: Furosemide 40 MG TAB PO SCH (13:24)
[2018-06-05] MEDS: Acetaminophen 500 MG TAB PO PRN (19:56)
[2018-06-06 06:06] LABS: Anion Gap 17 mmol/L (10-20); BUN (Urea Nitrogen) 70 mg/dL (9.8-20.1); Calc. Creatinine Clearance 52 mL/min (70-130); Calcium 8.7 mg/dL (7.8-10.44); Carbon Dioxide 22 mmol/L (23-31); Chloride 103 mmol/L (98-107); Estimated GFR-MDRD 28; Glucose 85 mg/dL (83-110); Potassium 5.6 mmol/L (3.5-5.1); Sodium 136 mmol/L (136-145)
[2018-06-06] MEDS: Albuterol Sulfate 2.5 mg/3 ml Neb NEB SCH ×4 (06:07→19:31)
[2018-06-06] MEDS: Levothyroxine Sodium 100 MCG TAB PO SCH (06:07)
[2018-06-06] MEDS: Acetaminophen 500 MG TAB PO PRN (06:10)
[2018-06-06] MEDS: Multivit, Therapeutic 1 TAB PO SCH (07:54)
[2018-06-06] MEDS: Cephalexin 500 MG CAP PO SCH ×4 (07:55→20:31)
[2018-06-06] MEDS: Gabapentin 100 MG CAP PO SCH ×3 (07:55→20:31)
[2018-06-06] MEDS: Glimepiride 2 MG TAB PO SCH (07:55)
[2018-06-06] MEDS: Polyethylene Glycol 3350 17 GM Packet PO SCH (07:56)
[2018-06-06] MEDS: Enoxaparin Sodium 40 MG/0.4 ML SYRINGE SC SCH (07:56)
[2018-06-06] MEDS: Keri Lotion 15 oz BOT TOP SCH (07:56)
[2018-06-06] MEDS: Furosemide 80 MG TAB PO SCH (07:56)
[2018-06-06] MEDS: Furosemide 40 MG TAB PO SCH (14:00)
--- NOTE | 2018-06-06 14:19 | PRG ---
DATE OF SERVICE: 06/06/2018 SUBJECTIVE: The patient says she is feeling better. She is walking a little better with a walker li ttle further. She is still requiring help on transfers, but she said this is little better. Her leg s feel better. She is not having any more of the nausea. OBJECTIVE: GENERAL: The patient is lying in bed. She is not yet gotten up. She looks very comfortable, in no distress. Her weight is 275. VITAL SIGNS: Her blood pressure is 128/59, temperature is 98.6, pulse 74, respirations 14, O2 sat 91 %-95% on room air. LUNGS: Clear. HEART: Regular rate. EXTREMITIES: No edema. There is no redness. She does have some chronic stasis changes. LABORATORY DATA: Her sodium is 136, potassium down to 5.6, since spironolactone was stopped. Her BU N is up to 70, creatinine stable at 1.76. GFR is stable at 28. FBS 85. ASSESSMENT: 1. Generalized weakness and deconditioning. A. Following recent hospitalization for cellulitis of the lower extremities. B. Complicated by marked decline in her functional capabilities and requiring assistance with her AD Ls. C. Improved as of 06/06/2018. 2. Hospitalized at [facility] from 05/23/2018 to 05/30/2018. A. Presenting with chest pain. Cardiac workup including Cardiolite stress test showed no evidence o f reversible or fixed ischemia. Echocardiogram showed EF 60% to 65% and a grade 1/3 diastolic dysfun ction. No recurrence. B. Severe cellulitis of the right lower extremity, resolving. 3. Cellulitis of right lower extremity. A. Unresponsive to outpatient management. B. Required hospitalization at [facility] from 05/23/2018 to 05/30/2018 with receiving 7- day period of IV vancomycin. C. Marked improvement now on oral antibiotics. D. Resolved as of 06/05/2018. 4. Severe venous insufficiency of the lower extremities. A. Presently no swelling and stasis dermatitis well controlled as of 06/06/2018. 5. Chronic stasis dermatitis of the lower extremity, improved. A. Controlled as of 06/06/2018. 6. Diabetes type 2. A. Controlled with hemoglobin A1c of 6.4 as on 05/31/2018. 7. Chronic kidney disease, stage 3. A. GFR 46 as of 05/24/2018. B. GFR 44 on 05/31/2018. C. GFR has dropped to 28 with increase in the BUN and creatinine secondary to the effect of diuretic and the ARLEN inhibitor, lisinopril. D. GFR stable at 28 as of 06/06/2018. 8. Hypertension. A. Controlled, just had a few readings that have been a little low as of 06/01/2018. 9. Hypothyroidism. 10. Generalized osteoarthritis. 11. Severe cervical spinal stenosis, complicated by myelopathy. Presenting with weakness and paraly sis of the upper extremity. A. Status post decompression and anterior fusion of the involved segment, 10/2014, with marked impro vement. B. Left her with residual weakness in the upper extremity with marked limitation in range of motion of the shoulder and weakness in the legs. C. Complicated by hypesthesia and allodynia of the lower extremities. 12. Chronic low back pain. A. History of failed surgical back syndrome. 13. Constipation. 14. Obesity. 15. Anemia of chronic illness. A. Hemoglobin of 10 on 05/24/2018. B. Hemoglobin of 9.8 on 05/31/2018. 16. Diastolic dysfunction with preserved ejection fraction of 60% to 65%. A. No evidence of acute congestive heart failure as of 06/06/2018. 17. Asthmatic bronchitis as of 05/31/2018. A. Resolved as of 06/05/2018. 18. Hyperkalemia. A. Secondary to the effect of the spironolactone and lisinopril. B. Improved with potassium of 5.6. PLAN: Overall, the patient looks better. GFR has remained stable, but potassium has dropped since s pironolactone has been stopped. We will continue to leave off the spironolactone I have also stopp ed the lisinopril. Her blood pressure seems to be doing well. If the BUN does not began to fall, ma y need to cut back on the furosemide. Continue PT and OT.
[2018-06-07] MEDS: Levothyroxine Sodium 100 MCG TAB PO SCH (06:14)
[2018-06-07] MEDS: Albuterol Sulfate 2.5 mg/3 ml Neb NEB SCH ×4 (08:15→19:55)
[2018-06-07] MEDS: Enoxaparin Sodium 40 MG/0.4 ML SYRINGE SC SCH (08:16)
[2018-06-07] MEDS: Glimepiride 2 MG TAB PO SCH (08:16)
[2018-06-07] MEDS: Furosemide 80 MG TAB PO SCH (08:16)
[2018-06-07] MEDS: Gabapentin 100 MG CAP PO SCH ×3 (08:16→19:59)
[2018-06-07] MEDS: Keri Lotion 15 oz BOT TOP SCH (08:16)
[2018-06-07] MEDS: Cephalexin 500 MG CAP PO SCH (08:17)
[2018-06-07] MEDS: Polyethylene Glycol 3350 17 GM Packet PO SCH (08:17)
[2018-06-07] MEDS: Multivit, Therapeutic 1 TAB PO SCH (08:17)
[2018-06-07] MEDS: Penicillin V Potassium 250 MG TAB PO SCH ×2 (09:49→19:59)
[2018-06-07] MEDS: Acetaminophen 500 MG TAB PO PRN (09:49)
[2018-06-07] MEDS: Furosemide 40 MG TAB PO SCH (14:23)
--- NOTE | 2018-06-07 14:58 | PRG ---
DATE OF SERVICE: 06/07/2018 SUBJECTIVE: The patient said she is doing alright this morning. She is returning from her walk arou nd the hallways and from working out for 20 minutes on the NuStep. She is doing a little better, she is transferring better, but has trouble moving in position on the bed in order to get up, but she is progressing. Her legs are feeling better. OBJECTIVE: The patient is alert, appears in no distress. Her vital signs show a temperature of 96.9 , pulse 66, respirations 16, O2 sat 95% on room air, blood pressure 139/63. Her weight is stable at 275. Her lungs are clear. Heart, regular rate. Extremities; no edema. The chronic stasis changes are stable. Her laboratory shows FBS of 113. ASSESSMENT: 1. Generalized weakness and deconditioning. A. Following recent hospitalization for cellulitis of the lower extremities. B. Complicated by marked decline in her functional capabilities and requiring assistance with her AD Ls. C. Improving, walking further, still having a little trouble with transfers, but improving as of . 2. Hospitalized at [facility] from 05/23/2018 to 05/30/2018. A. Presenting with chest pain. Cardiac workup including Cardiolite stress test showed no evidence o f reversible or fixed ischemia. Echocardiogram showed EF 60% to 65% and a grade 1/3 diastolic dysfun ction. No recurrence. B. Severe cellulitis of the right lower extremity, resolving. 3. Cellulitis of right lower extremity. A. Unresponsive to outpatient management. B. Required hospitalization at [facility] from 05/23/2018 to 05/30/2018 with receiving 7- day period of IV vancomycin. C. Marked improvement now on oral antibiotics. D. Resolved as of 06/05/2018. 4. Severe venous insufficiency of the lower extremities. A. Presently no swelling and stasis dermatitis well controlled as of 06/07/2018. 5. Chronic stasis dermatitis of the lower extremity, improved. A. Controlled as of 06/07/2018. 6. Diabetes type 2. A. Controlled with hemoglobin A1c of 6.4 as on 05/31/2018. 7. Chronic kidney disease, stage 3. A. GFR 46 as of 05/24/2018. B. GFR 44 on 05/31/2018. C. GFR has dropped to 28 with increase in the BUN and creatinine secondary to the effect of diuretic and the ARLEN inhibitor, lisinopril. D. GFR stable at 28 as of 06/06/2018. 8. Hypertension. A. Controlled, just had a few readings that have been a little low as of 06/07/2018. 9. Hypothyroidism. 10. Generalized osteoarthritis. 11. Severe cervical spinal stenosis, complicated by myelopathy. Presenting with weakness and paraly sis of the upper extremity. A. Status post decompression and anterior fusion of the involved segment, 10/2014, with marked impro vement. B. Left her with residual weakness in the upper extremity with marked limitation in range of motion of the shoulder and weakness in the legs. C. Complicated by hypesthesia and allodynia of the lower extremities. 12. Chronic low back pain. A. History of failed surgical back syndrome. 13. Constipation. 14. Obesity. 15. Anemia of chronic illness. A. Hemoglobin of 10 on 05/24/2018. B. Hemoglobin of 9.8 on 05/31/2018. 16. Diastolic dysfunction with preserved ejection fraction of 60% to 65%. A. No evidence of acute congestive heart failure as of 06/07/2018. 17. Asthmatic bronchitis as of 05/31/2018. A. Resolved as of 06/05/2018. 18. Hyperkalemia. A. Secondary to the effect of the spironolactone and lisinopril. B. Improved with potassium of 5.6. PLAN: Continue present care. The patient due to have a repeat basic metabolic panel in the morning. Will discontinue the cephalexin and place the patient on Pen-VK 500 mg b.i.d. for a 6 month period. Continue PT and OT.
[2018-06-08] MEDS: Levothyroxine Sodium 100 MCG TAB PO SCH (05:08)
[2018-06-08 05:36] LABS: Anion Gap 17 mmol/L (10-20); BUN (Urea Nitrogen) 61 mg/dL (9.8-20.1); Calc. Creatinine Clearance 60 mL/min (70-130); Calcium 8.9 mg/dL (7.8-10.44); Carbon Dioxide 22 mmol/L (23-31); Chloride 104 mmol/L (98-107); Estimated GFR-MDRD 33; Glucose 98 mg/dL (83-110); Potassium 5.6 mmol/L (3.5-5.1); Sodium 137 mmol/L (136-145)
[2018-06-08] MEDS: Albuterol Sulfate 2.5 mg/3 ml Neb NEB SCH (07:43)
[2018-06-08] MEDS: Polyethylene Glycol 3350 17 GM Packet PO SCH (08:33)
[2018-06-08] MEDS: Glimepiride 2 MG TAB PO SCH (08:33)
[2018-06-08] MEDS: Penicillin V Potassium 250 MG TAB PO SCH ×2 (08:33→20:42)
[2018-06-08] MEDS: Furosemide 80 MG TAB PO SCH (08:34)
[2018-06-08] MEDS: Keri Lotion 15 oz BOT TOP SCH (08:34)
[2018-06-08] MEDS: Gabapentin 100 MG CAP PO SCH ×3 (08:34→20:42)
[2018-06-08] MEDS: Enoxaparin Sodium 40 MG/0.4 ML SYRINGE SC SCH (08:34)
[2018-06-08] MEDS: Multivit, Therapeutic 1 TAB PO SCH (08:34)
[2018-06-08] MEDS: Ondansetron ODT 4 MG TAB PO PRN (11:08)
[2018-06-08] MEDS: Furosemide 40 MG TAB PO SCH (13:45)
[2018-06-09] MEDS: Levothyroxine Sodium 100 MCG TAB PO SCH (05:54)
[2018-06-09] MEDS: Enoxaparin Sodium 40 MG/0.4 ML SYRINGE SC SCH (08:43)
[2018-06-09] MEDS: Multivit, Therapeutic 1 TAB PO SCH (08:43)
[2018-06-09] MEDS: Polyethylene Glycol 3350 17 GM Packet PO SCH (08:43)
[2018-06-09] MEDS: Gabapentin 100 MG CAP PO SCH ×3 (08:44→20:35)
[2018-06-09] MEDS: Glimepiride 2 MG TAB PO SCH (08:44)
[2018-06-09] MEDS: Penicillin V Potassium 250 MG TAB PO SCH ×2 (08:44→20:35)
[2018-06-09] MEDS: Keri Lotion 15 oz BOT TOP SCH (08:44)
[2018-06-09] MEDS: Furosemide 80 MG TAB PO SCH (08:44)
--- NOTE | 2018-06-09 15:05 | PRG ---
DATE OF SERVICE: 06/08/2018 SUBJECTIVE: The patient said she has been doing better. She is doing better with her therapy. She is working more on the NuStep which works her arms and legs more. It has created a little soreness u p in her arms and shoulders. This morning she was able to help transfer from the bed up without help and was able to scoot to position and transfer without help. OBJECTIVE: The patient is sitting on the NuStep. She is alert, appears comfortable, in no distress. Her temperature is 98.2, pulse 66, respirations 18, O2 sat 96% on room air, blood pressure 142/67. Lungs are clear. Heart; regular rate. Extremities; no edema. There is chronic stasis changes, but there is no broken areas of skin. She does have some petechiae on the legs. Her lab shows a sodium 137, potassium 5.6, BUN is down to 61, creatinine 1.5, GFR is up to 33, glucos e 98, sodium 137. ASSESSMENT: 1. Generalized weakness and deconditioning. A. Following recent hospitalization for cellulitis of the lower extremities. B. Complicated by marked decline in her functional capabilities and requiring assistance with her AD Ls. C. Improving, walking further. Transferring better as of 06/08/2018. 2. Hospitalized at [facility] from 05/23/2018 to 05/30/2018. A. Presenting with chest pain. Cardiac workup including Cardiolite stress test showed no evidence o f reversible or fixed ischemia. Echocardiogram showed EF 60% to 65% and a grade 1/3 diastolic dysfun ction. No recurrence. B. Severe cellulitis of the right lower extremity, resolving. 3. Cellulitis of right lower extremity. A. Unresponsive to outpatient management. B. Required hospitalization at [facility] from 05/23/2018 to 05/30/2018 with receiving 7- day period of IV vancomycin. C. Resolved as of 06/05/2018. 4. Severe venous insufficiency of the lower extremities. A. Presently no swelling and stasis dermatitis well controlled as of 06/08/2018. 5. Chronic stasis dermatitis of the lower extremity, improved. A. Controlled as of 06/08/2018. 6. Diabetes type 2. A. Controlled with hemoglobin A1c of 6.4 as on 05/31/2018. 7. Chronic kidney disease, stage 3. A. GFR 46 as of 05/24/2018. B. GFR 44 on 05/31/2018. C. GFR has dropped to 28 with increase in the BUN and creatinine secondary to the effect of diuretic and the ARLEN inhibitor, lisinopril. D. Glomerular filtration rate up to 33 as of 06/08/2018. 8. Hypertension. A. Controlled, just had a few readings that have been a little low as of 06/07/2018. 9. Hypothyroidism. 10. Generalized osteoarthritis. 11. Severe cervical spinal stenosis, complicated by myelopathy. Presenting with weakness and paraly sis of the upper extremity. A. Status post decompression and anterior fusion of the involved segment, 10/2014, with marked impro vement. B. Left her with residual weakness in the upper extremity with marked limitation in range of motion of the shoulder and weakness in the legs. C. Complicated by hypesthesia and allodynia of the lower extremities. 12. Chronic low back pain. A. History of failed surgical back syndrome. 13. Constipation. 14. Obesity. 15. Anemia of chronic illness. A. Hemoglobin of 10 on 05/24/2018. B. Hemoglobin of 9.8 on 05/31/2018. 16. Diastolic dysfunction with preserved ejection fraction of 60% to 65%. A. No evidence of acute congestive heart failure as of 06/08/2018. 17. Asthmatic bronchitis as of 05/31/2018. A. Resolved as of 06/05/2018. 18. Hyperkalemia. A. Secondary to the effect of the spironolactone and lisinopril. B. Improved with potassium of 5.6. C. Stable with potassium of 5.6 as of 06/08/2018. PLAN: Overall the patient has improved. Will stop the routine dose of the albuterol, but leave it o n an as needed basis. The patient's potassium is stable. We will continue to monitor that. I have added the Pen-VK which does add some added potassium. We will watch this. Renal function has improv ed. We will continue PT and OT.
[2018-06-09] MEDS: Furosemide 40 MG TAB PO SCH (15:19)
[2018-06-10] MEDS: Acetaminophen 500 MG TAB PO PRN ×2 (01:06→13:44)
[2018-06-10] MEDS: Levothyroxine Sodium 100 MCG TAB PO SCH (06:19)
[2018-06-10] MEDS: Gabapentin 100 MG CAP PO SCH ×3 (09:13→20:37)
[2018-06-10] MEDS: Furosemide 80 MG TAB PO SCH (09:13)
[2018-06-10] MEDS: Enoxaparin Sodium 40 MG/0.4 ML SYRINGE SC SCH (09:14)
[2018-06-10] MEDS: Glimepiride 2 MG TAB PO SCH (09:14)
[2018-06-10] MEDS: Multivit, Therapeutic 1 TAB PO SCH (09:14)
[2018-06-10] MEDS: Polyethylene Glycol 3350 17 GM Packet PO SCH ×2 (09:15→09:22)
[2018-06-10] MEDS: Penicillin V Potassium 250 MG TAB PO SCH ×2 (09:20→20:37)
[2018-06-10] MEDS: Keri Lotion 15 oz BOT TOP SCH (09:21)
[2018-06-10] MEDS: Furosemide 40 MG TAB PO SCH (13:38)
--- NOTE | 2018-06-10 14:23 | PRG ---
DATE OF SERVICE: 06/10/2018 SUBJECTIVE: The patient been up, in the bedside chair, has had breakfast. She is feeling good. She has no complaints. Her legs are feeling better. OBJECTIVE: GENRAL: The patient is alert, appears very comfortable, in no distress. VITAL SIGNS: Shows a temperature of 97.6, pulse 60, respiration 20, O2 sat 94% on room air, blood pr essure is 153/65. LUNGS: Clear. HEART: Regular rate. EXTREMITIES: No edema. There is chronic stasis changes. SKIN: Soft. There is no scaling or ulcerations. LABORATORY DATA: Her FBS this morning is 115. ASSESSMENT: 1. Generalized weakness and deconditioning. A. Following recent hospitalization for cellulitis of the lower extremities. B. Complicated by marked decline in her functional capabilities and requiring assistance with her AD Ls. C. Improving, walking further. Transferring better as of 06/10/2018. 2. Hospitalized at [facility] from 05/23/2018 to 05/30/2018. A. Presenting with chest pain. Cardiac workup including Cardiolite stress test showed no evidence o f reversible or fixed ischemia. Echocardiogram showed EF 60% to 65% and a grade 1/3 diastolic dysfun ction. No recurrence. B. Severe cellulitis of the right lower extremity, resolving. 3. Cellulitis of right lower extremity. A. Unresponsive to outpatient management. B. Required hospitalization at [facility] from 05/23/2018 to 05/30/2018 with receiving 7- day period of IV vancomycin. C. Resolved as of 06/05/2018. 4. Severe venous insufficiency of the lower extremities. A. Presently no swelling and stasis dermatitis well controlled as of 06/10/2018. 5. Chronic stasis dermatitis of the lower extremity, improved. A. Controlled as of 06/10/2018. 6. Diabetes type 2. A. Controlled with hemoglobin A1c of 6.4 as on 05/31/2018. 7. Chronic kidney disease, stage 3. A. GFR 46 as of 05/24/2018. B. GFR 44 on 05/31/2018. C. GFR has dropped to 28 with increase in the BUN and creatinine secondary to the effect of diuretic and the ARLEN inhibitor, lisinopril. D. Glomerular filtration rate up to 33 as of 06/08/2018. 8. Hypertension. A. Controlled as of 06/10/2018. 9. Hypothyroidism. 10. Generalized osteoarthritis. 11. Severe cervical spinal stenosis, complicated by myelopathy. Presenting with weakness and paraly sis of the upper extremity. A. Status post decompression and anterior fusion of the involved segment, 10/2014, with marked impro vement. B. Left her with residual weakness in the upper extremity with marked limitation in range of motion of the shoulder and weakness in the legs. C. Complicated by hypesthesia and allodynia of the lower extremities. 12. Chronic low back pain. A. History of failed surgical back syndrome. 13. Constipation. 14. Obesity. 15. Anemia of chronic illness. A. Hemoglobin of 10 on 05/24/2018. B. Hemoglobin of 9.8 on 05/31/2018. 16. Diastolic dysfunction with preserved ejection fraction of 60% to 65%. A. No evidence of acute congestive heart failure as of 06/10/2018. 17. Asthmatic bronchitis as of 05/31/2018. A. Resolved as of 06/05/2018. 18. Hyperkalemia. A. Secondary to the effect of the spironolactone and lisinopril. B. Improved with potassium of 5.6. C. Stable with potassium of 5.6 as of 06/08/2018. PLAN: Continue present care. Continue PT, OT. We will recheck basic metabolic panel in the morning .
[2018-06-11 05:43] LABS: Anion Gap 15 mmol/L (10-20); BUN (Urea Nitrogen) 53 mg/dL (9.8-20.1); Calc. Creatinine Clearance 60 mL/min (70-130); Calcium 8.6 mg/dL (7.8-10.44); Carbon Dioxide 22 mmol/L (23-31); Chloride 107 mmol/L (98-107); Estimated GFR-MDRD 33; Glucose 100 mg/dL (83-110); Potassium 4.3 mmol/L (3.5-5.1); Sodium 140 mmol/L (136-145)
[2018-06-11] MEDS: Levothyroxine Sodium 100 MCG TAB PO SCH (05:49)
[2018-06-11] MEDS: Enoxaparin Sodium 40 MG/0.4 ML SYRINGE SC SCH (08:31)
[2018-06-11] MEDS: Penicillin V Potassium 250 MG TAB PO SCH ×2 (08:31→19:15)
[2018-06-11] MEDS: Keri Lotion 15 oz BOT TOP SCH (08:31)
[2018-06-11] MEDS: Furosemide 80 MG TAB PO SCH (08:31)
[2018-06-11] MEDS: Polyethylene Glycol 3350 17 GM Packet PO SCH (08:32)
[2018-06-11] MEDS: Multivit, Therapeutic 1 TAB PO SCH (08:32)
[2018-06-11] MEDS: Gabapentin 100 MG CAP PO SCH ×3 (08:32→19:14)
[2018-06-11] MEDS: Glimepiride 2 MG TAB PO SCH (08:32)
[2018-06-11] MEDS: Acetaminophen 500 MG TAB PO PRN ×2 (08:34→19:14)
[2018-06-11] MEDS: Furosemide 40 MG TAB PO SCH (14:43)
[2018-06-11 19:10] LABS: Bilirubin Negative (Negative); Blood, Urine Negative (Negative); Clarity Clear (Clear); Glucose, Urine (Dipstick) Negative (Negative); Leukocyte Trace (Negative); Nitrite Negative (Negative); Protein, Urine (Dipstick) Negative (Neg-Trace); Urobilinogen 0.2 mg/dL (0.2-1.0)
[2018-06-11 19:29] LABS: Bacteria/HPF Rare-Few HPF (None Seen); Crystals/HPF 1+ AMORPH URATES HPF (Negative); Hyaline Casts/LPF 7-10 HYALINE CAST LPF (0-3 Hyaline); RBC/HPF None Seen HPF (0-3); WBC/HPF 0-3 HPF (0-3); Yeast-All Forms 1+ HPF (None Seen)
[2018-06-11] MEDS: Fluconazole 100 MG TAB PO SCH (20:46)
[2018-06-11] MEDS: Clotrimazole 1% Cream 15 GM TUBE TOP SCH (20:46)
[2018-06-11 21:29] VITALS: BMI 41.8
[2018-06-12] MEDS: Levothyroxine Sodium 100 MCG TAB PO SCH (05:00)
--- NOTE | 2018-06-12 07:19 | PRG ---
DATE OF SERVICE: 06/11/2018 SUBJECTIVE: The patient said she is feeling good. She had a good night. Her legs are feeling good. She is having no trouble with any breathing nor any wheezing. OBJECTIVE: GENERAL: The patient is sitting up in a wheelchair, eating her breakfast. She is talkative, looks v geri comfortable, not in any distress. VITAL SIGNS: Her temperature is 97.6, pulse 63, respirations 18, O2 sat 94%, blood pressure 139/62. LUNGS: Clear. HEART: Regular rate. EXTREMITIES: No edema. There is no increased heat or increased redness. LABORATORY DATA: Lab shows a sodium of 140, potassium 4.3, BUN 53 down from a high of 70, creatinine 1.51 down from a high of 1.78, GFR 33 down from a low of 28, FBS 100. ASSESSMENT: 1. Generalized weakness and deconditioning. A. Following recent hospitalization for cellulitis of the lower extremities. B. Complicated by marked decline in her functional capabilities and requiring assistance with her AD Ls. C. Improving. Walking further. Transferring better, but still requiring assistance as of 8. 2. Hospitalized at [facility] from 05/23/2018 to 05/30/2018. A. Presenting with chest pain. Cardiac workup including Cardiolite stress test showed no evidence o f reversible or fixed ischemia. Echocardiogram showed EF 60% to 65% and a grade 1/3 diastolic dysfun ction. No recurrence. B. Severe cellulitis of the right lower extremity, resolving. 3. Cellulitis of right lower extremity. A. Unresponsive to outpatient management. B. Required hospitalization at [facility] from 05/23/2018 to 05/30/2018 with receiving 7- day period of IV vancomycin. C. Resolved as of 06/05/2018. 4. Severe venous insufficiency of the lower extremities. A. Presently no swelling and stasis dermatitis well controlled as of 06/11/2018. 5. Chronic stasis dermatitis of the lower extremity, improved. A. Controlled as of 06/11/2018. 6. Diabetes type 2. A. Controlled with hemoglobin A1c of 6.4 as on 05/31/2018. 7. Chronic kidney disease, stage 3. A. GFR 46 as of 05/24/2018. B. GFR 44 on 05/31/2018. C. GFR has dropped to 28 with increase in the BUN and creatinine secondary to the effect of diuretic and the ARLEN inhibitor, lisinopril. D. Stable with GFR of 33 as of 06/11/2018. 8. Hypertension. A. Controlled as of 06/10/2018. 9. Hypothyroidism. 10. Generalized osteoarthritis. 11. Severe cervical spinal stenosis, complicated by myelopathy. Presenting with weakness and paraly sis of the upper extremity. A. Status post decompression and anterior fusion of the involved segment, 10/2014, with marked impro vement. B. Left her with residual weakness in the upper extremity with marked limitation in range of motion of the shoulder and weakness in the legs. C. Complicated by hypesthesia and allodynia of the lower extremities. 12. Chronic low back pain. A. History of failed surgical back syndrome. 13. Constipation. 14. Obesity. 15. Anemia of chronic illness. A. Hemoglobin of 10 on 05/24/2018. B. Hemoglobin of 9.8 on 05/31/2018. 16. Diastolic dysfunction with preserved ejection fraction of 60% to 65%. A. No evidence of acute congestive heart failure as of 06/11/2018. 17. Asthmatic bronchitis as of 05/31/2018. A. Resolved as of 06/05/2018. 18. Hyperkalemia. A. Secondary to the effect of the spironolactone and lisinopril. B. Resolved with potassium of 4.3. PLAN: The patient is making continual gradual improvement. Her condition is not yet such that she c ould manage back at assisted living. She is still requiring the help for transfers. We will continu e PT and OT.
[2018-06-12] MEDS: Penicillin V Potassium 250 MG TAB PO SCH ×2 (08:32→20:44)
[2018-06-12] MEDS: Furosemide 80 MG TAB PO SCH (08:32)
[2018-06-12] MEDS: Glimepiride 2 MG TAB PO SCH (08:33)
[2018-06-12] MEDS: Gabapentin 100 MG CAP PO SCH ×3 (08:33→20:43)
[2018-06-12] MEDS: Clotrimazole 1% Cream 15 GM TUBE TOP SCH ×2 (08:34→20:42)
[2018-06-12] MEDS: Keri Lotion 15 oz BOT TOP SCH (08:34)
[2018-06-12] MEDS: Multivit, Therapeutic 1 TAB PO SCH (08:35)
[2018-06-12] MEDS: Enoxaparin Sodium 40 MG/0.4 ML SYRINGE SC SCH (08:35)
[2018-06-12] MEDS: Polyethylene Glycol 3350 17 GM Packet PO SCH (08:36)
[2018-06-12] MEDS ORDERED: Sterile Water Irrigation 250 ML BOT ONE (08:42)
[2018-06-12] MEDS ORDERED: Fluconazole 100 MG TAB PO SCH (09:00)
[2018-06-12] MEDS: Acetaminophen 500 MG TAB PO PRN (10:41)
[2018-06-12] MEDS: Furosemide 40 MG TAB PO SCH (14:01)
--- NOTE | 2018-06-12 14:47 | PRG ---
DATE OF SERVICE: 06/12/2018 SUBJECTIVE: The patient said she is doing good this morning. She rested well. Late yesterday after noon, she was complaining of some irritation in the valve area and little pain with urination. A in and out catheterization was done and the UA showed negative nitrite, 0-3 wbc's, 4-6 epithelial cells and 1+ yeast. The patient was started on Diflucan and also clotrimazole cream to apply locally. Thi s morning, she said she has been having some irritated feeling around the buttock area to the intergl uteal crease. OBJECTIVE: GENERAL: The patient is sitting in a wheelchair, just returning from PT. Therapist says she is doin g better. She is walking further and transferring better, but still not strong enough to accomplish the transfers independently back at her assisted living. VITAL SIGNS: Shows a temperature of 97.7, pulse 58, respiration 20, O2 sat 97% on room air, blood pr essure 136/67. LUNGS: Clear. HEAT: Regular rate. SKIN: In the intergluteal crease, there is some pinkness. There is no broken areas, may be very ear ly splitting of the tissue between the gluteal crease. There is no ulcerations. EXTREMITIES: No edema. LABORATORY DATA: FBS pending, yesterday's was 105. ASSESSMENT: 1. Generalized weakness and deconditioning. A. Following recent hospitalization for cellulitis of the lower extremities. B. Complicated by marked decline in her functional capabilities and requiring assistance with her AD Ls. C. Improving, walking further, transferring better, but still not strong enough to accomplish indepe ndently at assisted living as of 06/12/2018. 2. Hospitalized at [facility] from 05/23/2018 to 05/30/2018. A. Presenting with chest pain. Cardiac workup including Cardiolite stress test showed no evidence o f reversible or fixed ischemia. Echocardiogram showed EF 60% to 65% and a grade 1/3 diastolic dysfun ction. No recurrence. B. Severe cellulitis of the right lower extremity, resolving. 3. Cellulitis of right lower extremity. A. Unresponsive to outpatient management. B. Required hospitalization at [facility] from 05/23/2018 to 05/30/2018 with receiving 7- day period of IV vancomycin. C. Resolved as of 06/05/2018. 4. Severe venous insufficiency of the lower extremities. A. Presently no swelling and stasis dermatitis well controlled as of 06/12/2018. 5. Chronic stasis dermatitis of the lower extremity, improved. A. Controlled as of 06/12/2018. 6. Diabetes type 2. A. Controlled with hemoglobin A1c of 6.4 as on 05/31/2018. 7. Chronic kidney disease, stage 3. A. GFR 46 as of 05/24/2018. B. GFR 44 on 05/31/2018. C. GFR has dropped to 28 with increase in the BUN and creatinine secondary to the effect of diuretic and the ARLEN inhibitor, lisinopril. D. Stable with GFR of 33 as of 06/11/2018. 8. Hypertension. A. Controlled as of 06/12/2018. 9. Hypothyroidism. 10. Generalized osteoarthritis. 11. Severe cervical spinal stenosis, complicated by myelopathy. Presenting with weakness and paraly sis of the upper extremity. A. Status post decompression and anterior fusion of the involved segment, 10/2014, with marked impro vement. B. Left her with residual weakness in the upper extremity with marked limitation in range of motion of the shoulder and weakness in the legs. C. Complicated by hypesthesia and allodynia of the lower extremities. 12. Chronic low back pain. A. History of failed surgical back syndrome. 13. Constipation. 14. Obesity. 15. Anemia of chronic illness. A. Hemoglobin of 10 on 05/24/2018. B. Hemoglobin of 9.8 on 05/31/2018. 16. Diastolic dysfunction with preserved ejection fraction of 60% to 65%. A. No evidence of acute congestive heart failure as of 06/12/2018. 17. Asthmatic bronchitis as of 05/31/2018. A. Resolved as of 06/05/2018. 18. Hyperkalemia. A. Secondary to the effect of the spironolactone and lisinopril. B. Resolved with potassium of 4.3. 19. Candidiasis of the perineum. PLAN: The patient was started on clotrimazole cream on 06/11/2018, which will be applied to the whitley neum twice today in the intergluteal crease, also that same day, she was started on Diflucan 100 mg d aily for 7 days. Continue PT, OT.
[2018-06-12] MEDS: Fluconazole 100 MG TAB PO SCH (20:43)
[2018-06-13] MEDS: Levothyroxine Sodium 100 MCG TAB PO SCH (06:10)
[2018-06-13] MEDS: Clotrimazole 1% Cream 15 GM TUBE TOP SCH ×2 (08:50→20:50)
[2018-06-13] MEDS: Keri Lotion 15 oz BOT TOP SCH (08:51)
[2018-06-13] MEDS: Enoxaparin Sodium 40 MG/0.4 ML SYRINGE SC SCH (08:52)
[2018-06-13] MEDS: Furosemide 80 MG TAB PO SCH (08:52)
[2018-06-13] MEDS: Gabapentin 100 MG CAP PO SCH ×3 (08:52→20:51)
[2018-06-13] MEDS: Glimepiride 2 MG TAB PO SCH (08:53)
[2018-06-13] MEDS: Multivit, Therapeutic 1 TAB PO SCH (08:54)
[2018-06-13] MEDS: Polyethylene Glycol 3350 17 GM Packet PO SCH (08:54)
[2018-06-13] MEDS: Penicillin V Potassium 250 MG TAB PO SCH ×2 (08:54→20:51)
--- NOTE | 2018-06-13 13:50 | PRG ---
DATE OF SERVICE: 06/13/2018 SUBJECTIVE: The patient said she is tired this morning. She got up in the night to urinate and had some assistance but did more on her own and just effort has left her tired. These will be activities that she will have to resume and be able to perform safely prior to returning to the long term. Discussed this with her and these were still her goals to return to the assisted living. The patient states her bottom area is feeling a little better. OBJECTIVE: GENERAL: The patient is sitting up in a wheelchair. She is alert, appears comfortable, in no distre ss. VITAL SIGNS: Her temperature is 98.8, pulse 66, respiration 20, O2 sat 94% on room air, blood pressu re 153/70. Her weight is down to 266. LUNGS: Clear. HEART: Regular rate. EXTREMITIES: No edema. ASSESSMENT: 1. Generalized weakness and deconditioning. A. Following recent hospitalization for cellulitis of the lower extremities. B. Complicated by marked decline in her functional capabilities and requiring assistance with her AD Ls. C. Improving. Walking further, transferring better, but still not able to perform this safely and i ndependently as of 06/13/2018, but improving. 2. Hospitalized at [facility] from 05/23/2018 to 05/30/2018. A. Presenting with chest pain. Cardiac workup including Cardiolite stress test showed no evidence o f reversible or fixed ischemia. Echocardiogram showed EF 60% to 65% and a grade 1/3 diastolic dysfun ction. No recurrence. B. Severe cellulitis of the right lower extremity, resolving. 3. Cellulitis of right lower extremity. A. Unresponsive to outpatient management. B. Required hospitalization at [facility] from 05/23/2018 to 05/30/2018 with receiving 7- day period of IV vancomycin. C. Resolved as of 06/05/2018. 4. Severe venous insufficiency of the lower extremities. A. Presently no swelling and stasis dermatitis well controlled as of 06/13/2018. 5. Chronic stasis dermatitis of the lower extremity, improved. A. Controlled as of 06/13/2018. 6. Diabetes type 2. A. Controlled with hemoglobin A1c of 6.4 as on 05/31/2018. 7. Chronic kidney disease, stage 3. A. GFR 46 as of 05/24/2018. B. GFR 44 on 05/31/2018. C. GFR has dropped to 28 with increase in the BUN and creatinine secondary to the effect of diuretic and the ARLEN inhibitor, lisinopril. D. Stable with GFR of 33 as of 06/11/2018. 8. Hypertension. A. Controlled as of 06/13/2018. 9. Hypothyroidism. 10. Generalized osteoarthritis. 11. Severe cervical spinal stenosis, complicated by myelopathy. Presenting with weakness and paraly sis of the upper extremity. A. Status post decompression and anterior fusion of the involved segment, 10/2014, with marked impro vement. B. Left her with residual weakness in the upper extremity with marked limitation in range of motion of the shoulder and weakness in the legs. C. Complicated by hypesthesia and allodynia of the lower extremities. 12. Chronic low back pain. A. History of failed surgical back syndrome. 13. Constipation. 14. Obesity. 15. Anemia of chronic illness. A. Hemoglobin of 10 on 05/24/2018. B. Hemoglobin of 9.8 on 05/31/2018. 16. Diastolic dysfunction with preserved ejection fraction of 60% to 65%. A. No evidence of acute congestive heart failure as of 06/13/2018. 17. Asthmatic bronchitis as of 05/31/2018. A. Resolved as of 06/05/2018. 18. Hyperkalemia. A. Secondary to the effect of the spironolactone and lisinopril. B. Resolved with potassium of 4.3. 19. Candidiasis of the perineum. A. Improving as of 06/13/2018. PLAN: Continue present care. Continue PT, OT. Visited with the patient and she is very committed, still trying to return to assisted living where she was living prior to this admission.
[2018-06-13] MEDS: Furosemide 40 MG TAB PO SCH (14:35)
[2018-06-13] MEDS: Acetaminophen 500 MG TAB PO PRN (14:40)
[2018-06-13] MEDS: Fluconazole 100 MG TAB PO SCH (20:50)
[2018-06-14] MEDS: Levothyroxine Sodium 100 MCG TAB PO SCH (05:30)
[2018-06-14] MEDS: Gabapentin 100 MG CAP PO SCH ×3 (09:05→20:28)
[2018-06-14] MEDS: Furosemide 80 MG TAB PO SCH (09:05)
[2018-06-14] MEDS: Penicillin V Potassium 250 MG TAB PO SCH ×2 (09:05→20:27)
[2018-06-14] MEDS: Glimepiride 2 MG TAB PO SCH (09:06)
[2018-06-14] MEDS: Multivit, Therapeutic 1 TAB PO SCH (09:06)
[2018-06-14] MEDS: Enoxaparin Sodium 40 MG/0.4 ML SYRINGE SC SCH (09:06)
[2018-06-14] MEDS: Polyethylene Glycol 3350 17 GM Packet PO SCH (09:06)
[2018-06-14] MEDS: Keri Lotion 15 oz BOT TOP SCH (09:08)
[2018-06-14] MEDS: Clotrimazole 1% Cream 15 GM TUBE TOP SCH ×2 (09:09→20:29)
[2018-06-14] MEDS: Furosemide 40 MG TAB PO SCH (14:03)
--- NOTE | 2018-06-14 15:36 | PRG ---
DATE OF SERVICE: 06/14/2018 SUBJECTIVE: The patient is up this morning. She has walked from her room around to the physical the rapy department and is now on the NuStep. She has no complaints. Her legs are feeling better, mariama gallegos is feeling better. OBJECTIVE: The patient is working her arms and legs on the NuStep. She looks very comfortable, in n o distress. Vital signs shows a temperature of 97.6, pulse 61, respirations 20, O2 sat 98%, blood pr essure 125/58. Lungs are clear. Heart; regular rate. Lower extremities; no edema. Skin is in good condition, shows the chronic stasis changes and discoloration of the skin that is stable. Her FBS t his morning was 85. ASSESSMENT: 1. Generalized weakness and deconditioning. A. Following recent hospitalization for cellulitis of the lower extremities. B. Complicated by marked decline in her functional capabilities and requiring assistance with her AD Ls. C. Improving. Walking further. Transferring better, still has a little trouble getting off of the bed and back onto the bed as of 06/14/2018. 2. Hospitalized at [facility] from 05/23/2018 to 05/30/2018. A. Presenting with chest pain. Cardiac workup including Cardiolite stress test showed no evidence o f reversible or fixed ischemia. Echocardiogram showed EF 60% to 65% and a grade 1/3 diastolic dysfun ction. No recurrence. B. Severe cellulitis of the right lower extremity, resolving. 3. Cellulitis of right lower extremity. A. Unresponsive to outpatient management. B. Required hospitalization at [facility] from 05/23/2018 to 05/30/2018 with receiving 7- day period of IV vancomycin. C. Resolved as of 06/05/2018. 4. Severe venous insufficiency of the lower extremities. A. Presently no swelling and stasis dermatitis well controlled as of 06/14/2018. 5. Chronic stasis dermatitis of the lower extremity, improved. A. Controlled as of 06/14/2018. 6. Diabetes type 2. A. Controlled with hemoglobin A1c of 6.4 as on 05/31/2018. 7. Chronic kidney disease, stage 3. A. GFR 46 as of 05/24/2018. B. GFR 44 on 05/31/2018. C. GFR has dropped to 28 with increase in the BUN and creatinine secondary to the effect of diuretic and the ARLEN inhibitor, lisinopril. D. Stable with GFR of 33 as of 06/11/2018. 8. Hypertension. A. Controlled as of 06/14/2018. 9. Hypothyroidism. 10. Generalized osteoarthritis. 11. Severe cervical spinal stenosis, complicated by myelopathy. Presenting with weakness and paraly sis of the upper extremity. A. Status post decompression and anterior fusion of the involved segment, 10/2014, with marked impro vement. B. Left her with residual weakness in the upper extremity with marked limitation in range of motion of the shoulder and weakness in the legs. C. Complicated by hypesthesia and allodynia of the lower extremities. 12. Chronic low back pain. A. History of failed surgical back syndrome. 13. Constipation. 14. Obesity. 15. Anemia of chronic illness. A. Hemoglobin of 10 on 05/24/2018. B. Hemoglobin of 9.8 on 05/31/2018. 16. Diastolic dysfunction with preserved ejection fraction of 60% to 65%. A. No evidence of acute congestive heart failure as of 06/13/2018. 17. Asthmatic bronchitis as of 05/31/2018. A. Resolved as of 06/05/2018. 18. Hyperkalemia. A. Secondary to the effect of the spironolactone and lisinopril. B. Resolved with potassium of 4.3. 19. Candidiasis of the perineum. A. Improving as of 06/14/2018. PLAN: Continue physical therapy and OT. The patient is making continual gradual progress.
[2018-06-14] MEDS: Fluconazole 100 MG TAB PO SCH (20:32)
[2018-06-14] MEDS: Acetaminophen 500 MG TAB PO PRN (20:33)
[2018-06-15] MEDS: Levothyroxine Sodium 100 MCG TAB PO SCH (05:35)
[2018-06-15] MEDS: Enoxaparin Sodium 40 MG/0.4 ML SYRINGE SC SCH (09:13)
[2018-06-15] MEDS: Polyethylene Glycol 3350 17 GM Packet PO SCH (09:13)
[2018-06-15] MEDS: Furosemide 80 MG TAB PO SCH (09:14)
[2018-06-15] MEDS: Glimepiride 2 MG TAB PO SCH (09:14)
[2018-06-15] MEDS: Gabapentin 100 MG CAP PO SCH ×3 (09:14→20:30)
[2018-06-15] MEDS: Multivit, Therapeutic 1 TAB PO SCH (09:14)
[2018-06-15] MEDS: Penicillin V Potassium 250 MG TAB PO SCH ×2 (09:14→20:30)
[2018-06-15] MEDS: Keri Lotion 15 oz BOT TOP SCH (09:14)
[2018-06-15] MEDS: Clotrimazole 1% Cream 15 GM TUBE TOP SCH ×2 (09:15→20:31)
[2018-06-15] MEDS ORDERED: A & D OINTMENT TOP PRN (11:51)
[2018-06-15] MEDS: Furosemide 40 MG TAB PO SCH (14:53)
[2018-06-15] MEDS: Acetaminophen 500 MG TAB PO PRN (20:30)
[2018-06-15] MEDS: Nystatin Powder 15 GM BOT TOP PRN (20:32)
[2018-06-15] MEDS: Fluconazole 100 MG TAB PO SCH (20:34)
[2018-06-15] MEDS: A & D OINTMENT TOP SCH (20:35)
[2018-06-16] MEDS: Levothyroxine Sodium 100 MCG TAB PO SCH (05:53)
[2018-06-16] MEDS: Polyethylene Glycol 3350 17 GM Packet PO SCH (09:01)
[2018-06-16] MEDS: Penicillin V Potassium 250 MG TAB PO SCH ×2 (09:01→19:58)
[2018-06-16] MEDS: Gabapentin 100 MG CAP PO SCH ×3 (09:02→19:58)
[2018-06-16] MEDS: Glimepiride 2 MG TAB PO SCH (09:03)
[2018-06-16] MEDS: Multivit, Therapeutic 1 TAB PO SCH (09:04)
[2018-06-16] MEDS: Enoxaparin Sodium 40 MG/0.4 ML SYRINGE SC SCH (09:04)
[2018-06-16] MEDS: Furosemide 80 MG TAB PO SCH (09:04)
[2018-06-16] MEDS: Clotrimazole 1% Cream 15 GM TUBE TOP SCH ×2 (09:08→19:55)
[2018-06-16] MEDS: Keri Lotion 15 oz BOT TOP SCH (09:08)
[2018-06-16] MEDS: A & D OINTMENT TOP SCH ×2 (09:08→19:59)
--- NOTE | 2018-06-16 14:04 | PRG ---
DATE OF SERVICE: 06/15/2018 SUBJECTIVE: The patient said she is doing good. She has asked to use A & D ointment on her bottom, which she uses at the skilled nursing, seems to work well for her. Her legs are feeling good. OBJECTIVE: GENERAL: The patient is sitting up in a bedside chair. She is alert, appears very comfortable in no distress. VITAL SIGNS: Her temp is 98.7, pulse 77, respirations 17, O2 sat 95% on room air, blood pressure 137 /64, her weight is 266. LUNGS: Clear. CARDIAC: Regular rate. EXTREMITIES: Show just trace edema. She has chronic stasis changing and she has a little [place] e field to the posterior aspect of the right lower leg that is chronic. ASSESSMENT: 1. Generalized weakness and deconditioning. A. Following recent hospitalization for cellulitis of the lower extremities. B. Complicated by marked decline in her functional capabilities and requiring assistance with her AD Ls. C. Improving. Walking further. Transferring better, still has a little trouble getting off of the bed and back onto the bed as of 06/15/2018. 2. Hospitalized at [facility] from 05/23/2018 to 05/30/2018. A. Presenting with chest pain. Cardiac workup including Cardiolite stress test showed no evidence o f reversible or fixed ischemia. Echocardiogram showed EF 60% to 65% and a grade 1/3 diastolic dysfun ction. No recurrence. B. Severe cellulitis of the right lower extremity, resolving. 3. Cellulitis of right lower extremity. A. Unresponsive to outpatient management. B. Required hospitalization at [facility] from 05/23/2018 to 05/30/2018 with receiving 7- day period of IV vancomycin. C. Resolved as of 06/05/2018. 4. Severe venous insufficiency of the lower extremities. A. Controled as of 06/15/2018. 5. Chronic stasis dermatitis of the lower extremity, improved. A. Stable and controlled as of 06/15/2018. 6. Diabetes type 2. A. Controlled with hemoglobin A1c of 6.4 as on 05/31/2018. 7. Chronic kidney disease, stage 3. A. GFR 46 as of 05/24/2018. B. GFR 44 on 05/31/2018. C. GFR has dropped to 28 with increase in the BUN and creatinine secondary to the effect of diuretic and the ARLEN inhibitor, lisinopril. D. Stable with GFR of 33 as of 06/11/2018. 8. Hypertension. A. Controlled as of 06/15/2018. 9. Hypothyroidism. 10. Generalized osteoarthritis. 11. Severe cervical spinal stenosis, complicated by myelopathy. Presenting with weakness and paraly sis of the upper extremity. A. Status post decompression and anterior fusion of the involved segment, 10/2014, with marked impro vement. B. Left her with residual weakness in the upper extremity with marked limitation in range of motion of the shoulder and weakness in the legs. C. Complicated by hypesthesia and allodynia of the lower extremities. 12. Chronic low back pain. A. History of failed surgical back syndrome. 13. Constipation. 14. Obesity. 15. Anemia of chronic illness. A. Hemoglobin of 10 on 05/24/2018. B. Hemoglobin of 9.8 on 05/31/2018. 16. Diastolic dysfunction with preserved ejection fraction of 60% to 65%. A. No evidence of acute congestive heart failure as of 06/13/2018. 17. Asthmatic bronchitis as of 05/31/2018. A. Resolved as of 06/05/2018. 18. Hyperkalemia. A. Secondary to the effect of the spironolactone and lisinopril. B. Resolved with potassium of 4.3. 19. Candidiasis of the perineum. A. Improving as of 06/15/2018. PLAN: Continue present care. Continue PT, OT. Patient may use A & D ointment on her bottom twice a day.
[2018-06-16] MEDS: Furosemide 40 MG TAB PO SCH (14:51)
[2018-06-16] MEDS: Acetaminophen 500 MG TAB PO PRN (19:56)
[2018-06-16] MEDS: Fluconazole 100 MG TAB PO SCH (20:01)
[2018-06-17] MEDS: Levothyroxine Sodium 100 MCG TAB PO SCH (05:50)
[2018-06-17] MEDS: Polyethylene Glycol 3350 17 GM Packet PO SCH (08:33)
[2018-06-17] MEDS: Glimepiride 2 MG TAB PO SCH (08:34)
[2018-06-17] MEDS: Penicillin V Potassium 250 MG TAB PO SCH ×2 (08:34→20:49)
[2018-06-17] MEDS: Multivit, Therapeutic 1 TAB PO SCH (08:34)
[2018-06-17] MEDS: Enoxaparin Sodium 40 MG/0.4 ML SYRINGE SC SCH (08:34)
[2018-06-17] MEDS: Gabapentin 100 MG CAP PO SCH ×3 (08:34→20:48)
[2018-06-17] MEDS: Furosemide 80 MG TAB PO SCH (08:34)
[2018-06-17] MEDS: Keri Lotion 15 oz BOT TOP SCH (08:35)
[2018-06-17] MEDS: A & D OINTMENT TOP SCH ×2 (08:35→20:49)
[2018-06-17] MEDS: Clotrimazole 1% Cream 15 GM TUBE TOP SCH ×2 (08:35→20:47)
[2018-06-17] MEDS: Furosemide 40 MG TAB PO SCH (15:00)
[2018-06-17] MEDS: Fluconazole 100 MG TAB PO SCH (20:48)
[2018-06-18] MEDS: Levothyroxine Sodium 100 MCG TAB PO SCH (05:33)
[2018-06-18] MEDS: Multivit, Therapeutic 1 TAB PO SCH (08:41)
[2018-06-18] MEDS: Gabapentin 100 MG CAP PO SCH ×3 (08:41→20:46)
[2018-06-18] MEDS: Glimepiride 2 MG TAB PO SCH (08:41)
[2018-06-18] MEDS: Polyethylene Glycol 3350 17 GM Packet PO SCH (08:41)
[2018-06-18] MEDS: Furosemide 80 MG TAB PO SCH (08:42)
[2018-06-18] MEDS: Enoxaparin Sodium 40 MG/0.4 ML SYRINGE SC SCH (08:42)
[2018-06-18] MEDS: Penicillin V Potassium 250 MG TAB PO SCH ×2 (08:42→20:46)
[2018-06-18] MEDS: Keri Lotion 15 oz BOT TOP SCH (08:46)
[2018-06-18] MEDS: A & D OINTMENT TOP SCH ×2 (08:46→20:52)
[2018-06-18] MEDS: Clotrimazole 1% Cream 15 GM TUBE TOP SCH ×2 (08:46→20:50)
--- NOTE | 2018-06-18 09:01 | PRG ---
DATE OF SERVICE: 06/16/2018 SUBJECTIVE: The patient thinks she is doing better. Her legs are feeling good. She has had no shor tness of breath. No chest pain. She is still requiring some help with her transfers, getting up and down off of the commode, which she will need to be independent with [facility]. OBJECTIVE: GENERAL: The patient is sitting in her bedside chair. She is alert and appears comfortable. No dis tress. VITAL SIGNS: Her temperature 98.8, pulse 78, respirations 20, O2 sat 94% on room air, blood pressure 151/70, earlier it was 126/60. LUNGS: Clear. HEART: Regular rate. EXTREMITIES: No edema. LABORATORY DATA: FBS this morning 177. ASSESSMENT: 1. Generalized weakness and deconditioning. A. Following recent hospitalization for cellulitis of the lower extremities. B. Complicated by marked decline in her functional capabilities and requiring assistance with her AD Ls. C. Improving. Walking further. Transferring better, still has a little trouble getting off of the bed and back onto the bed as of 06/16/2018. 2. Hospitalized at [facility] from 05/23/2018 to 05/30/2018. A. Presenting with chest pain. Cardiac workup including Cardiolite stress test showed no evidence o f reversible or fixed ischemia. Echocardiogram showed EF 60% to 65% and a grade 1/3 diastolic dysfun ction. No recurrence. B. Severe cellulitis of the right lower extremity, resolving. 3. Cellulitis of right lower extremity. A. Unresponsive to outpatient management. B. Required hospitalization at [facility] from 05/23/2018 to 05/30/2018 with receiving 7- day period of IV vancomycin. C. Resolved as of 06/05/2018. 4. Severe venous insufficiency of the lower extremities. A. Controled as of 06/16/2018. 5. Chronic stasis dermatitis of the lower extremity, improved. A. Stable and controlled as of 06/15/2018. 6. Diabetes type 2. A. Controlled with hemoglobin A1c of 6.4 as on 05/31/2018. 7. Chronic kidney disease, stage 3. A. GFR 46 as of 05/24/2018. B. GFR 44 on 05/31/2018. C. GFR has dropped to 28 with increase in the BUN and creatinine secondary to the effect of diuretic and the ARLEN inhibitor, lisinopril. D. Stable with GFR of 33 as of 06/11/2018. 8. Hypertension. A. Controlled as of 06/16/2018. 9. Hypothyroidism. 10. Generalized osteoarthritis. 11. Severe cervical spinal stenosis, complicated by myelopathy. Presenting with weakness and paraly sis of the upper extremity. A. Status post decompression and anterior fusion of the involved segment, 10/2014, with marked impro vement. B. Left her with residual weakness in the upper extremity with marked limitation in range of motion of the shoulder and weakness in the legs. C. Improved as of 06/16/2018. 12. Chronic low back pain. A. History of failed surgical back syndrome. 13. Constipation. 14. Obesity. 15. Anemia of chronic illness. A. Hemoglobin of 10 on 05/24/2018. B. Hemoglobin of 9.8 on 05/31/2018. 16. Diastolic dysfunction with preserved ejection fraction of 60% to 65%. A. No evidence of acute congestive heart failure as of 06/13/2018. 17. Asthmatic bronchitis as of 05/31/2018. A. Resolved as of 06/05/2018. 18. Hyperkalemia. A. Secondary to the effect of the spironolactone and lisinopril. B. Resolved with potassium of 4.3. 19. Candidiasis of the perineum. 19. Improving as of 06/16/2018. PLAN: Continue present care, continue PT and OT.
--- NOTE | 2018-06-18 09:03 | PRG ---
DATE OF SERVICE: 06/18/2018 SUBJECTIVE: The patient said she is doing good this morning. She is already up out of bed and is wo rking on the NuStep in Physical Therapy. Her leg is feeling good. OBJECTIVE: The patient is up on the NuStep. She is alert, talkative, appears very comfortable. Her temperature is 97.3, pulse 67, respirations 16. O2 sat 99% on room air, blood pressure 120/66. Her weight is stable at 266. Admission weight was 275. Lungs are clear. Heart; regular rate. Extremi ties; no edema. There is chronic stasis changes, but no rashes. There is still some mild [place] ing to the skin of the right lower leg posteriorly. FBS this morning was 107. ASSESSMENT: 1. Generalized weakness and deconditioning. A. Following recent hospitalization for cellulitis of the lower extremities. B. Complicated by marked decline in her functional capabilities and requiring assistance with her AD Ls. C. Improving, walking further, transferring better. Overall strength improving, still having a navneet le trouble with transfers independently as of 06/18/2018. 2. Hospitalized at [facility] from 05/23/2018 to 05/30/2018. A. Presenting with chest pain. Cardiac workup including Cardiolite stress test showed no evidence o f reversible or fixed ischemia. Echocardiogram showed EF 60% to 65% and a grade 1/3 diastolic dysfun ction. No recurrence. B. Severe cellulitis of the right lower extremity, resolving. 3. Cellulitis of right lower extremity. A. Unresponsive to outpatient management. B. Required hospitalization at [facility] from 05/23/2018 to 05/30/2018 with receiving 7- day period of IV vancomycin. C. Resolved as of 06/05/2018. 4. Severe venous insufficiency of the lower extremities. A. Controled as of 06/18/2018. 5. Chronic stasis dermatitis of the lower extremity, improved. A. Stable and controlled as of 06/18/2018. 6. Diabetes type 2. A. Controlled with hemoglobin A1c of 6.4 as on 05/31/2018. 7. Chronic kidney disease, stage 3. A. GFR 46 as of 05/24/2018. B. GFR 44 on 05/31/2018. C. GFR has dropped to 28 with increase in the BUN and creatinine secondary to the effect of diuretic and the ARLEN inhibitor, lisinopril. D. Stable with GFR of 33 as of 06/11/2018. 8. Hypertension. A. Controlled as of 06/18/2018. 9. Hypothyroidism. 10. Generalized osteoarthritis. 11. Severe cervical spinal stenosis, complicated by myelopathy. Presenting with weakness and paraly sis of the upper extremity. A. Status post decompression and anterior fusion of the involved segment, 10/2014, with marked impro vement. B. Left her with residual weakness in the upper extremity with marked limitation in range of motion of the shoulder and weakness in the legs. C. Complicated by hypesthesia and allodynia of the lower extremities. 12. Chronic low back pain. A. History of failed surgical back syndrome. 13. Constipation. 14. Obesity. 15. Anemia of chronic illness. A. Hemoglobin of 10 on 05/24/2018. B. Hemoglobin of 9.8 on 05/31/2018. 16. Diastolic dysfunction with preserved ejection fraction of 60% to 65%. A. No evidence of acute congestive heart failure as of 06/13/2018. 17. Asthmatic bronchitis as of 05/31/2018. A. Resolved as of 06/05/2018. 18. Hyperkalemia. A. Secondary to the effect of the spironolactone and lisinopril. B. Resolved with potassium of 4.3. 19. Candidiasis of the perineum. A. Improving as of 06/18/2018. PLAN: Continue present care. Continue physical therapy and OT through this week and see if this rachell l help her further with ability to transfer.
[2018-06-18] MEDS: Mag-Al Plus 1200 MG/1200 MG/120 MG/30 ML UDCUP PO PRN (15:33)
[2018-06-18] MEDS: Furosemide 40 MG TAB PO SCH (15:34)
[2018-06-18] MEDS: Acetaminophen 500 MG TAB PO PRN (20:46)
[2018-06-19] MEDS: Levothyroxine Sodium 100 MCG TAB PO SCH (05:44)
[2018-06-19] MEDS: Glimepiride 2 MG TAB PO SCH (11:09)
[2018-06-19] MEDS: Penicillin V Potassium 250 MG TAB PO SCH ×2 (11:09→20:40)
[2018-06-19] MEDS: Gabapentin 100 MG CAP PO SCH ×3 (11:09→20:40)
[2018-06-19] MEDS: Furosemide 80 MG TAB PO SCH (11:09)
[2018-06-19] MEDS: Multivit, Therapeutic 1 TAB PO SCH (11:09)
[2018-06-19] MEDS: A & D OINTMENT TOP SCH ×2 (11:10→20:42)
[2018-06-19] MEDS: Enoxaparin Sodium 40 MG/0.4 ML SYRINGE SC SCH (11:10)
[2018-06-19] MEDS: Clotrimazole 1% Cream 15 GM TUBE TOP SCH ×3 (11:10→21:08)
[2018-06-19] MEDS: Keri Lotion 15 oz BOT TOP SCH (11:10)
[2018-06-19] MEDS: Polyethylene Glycol 3350 17 GM Packet PO SCH (11:11)
[2018-06-19] MEDS: Furosemide 40 MG TAB PO SCH (14:55)
[2018-06-19] MEDS: Acetaminophen 500 MG TAB PO PRN (20:40)
[2018-06-20] MEDS: Levothyroxine Sodium 100 MCG TAB PO SCH (05:29)
[2018-06-20] MEDS: Clotrimazole 1% Cream 15 GM TUBE TOP SCH ×2 (09:03→21:00)
[2018-06-20] MEDS: Keri Lotion 15 oz BOT TOP SCH (09:04)
[2018-06-20] MEDS: Gabapentin 100 MG CAP PO SCH ×3 (09:05→20:53)
[2018-06-20] MEDS: Furosemide 80 MG TAB PO SCH (09:05)
[2018-06-20] MEDS: Enoxaparin Sodium 40 MG/0.4 ML SYRINGE SC SCH (09:05)
[2018-06-20] MEDS: Glimepiride 2 MG TAB PO SCH (09:06)
[2018-06-20] MEDS: Multivit, Therapeutic 1 TAB PO SCH (09:07)
[2018-06-20] MEDS: Penicillin V Potassium 250 MG TAB PO SCH ×2 (09:07→20:54)
[2018-06-20] MEDS: A & D OINTMENT TOP SCH ×2 (09:07→20:59)
[2018-06-20] MEDS: Polyethylene Glycol 3350 17 GM Packet PO SCH (09:08)
[2018-06-20] MEDS: Furosemide 40 MG TAB PO SCH (14:08)
[2018-06-20] MEDS: Acetaminophen 500 MG TAB PO PRN ×2 (14:12→20:56)
[2018-06-21] MEDS: Levothyroxine Sodium 100 MCG TAB PO SCH (06:02)
[2018-06-21] MEDS: Keri Lotion 15 oz BOT TOP SCH (08:41)
[2018-06-21] MEDS: Clotrimazole 1% Cream 15 GM TUBE TOP SCH (08:41)
[2018-06-21] MEDS: Gabapentin 100 MG CAP PO SCH ×3 (08:42→21:13)
[2018-06-21] MEDS: Enoxaparin Sodium 40 MG/0.4 ML SYRINGE SC SCH (08:42)
[2018-06-21] MEDS: Furosemide 80 MG TAB PO SCH (08:42)
[2018-06-21] MEDS: Glimepiride 2 MG TAB PO SCH (08:43)
[2018-06-21] MEDS: Multivit, Therapeutic 1 TAB PO SCH (08:43)
[2018-06-21] MEDS: A & D OINTMENT TOP SCH ×2 (08:44→21:16)
[2018-06-21] MEDS: Penicillin V Potassium 250 MG TAB PO SCH ×2 (08:45→21:13)
[2018-06-21] MEDS: Polyethylene Glycol 3350 17 GM Packet PO SCH (08:45)
[2018-06-21] MEDS: Acetaminophen 500 MG TAB PO PRN (10:59)
--- NOTE | 2018-06-21 14:21 | PRG ---
DATE OF SERVICE: 06/20/2018 SUBJECTIVE: The patient said she is doing good. She has continued to make progress with physical th erapy. She is walking further, is working on the NuStep. She is still having trouble transferring f rom the bed which she will have to accomplish in order to safely return to the assisted living. She is making progress, though. OBJECTIVE: The patient is sitting on the NuStep working her legs and her arms. She looks very comfo rtable and in no distress. Vital signs shows a temperature of 97.2, pulse 102, respirations 22, O2 s at 92-97% on room air, blood pressure 123/66. Her lungs are clear. Heart; regular rate. Extremitie s; no edema. There are chronic stasis changes. Her FBS this morning was 110. ASSESSMENT: 1. Generalized weakness and deconditioning. A. Following recent hospitalization for cellulitis of the lower extremities. B. Complicated by marked decline in her functional capabilities and requiring assistance with her AD Ls. C. Continues to improve. Walking further, her general strength improving, still having some trouble transferring from her bed, but improving as of 06/20/2018. 2. Hospitalized at [facility] from 05/23/2018 to 05/30/2018. A. Presenting with chest pain. Cardiac workup including Cardiolite stress test showed no evidence o f reversible or fixed ischemia. Echocardiogram showed EF 60% to 65% and a grade 1/3 diastolic dysfun ction. No recurrence. B. Severe cellulitis of the right lower extremity, resolving. 3. Cellulitis of right lower extremity. A. Unresponsive to outpatient management. B. Required hospitalization at [facility] from 05/23/2018 to 05/30/2018 with receiving 7- day period of IV vancomycin. C. Resolved as of 06/05/2018. 4. Severe venous insufficiency of the lower extremities. A. Controled as of 06/20/2018. 5. Chronic stasis dermatitis of the lower extremity, improved. A. Stable and controlled as of 06/20/2018. 6. Diabetes type 2. A. Controlled with hemoglobin A1c of 6.4 as on 05/31/2018. B. FBS 110 as of 06/20/2018. 7. Chronic kidney disease, stage 3. A. GFR 46 as of 05/24/2018. B. GFR 44 on 05/31/2018. C. GFR has dropped to 28 with increase in the BUN and creatinine secondary to the effect of diuretic and the ARLEN inhibitor, lisinopril. D. Stable with GFR of 33 as of 06/11/2018. 8. Hypertension. A. Controlled as of 06/18/2018. 9. Hypothyroidism. 10. Generalized osteoarthritis. 11. Severe cervical spinal stenosis, complicated by myelopathy. Presenting with weakness and paraly sis of the upper extremity. A. Status post decompression and anterior fusion of the involved segment, 10/2014, with marked impro vement. B. Left her with residual weakness in the upper extremity with marked limitation in range of motion of the shoulder and weakness in the legs. C. Complicated by hypesthesia and allodynia of the lower extremities. 12. Chronic low back pain. A. History of failed surgical back syndrome. B. Controlled as of 06/20/2018. 13. Constipation. 14. Obesity. 15. Anemia of chronic illness. A. Hemoglobin of 10 on 05/24/2018. B. Hemoglobin of 9.8 on 05/31/2018. 16. Diastolic dysfunction with preserved ejection fraction of 60% to 65%. A. No evidence of acute congestive heart failure as of 06/20/2018. 17. Asthmatic bronchitis as of 05/31/2018. A. Resolved as of 06/05/2018. 18. Hyperkalemia. A. Secondary to the effect of the spironolactone and lisinopril. B. Resolved with potassium of 4.3. 19. Candidiasis of the perineum. A. Resolving as of 06/20/2018. PLAN: Continue present care. Continue PT and OT.
[2018-06-21] MEDS: Furosemide 40 MG TAB PO SCH (14:31)
--- NOTE | 2018-06-21 14:39 | PRG ---
DATE OF SERVICE: 06/21/2018 SUBJECTIVE: The patient said that she is doing good. She has walked around from her room to the [facility] Therapy Department with her walker just standby assistance. She is on the NuStep working her a jose and legs and shooting for 25 minutes on this. She said her legs are feeling better. She said sh violeta was able with a little struggling to get up out of bed. This still is difficult for her, but will need to be better before returning to assisted living. OBJECTIVE: The patient is sitting on the NuStep working her arms and legs. She looks very comfortab le, in no distress. Temp 97, pulse 61, respirations 18, O2 saturation 98% on room air, blood pressur e 153/70. Her weight most recent was 266 on 06/14/2018. Lungs are clear. Heart, regular rate. Ext remities, no edema. There are chronic stasis changes, but no broken areas of the skin on the legs. ASSESSMENT: 1. Generalized weakness and deconditioning. A. Following recent hospitalization for cellulitis of the lower extremities. B. Complicated by marked decline in her functional capabilities and requiring assistance with her AD Ls. C. Improving, continues to walk further. Working better on the NuStep. Still requiring a little ass istance with her transfers, but overall improving as of 06/21/2018. 2. Hospitalized at [facility] from 05/23/2018 to 05/30/2018. A. Presenting with chest pain. Cardiac workup including Cardiolite stress test showed no evidence o f reversible or fixed ischemia. Echocardiogram showed EF 60% to 65% and a grade 1/3 diastolic dysfun ction. No recurrence. B. Severe cellulitis of the right lower extremity, resolving. 3. Cellulitis of right lower extremity. A. Unresponsive to outpatient management. B. Required hospitalization at [facility] from 05/23/2018 to 05/30/2018 with receiving 7- day period of IV vancomycin. C. Resolved as of 06/05/2018. 4. Severe venous insufficiency of the lower extremities. A. Controled as of 06/21/2018. 5. Chronic stasis dermatitis of the lower extremity, improved. A. Stable and controlled as of 06/21/2018. 6. Diabetes type 2. A. Controlled with hemoglobin A1c of 6.4 as on 05/31/2018. 7. Chronic kidney disease, stage 3. A. GFR 46 as of 05/24/2018. B. GFR 44 on 05/31/2018. C. GFR has dropped to 28 with increase in the BUN and creatinine secondary to the effect of diuretic and the ARLEN inhibitor, lisinopril. D. Stable with GFR of 33 as of 06/11/2018. 8. Hypertension. A. Controlled as of 06/21/2018. 9. Hypothyroidism. 10. Generalized osteoarthritis. 11. Severe cervical spinal stenosis, complicated by myelopathy. Presenting with weakness and paraly sis of the upper extremity. A. Status post decompression and anterior fusion of the involved segment, 10/2014, with marked impro vement. B. Left her with residual weakness in the upper extremity with marked limitation in range of motion of the shoulder and weakness in the legs. C. Improved as of 06/21/2018. 12. Chronic low back pain. A. History of failed surgical back syndrome. 13. Constipation. 14. Obesity. 15. Anemia of chronic illness. A. Hemoglobin of 10 on 05/24/2018. B. Hemoglobin of 9.8 on 05/31/2018. 16. Diastolic dysfunction with preserved ejection fraction of 60% to 65%. A. No evidence of acute congestive heart failure as of 06/13/2018. 17. Asthmatic bronchitis as of 05/31/2018. A. Resolved as of 06/05/2018. 18. Hyperkalemia. A. Secondary to the effect of the spironolactone and lisinopril. B. Resolved with potassium of 4.3. 19. Candidiasis of the perineum. A. Resolving as of 06/21/2018. PLAN: Continue PT and OT.
[2018-06-22] MEDS: Levothyroxine Sodium 100 MCG TAB PO SCH (05:16)
[2018-06-22] MEDS: Enoxaparin Sodium 40 MG/0.4 ML SYRINGE SC SCH (08:48)
[2018-06-22] MEDS: Penicillin V Potassium 250 MG TAB PO SCH ×2 (08:48→20:51)
[2018-06-22] MEDS: Polyethylene Glycol 3350 17 GM Packet PO SCH (08:48)
[2018-06-22] MEDS: Gabapentin 100 MG CAP PO SCH ×3 (08:48→20:51)
[2018-06-22] MEDS: Furosemide 80 MG TAB PO SCH (08:49)
[2018-06-22] MEDS: Multivit, Therapeutic 1 TAB PO SCH (08:49)
[2018-06-22] MEDS: Glimepiride 2 MG TAB PO SCH (08:49)
[2018-06-22] MEDS: A & D OINTMENT TOP SCH ×2 (08:52→20:52)
[2018-06-22] MEDS: Keri Lotion 15 oz BOT TOP SCH (08:52)
[2018-06-22] MEDS: Furosemide 40 MG TAB PO SCH (14:31)
[2018-06-22] MEDS: Acetaminophen 500 MG TAB PO PRN (20:57)
[2018-06-23] MEDS: Levothyroxine Sodium 100 MCG TAB PO SCH (05:22)
[2018-06-23] MEDS: Gabapentin 100 MG CAP PO SCH ×3 (09:38→20:31)
[2018-06-23] MEDS: Keri Lotion 15 oz BOT TOP SCH (09:38)
[2018-06-23] MEDS: Enoxaparin Sodium 40 MG/0.4 ML SYRINGE SC SCH (09:38)
[2018-06-23] MEDS: Furosemide 80 MG TAB PO SCH (09:38)
[2018-06-23] MEDS: Penicillin V Potassium 250 MG TAB PO SCH ×2 (09:39→20:31)
[2018-06-23] MEDS: Glimepiride 2 MG TAB PO SCH (09:39)
[2018-06-23] MEDS: Multivit, Therapeutic 1 TAB PO SCH (09:39)
[2018-06-23] MEDS: A & D OINTMENT TOP SCH ×2 (09:39→20:31)
[2018-06-23] MEDS: Polyethylene Glycol 3350 17 GM Packet PO SCH (09:39)
[2018-06-23] MEDS: Furosemide 40 MG TAB PO SCH (14:32)
--- NOTE | 2018-06-23 17:26 | PRG ---
DATE OF SERVICE: 06/23/2018 SUBJECTIVE: The patient thinks she is doing good. She said, this morning, she was able to get herse lf up out of bed with just nurse in the room in the event of any problems. She said she did fine. S he was very proud of herself. OBJECTIVE: GENERAL: The patient is sitting up in a chair. She is alert, appears comfortable, in no distress. VITAL SIGNS: Temp 97.7, pulse 68, respirations 20, O2 sat 95%, blood pressure 135/63. LUNGS: Were clear. HEART: Regular rate. EXTREMITIES: Just trace edema, chronic stasis changes. LABORATORY DATA: FBS this morning 109. ASSESSMENT: 1. Generalized weakness and deconditioning. A. Following recent hospitalization for cellulitis of the lower extremities. B. Complicated by marked decline in her functional capabilities and requiring assistance with her AD Ls. C. Improving. Walking further. This morning, she was able to get up with only standby assistance f rom her bed as of 06/23/2018. 2. Hospitalized at [facility] from 05/23/2018 to 05/30/2018. A. Presenting with chest pain. Cardiac workup including Cardiolite stress test showed no evidence o f reversible or fixed ischemia. Echocardiogram showed EF 60% to 65% and a grade 1/3 diastolic dysfun ction. No recurrence. B. Severe cellulitis of the right lower extremity, resolving. 3. Cellulitis of right lower extremity. A. Unresponsive to outpatient management. B. Required hospitalization at [facility] from 05/23/2018 to 05/30/2018 with receiving 7- day period of IV vancomycin. C. Resolved as of 06/05/2018. 4. Severe venous insufficiency of the lower extremities. A. Controled as of 06/23/2018. 5. Chronic stasis dermatitis of the lower extremity, improved. A. Stable and controlled as of 06/23/2018. 6. Diabetes type 2. A. Controlled with hemoglobin A1c of 6.4 as on 05/31/2018. 7. Chronic kidney disease, stage 3. A. GFR 46 as of 05/24/2018. B. GFR 44 on 05/31/2018. C. GFR has dropped to 28 with increase in the BUN and creatinine secondary to the effect of diuretic and the ARLEN inhibitor, lisinopril. D. Stable with GFR of 33 as of 06/11/2018. 8. Hypertension. A. Controlled as of 06/23/2018. 9. Hypothyroidism. 10. Generalized osteoarthritis. 11. Severe cervical spinal stenosis, complicated by myelopathy. Presenting with weakness and paraly sis of the upper extremity. A. Status post decompression and anterior fusion of the involved segment, 10/2014, with marked impro vement. B. Left her with residual weakness in the upper extremity with marked limitation in range of motion of the shoulder and weakness in the legs. C. Improved as of 06/21/2018. 12. Chronic low back pain. A. History of failed surgical back syndrome. B. Controlled as of 06/23/2018. 13. Constipation. 14. Obesity. 15. Anemia of chronic illness. A. Hemoglobin of 10 on 05/24/2018. B. Hemoglobin of 9.8 on 05/31/2018. 16. Diastolic dysfunction with preserved ejection fraction of 60% to 65%. A. No evidence of acute congestive heart failure as of 06/13/2018. 17. Asthmatic bronchitis as of 05/31/2018. A. Resolved as of 06/05/2018. 18. Hyperkalemia. A. Secondary to the effect of the spironolactone and lisinopril. B. Resolved with potassium of 4.3. 19. Candidiasis of the perineum. A. Resolving as of 06/21/2018. PLAN: Continue PT/OT. The patient will continue to try getting up on her own, but ensure that a clayton se is with her in the event she needs assistance.
--- NOTE | 2018-06-23 17:31 | PRG ---
DATE OF SERVICE: 06/22/2018 SUBJECTIVE: The patient said she is doing good this morning. She has already been up and had walked to the physical therapy activity room and is working on the NuStep. The therapist with her said felice t she is requiring moderate assistance on getting up out of bed. At the assisted living, she has to get up out of bed independently and she says during the night she often has to get up to urinate and has to do this independently. She has not yet reached this capability. OBJECTIVE: The patient is sitting on the NuStep working her arms and legs. She looks very comfortab le. Her temperature is 98.8, pulse 77, respirations 18, O2 sat 95% on room air, blood pressure 108/6 1. Her lungs are clear. Heart, regular rate. Extremities, no edema. ASSESSMENT: 1. Generalized weakness and deconditioning. A. Following recent hospitalization for cellulitis of the lower extremities. B. Complicated by marked decline in her functional capabilities and requiring assistance with her AD Ls. C. Improved. Walking well with the use of a walker with wheels. Still requiring moderate assistanc e on transferring out of the bed as of 06/22/2018. 2. Hospitalized at [facility] from 05/23/2018 to 05/30/2018. A. Presenting with chest pain. Cardiac workup including Cardiolite stress test showed no evidence o f reversible or fixed ischemia. Echocardiogram showed EF 60% to 65% and a grade 1/3 diastolic dysfun ction. No recurrence. B. Severe cellulitis of the right lower extremity, resolving. 3. Cellulitis of right lower extremity. A. Unresponsive to outpatient management. B. Required hospitalization at [facility] from 05/23/2018 to 05/30/2018 with receiving 7- day period of IV vancomycin. C. Resolved as of 06/05/2018. 4. Severe venous insufficiency of the lower extremities. A. Controled as of 06/22/2018. 5. Chronic stasis dermatitis of the lower extremity, improved. A. Stable and controlled as of 06/22/2018. 6. Diabetes type 2. A. Controlled with hemoglobin A1c of 6.4 as on 05/31/2018. 7. Chronic kidney disease, stage 3. A. GFR 46 as of 05/24/2018. B. GFR 44 on 05/31/2018. C. GFR has dropped to 28 with increase in the BUN and creatinine secondary to the effect of diuretic and the ARLEN inhibitor, lisinopril. D. Stable with GFR of 33 as of 06/11/2018. 8. Hypertension. A. Controlled as of 06/21/2018. 9. Hypothyroidism. 10. Generalized osteoarthritis. 11. Severe cervical spinal stenosis, complicated by myelopathy. Presenting with weakness and paraly sis of the upper extremity. A. Status post decompression and anterior fusion of the involved segment, 10/2014, with marked impro vement. B. Left her with residual weakness in the upper extremity with marked limitation in range of motion of the shoulder and weakness in the legs. C. Improved as of 06/21/2018. 12. Chronic low back pain. A. History of failed surgical back syndrome. 13. Constipation. 14. Obesity. 15. Anemia of chronic illness. A. Hemoglobin of 10 on 05/24/2018. B. Hemoglobin of 9.8 on 05/31/2018. 16. Diastolic dysfunction with preserved ejection fraction of 60% to 65%. A. No evidence of acute congestive heart failure as of 06/22/2018. 17. Asthmatic bronchitis as of 05/31/2018. A. Resolved as of 06/05/2018. 18. Hyperkalemia. A. Secondary to the effect of the spironolactone and lisinopril. B. Resolved with potassium of 4.3. 19. Candidiasis of the perineum. A. Resolving as of 06/21/2018. PLAN: Continue present care. Continue PT, OT. The patient's condition is not such that she could m anage at the assisted living. Before she could return there she will need to be independent with her transfers so she can get in and out of bed, particularly in the night in order to make it to the [facility]. I visited with the patient, said that these were the goals that she will have to accomplish. We will continue to work at this. If this is not able to be achieved then, she is going the need to enter the assisted where she will have assistance with these ADLs.
[2018-06-23] MEDS: Acetaminophen 500 MG TAB PO PRN (20:34)
[2018-06-24] MEDS: Levothyroxine Sodium 100 MCG TAB PO SCH (05:59)
[2018-06-24] MEDS: Polyethylene Glycol 3350 17 GM Packet PO SCH (08:14)
[2018-06-24] MEDS: Enoxaparin Sodium 40 MG/0.4 ML SYRINGE SC SCH (08:14)
[2018-06-24] MEDS: Furosemide 80 MG TAB PO SCH (08:14)
[2018-06-24] MEDS: Gabapentin 100 MG CAP PO SCH ×3 (08:14→20:33)
[2018-06-24] MEDS: Glimepiride 2 MG TAB PO SCH (08:15)
[2018-06-24] MEDS: A & D OINTMENT TOP SCH ×2 (08:15→20:33)
[2018-06-24] MEDS: Multivit, Therapeutic 1 TAB PO SCH (08:15)
[2018-06-24] MEDS: Penicillin V Potassium 250 MG TAB PO SCH ×2 (08:15→20:33)
[2018-06-24] MEDS: Keri Lotion 15 oz BOT TOP SCH (08:18)
[2018-06-24] MEDS: Furosemide 40 MG TAB PO SCH (14:05)
[2018-06-24] MEDS: Acetaminophen 500 MG TAB PO PRN (20:34)
[2018-06-25] MEDS: Levothyroxine Sodium 100 MCG TAB PO SCH (05:30)
[2018-06-25] MEDS: Acetaminophen 500 MG TAB PO PRN ×2 (08:58→20:56)
[2018-06-25] MEDS: Keri Lotion 15 oz BOT TOP SCH (08:59)
[2018-06-25] MEDS: Furosemide 80 MG TAB PO SCH (09:00)
[2018-06-25] MEDS: Gabapentin 100 MG CAP PO SCH ×3 (09:00→20:51)
[2018-06-25] MEDS: Enoxaparin Sodium 40 MG/0.4 ML SYRINGE SC SCH (09:00)
[2018-06-25] MEDS: Multivit, Therapeutic 1 TAB PO SCH (09:00)
[2018-06-25] MEDS: Glimepiride 2 MG TAB PO SCH (09:01)
[2018-06-25] MEDS: Penicillin V Potassium 250 MG TAB PO SCH ×2 (09:01→20:51)
[2018-06-25] MEDS: Polyethylene Glycol 3350 17 GM Packet PO SCH (09:03)
[2018-06-25] MEDS: A & D OINTMENT TOP SCH ×2 (09:03→20:53)
--- NOTE | 2018-06-25 13:01 | PRG ---
DATE OF SERVICE: 06/25/2018 SUBJECTIVE: The patient said she is doing good. She has walked over to physical therapy. The thera pist is working more on her to assist with the proximal muscle strength to help her where she can tra nsfer easier, get up and down from a chair easier and get in and out of bed independently. OBJECTIVE: The patient is alert, appears very comfortable in no distress. Her temperature 97.3, pul se 67, respirations 20, O2 saturation 97% on room air, blood pressure 137/64. Lungs are clear. Heart, regular rate. Extremities, no edema. There is chronic stasis changes in th e skin. ASSESSMENT: 1. Generalized weakness and deconditioning. A. Following recent hospitalization for cellulitis of the lower extremities. B. Complicated by marked decline in her functional capabilities and requiring assistance with her AD Ls. C. Improving. Walking further, working on the proximal muscles strength to help her with the transf er and getting in and out of bed, which she will need to accomplish before going back to the assisted living as of 06/25/2018. 2. Hospitalized at [facility] from 05/23/2018 to 05/30/2018. A. Presenting with chest pain. Cardiac workup including Cardiolite stress test showed no evidence o f reversible or fixed ischemia. Echocardiogram showed EF 60% to 65% and a grade 1/3 diastolic dysfun ction. No recurrence. B. Severe cellulitis of the right lower extremity, resolving. 3. Cellulitis of right lower extremity. A. Unresponsive to outpatient management. B. Required hospitalization at [facility] from 05/23/2018 to 05/30/2018 with receiving 7- day period of IV vancomycin. C. Resolved as of 06/05/2018. 4. Severe venous insufficiency of the lower extremities. A. Controled as of 06/25/2018. 5. Chronic stasis dermatitis of the lower extremity, improved. A. Stable and controlled as of 06/25/2018. 6. Diabetes type 2. A. Controlled with hemoglobin A1c of 6.4 as on 05/31/2018. 7. Chronic kidney disease, stage 3. A. GFR 46 as of 05/24/2018. B. GFR 44 on 05/31/2018. C. GFR has dropped to 28 with increase in the BUN and creatinine secondary to the effect of diuretic and the ARLEN inhibitor, lisinopril. D. Stable with GFR of 33 as of 06/11/2018. 8. Hypertension. A. Controlled as of 06/25/2018. 9. Hypothyroidism. 10. Generalized osteoarthritis. 11. Severe cervical spinal stenosis, complicated by myelopathy. Presenting with weakness and paraly sis of the upper extremity. A. Status post decompression and anterior fusion of the involved segment, 10/2014, with marked impro vement. B. Left her with residual weakness in the upper extremity with marked limitation in range of motion of the shoulder and weakness in the legs. C. Improved as of 06/21/2018. 12. Chronic low back pain. A. History of failed surgical back syndrome. B. Controlled as of 06/25/2018. 13. Constipation. 14. Obesity. 15. Anemia of chronic illness. A. Hemoglobin of 10 on 05/24/2018. B. Hemoglobin of 9.8 on 05/31/2018. 16. Diastolic dysfunction with preserved ejection fraction of 60% to 65%. A. No evidence of acute congestive heart failure as of 06/13/2018. 17. Asthmatic bronchitis as of 05/31/2018. A. Resolved as of 06/05/2018. 18. Hyperkalemia. A. Secondary to the effect of the spironolactone and lisinopril. B. Resolved with potassium of 4.3. 19. Candidiasis of the perineum. A. Resolving as of 06/21/2018. PLAN: Continue the present care. Continue PT and OT.
[2018-06-25] MEDS: Furosemide 40 MG TAB PO SCH (14:25)
[2018-06-26] MEDS: Levothyroxine Sodium 100 MCG TAB PO SCH (06:25)
[2018-06-26] MEDS: Multivit, Therapeutic 1 TAB PO SCH (08:27)
[2018-06-26] MEDS: Penicillin V Potassium 250 MG TAB PO SCH ×2 (08:27→20:23)
[2018-06-26] MEDS: Polyethylene Glycol 3350 17 GM Packet PO SCH (08:27)
[2018-06-26] MEDS: Enoxaparin Sodium 40 MG/0.4 ML SYRINGE SC SCH (08:27)
[2018-06-26] MEDS: Gabapentin 100 MG CAP PO SCH ×3 (08:27→20:23)
[2018-06-26] MEDS: Glimepiride 2 MG TAB PO SCH (08:27)
[2018-06-26] MEDS: Furosemide 80 MG TAB PO SCH (08:27)
[2018-06-26] MEDS: Keri Lotion 15 oz BOT TOP SCH (08:28)
[2018-06-26] MEDS: A & D OINTMENT TOP SCH ×2 (08:28→20:23)
[2018-06-26] MEDS: Acetaminophen 500 MG TAB PO PRN ×3 (08:33→20:23)
[2018-06-26] MEDS: Furosemide 40 MG TAB PO SCH (13:37)
[2018-06-27] MEDS: Levothyroxine Sodium 100 MCG TAB PO SCH (05:24)
[2018-06-27 05:30] LABS: #Basophils 0.1 thou/uL (0.0-0.2); #Eosinphils 0.3 thou/uL (0.0-0.7); #Lymphocytes 1.4 thou/uL (1.20-3.40); #Monocytes 0.4 thou/uL (0.11-0.59); #Neutrophils 2.8 thou/uL (1.40-6.50); %Basophils 1.4 % (0.0-1.0); %Eosinophils 6.9 % (0.0-10.0); %Lymphocytes 28.6 % (21.0-51.0); %Monocytes 7.5 % (0.0-10.0); %Neutrophils 55.6 % (42.0-75.0); Mean Corpuscular HGB CONC 33.2 g/dL (32.0-36.0); Mean Corpuscular Hemoglobin 29.3 pg (27.0-31.0); Mean Corpuscular Volume 88.2 fL (78.0-98.0); Mean Platelet Volume 7.2 fL (7.4-10.4); Platelet Count 165 thou/uL (130-400); RBC Distribution Width 11.9 % (11.5-14.5); Red Blood Cell (RBC) Count 3.41 mill/uL (4.20-5.40)
[2018-06-27 05:48] LABS: Anion Gap 12 mmol/L (10-20); BUN (Urea Nitrogen) 44 mg/dL (9.8-20.1); Calc. Creatinine Clearance 63 mL/min (70-130); Calcium 8.8 mg/dL (7.8-10.44); Carbon Dioxide 28 mmol/L (23-31); Chloride 106 mmol/L (98-107); Estimated GFR-MDRD 36; Glucose 110 mg/dL (83-110); Potassium 4.7 mmol/L (3.5-5.1); Sodium 141 mmol/L (136-145)
--- NOTE | 2018-06-27 08:48 | PRG ---
DATE OF SERVICE: 06/27/2018 SUBJECTIVE: The patient says she is doing good. She is making progress with walking. The therapist is still having trouble with the transfers. The patient says she feels that at the assisted living her bed situation is a little different than here at the hospital and she says there she does not hav e trouble getting in and out of bed. OBJECTIVE: The patient is sitting up on the NuStep, is alert, appears very comfortable, in no distre ss. Temp 97.1, pulse 71, respirations 20, O2 saturation 97% on room air, blood pressure 135/60. Luis Fernando gs are clear. Heart, regular rate. Extremities, no edema. H&H 10 and 30, white cell count 5000 with 56% segs, 29% lymphocytes, platelet count of 165. Sodium 1 41, potassium 4.7, BUN 44, creatinine 1.4, GFR 36. FBS 110. ASSESSMENT: 1. Generalized weakness and deconditioning. A. Following recent hospitalization for cellulitis of the lower extremities. B. Complicated by marked decline in her functional capabilities and requiring assistance with her AD Ls. C. Improving. Walking further, working on the proximal muscles strength to help her with the transf er and getting in and out of bed, which she will need to accomplish before going back to the assisted living as of 06/27/2018. 2. Hospitalized at [facility] from 05/23/2018 to 05/30/2018. A. Presenting with chest pain. Cardiac workup including Cardiolite stress test showed no evidence o f reversible or fixed ischemia. Echocardiogram showed EF 60% to 65% and a grade 1/3 diastolic dysfun ction. No recurrence. B. Severe cellulitis of the right lower extremity, resolving. 3. Cellulitis of right lower extremity. A. Unresponsive to outpatient management. B. Required hospitalization at [facility] from 05/23/2018 to 05/30/2018 with receiving 7- day period of IV vancomycin. C. Resolved as of 06/05/2018. 4. Severe venous insufficiency of the lower extremities. A. Controled as of 06/27/2018. 5. Chronic stasis dermatitis of the lower extremity, improved. A. Stable and controlled as of 06/27/2018. 6. Diabetes type 2. A. Controlled with hemoglobin A1c of 6.4 as on 05/31/2018. 7. Chronic kidney disease, stage 3. A. GFR 46 as of 05/24/2018. B. GFR 44 on 05/31/2018. C. GFR has dropped to 28 with increase in the BUN and creatinine secondary to the effect of diuretic and the ARLEN inhibitor, lisinopril. D. GFR up to 36 as of 06/27/2018. 8. Hypertension. A. Controlled as of 06/27/2018. 9. Hypothyroidism. 10. Generalized osteoarthritis. 11. Severe cervical spinal stenosis, complicated by myelopathy. Presenting with weakness and paraly sis of the upper extremity. A. Status post decompression and anterior fusion of the involved segment, 10/2014, with marked impro vement. B. Left her with residual weakness in the upper extremity with marked limitation in range of motion of the shoulder and weakness in the legs. C. Improved as of 06/21/2018. 12. Chronic low back pain. A. History of failed surgical back syndrome. B. Controlled as of 06/25/2018. 13. Constipation. 14. Obesity. 15. Anemia of chronic illness. A. Hemoglobin of 10 on 05/24/2018. B. Hemoglobin is 10 as of 06/27/2018. 16. Diastolic dysfunction with preserved ejection fraction of 60% to 65%. A. No evidence of acute congestive heart failure as of 06/13/2018. 17. Asthmatic bronchitis as of 05/31/2018. A. Resolved as of 06/05/2018. 18. Hyperkalemia. A. Secondary to the effect of the spironolactone and lisinopril. B. Resolved with potassium of 4.3. 19. Candidiasis of the perineum. A. Resolving as of 06/21/2018. PLAN: Continue present care. Continue PT, OT. Consider letting the patient have a pass to go to [facility] assisted living for just a trial to see what difficulty she might have and what we need to work on to help.
--- NOTE | 2018-06-27 08:50 | PRG ---
DATE OF SERVICE: 06/26/2018 SUBJECTIVE: The patient said she is doing good. She is continuing to walk with her walker with paulo reney assistance. They are working on proximal muscle strengthening to help her more getting up and do wn out of bed. Her legs are feeling good. OBJECTIVE: The patient was walking the hallways. She sat down during our visit. She looks very com fortable, in no distress. Temp 96.9, pulse 77, respirations 20, O2 sat 96% on room air, blood pressu re 113/56. Her weight is 267. Lungs are clear. Heart, regular rate. Extremities, no edema. Th ere are some chronic stasis changes. ASSESSMENT: 1. Generalized weakness and deconditioning. A. Following recent hospitalization for cellulitis of the lower extremities. B. Complicated by marked decline in her functional capabilities and requiring assistance with her AD Ls. C. Continued to improve. Her walking is improving, transfers are better, but still requiring help g etting up and down out of bed as of 06/26/2018. 2. Hospitalized at [facility] from 05/23/2018 to 05/30/2018. A. Presenting with chest pain. Cardiac workup including Cardiolite stress test showed no evidence o f reversible or fixed ischemia. Echocardiogram showed EF 60% to 65% and a grade 1/3 diastolic dysfun ction. No recurrence. B. Severe cellulitis of the right lower extremity, resolving. 3. Cellulitis of right lower extremity. A. Unresponsive to outpatient management. B. Required hospitalization at [facility] from 05/23/2018 to 05/30/2018 with receiving 7- day period of IV vancomycin. C. Resolved as of 06/05/2018. 4. Severe venous insufficiency of the lower extremities. A. Controled as of 06/26/2018. 5. Chronic stasis dermatitis of the lower extremity, improved. A. Stable and controlled as of 06/26/2018. 6. Diabetes type 2. A. Controlled with hemoglobin A1c of 6.4 as on 05/31/2018. 7. Chronic kidney disease, stage 3. A. GFR 46 as of 05/24/2018. B. GFR 44 on 05/31/2018. C. GFR has dropped to 28 with increase in the BUN and creatinine secondary to the effect of diuretic and the ARLEN inhibitor, lisinopril. D. Stable with GFR of 33 as of 06/11/2018. 8. Hypertension. A. Controlled as of 06/26/2018. 9. Hypothyroidism. 10. Generalized osteoarthritis. 11. Severe cervical spinal stenosis, complicated by myelopathy. Presenting with weakness and paraly sis of the upper extremity. A. Status post decompression and anterior fusion of the involved segment, 10/2014, with marked impro vement. B. Left her with residual weakness in the upper extremity with marked limitation in range of motion of the shoulder and weakness in the legs. C. Improved as of 06/21/2018. 12. Chronic low back pain. A. History of failed surgical back syndrome. B. Controlled as of 06/25/2018. 13. Constipation. 14. Obesity. 15. Anemia of chronic illness. A. Hemoglobin of 10 on 05/24/2018. B. Hemoglobin of 9.8 on 05/31/2018. 16. Diastolic dysfunction with preserved ejection fraction of 60% to 65%. A. No evidence of acute congestive heart failure as of 06/26/2018. 17. Asthmatic bronchitis as of 05/31/2018. A. Resolved as of 06/05/2018. 18. Hyperkalemia. A. Secondary to the effect of the spironolactone and lisinopril. B. Resolved with potassium of 4.3. 19. Candidiasis of the perineum. A. Resolving as of 06/21/2018. PLAN: Continue present care. Continue PT, OT. Recheck CBC and basic metabolic panel in the morning .
[2018-06-27] MEDS: Keri Lotion 15 oz BOT TOP SCH (08:54)
[2018-06-27] MEDS: Enoxaparin Sodium 40 MG/0.4 ML SYRINGE SC SCH (08:54)
[2018-06-27] MEDS: Gabapentin 100 MG CAP PO SCH ×3 (08:55→20:36)
[2018-06-27] MEDS: Furosemide 80 MG TAB PO SCH (08:55)
[2018-06-27] MEDS: Glimepiride 2 MG TAB PO SCH (08:55)
[2018-06-27] MEDS: Multivit, Therapeutic 1 TAB PO SCH (08:56)
[2018-06-27] MEDS: A & D OINTMENT TOP SCH ×2 (08:57→20:34)
[2018-06-27] MEDS: Penicillin V Potassium 250 MG TAB PO SCH ×2 (08:57→20:33)
[2018-06-27] MEDS: Polyethylene Glycol 3350 17 GM Packet PO SCH (08:58)
[2018-06-27] MEDS: Furosemide 40 MG TAB PO SCH (14:29)
[2018-06-27] MEDS: Acetaminophen 500 MG TAB PO PRN ×2 (14:32→20:39)
[2018-06-28] MEDS: Levothyroxine Sodium 100 MCG TAB PO SCH (05:49)
[2018-06-28] MEDS: Gabapentin 100 MG CAP PO SCH ×3 (08:26→20:58)
[2018-06-28] MEDS: Furosemide 80 MG TAB PO SCH (08:26)
[2018-06-28] MEDS: Enoxaparin Sodium 40 MG/0.4 ML SYRINGE SC SCH (08:26)
[2018-06-28] MEDS: Multivit, Therapeutic 1 TAB PO SCH (08:27)
[2018-06-28] MEDS: Glimepiride 2 MG TAB PO SCH (08:27)
[2018-06-28] MEDS: Penicillin V Potassium 250 MG TAB PO SCH ×2 (08:27→20:57)
[2018-06-28] MEDS: Keri Lotion 15 oz BOT TOP SCH (08:30)
[2018-06-28] MEDS: A & D OINTMENT TOP SCH ×2 (08:33→20:58)
[2018-06-28] MEDS: Polyethylene Glycol 3350 17 GM Packet PO SCH (08:33)
--- NOTE | 2018-06-28 08:36 | PRG ---
DATE OF SERVICE: 06/28/2018 SUBJECTIVE: The patient thinks she is doing better. Her legs are feeling good. Bottom area is feel ing good. She is walking well. She has continued to work out on the NuStep and working trying to s trengthen her proximal muscles and on her transfers. OBJECTIVE: The patient is sitting up on a NuStep. She is exercising and is in good spirits, in no d istress. Her vital signs show a temperature 96.7, pulse 68, respirations 18, O2 sat 97% on room air, blood pressure 142/65. Lungs are clear. Heart, regular rate. Extremities, no edema. ASSESSMENT: 1. Generalized weakness and deconditioning. A. Following recent hospitalization for cellulitis of the lower extremities. B. Complicated by marked decline in her functional capabilities and requiring assistance with her AD Ls. C. Improving. Walking further, working on the proximal muscles strength to help her with the transf er and getting in and out of bed, which she will need to accomplish before going back to the assisted living as of 06/28/2018. 2. Hospitalized at [facility] from 05/23/2018 to 05/30/2018. A. Presenting with chest pain. Cardiac workup including Cardiolite stress test showed no evidence o f reversible or fixed ischemia. Echocardiogram showed EF 60% to 65% and a grade 1/3 diastolic dysfun ction. No recurrence. B. Severe cellulitis of the right lower extremity, resolving. 3. Cellulitis of right lower extremity. A. Unresponsive to outpatient management. B. Required hospitalization at [facility] from 05/23/2018 to 05/30/2018 with receiving 7- day period of IV vancomycin. C. Resolved as of 06/05/2018. 4. Severe venous insufficiency of the lower extremities. A. Controled as of 06/28/2018. 5. Chronic stasis dermatitis of the lower extremity, improved. A. Stable and controlled as of 06/28/2018. 6. Diabetes type 2. A. Controlled with hemoglobin A1c of 6.4 as on 05/31/2018. 7. Chronic kidney disease, stage 3. A. GFR 46 as of 05/24/2018. B. GFR 44 on 05/31/2018. C. GFR has dropped to 28 with increase in the BUN and creatinine secondary to the effect of diuretic and the ARLEN inhibitor, lisinopril. D. GFR up to 36 as of 06/27/2018. 8. Hypertension. A. Controlled as of 06/28/2018. 9. Hypothyroidism. 10. Generalized osteoarthritis. 11. Severe cervical spinal stenosis, complicated by myelopathy. Presenting with weakness and paraly sis of the upper extremity. A. Status post decompression and anterior fusion of the involved segment, 10/2014, with marked impro vement. B. Left her with residual weakness in the upper extremity with marked limitation in range of motion of the shoulder and weakness in the legs. C. Improved as of 06/21/2018. 12. Chronic low back pain. A. History of failed surgical back syndrome. B. Controlled as of 06/25/2018. 13. Constipation. 14. Obesity. 15. Anemia of chronic illness. A. Hemoglobin of 10 on 05/24/2018. B. Hemoglobin is 10 as of 06/27/2018. 16. Diastolic dysfunction with preserved ejection fraction of 60% to 65%. A. No evidence of acute congestive heart failure as of 06/28/2018. 17. Asthmatic bronchitis as of 05/31/2018. A. Resolved as of 06/05/2018. 18. Hyperkalemia. A. Secondary to the effect of the spironolactone and lisinopril. B. Resolved with potassium of 4.3. 19. Candidiasis of the perineum. A. Resolving as of 06/21/2018. PLAN: Continue present care. Continue PT, OT. FBS this morning was 118.
[2018-06-28] MEDS: Furosemide 40 MG TAB PO SCH (13:32)
[2018-06-28] MEDS: Acetaminophen 500 MG TAB PO PRN (17:32)
[2018-06-29] MEDS: Levothyroxine Sodium 100 MCG TAB PO SCH (05:32)
[2018-06-29] MEDS: Acetaminophen 500 MG TAB PO PRN ×2 (05:32→20:52)
[2018-06-29] MEDS: Multivit, Therapeutic 1 TAB PO SCH (08:57)
[2018-06-29] MEDS: Polyethylene Glycol 3350 17 GM Packet PO SCH (08:57)
[2018-06-29] MEDS: Penicillin V Potassium 250 MG TAB PO SCH ×2 (08:57→20:52)
[2018-06-29] MEDS: Enoxaparin Sodium 40 MG/0.4 ML SYRINGE SC SCH (08:57)
[2018-06-29] MEDS: Glimepiride 2 MG TAB PO SCH (08:58)
[2018-06-29] MEDS: Gabapentin 100 MG CAP PO SCH ×3 (08:58→20:52)
[2018-06-29] MEDS: Furosemide 80 MG TAB PO SCH (08:58)
[2018-06-29] MEDS: Keri Lotion 15 oz BOT TOP SCH (08:59)
[2018-06-29] MEDS: A & D OINTMENT TOP SCH ×2 (08:59→21:00)
--- NOTE | 2018-06-29 12:27 | PRG ---
DATE OF SERVICE: 06/29/2018 SUBJECTIVE: The patient thinks she is doing better. She continues to work with physical therapy is making progress with her strength and her walking is improving and she is walking further. She is do ing better with her transfers. OBJECTIVE: The patient is standing, holding onto her rolling walker. She is alert, appears very com fortable, in no distress. Her vital signs show a temperature 96.7, pulse 68, respirations 18, O2 sat 94% on room air, blood pressure 130/63. Lungs are clear. Heart, regular rate. Extremities; just t race edema and chronic stasis changes, no ulcerations. ASSESSMENT: 1. Generalized weakness and deconditioning. A. Following recent hospitalization for cellulitis of the lower extremities. B. Complicated by marked decline in her functional capabilities and requiring assistance with her AD Ls. C. Improving. Walking further. General strength improved, transferring improving as of 06/29/2018. 2. Hospitalized at [facility] from 05/23/2018 to 05/30/2018. A. Presenting with chest pain. Cardiac workup including Cardiolite stress test showed no evidence o f reversible or fixed ischemia. Echocardiogram showed EF 60% to 65% and a grade 1/3 diastolic dysfun ction. No recurrence. B. Severe cellulitis of the right lower extremity, resolving. 3. Cellulitis of right lower extremity. A. Unresponsive to outpatient management. B. Required hospitalization at [facility] from 05/23/2018 to 05/30/2018 with receiving 7- day period of IV vancomycin. C. Resolved as of 06/05/2018. 4. Severe venous insufficiency of the lower extremities. A. Controled as of 06/29/2018. 5. Chronic stasis dermatitis of the lower extremity, improved. A. Stable and controlled as of 06/29/2018. 6. Diabetes type 2. A. Controlled with hemoglobin A1c of 6.4 as on 05/31/2018. 7. Chronic kidney disease, stage 3. A. GFR 46 as of 05/24/2018. B. GFR 44 on 05/31/2018. C. GFR has dropped to 28 with increase in the BUN and creatinine secondary to the effect of diuretic and the ARLEN inhibitor, lisinopril. D. GFR up to 36 as of 06/27/2018. 8. Hypertension. A. Controlled as of 06/29/2018. 9. Hypothyroidism. 10. Generalized osteoarthritis. 11. Severe cervical spinal stenosis, complicated by myelopathy. Presenting with weakness and paraly sis of the upper extremity. A. Status post decompression and anterior fusion of the involved segment, 10/2014, with marked impro vement. B. Left her with residual weakness in the upper extremity with marked limitation in range of motion of the shoulder and weakness in the legs. C. Improved as of 06/21/2018. 12. Chronic low back pain. A. History of failed surgical back syndrome. B. Controlled as of 06/29/2018. 13. Constipation. 14. Obesity. 15. Anemia of chronic illness. A. Hemoglobin of 10 on 05/24/2018. B. Hemoglobin is 10 as of 06/27/2018. 16. Diastolic dysfunction with preserved ejection fraction of 60% to 65%. A. No evidence of acute congestive heart failure as of 06/29/2018. 17. Asthmatic bronchitis as of 05/31/2018. A. Resolved as of 06/05/2018. 18. Hyperkalemia. A. Secondary to the effect of the spironolactone and lisinopril. B. Resolved with potassium of 4.3. 19. Candidiasis of the perineum. A. Resolving as of 06/21/2018. PLAN: Continue PT. Continue OT.
[2018-06-29] MEDS: Furosemide 40 MG TAB PO SCH (14:05)
[2018-06-30] MEDS: Levothyroxine Sodium 100 MCG TAB PO SCH (05:39)
[2018-06-30] MEDS: Glimepiride 2 MG TAB PO SCH (08:37)
[2018-06-30] MEDS: Penicillin V Potassium 250 MG TAB PO SCH ×2 (08:37→20:53)
[2018-06-30] MEDS: Enoxaparin Sodium 40 MG/0.4 ML SYRINGE SC SCH (08:37)
[2018-06-30] MEDS: Multivit, Therapeutic 1 TAB PO SCH (08:37)
[2018-06-30] MEDS: Polyethylene Glycol 3350 17 GM Packet PO SCH (08:37)
[2018-06-30] MEDS: Furosemide 80 MG TAB PO SCH (08:38)
[2018-06-30] MEDS: Gabapentin 100 MG CAP PO SCH ×3 (08:38→20:53)
[2018-06-30] MEDS: Keri Lotion 15 oz BOT TOP SCH (08:39)
[2018-06-30] MEDS: A & D OINTMENT TOP SCH ×2 (08:40→20:53)
[2018-06-30] MEDS: Furosemide 40 MG TAB PO SCH (13:33)
[2018-06-30] MEDS: Acetaminophen 500 MG TAB PO PRN (13:33)
[2018-07-01] MEDS: Levothyroxine Sodium 100 MCG TAB PO SCH (05:41)
[2018-07-01] MEDS: Penicillin V Potassium 250 MG TAB PO SCH ×2 (09:20→20:20)
[2018-07-01] MEDS: Glimepiride 2 MG TAB PO SCH (09:20)
[2018-07-01] MEDS: Gabapentin 100 MG CAP PO SCH ×3 (09:20→20:20)
[2018-07-01] MEDS: Polyethylene Glycol 3350 17 GM Packet PO SCH (09:21)
[2018-07-01] MEDS: Multivit, Therapeutic 1 TAB PO SCH (09:21)
[2018-07-01] MEDS: Furosemide 80 MG TAB PO SCH (09:21)
[2018-07-01] MEDS: Enoxaparin Sodium 40 MG/0.4 ML SYRINGE SC SCH (09:22)
[2018-07-01] MEDS: Keri Lotion 15 oz BOT TOP SCH (09:22)
[2018-07-01] MEDS: A & D OINTMENT TOP SCH ×2 (09:23→20:21)
[2018-07-01] MEDS: Furosemide 40 MG TAB PO SCH (14:39)
--- NOTE | 2018-07-01 18:05 | PRG ---
DATE OF SERVICE: 06/30/2018 SUBJECTIVE: The patient said that she is doing good. She is doing better with her walker and still working with the transfers in and out of bed. She thinks her bed at the assisted living is a little lower and will be easier to get in and out of. Her daughter may come over here today or tomorrow and then take her to the assisted living and just see how easy or what difficulty she has with getting i n and out of bed. OBJECTIVE: The patient is sitting up in a bedside chair. She is alert, appears very comfortable, in no distress. Her temperature 97, pulse 72, respirations 18, O2 sat 96% on room air, blood pressure 124/67. Her weight is stable at 267. Lungs are clear. Heart, regular rate. Extremities, no edema. ASSESSMENT: 1. Generalized weakness and deconditioning. A. Following recent hospitalization for cellulitis of the lower extremities. B. Complicated by marked decline in her functional capabilities and requiring assistance with her AD Ls. 1. C. Improving. Walking further. General strength improving. Continues to work on her transfers , which is improving as of 06/30/2018. 2. Hospitalized at [facility] from 05/23/2018 to 05/30/2018. A. Presenting with chest pain. Cardiac workup including Cardiolite stress test showed no evidence o f reversible or fixed ischemia. Echocardiogram showed EF 60% to 65% and a grade 1/3 diastolic dysfun ction. No recurrence. B. Severe cellulitis of the right lower extremity, resolving. 3. Cellulitis of right lower extremity. A. Unresponsive to outpatient management. B. Required hospitalization at [facility] from 05/23/2018 to 05/30/2018 with receiving 7- day period of IV vancomycin. C. Resolved as of 06/05/2018. 4. Severe venous insufficiency of the lower extremities. A. Controled as of 06/30/2018. 5. Chronic stasis dermatitis of the lower extremity, improved. A. Stable and controlled as of 06/30/2018. 6. Diabetes type 2. A. Controlled with hemoglobin A1c of 6.4 as on 05/31/2018. 7. Chronic kidney disease, stage 3. A. GFR 46 as of 05/24/2018. B. GFR 44 on 05/31/2018. C. GFR has dropped to 28 with increase in the BUN and creatinine secondary to the effect of diuretic and the ARLEN inhibitor, lisinopril. D. GFR up to 36 as of 06/27/2018. 8. Hypertension. A. Controlled as of 06/30/2018. 9. Hypothyroidism. 10. Generalized osteoarthritis. 11. Severe cervical spinal stenosis, complicated by myelopathy. Presenting with weakness and paraly sis of the upper extremity. A. Status post decompression and anterior fusion of the involved segment, 10/2014, with marked impro vement. B. Left her with residual weakness in the upper extremity with marked limitation in range of motion of the shoulder and weakness in the legs. C. Improved as of 06/21/2018. 12. Chronic low back pain. A. History of failed surgical back syndrome. B. Controlled as of 06/29/2018. 13. Constipation. 14. Obesity. 15. Anemia of chronic illness. A. Hemoglobin of 10 on 05/24/2018. B. Hemoglobin is 10 as of 06/27/2018. 16. Diastolic dysfunction with preserved ejection fraction of 60% to 65%. A. No evidence of acute congestive heart failure as of 06/30/2018. 17. Asthmatic bronchitis as of 05/31/2018. A. Resolved as of 06/05/2018. 18. Hyperkalemia. A. Secondary to the effect of the spironolactone and lisinopril. B. Resolved with potassium of 4.3. 19. Candidiasis of the perineum. A. Resolving as of 06/21/2018. PLAN: Continue PT/OT. Hopefully, the patient will go with her daughter to the assisted living in next couple of days to see if there are difficulties on her transfer to her bed there, which is set a little lower than these hospital beds.
[2018-07-01] MEDS: Acetaminophen 500 MG TAB PO PRN (20:21)
[2018-07-02] MEDS: Levothyroxine Sodium 100 MCG TAB PO SCH (05:25)
[2018-07-02] MEDS: Penicillin V Potassium 250 MG TAB PO SCH ×2 (08:49→19:49)
[2018-07-02] MEDS: Glimepiride 2 MG TAB PO SCH (08:49)
[2018-07-02] MEDS: Enoxaparin Sodium 40 MG/0.4 ML SYRINGE SC SCH (08:50)
[2018-07-02] MEDS: Furosemide 80 MG TAB PO SCH (08:50)
[2018-07-02] MEDS: Multivit, Therapeutic 1 TAB PO SCH (08:50)
[2018-07-02] MEDS: Gabapentin 100 MG CAP PO SCH ×3 (08:50→19:49)
[2018-07-02] MEDS: Keri Lotion 15 oz BOT TOP SCH (08:51)
[2018-07-02] MEDS: A & D OINTMENT TOP SCH ×2 (08:52→19:51)
[2018-07-02] MEDS: Polyethylene Glycol 3350 17 GM Packet PO SCH (08:52)
[2018-07-02] MEDS: Acetaminophen 500 MG TAB PO PRN ×2 (08:59→19:49)
--- NOTE | 2018-07-02 11:34 | PRG ---
DATE OF SERVICE: 07/02/2018 SUBJECTIVE: The patient has already been up and has been to physical therapy. She is gone in to the restroom this morning and was able to come back and sit in her wheelchair with the use of a walker w ith no assistance. Yesterday, she wants her daughter to the assisted living and said she was able to get in and out of her bed which is lower than these hospital beds without assistance. She was very excited about this and feels like she will be able to handle herself back at assisted living upon dis charge. OBJECTIVE: GENERAL: The patient sitting in a wheelchair. She is alert, talkative, appears in good spirits and in no distress. VITAL SIGNS: Temperature 97, pulse 65, respirations 18, O2 saturation 97%, blood pressure 148/70. M orning vital pending. These were come by last evening. LUNGS: Clear. HEART: Regular rate. EXTREMITIES: No edema. LABORATORY DATA: FBS 120. ASSESSMENT: 1. Generalized weakness and deconditioning. A. Following recent hospitalization for cellulitis of the lower extremities. B. Complicated by marked decline in her functional capabilities and requiring assistance with her AD Ls. C. Improving, walking further. General strength improving, still having trouble getting in and out of this hospital bed, but able to get in and out of her bed at the assisted living on trial yesterday as of 07/02/2018. 2. Hospitalized at [facility] from 05/23/2018 to 05/30/2018. A. Presenting with chest pain. Cardiac workup including Cardiolite stress test showed no evidence o f reversible or fixed ischemia. Echocardiogram showed EF 60% to 65% and a grade 1/3 diastolic dysfun ction. No recurrence. B. Severe cellulitis of the right lower extremity, resolving. 3. Cellulitis of right lower extremity. A. Unresponsive to outpatient management. B. Required hospitalization at [facility] from 05/23/2018 to 05/30/2018 with receiving 7- day period of IV vancomycin. C. No recurrence as of 07/02/2018. 4. Severe venous insufficiency of the lower extremities. A. Controled as of 07/02/2018. 5. Chronic stasis dermatitis of the lower extremity, improved. A. Stable and controlled as of 07/02/2018. 6. Diabetes type 2. A. Controlled with hemoglobin A1c of 6.4 as on 05/31/2018. 7. Chronic kidney disease, stage 3. A. GFR 46 as of 05/24/2018. B. GFR 44 on 05/31/2018. C. GFR has dropped to 28 with increase in the BUN and creatinine secondary to the effect of diuretic and the ARLEN inhibitor, lisinopril. D. GFR up to 36 as of 06/27/2018. 8. Hypertension. A. Controlled as of 07/02/2018. 9. Hypothyroidism. 10. Generalized osteoarthritis. 11. Severe cervical spinal stenosis, complicated by myelopathy. Presenting with weakness and paraly sis of the upper extremity. A. Status post decompression and anterior fusion of the involved segment, 10/2014, with marked impro vement. B. Left her with residual weakness in the upper extremity with marked limitation in range of motion of the shoulder and weakness in the legs. C. Improved as of 06/21/2018. 12. Chronic low back pain. A. History of failed surgical back syndrome. B. Controlled as of 06/29/2018. 13. Constipation. 14. Obesity. 15. Anemia of chronic illness. A. Hemoglobin of 10 on 05/24/2018. B. Hemoglobin is 10 as of 06/27/2018. 16. Diastolic dysfunction with preserved ejection fraction of 60% to 65%. A. No evidence of acute congestive heart failure as of 07/02/2018. 17. Asthmatic bronchitis as of 05/31/2018. A. Resolved as of 06/05/2018. 18. Hyperkalemia. A. Secondary to the effect of the spironolactone and lisinopril. B. Resolved with potassium of 4.3. 19. Candidiasis of the perineum. A. Resolving as of 06/21/2018. PLAN: The patient continued to improve. We will use these next few days for continuation of PT and OT with anticipation of discharge on Monday07/06/2018.
[2018-07-02] MEDS: Furosemide 40 MG TAB PO SCH (14:35)
[2018-07-03] MEDS: Levothyroxine Sodium 100 MCG TAB PO SCH (06:28)
[2018-07-03] MEDS: Enoxaparin Sodium 40 MG/0.4 ML SYRINGE SC SCH (08:10)
[2018-07-03] MEDS: Gabapentin 100 MG CAP PO SCH ×3 (08:11→21:15)
[2018-07-03] MEDS: Furosemide 80 MG TAB PO SCH (08:11)
[2018-07-03] MEDS: Glimepiride 2 MG TAB PO SCH (08:11)
[2018-07-03] MEDS: Multivit, Therapeutic 1 TAB PO SCH (08:11)
[2018-07-03] MEDS: A & D OINTMENT TOP SCH ×2 (08:12→21:15)
[2018-07-03] MEDS: Penicillin V Potassium 250 MG TAB PO SCH ×2 (08:12→21:16)
[2018-07-03] MEDS: Keri Lotion 15 oz BOT TOP SCH (08:14)
--- NOTE | 2018-07-03 09:31 | PRG ---
DATE OF SERVICE: 07/03/2018 SUBJECTIVE: The patient is doing good. She is doing well with therapy. She has no complaint this m orning. OBJECTIVE: GENERAL: The patient is sitting up in a wheelchair. She is alert, appears in no distress. VITAL SIGNS: Her temperature is 98.6, pulse 80, respirations 20, O2 saturation 94% on room air, bloo d pressure 124/60. LUNGS: Clear. HEART: Regular rate. EXTREMITIES: Trace edema. There is chronic stasis change with kind of bluish discoloration of the t oes when they are dependent. ASSESSMENT: 1. Generalized weakness and deconditioning. A. Following recent hospitalization for cellulitis of the lower extremities. B. Complicated by marked decline in her functional capabilities and requiring assistance with her AD Ls. C. Improving, walking further and transferring easier as of 07/03/2018. 2. Hospitalized at [facility] from 05/23/2018 to 05/30/2018. A. Presenting with chest pain. Cardiac workup including Cardiolite stress test showed no evidence o f reversible or fixed ischemia. Echocardiogram showed EF 60% to 65% and a grade 1/3 diastolic dysfun ction. No recurrence. B. Severe cellulitis of the right lower extremity, resolving. 3. Cellulitis of right lower extremity. A. Unresponsive to outpatient management. B. Required hospitalization at [facility] from 05/23/2018 to 05/30/2018 with receiving 7- day period of IV vancomycin. C. No recurrence as of 07/02/2018. 4. Severe venous insufficiency of the lower extremities. A. Controled as of 07/03/2018. 5. Chronic stasis dermatitis of the lower extremity, improved. A. Stable and controlled as of 07/03/2018. 6. Diabetes type 2. A. Controlled with hemoglobin A1c of 6.4 as on 05/31/2018. 7. Chronic kidney disease, stage 3. A. GFR 46 as of 05/24/2018. B. GFR 44 on 05/31/2018. C. GFR has dropped to 28 with increase in the BUN and creatinine secondary to the effect of diuretic and the ARLEN inhibitor, lisinopril. D. GFR up to 36 as of 06/27/2018. 8. Hypertension. A. Controlled as of 07/03/2018. 9. Hypothyroidism. 10. Generalized osteoarthritis. 11. Severe cervical spinal stenosis, complicated by myelopathy. Presenting with weakness and paraly sis of the upper extremity. A. Status post decompression and anterior fusion of the involved segment, 10/2014, with marked impro vement. B. Left her with residual weakness in the upper extremity with marked limitation in range of motion of the shoulder and weakness in the legs. C. Improved as of 06/21/2018. 12. Chronic low back pain. A. History of failed surgical back syndrome. B. Controlled as of 06/29/2018. 13. Constipation. 14. Obesity. 15. Anemia of chronic illness. A. Hemoglobin of 10 on 05/24/2018. B. Hemoglobin is 10 as of 06/27/2018. 16. Diastolic dysfunction with preserved ejection fraction of 60% to 65%. A. No evidence of acute congestive heart failure as of 07/02/2018. 17. Asthmatic bronchitis as of 05/31/2018. A. Resolved as of 06/05/2018. 18. Hyperkalemia. A. Secondary to the effect of the spironolactone and lisinopril. B. Resolved with potassium of 4.3. 19. Candidiasis of the perineum. A. Resolving as of 06/21/2018. PLAN: Continue present care. Continue PT, OT. Tentatively planning on discharge on Monday, 018.
[2018-07-03] MEDS: Polyethylene Glycol 3350 17 GM Packet PO SCH (10:13)
[2018-07-03] MEDS: Furosemide 40 MG TAB PO SCH (14:43)
[2018-07-03] MEDS: Acetaminophen 500 MG TAB PO PRN ×2 (14:47→21:17)
[2018-07-04] MEDS: Levothyroxine Sodium 100 MCG TAB PO SCH (05:05)
[2018-07-04] MEDS: Enoxaparin Sodium 40 MG/0.4 ML SYRINGE SC SCH (08:33)
[2018-07-04] MEDS: Glimepiride 2 MG TAB PO SCH (08:33)
[2018-07-04] MEDS: Furosemide 80 MG TAB PO SCH (08:33)
[2018-07-04] MEDS: Gabapentin 100 MG CAP PO SCH ×3 (08:33→20:04)
[2018-07-04] MEDS: Penicillin V Potassium 250 MG TAB PO SCH ×2 (08:34→20:04)
[2018-07-04] MEDS: A & D OINTMENT TOP SCH ×2 (08:34→20:05)
[2018-07-04] MEDS: Polyethylene Glycol 3350 17 GM Packet PO SCH (08:34)
[2018-07-04] MEDS: Multivit, Therapeutic 1 TAB PO SCH (08:34)
[2018-07-04] MEDS: Keri Lotion 15 oz BOT TOP SCH (08:40)
[2018-07-04 08:55] LABS: ALT (SGPT) 23 U/L (8-55); AST (SGOT) 19 U/L (5-34); Albumin 3.9 g/dL (3.4-4.8); Alkaline Phosphatase 71 U/L (40-150); Anion Gap 13 mmol/L (10-20); BUN (Urea Nitrogen) 33 mg/dL (9.8-20.1); Bilirubin, Total 0.4 mg/dL (0.2-1.2); Calc. Creatinine Clearance 76 mL/min (70-130); Calcium 8.9 mg/dL (7.8-10.44); Carbon Dioxide 26 mmol/L (23-31); Chloride 107 mmol/L (98-107); Estimated GFR-MDRD 45; Glucose 98 mg/dL (83-110); Potassium 4.6 mmol/L (3.5-5.1); Protein, Total 6.9 g/dL (6.0-8.3); Sodium 141 mmol/L (136-145)
--- NOTE | 2018-07-04 10:08 | PRG ---
DATE OF SERVICE: 07/04/2018 SUBJECTIVE: The patient is doing better. She is still in bed, has not yet got up for her physical t herapy. OBJECTIVE: The patient is alert, appears very comfortable, in no distress. Her temperature 98.1, pu lse 77, respirations 20, O2 sat 96%, blood pressure 130/58. Her weight is stable at 267. Lungs are clear. Heart, regular rate. Her lower extremities have no edema. There are chronic stasi s changes. There was a little cobblestoning to the skin of the right lower leg on the posterior medi al aspect. Her toes with her lying down looked better, they do not have the bluish hue when dependen t. Her FBS this morning was 108. ASSESSMENT: 1. Generalized weakness and deconditioning. A. Following recent hospitalization for cellulitis of the lower extremities. B. Complicated by marked decline in her functional capabilities and requiring assistance with her AD Ls. C. Improving, walking further and transferring easier as of 07/04/2018. 2. Hospitalized at [facility] from 05/23/2018 to 05/30/2018. A. Presenting with chest pain. Cardiac workup including Cardiolite stress test showed no evidence o f reversible or fixed ischemia. Echocardiogram showed EF 60% to 65% and a grade 1/3 diastolic dysfun ction. No recurrence. B. Severe cellulitis of the right lower extremity, resolving. 3. Cellulitis of right lower extremity. A. Unresponsive to outpatient management. B. Required hospitalization at [facility] from 05/23/2018 to 05/30/2018 with receiving 7- day period of IV vancomycin. C. No recurrence as of 07/02/2018. 4. Severe venous insufficiency of the lower extremities. A. Controled as of 07/04/2018. 5. Chronic stasis dermatitis of the lower extremity, improved. A. Stable and controlled as of 07/04/2018. 6. Diabetes type 2. A. Controlled with hemoglobin A1c of 6.4 as on 05/31/2018. 7. Chronic kidney disease, stage 3. A. GFR 46 as of 05/24/2018. B. GFR 44 on 05/31/2018. C. GFR has dropped to 28 with increase in the BUN and creatinine secondary to the effect of diuretic and the ARLEN inhibitor, lisinopril. D. GFR up to 36 as of 06/27/2018. 8. Hypertension. A. Controlled as of 07/03/2018. 9. Hypothyroidism. 10. Generalized osteoarthritis. 11. Severe cervical spinal stenosis, complicated by myelopathy. Presenting with weakness and paraly sis of the upper extremity. A. Status post decompression and anterior fusion of the involved segment, 10/2014, with marked impro vement. B. Left her with residual weakness in the upper extremity with marked limitation in range of motion of the shoulder and weakness in the legs. C. Improved as of 06/21/2018. 12. Chronic low back pain. A. History of failed surgical back syndrome. B. Controlled as of 07/04/2018. 13. Constipation. 14. Obesity. 15. Anemia of chronic illness. A. Hemoglobin of 10 on 05/24/2018. B. Hemoglobin is 10 as of 06/27/2018. 16. Diastolic dysfunction with preserved ejection fraction of 60% to 65%. A. No evidence of acute congestive heart failure as of 07/04/2018. 17. Asthmatic bronchitis as of 05/31/2018. A. Resolved as of 06/05/2018. 18. Hyperkalemia. A. Secondary to the effect of the spironolactone and lisinopril. B. Resolved with potassium of 4.3. 19. Candidiasis of the perineum. A. Resolved. PLAN: Continue PT, OT. Planning for discharge back to assisted living on Monday07/06/2018.
[2018-07-04] MEDS: Furosemide 40 MG TAB PO SCH (14:01)
[2018-07-04] MEDS: Acetaminophen 500 MG TAB PO PRN (20:05)
[2018-07-05] MEDS: Levothyroxine Sodium 100 MCG TAB PO SCH (05:18)
[2018-07-05 05:29] LABS: #Basophils 0.1 thou/uL (0.0-0.2); #Eosinphils 0.3 thou/uL (0.0-0.7); #Lymphocytes 1.2 thou/uL (1.20-3.40); #Monocytes 0.4 thou/uL (0.11-0.59); #Neutrophils 2.7 thou/uL (1.40-6.50); %Basophils 1.2 % (0.0-1.0); %Eosinophils 6.4 % (0.0-10.0); %Lymphocytes 26.1 % (21.0-51.0); %Monocytes 8.2 % (0.0-10.0); Hemoglobin 9.5 g/dL (12.0-16.0); Mean Corpuscular HGB CONC 32.7 g/dL (32.0-36.0); Mean Corpuscular Volume 88.7 fL (78.0-98.0); Mean Platelet Volume 8.5 fL (7.4-10.4); Platelet Count 182 thou/uL (130-400); RBC Distribution Width 12.5 % (11.5-14.5); Red Blood Cell (RBC) Count 3.29 mill/uL (4.20-5.40); White Blood Cell (WBC) Count 4.7 thou/uL (4.8-10.8)
[2018-07-05] MEDS: Enoxaparin Sodium 40 MG/0.4 ML SYRINGE SC SCH (08:27)
[2018-07-05] MEDS: Furosemide 80 MG TAB PO SCH (08:27)
[2018-07-05] MEDS: Gabapentin 100 MG CAP PO SCH ×3 (08:27→21:10)
[2018-07-05] MEDS: Penicillin V Potassium 250 MG TAB PO SCH ×2 (08:28→21:09)
[2018-07-05] MEDS: Polyethylene Glycol 3350 17 GM Packet PO SCH (08:28)
[2018-07-05] MEDS: Glimepiride 2 MG TAB PO SCH (08:28)
[2018-07-05] MEDS: A & D OINTMENT TOP SCH ×2 (08:28→21:10)
[2018-07-05] MEDS: Multivit, Therapeutic 1 TAB PO SCH (08:28)
[2018-07-05] MEDS: Keri Lotion 15 oz BOT TOP SCH (08:30)
--- NOTE | 2018-07-05 10:53 | PRG ---
DATE OF SERVICE: 07/05/2018 SUBJECTIVE: The patient said she is doing good. She continued to walk and exercise on the [place], s trength is improving. Looking forward to going back to assisted living tomorrow. OBJECTIVE: GENERAL: The patient is sitting on the Nu[employer], working arms and legs. She is alert, looks very comf ortable in no distress. VITAL SIGNS: Her temperature is 97.7, pulse 66, respirations 18, O2 saturation 98% on room air, bloo d pressure 139/70. LUNGS: Clear. HEART: Regular rate. EXTREMITIES: Trace edema with chronic stasis changes, unchanged. No open wounds. LABORATORY DATA: H&H is 9.5 and 28.2, white cell count 4700, 58% segs, 26% lymphocytes, and a platel et count of 182. Sodium 141, potassium 4.6, BUN 33, creatinine 1.17. FBS 98, albumin 3.9. ASSESSMENT: 1. Generalized weakness and deconditioning. A. Following recent hospitalization for cellulitis of the lower extremities. B. Complicated by marked decline in her functional capabilities and requiring assistance with her AD Ls. C. Improving, walking further and transferring easier as of 07/05/2018. 2. Hospitalized at [facility] from 05/23/2018 to 05/30/2018. A. Presenting with chest pain. Cardiac workup including Cardiolite stress test showed no evidence o f reversible or fixed ischemia. Echocardiogram showed EF 60% to 65% and a grade 1/3 diastolic dysfun ction. No recurrence. B. Severe cellulitis of the right lower extremity, resolving. 3. Cellulitis of right lower extremity. A. Unresponsive to outpatient management. B. Required hospitalization at [facility] from 05/23/2018 to 05/30/2018 with receiving 7- day period of IV vancomycin. C. No recurrence as of 07/02/2018. 4. Severe venous insufficiency of the lower extremities. A. Controled as of 07/05/2018. 5. Chronic stasis dermatitis of the lower extremity, improved. A. Stable and controlled as of 07/05/2018. 6. Diabetes type 2. A. Controlled with hemoglobin A1c of 6.4 as on 05/31/2018. 7. Chronic kidney disease, stage 3. A. GFR stable at 45 as of 07/05/2018. B. GFR 44 on 05/31/2018. C. GFR has dropped to 28 with increase in the BUN and creatinine secondary to the effect of diuretic and the ARLEN inhibitor, lisinopril. D. GFR up to 36 as of 06/27/2018. 8. Hypertension. A. Controlled as of 07/03/2018. 9. Hypothyroidism. 10. Generalized osteoarthritis. 11. Severe cervical spinal stenosis, complicated by myelopathy. Presenting with weakness and paraly sis of the upper extremity. A. Status post decompression and anterior fusion of the involved segment, 10/2014, with marked impro vement. B. Left her with residual weakness in the upper extremity with marked limitation in range of motion of the shoulder and weakness in the legs. C. Improved as of 06/21/2018. 12. Chronic low back pain. A. History of failed surgical back syndrome. B. Controlled as of 07/04/2018. 13. Constipation. 14. Obesity. 15. Anemia of chronic illness. A. Hemoglobin stable at 9.5 as of 07/05/2018. 16. Diastolic dysfunction with preserved ejection fraction of 60% to 65%. A. No evidence of acute congestive heart failure as of 07/05/2018. 17. Asthmatic bronchitis as of 05/31/2018. A. Resolved as of 06/05/2018. 18. Hyperkalemia. A. Secondary to the effect of the spironolactone and lisinopril. B. Resolved with potassium of 4.3. 19. Candidiasis of the perineum. A. Resolved. PLAN: The patient is doing very well. Continue PT. Anticipate discharge tomorrow.
[2018-07-05] MEDS: Furosemide 40 MG TAB PO SCH (15:09)
[2018-07-05] MEDS: Acetaminophen 500 MG TAB PO PRN (21:14)
[2018-07-06] MEDS: Levothyroxine Sodium 100 MCG TAB PO SCH (05:48)
[2018-07-06 07:54] VITALS: BP 124/60; TEMP 97
[2018-07-06] MEDS: Gabapentin 100 MG CAP PO SCH (08:14)
[2018-07-06] MEDS: Furosemide 80 MG TAB PO SCH (08:14)
[2018-07-06] MEDS: Glimepiride 2 MG TAB PO SCH (08:14)
[2018-07-06] MEDS: Enoxaparin Sodium 40 MG/0.4 ML SYRINGE SC SCH (08:14)
[2018-07-06] MEDS: Polyethylene Glycol 3350 17 GM Packet PO SCH (08:15)
[2018-07-06] MEDS: Penicillin V Potassium 250 MG TAB PO SCH (08:15)
[2018-07-06] MEDS: Multivit, Therapeutic 1 TAB PO SCH (08:15)
[2018-07-06] MEDS: A & D OINTMENT TOP SCH (08:15)
[2018-07-06] MEDS: Keri Lotion 15 oz BOT TOP SCH (08:16)
[2018-07-06] MEDS: Acetaminophen 500 MG TAB PO PRN (08:20)
--- NOTE | 2018-07-06 12:40 | DIS ---
FINAL DIAGNOSES: 1. Generalized weakness and deconditioning. A. Following recent hospitalization for cellulitis of the lower extremities. B. Complicated by marked decline in her functional capabilities and requiring assistance with her AD Ls. C. Improving, walking further and transferring easier as of 07/06/2018. 2. Hospitalized at [facility] from 05/23/2018 to 05/30/2018. A. Presenting with chest pain. Cardiac workup including Cardiolite stress test showed no evidence o f reversible or fixed ischemia. Echocardiogram showed EF 60% to 65% and a grade 1/3 diastolic dysfun ction. No recurrence. B. Severe cellulitis of the right lower extremity, resolving. 3. Cellulitis of right lower extremity. A. Unresponsive to outpatient management. B. Required hospitalization at [facility] from 05/23/2018 to 05/30/2018 with receiving 7- day period of IV vancomycin. C. No recurrence as of 07/06/2018. D. On suppressive antibiotics with Pen-Vee K to help prevent recurrence. 4. Severe venous insufficiency of the lower extremities. A. Controled as of 07/05/2018. B. Has reddish hue when legs dependent, as of 07/06/2018. 5. Chronic stasis dermatitis of the lower extremity, improved. A. Stable and controlled as of 07/05/2018. 6. Diabetes type 2. A. Controlled with hemoglobin A1c of 6.4 as on 05/31/2018. 7. Chronic kidney disease, stage 3. A. GFR stable at 45 as of 07/05/2018. B. GFR 44 on 05/31/2018. C. GFR has dropped to 28 with increase in the BUN and creatinine secondary to the effect of diuretic and the ARLEN inhibitor, lisinopril. D. GFR up to 36 as of 06/27/2018. 8. Hypertension. A. Controlled as of 07/03/2018. 9. Hypothyroidism. 10. Generalized osteoarthritis. 11. Severe cervical spinal stenosis, complicated by myelopathy. Presenting with weakness and paraly sis of the upper extremity. A. Status post decompression and anterior fusion of the involved segment, 10/2014, with marked impro vement. B. Left her with residual weakness in the upper extremity with marked limitation in range of motion of the shoulder and weakness in the legs. C. Improved as of 06/21/2018. 12. Chronic low back pain. A. History of failed surgical back syndrome. B. Controlled as of 07/06/2018. 13. Constipation. 14. Obesity. 15. Anemia of chronic illness. A. Hemoglobin stable at 9.5 as of 07/06/2018. 16. Diastolic dysfunction with preserved ejection fraction of 60% to 65%. A. No evidence of acute congestive heart failure as of 07/05/2018. 17. Asthmatic bronchitis as of 05/31/2018. A. Resolved as of 06/05/2018. 18. Hyperkalemia. A. Secondary to the effect of the spironolactone and lisinopril. B. Resolved with potassium of 4.3. 19. Candidiasis of the perineum. A. Resolved. SUMMARY: The patient is a 77-year-old white female who has a history of severe venous insufficiency of the lower extremities, complicated by chronic stasis dermatitis and chronic edema. She has been t reated on numerous episodes on an inpatient and outpatient basis for cellulitis. She also has a hist ory of a cervical myelopathy from severe spinal stenosis for which she has undergone a cervical decom pression, but it has left her with weakness in the upper and lower extremities. She is able to ambul ate with the use of a walker, is able to do some transfer and has been able to live in [facility]. She also has a history of diabetes type 2 that is well controlled. She has a diastolic dysfuncti on, but has had no evidence of any recent congestive failure. She has chronic kidney disease stage 3 and she has chronic low back pain secondary to failed surgical back syndrome and also anemia of sausage cutter skip illness The patient was hospitalized at [facility] from 05/23/2018 until 05/30/2018 fo r cellulitis of the lower extremities, also with an episode of chest pain with no evidence of acute c oronary syndrome and Cardiolite stress test showed no evidence of ischemia. An echocardiogram showed ejection fraction of 60-65% with a 1/3 diastolic dysfunction. The patient was seen by Dr. Bajwa, In fectious Disease physician, who recommended that she be placed on prophylactic antibiotics using Pen- Vee K 500 mg b.i.d. in an effort to prevent recurrence of the cellulitis of the legs. He had suggest ed that this be done for at least a 6-month. The patient was left extremely weak and was referred to [facility] for the purpose of PT and OT. The patient was switched to cephalexin orally that s he took for a 7 day period after her admission to [facility]. At [facility] she had been treated with vancomycin. Upon completion of the cephalexin she was switched to Pen-Vee K. The patient also had a severe sensitivity to even light touch to the skin of the lower extremities. It was felt to be secondary to allodynia manifest with hypesthesia from probably her cervical myelopathy . She was placed on low dose gabapentin which did seem to help with this. During her hospitalizatio n the cellulitis of the legs had completely resolved. The edema was markedly improved with her incre ased rest and elevation of the legs. The chronic stasis dermatitis was controlled with the use of ju st a moisturizer. Heretofore she had used to moisturizer with Claudia lotion, but this was stopped sinc e this chronic use of the steroid was creating some redness in her legs. The dermatitis of the legs was well controlled with the moisturizer. Edema did very well during her hospitalization, the allody arie of the legs seemed to be well controlled with the gabapentin 200 mg daily. She was switched to t he prophylactic antibiotic using Pen-Vee K 500 mg b.i.d. This will be continued for a 6 month period . During her hospitalization, her diabetes showed good control. She was treated with Lovenox for DV T prophylaxis. She made excellent progress with her physical therapy and was walking up to 150 feet at least twice a day with a rolling walker and was transferring with just supervision. During her few days she was getting up and down on her own and going to the bathroom on her own. She did nely e a visit to her assisted living and was able to get in and out of her bed without assistance. Her b ed in assisted living sits a little lower than the bed in the hospital and she could easily accomplis hed this. By 07/06/2018 the patient was doing well. Her vital signs remained stable and she was afe brile. Her diabetes was under good control. She did have a little increased redness of the lower ex tremities, but without a lot of increased heat. This is felt to be since she has been up for several hours already this morning and that this is probably just a reddish hue from the dependency. I had visited with the patient about watching this for a few more days, but really think this is just from the dependency and not onset of a cellulitis. The patient wants to go on to the assisted living, [facility] I think is fine. The patient was discharged on 07/06/2018 in good condition with resolution of th e cellulitis, diabetes under good control. General strength markedly improved. DIET: Consistent carbohydrate diet. No added salt. ACTIVITIES: Ambulate with the use of a walker with wheels. Recommend the patient take a rest lying down with her legs elevated at least twice a day. Glucometer checks daily. MEDICATIONS: Acetaminophen 500 mg 1-2 every 6 hours as needed for pain, Maalox 30 mL every 4 hours a s needed, furosemide 80 mg daily in the morning, furosemide 40 mg daily at 2:00 p.m., glimepiride 1 m g daily, gabapentin 100 mg 2 up to 2-3 times a day, levothyroxine 100 mcg daily, multivitamin daily, Pen-Vee K 500 mg b.i.d. x6 months, MiraLax 17 grams in 8 ounces of water daily, Claudia lotion applied t o the legs daily, A&D ointment may be applied to the bottom b.i.d. as needed. FOLLOW UP: The patient will be seen in followup in my office in 2 weeks unless there is interval pro blem. CODE STATUS: Full code.
== END 2018-07-06 12:30 | disposition home health service (06) | DRG 948 ==
LOC: MADMS 16:17
PROVIDERS: ADMIT Family Medicine; ATTEND Family Medicine
DX: R53.1 Weakness (principal); L03.115 Cellulitis of right lower limb; G95.89 Other specified diseases of spinal cord; B37.89 Other sites of candidiasis; I13.0 Hypertensive heart and chronic kidney disease with heart failure and stage 1 through stage 4 chronic kidney disease, or unspecified chronic kidney disease; I50.30 Unspecified diastolic (congestive) heart failure; Z68.41 Body mass index [BMI] 40.0-44.9, adult; M62.50 Muscle wasting and atrophy, not elsewhere classified, unspecified site; I87.2 Venous insufficiency (chronic) (peripheral); R60.9 Edema, unspecified; I35.8 Other nonrheumatic aortic valve disorders; K80.20 Calculus of gallbladder without cholecystitis without obstruction; R20.1 Hypoesthesia of skin; E11.22 Type 2 diabetes mellitus with diabetic chronic kidney disease; N18.3 Chronic kidney disease, stage 3 (moderate); D63.1 Anemia in chronic kidney disease; E03.9 Hypothyroidism, unspecified; M15.9 Polyosteoarthritis, unspecified; M48.02 Spinal stenosis, cervical region; G83.20 Monoplegia of upper limb affecting unspecified side; M54.5 Low back pain; G89.29 Other chronic pain; K59.00 Constipation, unspecified; E66.9 Obesity, unspecified; E87.5 Hyperkalemia; T50.0X5A Adverse effect of mineralocorticoids and their antagonists, initial encounter; T46.4X5A Adverse effect of angiotensin-converting-enzyme inhibitors, initial encounter; J45.909 Unspecified asthma, uncomplicated
CPT/HCPCS: 36415; 36416; 80048; 80053; 81001; 83036; 85025; 87086; 94640; G8978-GP-CK; G8978-GP-CL; G8979-GP-CJ; G8987-GO-CI; G8987-GO-CM; G8988-GO-CH; G8988-GO-CI; J1650; J7611; Q0162

== ENCOUNTER 2018-07-30 14:22 | Inpatient (IN) | payer MEDICARE ==
[2018-07-30] MEDS ORDERED: Acetaminophen 500 MG TAB PO PRN (19:00)
[2018-07-30] MEDS ORDERED: Ondansetron ODT 4 MG TAB PO PRN (19:03)
[2018-07-30] MEDS: Gabapentin 100 MG CAP PO SCH (21:07)
[2018-07-30] MEDS: Famotidine 20 MG TAB PO SCH (21:07)
[2018-07-30] MEDS: Keri Lotion 15 oz BOT TOP SCH (21:08)
[2018-07-30] MEDS: Nystatin Powder 15 GM BOT TOP SCH (21:08)
[2018-07-31] MEDS: Levothyroxine Sodium 100 MCG TAB PO SCH (05:32)
[2018-07-31] MEDS: Polyethylene Glycol 3350 17 GM Packet PO SCH (08:31)
[2018-07-31] MEDS: Saccharomyces boulardii 250 MG CAP PO SCH (08:32)
[2018-07-31] MEDS: Glimepiride 2 MG TAB PO SCH (08:32)
[2018-07-31] MEDS: Penicillin V Potassium 250 MG TAB PO SCH ×2 (08:32→20:39)
[2018-07-31] MEDS: Gabapentin 100 MG CAP PO SCH ×3 (08:32→20:39)
[2018-07-31] MEDS: Furosemide 40 MG TAB PO SCH (08:33)
[2018-07-31] MEDS: Keri Lotion 15 oz BOT TOP SCH ×3 (08:33→20:38)
[2018-07-31] MEDS: Multivitamin W/ Minerals 1 TAB PO SCH (08:33)
[2018-07-31] MEDS: Enoxaparin Sodium 40 MG/0.4 ML SYRINGE SC SCH (08:33)
[2018-07-31] MEDS: Nystatin Powder 15 GM BOT TOP SCH ×2 (08:33→20:39)
--- NOTE | 2018-07-31 08:51 | HP ---
DATE OF ADMISSION: 07/30/2018 The patient was admitted to [facility] on the late afternoon of 07/30/2018. CHIEF COMPLAINT: Weakness following cellulitis of her lower extremities. PRESENT ILLNESS: The patient is a 77-year-old white female who has a history of severe venous insuff iciency of the lower extremities complicated by chronic stasis dermatitis and chronic edema. She has had numerous episodes of inpatient care for cellulitis. 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 This has left her with weakness in the upper and lower extremities. She is able to ambulat e with the use of a walker and gets around a lot with the use of a wheelchair. She also has a histor y of diabetes type 2 that is well controlled and a diastolic dysfunction with no recent evidence of c ongestive heart failure. 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 The patient has been hospitalized at [facility] from 07/24/2018 until for recurrence of the cellulitis of the lower extremities with severe pain. She wa s treated with IV Rocephin and then has been switched to Pen-Vee K 250 mg which she is to take twice a day for at least a year. The patient arrived at the hospital late afternoon on 07/30/2018. The patient was seen early on the morning of 07/31/2018. She said that she had a reinfection in her legs with severe pain in the legs. The pain is much improved. She also has hyperesthesia and allody arie of the legs that is felt to be secondary to a radiculopathy from her previous spinal trouble. He r pain in her leg though is a lot better. The patient said she really has not been up other than to sit at the edge of the bed. She said her legs feel much better. The swelling is down with her prima rily at bed rest. She has been on DVT prophylaxis with Lovenox. Her diabetes has been under good co ntrol. PAST HISTORY: The patient was hospitalized at [facility] from 07/24/2018 until 07/30/2018 for cellulitis of the lower extremities, was hospitalized at [facility] from 05/23/2018 t o 05/30/2018 for chest pain with no recurrence. No evidence of acute coronary syndrome. Her Cardiol ite stress test showed no evidence of reversible ischemia. Echocardiogram showed an EF of 60-65% wit h a grade 1/3 diastolic dysfunction. She also had a cellulitis of the lower extremities. She was th en hospitalized at [facility] from 06/30/2018 to 07/06/2018 for strengthening. Her diabetes koch s been under good control. Her last hemoglobin A1c on 05/31/2018 was 6.4. The patient has had multi ple other hospitalizations for cellulitis of the lower extremities. During her hospitalization on she underwent a venous Doppler of the lower extremities. There was no evidence of DVT. Thi s was done on 07/24/2018. The patient has a quadriparesis secondary to a severe cervical stenosis pr esenting with paralysis of the right upper extremity and severe weakness of the left upper extremity and severe weakness of the lower extremities. She required surgical decompression and anterior fusio n of the involved area in 10/2014. She has had marked improvement since then, is still weak in the e xtremities, but is able to use her arms with limited range of motion and has been able to walk with a ssistance and the use of a walker short distances. She has chronic low back pain secondary to a fail ed surgical back syndrome. She has had a tonsillectomy, multiple surgeries on her low back with lami nectomies done in 1961, 1965, and a third time in 1979. She has had a hysterectomy. She has had an EGD that showed blood in the hypopharynx, otherwise was normal. CT scan of the chest showed bronchie ctasis. PRESENT MEDICINES: Acetaminophen 500 mg 1-2 every 6 hours as needed, Lovenox 40 mg daily, Pepcid 20 mg daily, furosemide 80 mg daily, gabapentin 200 mg t.i.d., glimepiride 1 mg daily, Theragran-M 1 martha ly, levothyroxine 100 mcg daily, Claudia lotion applied to the skin 3 times a day, Nystatin powder appli ed to skin fold areas b.i.d., Zofran 4 mg every 6 hours, oral disintegrating tablets p.r.n. nausea an d vomiting, MiraLax 17 grams 8 ounces water daily, Florastor 250 mg daily, Pen-Vee K 250 mg b.i.d. fo r 1 year. ALLERGIES: MORPHINE causes nausea and vomiting. METFORMIN causes nausea and diarrhea. Also, she is allergic to TRIMETHAPRIN. . REVIEW OF SYSTEMS: The patient said she had not had any fever the last few days. Her appetite has b een good. She does not think she has lost any weight or gained any. She said her swelling in her le gs is much better since she has been primarily at bed rest. HEAD AND NECK: No complaints. PULMONARY: No shortness of breath. CARDIOVASCULAR: No chest pain. GASTROINTESTINAL: No nausea, vomiting or change in bowel habits. GENITOURINARY: No complaints. ADLs: The patient usually able to ambulate the short distance with the use of a walker. Most of her mobility, though she likes to use a wheelchair. She requires assistance with dressing and bathing. She is usually continent of urine and stools. HABITS: Alcohol none. Tobacco none. SOCIAL HISTORY: The patient is a . The patient resides in [facility]. CODE STATUS: Full. PHYSICAL EXAMINATION: GENERAL: Shows a very pleasant 77-year-old white female who is lying in bed. She is alert, talkativ e, and looks very comfortable. VITAL SIGNS: Her temperature is 97.7, pulse 65, respirations 20, O2 saturation 97% on room air, bloo d pressure 141/72. Her weight is 265. HEAD: Normocephalic. EYES: Pupils were equal, round, and reactive. Sclerae nonicteric. EARS: TMs are blocked by cerumen. NOSE: Normal. MOUTH AND THROAT: Normal. NECK: Carotids are equal and strong, no bruits. Thyroid not enlarged. LUNGS: Clear. HEART: Regular rate. No murmurs. ABDOMEN: Soft with no organomegaly, nor areas of tenderness. EXTREMITIES: Lower extremities; there is no edema. Her legs edema-jurado looked much better than they have in a long time. The patient has a petechial rash over the lower legs from the swelling and inf lammation from the recent cellulitis. The bright redness and increased heat has all resolved. Her l egs still are sensitive to the touch, but she says her pain in her legs is markedly improved. NEURO: The patient is alert, oriented x3. The patient has some generalized weakness in all her extr emities with reduced range of motion. IMPRESSION: 1. Generalized weakness and deconditioning. A. Following recent hospitalization for cellulitis of the lower extremities at [facility] . B. Presently she is primarily been at bed rest and just sitting at the edge of the bed for short per iods. 2. Hospitalized at [facility] from 07/24/2018 until 07/30/2018 for cellulitis of the lowe r extremities. 3. Cellulitis of the lower extremities. A. Recurrent B. Most recent episode requiring hospitalization at [facility] from 07/24/2018 until 07/10. Resolving as of 07/31/2018. C. Should be on suppressive antibiotics with Pen-Vee K. 4. Severe venous insufficiency of the lower extremities. A. Presently marked improvement with her having had the recent bed rest. 5. Severe venous insufficiency of the lower extremities. 6. Chronic stasis dermatitis of the lower extremities. 7. Diabetes type 2. A. Controlled with hemoglobin A1c of 6.4 on 07/31/2018. 8. Chronic kidney disease, GFR on 07/05/2018 45. 9. Hypertension. A. Controlled. 10. Hypothyroidism. 11. Generalized osteoarthritis. 12. Severe cervical spinal stenosis complicated by myelopathy. A. Presenting with weakness and paralysis of the lower extremities. B. Status post decompression and anterior fusion of the involved segments in 10/2014 with marked imp rovement. C. Has left her quadriparesis with marked weakness and poor range of motion in all 4 extremities. 13. 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 14. Obesity. 15. Anemia of chronic illness. 16. Diastolic dysfunction with ejection fraction of 60-65%. A. No evidence of acute congestive heart failure as of 07/31/2018. PLAN: The patient has been readmitted to [facility] to extended care due to her severe weaknes s and deconditioning. Physical therapy and OT ill rework with her in an effort to try to improve her general functional capability. We will encourage her to stay off her legs when not actively involve d with physical therapy and keep these elevated either in a lounge chair or bed. Will continue the m oisturizer on the leg using Claudia lotion, continue her routine medicines. We will continue the Pen-Ve e K for a year. CODE STATUS: Full.
[2018-07-31] MEDS: Acetaminophen 500 MG TAB PO PRN (13:05)
[2018-07-31] MEDS: Famotidine 20 MG TAB PO SCH (20:38)
[2018-08-01] MEDS: Levothyroxine Sodium 100 MCG TAB PO SCH (06:03)
[2018-08-01 06:22] LABS: Anion Gap 14 mmol/L (10-20); BUN (Urea Nitrogen) 26 mg/dL (9.8-20.1); Calc. Creatinine Clearance 88 mL/min (70-130); Calcium 8.8 mg/dL (7.8-10.44); Carbon Dioxide 25 mmol/L (23-31); Chloride 105 mmol/L (98-107); Estimated GFR-MDRD 54; Glucose 116 mg/dL (83-110); Potassium 4.2 mmol/L (3.5-5.1); Sodium 140 mmol/L (136-145)
[2018-08-01 06:27] LABS: #Basophils 0.1 thou/uL (0.0-0.2); #Eosinphils 0.3 thou/uL (0.0-0.7); #Lymphocytes 1.2 thou/uL (1.20-3.40); #Monocytes 0.5 thou/uL (0.11-0.59); #Neutrophils 3.7 thou/uL (1.40-6.50); %Basophils 1.3 % (0.0-1.0); %Eosinophils 5.8 % (0.0-10.0); %Lymphocytes 21.2 % (21.0-51.0); %Neutrophils 63.7 % (42.0-75.0); Hemoglobin 10.5 g/dL (12.0-16.0); Mean Corpuscular HGB CONC 32.3 g/dL (32.0-36.0); Mean Corpuscular Hemoglobin 28.3 pg (27.0-31.0); Mean Corpuscular Volume 87.6 fL (78.0-98.0); Mean Platelet Volume 8.5 fL (7.4-10.4); Platelet Count 212 thou/uL (130-400); RBC Distribution Width 11.8 % (11.5-14.5); Red Blood Cell (RBC) Count 3.72 mill/uL (4.20-5.40); White Blood Cell (WBC) Count 5.8 thou/uL (4.8-10.8)
[2018-08-01] MEDS: Polyethylene Glycol 3350 17 GM Packet PO SCH (08:57)
[2018-08-01] MEDS: Glimepiride 2 MG TAB PO SCH (08:57)
[2018-08-01] MEDS: Multivitamin W/ Minerals 1 TAB PO SCH (08:58)
[2018-08-01] MEDS: Nystatin Powder 15 GM BOT TOP SCH ×2 (08:58→20:45)
[2018-08-01] MEDS: Gabapentin 100 MG CAP PO SCH ×3 (08:58→20:43)
[2018-08-01] MEDS: Keri Lotion 15 oz BOT TOP SCH ×3 (08:58→20:45)
[2018-08-01] MEDS: Enoxaparin Sodium 40 MG/0.4 ML SYRINGE SC SCH (08:58)
[2018-08-01] MEDS: Penicillin V Potassium 250 MG TAB PO SCH ×2 (08:58→20:43)
[2018-08-01] MEDS: Saccharomyces boulardii 250 MG CAP PO SCH (08:58)
[2018-08-01] MEDS: Furosemide 40 MG TAB PO SCH (08:58)
--- NOTE | 2018-08-01 11:15 | PRG ---
DATE OF SERVICE: 08/01/2018 SUBJECTIVE: The patient said she is very pleased with the progress she has made. She is walking wit h a rolling walker and standby assistance down the hallways and to the Physical Therapy Department. Her legs feel better. They are still sensitive, but not as much. OBJECTIVE: The patient is sitting up in a wheelchair. She is alert, appears comfortable in no distr ess. Her vital signs show a temperature of 97.4, pulse 66, respirations 20, blood pressure 168/75, p reviously last evening it was 130/60. Lungs are clear. Heart, regular rate. Lower extremities have some mild edema. Skin looks the same, has a petechial rash that should gradually natalie and resolve. H&H 10.5 and 32.6. White cell count 5800 with 64% segs, 21% lymphocytes, and a platelet count of 2 12,000. Sodium 140, potassium 4.2, BUN 26, creatinine 1, GFR 54. FBS 116. ASSESSMENT: 1. Generalized weakness and deconditioning. A. Following recent hospitalization for cellulitis of the lower extremities at [facility] . B. Presently she is primarily been at bed rest and just sitting at the edge of the bed for short per iods. C. Marked improvement, ambulating in the hallways with a rolling walker as of 08/01/2018. 2. Hospitalized at [facility] from 07/24/2018 until 07/30/2018 for cellulitis of the lowe r extremities. 3. Cellulitis of the lower extremities. A. Recurrent B. Most recent episode requiring hospitalization at [facility] from 07/24/2018 until 07/10. Resolving as of 07/31/2018. C. Should be on suppressive antibiotics with Pen-Vee K. 4. Severe venous insufficiency of the lower extremities. A. Presently marked improvement with her having had the recent bed rest. B. Some increased swelling with her now up walking and in a chair, intolerant of support hose. 5. Severe venous insufficiency of the lower extremities. 6. Chronic stasis dermatitis of the lower extremities. 7. Diabetes type 2. A. Controlled with hemoglobin A1c of 6.4 on 07/31/2018. 8. Chronic kidney disease, GFR on 07/05/2018 45. 9. Hypertension. A. Controlled. 10. Hypothyroidism. 11. Generalized osteoarthritis. 12. Severe cervical spinal stenosis complicated by myelopathy. A. Presenting with weakness and paralysis of the lower extremities. B. Status post decompression and anterior fusion of the involved segments in 10/2014 with marked imp rovement. C. Has left her quadriparesis with marked weakness and poor range of motion in all 4 extremities. 13. 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 14. Obesity. 15. Anemia of chronic illness. 16. Diastolic dysfunction with ejection fraction of 60-65%. A. No evidence of acute congestive heart failure as of 08/01/2018. PLAN: Continue present care. Encourage the patient that when she is not involved with therapy or koch ving a meal then she should be at bed rest.
[2018-08-01] MEDS: Acetaminophen 500 MG TAB PO PRN (20:44)
[2018-08-01] MEDS: Famotidine 20 MG TAB PO SCH (20:48)
[2018-08-02] MEDS: Levothyroxine Sodium 100 MCG TAB PO SCH (05:45)
[2018-08-02] MEDS: Glimepiride 2 MG TAB PO SCH (08:52)
[2018-08-02] MEDS: Keri Lotion 15 oz BOT TOP SCH ×3 (08:52→20:24)
[2018-08-02] MEDS: Furosemide 40 MG TAB PO SCH (08:52)
[2018-08-02] MEDS: Saccharomyces boulardii 250 MG CAP PO SCH (08:53)
[2018-08-02] MEDS: Multivitamin W/ Minerals 1 TAB PO SCH (08:53)
[2018-08-02] MEDS: Polyethylene Glycol 3350 17 GM Packet PO SCH (08:53)
[2018-08-02] MEDS: Enoxaparin Sodium 40 MG/0.4 ML SYRINGE SC SCH (08:53)
[2018-08-02] MEDS: Penicillin V Potassium 250 MG TAB PO SCH ×2 (08:53→20:25)
[2018-08-02] MEDS: Gabapentin 100 MG CAP PO SCH ×3 (08:53→20:25)
[2018-08-02] MEDS: Nystatin Powder 15 GM BOT TOP SCH ×2 (08:58→20:24)
--- NOTE | 2018-08-02 10:09 | PRG ---
DATE OF SERVICE: 08/02/2018 SUBJECTIVE: The patient said she is doing better. She is doing better with therapy and walking furt her. This morning she has already been up and walked around to physical therapy and was worked on [place]. She is spending most of her day, though, sitting up in a wheelchair. OBJECTIVE: The patient is alert, appears very comfortable in no distress. Her temperature 97.6, pul se 68, respirations 18, blood pressure 144/68, O2 sat 96% on room air. Her weight is 265, stable. L ungs clear. Heart, regular rate. Lower extremities reveal the calves are a little larger than when she was admitted. There is no increased heat. The legs still have a little purplish discoloration f rom the petechial hemorrhage into the skin from the infection that is stable and should gradually res orb. Her FBS this morning 132. ASSESSMENT: 1. Generalized weakness and deconditioning. A. Following recent hospitalization for cellulitis of the lower extremities at [facility] . B. Presently she is primarily been at bed rest and just sitting at the edge of the bed for short per iods. C. Continued improvement as of 08/02/2018. 2. Hospitalized at [facility] from 07/24/2018 until 07/30/2018 for cellulitis of the lowe r extremities. 3. Cellulitis of the lower extremities. A. Recurrent B. Most recent episode requiring hospitalization at [facility] from 07/24/2018 until 07/10. Continued resolution as of 08/02/2018. C. On suppressive antibiotics with Pen-Vee K. 4. Severe venous insufficiency of the lower extremities. A. Presently marked improvement with her having had the recent bed rest. B. Some increased swelling with her now up walking and in a chair, intolerant of support hose. 5. Severe venous insufficiency of the lower extremities. 6. Chronic stasis dermatitis of the lower extremities. 7. Diabetes type 2. A. Controlled with hemoglobin A1c of 6.4 on 07/31/2018. 8. Chronic kidney disease, GFR on 07/05/2018 45. 9. Hypertension. A. Controlled. 10. Hypothyroidism. 11. Generalized osteoarthritis. 12. Severe cervical spinal stenosis complicated by myelopathy. A. Presenting with weakness and paralysis of the lower extremities. B. Status post decompression and anterior fusion of the involved segments in 10/2014 with marked imp rovement. C. 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 13. 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 14. Obesity. 15. Anemia of chronic illness. 16. Diastolic dysfunction with ejection fraction of 60-65%. A. No evidence of acute congestive heart failure as of 08/02/2018. PLAN: Continue physical therapy. Encourage the patient to go back to bed to allow elevation of her legs when she is not having physical therapy or meals. The patient is intolerant of compression stoc kings and probably compression wraps. Continue the Kasi Whiting
[2018-08-02] MEDS: Acetaminophen 500 MG TAB PO PRN (15:35)
[2018-08-02] MEDS: Famotidine 20 MG TAB PO SCH (20:25)
[2018-08-03] MEDS: Levothyroxine Sodium 100 MCG TAB PO SCH (05:05)
[2018-08-03] MEDS: Polyethylene Glycol 3350 17 GM Packet PO SCH (08:29)
[2018-08-03] MEDS: Gabapentin 100 MG CAP PO SCH ×3 (08:30→20:09)
[2018-08-03] MEDS: Saccharomyces boulardii 250 MG CAP PO SCH (08:30)
[2018-08-03] MEDS: Penicillin V Potassium 250 MG TAB PO SCH ×2 (08:30→20:09)
[2018-08-03] MEDS: Enoxaparin Sodium 40 MG/0.4 ML SYRINGE SC SCH (08:30)
[2018-08-03] MEDS: Glimepiride 2 MG TAB PO SCH (08:31)
[2018-08-03] MEDS: Multivitamin W/ Minerals 1 TAB PO SCH (08:31)
[2018-08-03] MEDS: Furosemide 40 MG TAB PO SCH (08:31)
[2018-08-03] MEDS: Keri Lotion 15 oz BOT TOP SCH ×3 (08:31→20:11)
[2018-08-03] MEDS: Nystatin Powder 15 GM BOT TOP SCH ×2 (08:32→20:11)
--- NOTE | 2018-08-03 10:30 | PRG ---
DATE OF SERVICE: 08/03/2018 SUBJECTIVE: The patient said she is feeling good this morning. She has already been up and worked [facility]. She walked some yesterday. She rested more. They did also give her a chair a nd allowed her to prop it up on a second chair, although this just still had the legs lower than the level of the heart. Her legs feel better. OBJECTIVE: The patient is sitting up in a chair, having eaten her breakfast. She is alert, talkativ e, and appears comfortable. Her vital signs show a temperature of 97, pulse 67, respirations 20, O2 sat 95% on room air, blood pressure 197/79, not yet had morning medicines. Last evening blood pressu re was 162/73. Her lungs were clear. Heart, regular rate. Extremities just trace edema. The legs have the chronic reddish blue hue with the petechial rash that is gradually improving. FBS this morn ing was 136. ASSESSMENT: 1. Generalized weakness and deconditioning. A. Following recent hospitalization for cellulitis of the lower extremities at [facility] . B. Presently she is primarily been at bed rest and just sitting at the edge of the bed for short per iods. C. Continued improvement as of 08/03/2018. 2. Hospitalized at [facility] from 07/24/2018 until 07/30/2018 for cellulitis of the lowe r extremities. 3. Cellulitis of the lower extremities. A. Recurrent B. Most recent episode requiring hospitalization at [facility] from 07/24/2018 until 07/10. Continued resolution as of 08/03/2018. C. On suppressive antibiotics with Pen-Vee K. 4. Severe venous insufficiency of the lower extremities. A. Presently marked improvement with her having had the recent bed rest. B. Stable with mild swelling with the increased dependency as of 08/03/2018. 5. Chronic stasis dermatitis of the lower extremities. 6. Diabetes type 2. A. Controlled with hemoglobin A1c of 6.4 on 07/31/2018. 7. Chronic kidney disease, GFR on 07/05/2018 45. 8. Hypertension. A. Controlled. 9. Hypothyroidism. 10. Generalized osteoarthritis. 11. Severe cervical spinal stenosis complicated by myelopathy. A. Presenting with weakness and paralysis of the lower extremities. B. Status post decompression and anterior fusion of the involved segments in 10/2014 with marked imp rovement. C. 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 12. 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 13. Obesity. 14. Anemia of chronic illness. 15. Diastolic dysfunction with ejection fraction of 60-65%. PLAN: The patient is doing better, but as she spends more time up with the legs dependent then she a gain gets into the gradual accumulation more fluids in the legs, right now things are reasonably stab le with only mild increased swelling. In the past she has been intolerant of the stockings. Will co carson to encourage her to be up for meals and physical therapy, otherwise, back in bed with legs gregorio vated or if there is adequate ability to recline with feet elevated to the level of the heart in her lounge chair she may use this. As the swelling goes down a little more in the legs the first of the week we will try her on 2-layer compression wraps and see if this will help and see if she is tolera nt of this. I had a long visit with her regarding her post-hospital stay outlining the difficulties she has in the assisted living and how the long periods that she stays up in a wheelchair or in her l ounge chair that does not adequately would raise the legs contributes to the edema in the lower extre mities and consequent increased risk of infection. I visited with her the possibility of going to [facility] living where she would have additional help and physical therapy. She is considering this, b ut her desire is to probably go back to the assisted living.
[2018-08-03] MEDS: Famotidine 20 MG TAB PO SCH (20:09)
[2018-08-04] MEDS: Levothyroxine Sodium 100 MCG TAB PO SCH (05:53)
[2018-08-04] MEDS: Saccharomyces boulardii 250 MG CAP PO SCH (08:30)
[2018-08-04] MEDS: Glimepiride 2 MG TAB PO SCH (08:30)
[2018-08-04] MEDS: Multivitamin W/ Minerals 1 TAB PO SCH ×2 (08:30→08:31)
[2018-08-04] MEDS: Penicillin V Potassium 250 MG TAB PO SCH ×2 (08:31→21:00)
[2018-08-04] MEDS: Furosemide 40 MG TAB PO SCH (08:31)
[2018-08-04] MEDS: Gabapentin 100 MG CAP PO SCH ×3 (08:31→20:52)
[2018-08-04] MEDS: Enoxaparin Sodium 40 MG/0.4 ML SYRINGE SC SCH (08:32)
[2018-08-04] MEDS: Polyethylene Glycol 3350 17 GM Packet PO SCH (08:32)
[2018-08-04] MEDS: Keri Lotion 15 oz BOT TOP SCH ×3 (08:32→20:52)
[2018-08-04] MEDS: Nystatin Powder 15 GM BOT TOP SCH ×2 (08:32→20:53)
[2018-08-04] MEDS: Famotidine 20 MG TAB PO SCH (20:53)
[2018-08-05] MEDS: Levothyroxine Sodium 100 MCG TAB PO SCH (05:46)
[2018-08-05] MEDS: Polyethylene Glycol 3350 17 GM Packet PO SCH (08:25)
[2018-08-05] MEDS: Enoxaparin Sodium 40 MG/0.4 ML SYRINGE SC SCH (08:25)
[2018-08-05] MEDS: Furosemide 40 MG TAB PO SCH (08:26)
[2018-08-05] MEDS: Saccharomyces boulardii 250 MG CAP PO SCH (08:26)
[2018-08-05] MEDS: Multivitamin W/ Minerals 1 TAB PO SCH (08:27)
[2018-08-05] MEDS: Glimepiride 2 MG TAB PO SCH (08:27)
[2018-08-05] MEDS: Gabapentin 100 MG CAP PO SCH ×3 (08:27→21:06)
[2018-08-05] MEDS: Penicillin V Potassium 250 MG TAB PO SCH ×2 (08:27→21:16)
[2018-08-05] MEDS: Keri Lotion 15 oz BOT TOP SCH ×3 (08:27→21:05)
[2018-08-05] MEDS: Nystatin Powder 15 GM BOT TOP SCH ×2 (08:28→21:17)
[2018-08-05] MEDS: Famotidine 20 MG TAB PO SCH (21:05)
[2018-08-05] MEDS: Acetaminophen 500 MG TAB PO PRN (21:06)
[2018-08-06] MEDS: Levothyroxine Sodium 100 MCG TAB PO SCH (05:43)
[2018-08-06] MEDS: Gabapentin 100 MG CAP PO SCH ×3 (08:23→20:31)
[2018-08-06] MEDS: Glimepiride 2 MG TAB PO SCH (08:24)
[2018-08-06] MEDS: Keri Lotion 15 oz BOT TOP SCH ×3 (08:24→20:35)
[2018-08-06] MEDS: Multivitamin W/ Minerals 1 TAB PO SCH (08:24)
[2018-08-06] MEDS: Furosemide 40 MG TAB PO SCH (08:24)
[2018-08-06] MEDS: Penicillin V Potassium 250 MG TAB PO SCH ×2 (08:24→21:09)
[2018-08-06] MEDS: Polyethylene Glycol 3350 17 GM Packet PO SCH (08:24)
[2018-08-06] MEDS: Enoxaparin Sodium 40 MG/0.4 ML SYRINGE SC SCH (08:24)
[2018-08-06] MEDS: Saccharomyces boulardii 250 MG CAP PO SCH (08:24)
[2018-08-06] MEDS: Nystatin Powder 15 GM BOT TOP SCH ×2 (08:25→20:36)
[2018-08-06] MEDS: Lisinopril 10 MG TAB PO SCH (08:32)
--- NOTE | 2018-08-06 09:05 | PRG ---
DATE OF SERVICE: 08/05/2018 SUBJECTIVE: The patient said she is feeling pretty good today. She thinks her legs are down a littl e bit. OBJECTIVE: GENERAL: The patient is sitting up in a wheelchair, having breakfast. She is alert, appears comfort able and in no distress. VITAL SIGNS: Shows a temperature 98.1, pulse 106, respirations 20, O2 sat 95% on room air, blood pre ssure 154/74, weight 265. LUNGS: Clear. HEART: Regular rate. EXTREMITIES: They still have red purplish hue when dependent and still have the petechial rash that is improving on the lower leg. There is a little edema and no significant change from yesterday. ASSESSMENT: 1. Generalized weakness and deconditioning. A. Following recent hospitalization for cellulitis of the lower extremities at [facility] . B. Presently she is primarily been at bed rest and just sitting at the edge of the bed for short per iods. C. Continued improvement as of 08/05/2018. 2. Hospitalized at [facility] from 07/24/2018 until 07/30/2018 for cellulitis of the lowe r extremities. 3. Cellulitis of the lower extremities. A. Recurrent B. Most recent episode requiring hospitalization at [facility] from 07/24/2018 until 07/10. Continued resolution as of 08/05/2018. C. On suppressive antibiotics with Pen-Vee K. 4. Severe venous insufficiency of the lower extremities. A. Presently marked improvement with her having had the recent bed rest. B. Stable as of 08/05/2018. 5. Chronic stasis dermatitis of the lower extremities. 6. Diabetes type 2. A. Controlled with hemoglobin A1c of 6.4 on 07/31/2018. 7. Chronic kidney disease, GFR on 07/05/2018 45. 8. Hypertension. A. Controlled. 9. Hypothyroidism. 10. Generalized osteoarthritis. 11. Severe cervical spinal stenosis complicated by myelopathy. A. Presenting with weakness and paralysis of the lower extremities. B. Status post decompression and anterior fusion of the involved segments in 10/2014 with marked imp rovement. C. 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 12. 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 13. Obesity. 14. Anemia of chronic illness. 15. Diastolic dysfunction with ejection fraction of 60-65%. A. No evidence of acute congestive heart failure. PLAN: Ask patient to stay at bed rest today except she can be up for her meals. This increased bed rest with the legs elevated will help with the swelling. I will plan on beginning 2 layer compressio n wraps of the lower leg early in the morning and see if this will allow her a little bit more period s up with the legs dependent.
--- NOTE | 2018-08-06 12:49 | PRG ---
DATE OF SERVICE: 08/06/2018 SUBJECTIVE: The patient said she is doing good. She did a lot of rest in bed over the weekend. She said she thinks her legs are down some, and she said she cannot feels the bumpiness to the legs, lik e they had been. She said the sensitivity is better, but they are itching some this morning. OBJECTIVE: The patient up this morning in physical therapy on the [facility]. She is in good spirits, a ppears comfortable and in no distress. Her temperature is 96.4, pulse 67, respirations 20, O2 sat 96 % on room air, blood pressure 177/79. Her lungs are clear. Heart, regular rate. Extremities have s ome trace edema. The cobblestoning is much less on the legs. FBS this morning was 101. ASSESSMENT: 1. Generalized weakness and deconditioning. A. Following recent hospitalization for cellulitis of the lower extremities at [facility] . B. Presently she is primarily been at bed rest and just sitting at the edge of the bed for short per iods. C. Continued improvement as of 08/06/2018. 2. Hospitalized at [facility] from 07/24/2018 until 07/30/2018 for cellulitis of the lowe r extremities. 3. Cellulitis of the lower extremities. A. Recurrent B. Most recent episode requiring hospitalization at [facility] from 07/24/2018 until 07/10. Resolved as of 08/06/2018. C. On suppressive antibiotics with Pen-Vee K. 4. Severe venous insufficiency of the lower extremities. A. Presently marked improvement with her having had the recent bed rest. B. Improved as of 08/06/2018. 5. Chronic stasis dermatitis of the lower extremities. 6. Diabetes type 2. A. Controlled with hemoglobin A1c of 6.4 on 07/31/2018. 7. Chronic kidney disease, GFR on 07/05/2018 45. 8. Hypertension. A. Pressure not quite optimally controlled as of 08/06/2018. 9. Hypothyroidism. 10. Generalized osteoarthritis. 11. Severe cervical spinal stenosis complicated by myelopathy. A. Presenting with weakness and paralysis of the lower extremities. B. Status post decompression and anterior fusion of the involved segments in 10/2014 with marked imp rovement. C. 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 12. 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 13. Obesity. 14. Anemia of chronic illness. 15. Diastolic dysfunction with ejection fraction of 60-65%. A. No evidence of acute congestive heart failure as of 08/06/2018. PLAN: The patient is due to have her lower legs wrapped with 2 layer compression wraps a little late r today. Hopefully, this will give us a little better chance to control the swelling on this lady's legs. We will continue the physical therapy. We will try the patient on lisinopril 10 mg daily to duran lim to help better control her BP.
[2018-08-06] MEDS: Acetaminophen 500 MG TAB PO PRN (20:31)
[2018-08-06] MEDS: Famotidine 20 MG TAB PO SCH (20:31)
[2018-08-07] MEDS: Levothyroxine Sodium 100 MCG TAB PO SCH (05:25)
[2018-08-07] MEDS: Furosemide 40 MG TAB PO SCH (07:45)
[2018-08-07] MEDS: Glimepiride 2 MG TAB PO SCH (07:45)
[2018-08-07] MEDS: Enoxaparin Sodium 40 MG/0.4 ML SYRINGE SC SCH (08:41)
[2018-08-07] MEDS: Saccharomyces boulardii 250 MG CAP PO SCH (08:42)
[2018-08-07] MEDS: Penicillin V Potassium 250 MG TAB PO SCH ×2 (08:42→20:09)
[2018-08-07] MEDS: Gabapentin 100 MG CAP PO SCH ×3 (08:42→20:09)
[2018-08-07] MEDS: Multivitamin W/ Minerals 1 TAB PO SCH (08:42)
[2018-08-07] MEDS: Lisinopril 10 MG TAB PO SCH (08:42)
[2018-08-07] MEDS: Keri Lotion 15 oz BOT TOP SCH ×3 (08:43→20:10)
[2018-08-07] MEDS: Nystatin Powder 15 GM BOT TOP SCH ×2 (08:44→20:10)
[2018-08-07] MEDS: Polyethylene Glycol 3350 17 GM Packet PO SCH (08:44)
--- NOTE | 2018-08-07 11:23 | PRG ---
DATE OF SERVICE: 08/07/2018 SUBJECTIVE: The patient said she is okay this morning. She has gotten up out of bed and is in a Freddy i chair that reclines and has the legs elevated with the level of the heart. The patient said she di d not rest as well. She had a little soreness in her leg. Yesterday the 2-layer compression wraps w ere applied and she said she thinks she is doing alright with those. OBJECTIVE: The patient is lying in a geriatric chair, fully recline with her legs up at least as hig h as the heart. Her vital signs show temperature of 98.3, pulse 69, respirations 18, O2 sat 96% on r oom air, blood pressure 132/63. Her weight is 171, up 6 pounds from last weight of 265 on 07/24/2018 . Lungs are clear. Heart, regular rate. The patient has 2 layer compression wraps on the lower leg s extending from the base of the toes up just below the knees. These seems to be well fitted and the swelling is not any more than usual. FBS this morning 153. ASSESSMENT: 1. Generalized weakness and deconditioning. A. Following recent hospitalization for cellulitis of the lower extremities at [facility] . B. Presently she is primarily been at bed rest and just sitting at the edge of the bed for short per iods. C. Continued improvement as of 08/07/2018. 2. Hospitalized at [facility] from 07/24/2018 until 07/30/2018 for cellulitis of the lowe r extremities. 3. Cellulitis of the lower extremities. A. Recurrent B. Most recent episode requiring hospitalization at [facility] from 07/24/2018 until 07/10. Resolved as of 08/06/2018. C. On suppressive antibiotics with Pen-Vee K. 4. Severe venous insufficiency of the lower extremities. A. Presently marked improvement with her having had the recent bed rest. B. Trial of assistance with control with 2 layer compression wraps that were initiated on 08/06/2018 . 5. Chronic stasis dermatitis of the lower extremities. 6. Diabetes type 2. A. Controlled with hemoglobin A1c of 6.4 on 07/31/2018. 7. Chronic kidney disease, GFR on 07/05/2018 45. 8. Hypertension. A. Controlled as of 08/07/2018. 9. Hypothyroidism. 10. Generalized osteoarthritis. 11. Severe cervical spinal stenosis complicated by myelopathy. A. Presenting with weakness and paralysis of the lower extremities. B. Status post decompression and anterior fusion of the involved segments in 10/2014 with marked imp rovement. C. 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 12. 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 13. Obesity. 14. Anemia of chronic illness. 15. Diastolic dysfunction with ejection fraction of 60-65%. A. No evidence of acute congestive heart failure as of 08/07/2018. PLAN: Continue present care. Every several days, the compression wraps of the lower legs will be ch anged. Continue PT. The patient should try to elevate the legs at least to the level of the heart w hen she is not at meals are involved in physical therapy.
[2018-08-07] MEDS: Acetaminophen 500 MG TAB PO PRN (20:09)
[2018-08-07] MEDS: Famotidine 20 MG TAB PO SCH (20:09)
[2018-08-08] MEDS: Levothyroxine Sodium 100 MCG TAB PO SCH (05:51)
[2018-08-08] MEDS: Enoxaparin Sodium 40 MG/0.4 ML SYRINGE SC SCH (08:26)
[2018-08-08] MEDS: Polyethylene Glycol 3350 17 GM Packet PO SCH (08:26)
[2018-08-08] MEDS: Multivitamin W/ Minerals 1 TAB PO SCH (08:27)
[2018-08-08] MEDS: Gabapentin 100 MG CAP PO SCH ×3 (08:27→20:41)
[2018-08-08] MEDS: Lisinopril 10 MG TAB PO SCH (08:27)
[2018-08-08] MEDS: Penicillin V Potassium 250 MG TAB PO SCH ×2 (08:27→20:41)
[2018-08-08] MEDS: Saccharomyces boulardii 250 MG CAP PO SCH (08:27)
[2018-08-08] MEDS: Glimepiride 2 MG TAB PO SCH (08:27)
[2018-08-08] MEDS: Furosemide 40 MG TAB PO SCH (08:28)
[2018-08-08] MEDS: Nystatin Powder 15 GM BOT TOP SCH ×2 (08:28→20:44)
[2018-08-08] MEDS: Keri Lotion 15 oz BOT TOP SCH ×4 (08:28→20:44)
--- NOTE | 2018-08-08 08:58 | PRG ---
DATE OF SERVICE: 08/08/2018 SUBJECTIVE: The patient says she is feeling good. Her legs are okay. She seemed to be tolerating t he 2-layer compression wraps of the lower extremities. This morning she is up walking toward the [facility] therapy room with her walker and PT attendant. OBJECTIVE: The patient is alert, appears very comfortable, in no distress. Her temperature is 97.2, pulse 61, respirations 18, O2 sat 96% on room air, blood pressure 142/69. Her weight is 271 from an admission weight of 265. Her lungs are clear. Heart, regular rate. Lower extremities, the patient has 2 layer compression wraps from the base of the toes to just below the knee. Size-jurado the legs do not seem any different. ASSESSMENT: 1. Generalized weakness and deconditioning. A. Following recent hospitalization for cellulitis of the lower extremities at [facility] . B. Presently she is primarily been at bed rest and just sitting at the edge of the bed for short per iods. C. Continued improvement as of 08/08/2018. 2. Hospitalized at [facility] from 07/24/2018 until 07/30/2018 for cellulitis of the lowe r extremities. 3. Cellulitis of the lower extremities. A. Recurrent B. Most recent episode requiring hospitalization at [facility] from 07/24/2018 until 07/10. Resolved as of 08/06/2018. C. On suppressive antibiotics with Pen-Vee K. 4. Severe venous insufficiency of the lower extremities. A. Presently marked improvement with her having had the recent bed rest. B. Tolerating the knee high 2-layer compression wraps as of 08/08/2018, initiated on 08/06/2018. 5. Chronic stasis dermatitis of the lower extremities. 6. Diabetes type 2. A. Controlled with hemoglobin A1c of 6.4 on 07/31/2018. 7. Chronic kidney disease, GFR on 07/05/2018 45. 8. Hypertension. A. Controlled as of 08/08/2018. 9. Hypothyroidism. 10. Generalized osteoarthritis. 11. Severe cervical spinal stenosis complicated by myelopathy. A. Presenting with weakness and paralysis of the lower extremities. B. Status post decompression and anterior fusion of the involved segments in 10/2014 with marked imp rovement. C. 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 12. 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 13. Obesity. 14. Anemia of chronic illness. 15. Diastolic dysfunction with ejection fraction of 60-65%. A. No evidence of acute congestive heart failure as of 08/08/2018. PLAN: Continue PT. Continue the compression wraps to the lower extremities.
[2018-08-08] MEDS: Famotidine 20 MG TAB PO SCH (20:40)
[2018-08-08] MEDS: Acetaminophen 500 MG TAB PO PRN (20:42)
[2018-08-09] MEDS: Levothyroxine Sodium 100 MCG TAB PO SCH (05:47)
[2018-08-09] MEDS: Multivitamin W/ Minerals 1 TAB PO SCH (08:49)
[2018-08-09] MEDS: Saccharomyces boulardii 250 MG CAP PO SCH (08:49)
[2018-08-09] MEDS: Furosemide 40 MG TAB PO SCH (08:50)
[2018-08-09] MEDS: Gabapentin 100 MG CAP PO SCH ×3 (08:50→20:33)
[2018-08-09] MEDS: Penicillin V Potassium 250 MG TAB PO SCH ×2 (08:50→20:33)
[2018-08-09] MEDS: Enoxaparin Sodium 40 MG/0.4 ML SYRINGE SC SCH (08:51)
[2018-08-09] MEDS: Keri Lotion 15 oz BOT TOP SCH ×3 (08:51→20:33)
[2018-08-09] MEDS: Glimepiride 2 MG TAB PO SCH (08:51)
[2018-08-09] MEDS: Lisinopril 10 MG TAB PO SCH (08:52)
[2018-08-09] MEDS: Polyethylene Glycol 3350 17 GM Packet PO SCH (08:52)
[2018-08-09] MEDS: Nystatin Powder 15 GM BOT TOP SCH ×2 (08:53→20:33)
--- NOTE | 2018-08-09 09:30 | PRG ---
DATE OF SERVICE: 08/09/2018 SUBJECTIVE: The patient said that during the night her legs just got to hurting too much and she had to have the 2-layer compression wraps removed. She has been up for at least an hour in her [facility] ir with the head reclined and the feet elevated. OBJECTIVE: The patient is lying in her geriatric chair. She is alert, looks comfortable in no distr ess. Her vital signs show a temperature 97.5, pulse 60, respirations 18, O2 sat 95%, blood pressure 158/75. Lungs are clear. Heart, regular rate. Lower extremities, there is trace edema. Legs are a little smaller. The purplish petechial rash is all resolving and she has just chronic stasis change s with a reddish blue hue to the skin. The legs are just very sensitive to touch. ASSESSMENT: 1. Generalized weakness and deconditioning. A. Following recent hospitalization for cellulitis of the lower extremities at [facility] . B. Presently she is primarily been at bed rest and just sitting at the edge of the bed for short per iods. C. Continued improvement as of 08/09/2018. 2. Hospitalized at [facility] from 07/24/2018 until 07/30/2018 for cellulitis of the lowe r extremities. 3. Cellulitis of the lower extremities. A. Recurrent B. Most recent episode requiring hospitalization at [facility] from 07/24/2018 until 07/10. Resolved as of 08/06/2018. C. On suppressive antibiotics with Pen-Vee K. 4. Severe venous insufficiency of the lower extremities. A. Presently marked improvement with her having had the recent bed rest. B. Trial of 2 layer compression wraps initiated on 08/06/2018. Had to remove these advertising display rotator of 08/09/2018 because of discomfort. 5. Chronic stasis dermatitis of the lower extremities. 6. Diabetes type 2. A. Controlled with hemoglobin A1c of 6.4 on 07/31/2018. 7. Chronic kidney disease, GFR on 07/05/2018 45. 8. Hypertension. A. Controlled as of 08/09/2018. 9. Hypothyroidism. 10. Generalized osteoarthritis. 11. Severe cervical spinal stenosis complicated by myelopathy. A. Presenting with weakness and paralysis of the lower extremities. B. Status post decompression and anterior fusion of the involved segments in 10/2014 with marked imp rovement. C. 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 12. 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 13. Obesity. 14. Anemia of chronic illness. 15. Diastolic dysfunction with ejection fraction of 60-65%. A. No evidence of acute congestive heart failure as of 08/09/2018. PLAN: I had a long visit with the patient regarding her legs and post-hospital care, that is return ing to assisted living versus entering the [facility]. I had suggested that she retry the compress ion wraps if she is willing. If she can tolerate these, this would give us a little bit more leverag e to control the venous insufficiency, then it can be managed as an outpatient. This may allow her t o return to assisted living. If she is intolerant of the wraps, she is also intolerant of any stocki ngs. If she [facility] to the [facility] without compression wraps and then nothing will be any diffe rent and would expect these repeated episodes of gradual increasing swelling, increasing pains and re curring episodes of cellulitis. She will consider this and also is still considering possible nursin g home placement. Either placed that she goes to, she will need long periods throughout the day with the legs elevated and bed rest at night with the legs elevated to help control the swelling.
[2018-08-09] MEDS: Acetaminophen 500 MG TAB PO PRN ×2 (11:49→20:35)
[2018-08-09 16:47] VITALS: BMI 42.4
[2018-08-09] MEDS: Famotidine 20 MG TAB PO SCH (20:33)
[2018-08-10] MEDS: Levothyroxine Sodium 100 MCG TAB PO SCH (05:32)
[2018-08-10] MEDS: Lisinopril 10 MG TAB PO SCH (08:43)
[2018-08-10] MEDS: Furosemide 40 MG TAB PO SCH (08:43)
[2018-08-10] MEDS: Gabapentin 100 MG CAP PO SCH ×3 (08:43→20:57)
[2018-08-10] MEDS: Penicillin V Potassium 250 MG TAB PO SCH ×2 (08:44→20:57)
[2018-08-10] MEDS: Multivitamin W/ Minerals 1 TAB PO SCH (08:44)
[2018-08-10] MEDS: Glimepiride 2 MG TAB PO SCH (08:44)
[2018-08-10] MEDS: Polyethylene Glycol 3350 17 GM Packet PO SCH (08:45)
[2018-08-10] MEDS: Nystatin Powder 15 GM BOT TOP SCH ×2 (08:45→20:57)
[2018-08-10] MEDS: Enoxaparin Sodium 40 MG/0.4 ML SYRINGE SC SCH (08:45)
[2018-08-10] MEDS: Saccharomyces boulardii 250 MG CAP PO SCH (08:46)
[2018-08-10] MEDS: Keri Lotion 15 oz BOT TOP SCH ×3 (08:46→20:56)
[2018-08-10] MEDS: Famotidine 20 MG TAB PO SCH (20:57)
[2018-08-10] MEDS: Acetaminophen 500 MG TAB PO PRN (20:57)
[2018-08-11] MEDS: Levothyroxine Sodium 100 MCG TAB PO SCH (05:21)
[2018-08-11] MEDS: Polyethylene Glycol 3350 17 GM Packet PO SCH (08:36)
[2018-08-11] MEDS: Glimepiride 2 MG TAB PO SCH (08:37)
[2018-08-11] MEDS: Gabapentin 100 MG CAP PO SCH ×3 (08:38→21:33)
[2018-08-11] MEDS: Saccharomyces boulardii 250 MG CAP PO SCH (08:38)
[2018-08-11] MEDS: Multivitamin W/ Minerals 1 TAB PO SCH (08:38)
[2018-08-11] MEDS: Lisinopril 10 MG TAB PO SCH (08:38)
[2018-08-11] MEDS: Furosemide 40 MG TAB PO SCH (08:38)
[2018-08-11] MEDS: Penicillin V Potassium 250 MG TAB PO SCH ×2 (08:38→21:34)
[2018-08-11] MEDS: Nystatin Powder 15 GM BOT TOP SCH ×2 (08:39→21:35)
[2018-08-11] MEDS: Enoxaparin Sodium 40 MG/0.4 ML SYRINGE SC SCH (08:39)
[2018-08-11] MEDS: Keri Lotion 15 oz BOT TOP SCH ×3 (08:39→21:35)
--- NOTE | 2018-08-11 12:57 | PRG ---
DATE OF SERVICE: 08/11/2018 SUBJECTIVE: The patient said she is feeling good today. She had her knee-high 2-layer compression w raps changed out on , 08/09/2018. She said her legs are feeling good. She slept good last n ight. She is trying to keep her legs elevated at least to the level of the heart when she is not eat ing or having PT. OBJECTIVE: GENERAL: The patient is alert, appears very comfortable in no distress. She is just walking back fr om the bathroom with her walker and sitting down in her Sandra chair. She looks very comfortable. VITAL SIGNS: Her vital signs show a temperature of 97.6, pulse 71, respirations 18, O2 sat 97% on ro om air, blood pressure 145/73. LUNGS: Clear. HEART: Regular rate. EXTREMITIES: A 2-layer compression wraps from the base of the toe to just below the knee. She has some edema under these, but it appears no more than what it was yesterday. ASSESSMENT: 1. Generalized weakness and deconditioning. A. Following recent hospitalization for cellulitis of the lower extremities at [facility] . B. Presently she is primarily been at bed rest and just sitting at the edge of the bed for short per iods. C. Continued improvement as of 08/11/2018. 2. Hospitalized at [facility] from 07/24/2018 until 07/30/2018 for cellulitis of the lowe r extremities. 3. Cellulitis of the lower extremities. A. Recurrent B. Most recent episode requiring hospitalization at [facility] from 07/24/2018 until 07/10. Resolved as of 08/06/2018. C. On suppressive antibiotics with Pen-Vee K. 4. Severe venous insufficiency of the lower extremities. A. Presently marked improvement with her having had the recent bed rest. B. Trial of 2 layer compression wraps initiated on 08/06/2018. Had to remove these speech communication instructor of 08/09/2018 because of discomfort. C. A 2-layer compression wraps were reapplied on 08/09/2018 and tolerating this very well as of 12/2017. 5. Chronic stasis dermatitis of the lower extremities. 6. Diabetes type 2. A. Controlled with hemoglobin A1c of 6.4 on 07/31/2018. 7. Chronic kidney disease, GFR on 07/05/2018 45. 8. Hypertension. A. Controlled as of 08/11/2018. 9. Hypothyroidism. 10. Generalized osteoarthritis. 11. Severe cervical spinal stenosis complicated by myelopathy. A. Presenting with weakness and paralysis of the lower extremities. B. Status post decompression and anterior fusion of the involved segments in 10/2014 with marked imp rovement. C. 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 12. 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 13. Obesity. 14. Anemia of chronic illness. 15. Diastolic dysfunction with ejection fraction of 60-65%. A. No evidence of acute congestive heart failure as of 08/11/2018. PLAN: Continue present care. Continue PT. The patient due to have her compression wraps changed ou t on 08/13/2018. We will see how this goes over the next few days and then if manages well, these will be changed again on 08/16/2018 and then probably discharge the patient to the assisted [facility] ing. with her about the importance there of maintaining elevation of the legs at least to the level of the heart and above other than at her mealtimes and physical therapy.
--- NOTE | 2018-08-11 12:59 | PRG ---
DATE OF SERVICE: 08/10/2018 SUBJECTIVE: The patient said that she had the 2-layer compression wraps replaced on the lower legs y esterday. The patient said that the legs got a little sore when she was up, but after she laid down the legs felt better. She slept well. This morning her legs feel good. OBJECTIVE: The patient is sitting up in a wheelchair, eating her breakfast. She is alert, appears c omfortable in no distress. Her temperature is 96.6, pulse 66, respirations 18, O2 saturation 98%, bl ood pressure 140/76. Her weight is 271, which is up from admission of 265. Lungs are clear. Heart, regular rate. The patient has 2 layer compression wraps on the lower extremities. There is some ed irma that could be felt to the legs, but they appear pretty stable. ASSESSMENT: 1. Generalized weakness and deconditioning. A. Following recent hospitalization for cellulitis of the lower extremities at [facility] . B. Presently she is primarily been at bed rest and just sitting at the edge of the bed for short per iods. C. Continued improvement as of 08/10/2018. 2. Hospitalized at [facility] from 07/24/2018 until 07/30/2018 for cellulitis of the lowe r extremities. 3. Cellulitis of the lower extremities. A. Recurrent B. Most recent episode requiring hospitalization at [facility] from 07/24/2018 until 07/10. Resolved as of 08/06/2018. C. On suppressive antibiotics with Pen-Vee K. 4. Severe venous insufficiency of the lower extremities. A. Presently marked improvement with her having had the recent bed rest. B. Trial of 2 layer compression wraps initiated in 08/06/2018. Had to remove these rental counter clerk of 08/09/2018 because of discomfort. These were reapplied on 08/09/2018 and seemed to be tolerating we ll as of 08/10/2018. 5. Chronic stasis dermatitis of the lower extremities. 6. Diabetes type 2. A. Controlled with hemoglobin A1c of 6.4 on 07/31/2018. 7. Chronic kidney disease, GFR on 07/05/2018 45. 8. Hypertension. A. Controlled as of 08/09/2018. 9. Hypothyroidism. 10. Generalized osteoarthritis. 11. Severe cervical spinal stenosis complicated by myelopathy. A. Presenting with weakness and paralysis of the lower extremities. B. Status post decompression and anterior fusion of the involved segments in 10/2014 with marked imp rovement. C. 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 12. 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 13. Obesity. 14. Anemia of chronic illness. 15. Diastolic dysfunction with ejection fraction of 60-65%. A. No evidence of acute congestive heart failure as of 08/10/2018. PLAN: The patient seemed to be tolerating these compression wraps fine. We will continue these. I encouraged her when she is not at her meal or exercising she needs to be off the legs with the legs e levated to the level of the heart. The patient due to have the wraps changed out on Monday 8. If she continues to tolerate this, may consider discharge to assisted living at the next dressing change which would be 08/17/2018 and then continue these as an outpatient b.i.d.
[2018-08-11] MEDS: Famotidine 20 MG TAB PO SCH (21:33)
[2018-08-11] MEDS: Acetaminophen 500 MG TAB PO PRN (21:34)
[2018-08-12] MEDS: Levothyroxine Sodium 100 MCG TAB PO SCH (05:33)
[2018-08-12] MEDS: Polyethylene Glycol 3350 17 GM Packet PO SCH (08:45)
[2018-08-12] MEDS: Acetaminophen 500 MG TAB PO PRN ×2 (08:46→20:10)
[2018-08-12] MEDS: Furosemide 40 MG TAB PO SCH (08:46)
[2018-08-12] MEDS: Gabapentin 100 MG CAP PO SCH ×3 (08:46→20:09)
[2018-08-12] MEDS: Multivitamin W/ Minerals 1 TAB PO SCH (08:46)
[2018-08-12] MEDS: Glimepiride 2 MG TAB PO SCH (08:46)
[2018-08-12] MEDS: Saccharomyces boulardii 250 MG CAP PO SCH (08:46)
[2018-08-12] MEDS: Penicillin V Potassium 250 MG TAB PO SCH ×2 (08:46→20:10)
[2018-08-12] MEDS: Nystatin Powder 15 GM BOT TOP SCH ×2 (08:47→20:15)
[2018-08-12] MEDS: Lisinopril 10 MG TAB PO SCH (08:47)
[2018-08-12] MEDS: Keri Lotion 15 oz BOT TOP SCH ×3 (08:48→20:15)
[2018-08-12] MEDS: Enoxaparin Sodium 40 MG/0.4 ML SYRINGE SC SCH (08:50)
[2018-08-12] MEDS: Famotidine 20 MG TAB PO SCH (20:10)
[2018-08-13 05:06] LABS: #Basophils 0.1 thou/uL (0.0-0.2); #Eosinphils 0.3 thou/uL (0.0-0.7); #Lymphocytes 1.4 thou/uL (1.20-3.40); #Monocytes 0.4 thou/uL (0.11-0.59); #Neutrophils 2.8 thou/uL (1.40-6.50); %Basophils 1.8 % (0.0-1.0); %Monocytes 7.4 % (0.0-10.0); %Neutrophils 56.8 % (42.0-75.0); Hemoglobin 10.4 g/dL (12.0-16.0); Mean Corpuscular HGB CONC 31.4 g/dL (32.0-36.0); Mean Corpuscular Hemoglobin 27.7 pg (27.0-31.0); Mean Corpuscular Volume 88.3 fL (78.0-98.0); Mean Platelet Volume 8.7 fL (7.4-10.4); Platelet Count 188 thou/uL (130-400); RBC Distribution Width 11.9 % (11.5-14.5); Red Blood Cell (RBC) Count 3.76 mill/uL (4.20-5.40); White Blood Cell (WBC) Count 4.9 thou/uL (4.8-10.8)
[2018-08-13 05:24] LABS: Anion Gap 14 mmol/L (10-20); BUN (Urea Nitrogen) 24 mg/dL (9.8-20.1); Calc. Creatinine Clearance 84 mL/min (70-130); Calcium 8.6 mg/dL (7.8-10.44); Carbon Dioxide 25 mmol/L (23-31); Chloride 107 mmol/L (98-107); Estimated GFR-MDRD 50; Glucose 136 mg/dL (83-110); Potassium 4.5 mmol/L (3.5-5.1); Sodium 141 mmol/L (136-145)
[2018-08-13] MEDS: Levothyroxine Sodium 100 MCG TAB PO SCH (05:25)
[2018-08-13] MEDS: Furosemide 40 MG TAB PO SCH (07:15)
[2018-08-13] MEDS: Glimepiride 2 MG TAB PO SCH (07:15)
[2018-08-13] MEDS: Enoxaparin Sodium 40 MG/0.4 ML SYRINGE SC SCH (08:20)
[2018-08-13] MEDS: Multivitamin W/ Minerals 1 TAB PO SCH (08:21)
[2018-08-13] MEDS: Penicillin V Potassium 250 MG TAB PO SCH ×2 (08:21→20:14)
[2018-08-13] MEDS: Saccharomyces boulardii 250 MG CAP PO SCH (08:21)
[2018-08-13] MEDS: Lisinopril 10 MG TAB PO SCH (08:21)
[2018-08-13] MEDS: Gabapentin 100 MG CAP PO SCH ×3 (08:22→20:14)
[2018-08-13] MEDS: Keri Lotion 15 oz BOT TOP SCH ×3 (08:22→20:10)
[2018-08-13] MEDS: Nystatin Powder 15 GM BOT TOP SCH ×2 (08:23→20:14)
[2018-08-13] MEDS: Polyethylene Glycol 3350 17 GM Packet PO SCH (08:23)
[2018-08-13] MEDS: Famotidine 20 MG TAB PO SCH (20:14)
[2018-08-13] MEDS: Acetaminophen 500 MG TAB PO PRN (20:14)
[2018-08-14] MEDS: Acetaminophen 500 MG TAB PO PRN ×2 (02:54→20:31)
[2018-08-14] MEDS: Levothyroxine Sodium 100 MCG TAB PO SCH (05:09)
[2018-08-14] MEDS: Lisinopril 10 MG TAB PO SCH (08:43)
[2018-08-14] MEDS: Multivitamin W/ Minerals 1 TAB PO SCH (08:43)
[2018-08-14] MEDS: Furosemide 40 MG TAB PO SCH (08:43)
[2018-08-14] MEDS: Glimepiride 2 MG TAB PO SCH (08:43)
[2018-08-14] MEDS: Nystatin Powder 15 GM BOT TOP SCH ×2 (08:44→20:34)
[2018-08-14] MEDS: Saccharomyces boulardii 250 MG CAP PO SCH (08:44)
[2018-08-14] MEDS: Polyethylene Glycol 3350 17 GM Packet PO SCH (08:44)
[2018-08-14] MEDS: Penicillin V Potassium 250 MG TAB PO SCH ×2 (08:44→20:30)
[2018-08-14] MEDS: Gabapentin 100 MG CAP PO SCH ×3 (08:44→20:30)
[2018-08-14] MEDS: Enoxaparin Sodium 40 MG/0.4 ML SYRINGE SC SCH (08:44)
--- NOTE | 2018-08-14 10:03 | PRG ---
DATE OF SERVICE: 08/14/2018 SUBJECTIVE: The patient said she is doing good. She is walking further up to 200 feet. She is work ing out on the [employer] today. Yesterday, her 2-layer compression wraps were replaced and they feel ve ry comfortable. OBJECTIVE: The patient is alert, appears very comfortable. She is sitting on the [employer] working out . Her vital signs show a temperature 97.9, pulse 67, respirations 18, O2 sat 96% on room air, blood pressure 145/70. Her weight is 272. Lungs are clear. Heart, regular rate. Lower legs, there is sm all amount of edema that look better. She has the new 2 layer compression wrap from the base of the toes to just below the knees that were placed yesterday. These seem to fit well and very comfortable . ASSESSMENT: 1. Generalized weakness and deconditioning. A. Following recent hospitalization for cellulitis of the lower extremities at [facility] . B. Presently she is primarily been at bed rest and just sitting at the edge of the bed for short per iods. C. Improved. Walking 150-200 feet, transferring with just standby assist as of 08/14/2018. 2. Hospitalized at [facility] from 07/24/2018 until 07/30/2018 for cellulitis of the lowe r extremities. 3. Cellulitis of the lower extremities. A. Recurrent B. Most recent episode requiring hospitalization at [facility] from 07/24/2018 until 07/10. Resolved as of 08/06/2018. C. On suppressive antibiotics with Pen-Vee K. 4. Severe venous insufficiency of the lower extremities. A. Presently marked improvement with her having had the recent bed rest. B. Trial of 2 layer compression wraps initiated on 08/06/2018. Had to remove these tax manager of 08/09/2018 because of discomfort. C. Two layer compression wraps have been reapplied on 08/13/2018 and very comfortable and seemed to be working well as of 08/14/2018. 5. Chronic stasis dermatitis of the lower extremities. 6. Diabetes type 2. A. Controlled with hemoglobin A1c of 6.4 on 07/31/2018. 7. Chronic kidney disease, GFR on 07/05/2018 45. 8. Hypertension. A. Controlled as of 08/11/2018. 9. Hypothyroidism. 10. Generalized osteoarthritis. 11. Severe cervical spinal stenosis complicated by myelopathy. A. Presenting with weakness and paralysis of the lower extremities. B. Status post decompression and anterior fusion of the involved segments in 10/2014 with marked imp rovement. C. 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 12. 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 13. Obesity. 14. Anemia of chronic illness. 15. Diastolic dysfunction with ejection fraction of 60-65%. A. No evidence of acute congestive heart failure as of 08/14/2018. PLAN: Continue PT. Continue the 2 layer compression wraps twice a week. She will be due to have cheryl rechanged on , 08/16/2018 and then anticipate discharge to the assisted living. Will sherif degroot to continue the occupational therapy visits twice a week for reapplication of the 2-layer compressi on wraps and during that time we will also arrange for physical therapy.
[2018-08-14] MEDS: Keri Lotion 15 oz BOT TOP SCH ×3 (14:00→20:34)
[2018-08-14] MEDS: Famotidine 20 MG TAB PO SCH (20:30)
[2018-08-15] MEDS: Levothyroxine Sodium 100 MCG TAB PO SCH (05:34)
[2018-08-15] MEDS: Enoxaparin Sodium 40 MG/0.4 ML SYRINGE SC SCH (08:33)
[2018-08-15] MEDS: Gabapentin 100 MG CAP PO SCH ×3 (08:33→21:53)
[2018-08-15] MEDS: Furosemide 40 MG TAB PO SCH (08:33)
[2018-08-15] MEDS: Multivitamin W/ Minerals 1 TAB PO SCH (08:34)
[2018-08-15] MEDS: Saccharomyces boulardii 250 MG CAP PO SCH (08:34)
[2018-08-15] MEDS: Penicillin V Potassium 250 MG TAB PO SCH ×2 (08:34→21:54)
[2018-08-15] MEDS: Glimepiride 2 MG TAB PO SCH (08:34)
[2018-08-15] MEDS: Lisinopril 10 MG TAB PO SCH (08:34)
[2018-08-15] MEDS: Nystatin Powder 15 GM BOT TOP SCH ×2 (08:35→21:54)
[2018-08-15] MEDS: Polyethylene Glycol 3350 17 GM Packet PO SCH (08:35)
[2018-08-15] MEDS: Keri Lotion 15 oz BOT TOP SCH ×3 (08:35→21:53)
[2018-08-15] MEDS: Famotidine 20 MG TAB PO SCH (21:53)
[2018-08-15] MEDS: Acetaminophen 500 MG TAB PO PRN (21:56)
[2018-08-16] MEDS: Levothyroxine Sodium 100 MCG TAB PO SCH (05:59)
[2018-08-16] MEDS: Enoxaparin Sodium 40 MG/0.4 ML SYRINGE SC SCH (08:09)
[2018-08-16] MEDS: Glimepiride 2 MG TAB PO SCH (08:10)
[2018-08-16] MEDS: Penicillin V Potassium 250 MG TAB PO SCH ×2 (08:10→21:31)
[2018-08-16] MEDS: Saccharomyces boulardii 250 MG CAP PO SCH (08:10)
[2018-08-16] MEDS: Gabapentin 100 MG CAP PO SCH ×3 (08:11→21:39)
[2018-08-16] MEDS: Furosemide 40 MG TAB PO SCH (08:11)
[2018-08-16] MEDS: Lisinopril 10 MG TAB PO SCH (08:11)
[2018-08-16] MEDS: Multivitamin W/ Minerals 1 TAB PO SCH (08:12)
[2018-08-16] MEDS: Nystatin Powder 15 GM BOT TOP SCH ×2 (08:13→21:31)
[2018-08-16] MEDS: Keri Lotion 15 oz BOT TOP SCH ×3 (08:13→21:00)
[2018-08-16] MEDS: Polyethylene Glycol 3350 17 GM Packet PO SCH (08:13)
--- NOTE | 2018-08-16 09:41 | PRG ---
DATE OF SERVICE: 08/16/2018 SUBJECTIVE: The patient said she is doing well. She is walking with her rolling walker. She is tra nsferring with just standby assistance. She is tolerating her compression wraps to the lower legs. OBJECTIVE: The patient is alert, appears comfortable in no distress. She is sitting up on the NuSte p getting ready to have her morning workout. Her vital signs show a temperature of 98.3, pulse 65, r espirations 20, O2 sat 95% on room air, blood pressure 141/74. Lungs were clear. Heart, regular rat e, lower extremities have the lower leg 2 layer compression wraps. ASSESSMENT: 1. Generalized weakness and deconditioning. A. Following recent hospitalization for cellulitis of the lower extremities at [facility] . B. Presently she is primarily been at bed rest and just sitting at the edge of the bed for short per iods. C. Improved. Walking 150-200 feet, transferring with just standby assist as of 08/16/2018. 2. Hospitalized at [facility] from 07/24/2018 until 07/30/2018 for cellulitis of the lowe r extremities. 3. Cellulitis of the lower extremities. A. Recurrent B. Most recent episode requiring hospitalization at [facility] from 07/24/2018 until 07/10. Resolved as of 08/06/2018. C. On suppressive antibiotics with Pen-Vee K. 4. Severe venous insufficiency of the lower extremities. A. Presently marked improvement with her having had the recent bed rest. B. Trial of 2 layer compression wraps initiated on 08/06/2018. Had to remove these medical housekeeper of 08/09/2018 because of discomfort. C. Two layer compression wraps have been reapplied on 08/13/2018 and very comfortable and seemed to be working well as of 08/16/2018. 5. Chronic stasis dermatitis of the lower extremities. 6. Diabetes type 2. A. Controlled with hemoglobin A1c of 6.4 on 07/31/2018. 7. Chronic kidney disease, GFR on 07/05/2018 45. 8. Hypertension. A. Controlled as of 08/16/2018. 9. Hypothyroidism. 10. Generalized osteoarthritis. 11. Severe cervical spinal stenosis complicated by myelopathy. A. Presenting with weakness and paralysis of the lower extremities. B. Status post decompression and anterior fusion of the involved segments in 10/2014 with marked imp rovement. C. 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 12. 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 13. Obesity. 14. Anemia of chronic illness. 15. Diastolic dysfunction with ejection fraction of 60-65%. A. No evidence of acute congestive heart failure as of 08/16/2018. PLAN: The patient will continue physical therapy. The payroll benefits administrator from the assisted living is graciela ordonez to meet with patient today. She is worried whether or not they can offer adequate level of care t hat the patient needs in the assisted living and also of concerned about transportation back and [place] for her compression dressing changes. She is exploring options, also was still exploring nursing h ome placement which probably would offer her certainly more higher level of care for the patient. We will visit with the payroll benefits administrator of assisted living and also with Charlene Stats of [employer] for their recommendations.
[2018-08-16] MEDS: Famotidine 20 MG TAB PO SCH (21:30)
[2018-08-16] MEDS: Acetaminophen 500 MG TAB PO PRN (21:39)
[2018-08-17] MEDS: Levothyroxine Sodium 100 MCG TAB PO SCH (05:37)
[2018-08-17] MEDS: Multivitamin W/ Minerals 1 TAB PO SCH (08:10)
[2018-08-17] MEDS: Gabapentin 100 MG CAP PO SCH ×2 (08:10→14:44)
[2018-08-17] MEDS: Penicillin V Potassium 250 MG TAB PO SCH (08:10)
[2018-08-17] MEDS: Furosemide 40 MG TAB PO SCH (08:10)
[2018-08-17] MEDS: Glimepiride 2 MG TAB PO SCH (08:11)
[2018-08-17] MEDS: Saccharomyces boulardii 250 MG CAP PO SCH (08:11)
[2018-08-17] MEDS: Polyethylene Glycol 3350 17 GM Packet PO SCH (08:11)
[2018-08-17] MEDS: Nystatin Powder 15 GM BOT TOP SCH (08:11)
[2018-08-17] MEDS: Lisinopril 10 MG TAB PO SCH (08:11)
[2018-08-17] MEDS: Enoxaparin Sodium 40 MG/0.4 ML SYRINGE SC SCH (08:12)
[2018-08-17] MEDS: Keri Lotion 15 oz BOT TOP SCH ×2 (08:12→14:45)
[2018-08-17 08:44] VITALS: BP 159/71; TEMP 97.2
--- NOTE | 2018-08-17 13:41 | DIS ---
DATE OF ADMISSION: Admitted to extended care at [facility] on 07/30/2018. DATE OF DISCHARGE: 08/17/2018. FINAL DIAGNOSES: 1. Generalized weakness and deconditioning. A. Following recent hospitalization for cellulitis of the lower extremities at [facility] . B. Presently she is primarily been at bed rest and just sitting at the edge of the bed for short per iods. C. Improved. Walking 150-200 feet, transferring with just standby assist as of 08/16/2018. 2. Hospitalized at [facility] from 07/24/2018 until 07/30/2018 for cellulitis of the lowe r extremities. 3. Cellulitis of the lower extremities. A. Recurrent B. Most recent episode requiring hospitalization at [facility] from 07/24/2018 until 07/10. Resolved as of 08/06/2018. C. On suppressive antibiotics with Pen-Vee K. 4. Severe venous insufficiency of the lower extremities. A. Presently marked improvement with her having had the recent bed rest. B. Trial of 2 layer compression wraps initiated on 08/06/2018. Had to remove these podiatric assistant of 08/09/2018 because of discomfort. C. Two layer compression wraps have been reapplied on 08/13/2018 and very comfortable and seemed to be working well as of 08/17/2018. 5. Chronic stasis dermatitis of the lower extremities. 6. Diabetes type 2. A. Controlled with hemoglobin A1c of 6.4 on 07/31/2018. 7. Chronic kidney disease, GFR on 07/05/2018 45. 8. Hypertension. A. Controlled as of 08/17/2018. 9. Hypothyroidism. 10. Generalized osteoarthritis. 11. Severe cervical spinal stenosis complicated by myelopathy. A. Presenting with weakness and paralysis of the lower extremities. B. Status post decompression and anterior fusion of the involved segments in 10/2014 with marked imp rovement. C. 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 12. 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 13. Obesity. 14. Anemia of chronic illness. 15. Diastolic dysfunction with ejection fraction of 60-65%. A. No evidence of acute congestive heart failure as of 08/17/2018. REASON FOR ADMISSION: The patient is a 77-year-old white female who has a history of severe venous i nsufficiency of the lower extremities complicated by chronic stasis dermatitis, chronic edema. She h as had numerous inpatient care for cellulitis of the lower extremities. She has quadriparesis second willard to severe cervical myelopathy with severe spinal stenosis for which she has undergone a cervical decompression. This has left her with weakness in the upper and lower extremities, but she is able t o ambulate with the use of a walker and also in a wheelchair. She has a history of diabetes that is well controlled and also has a diastolic dysfunction. She has chronic low back pain from a failed mathew rgical back syndrome. She was hospitalized at [facility] from 07/24/2018 until 07/30/2018 for recurrent cellulitis of the lower extremities and severe pain in the legs from the cellulitis an d hyperesthesia of the legs from neuropathy. She was left extremely weak and had only been able to t olerate just sitting on the edge of the bed. She was referred to [facility] to extended care f or physical therapy and occupational therapy in the hopes of being able to return to assisted living. HOSPITAL COURSE: During her hospitalization, her strength gradually improved. She began first kita ating sitting on the edge of the bed, was progressed up into a chair and then back ambulating. Event ually, she was ambulating around to the physical therapy room and would work out on a NuStep, which a llows her to exercise her arms and legs. By the time of her discharge, she had made marked progress to where she was ambulating 150-200 feet twice a day using her rolling walker. She was transferring independently with just supervision. Her legs did very well. When she first arrived to the hospital , she had just trace edema, but it was from the days of bed rest while treatment was been given for t he cellulitis. The cellulitis completely resolved. She was placed back on her prophylactic medicati on with Pen-Vee K 250 mg b.i.d., which she will be on for a minimum of six months. The legs were man aged with elevation. She had moisturizer applied to the leg. She was intolerant of any support hose . Occupational therapy began a trial of 2 layer compression wraps that started at the base of the to e and went up to just below the knee. This was initiated on 08/06/2018. The initial wrapping she koch d to remove after a couple of days, because they were sore. The wrappings were reapplied and she has been tolerating these well. These are being changed on Monday and and seemed like it has given a lot of help with control of the swelling in the legs. It was felt that this will help manage her severe venous insufficiency and also be necessary though for her to keep the legs elevated at le ast to the level of the heart. Her activities were allowed where she could be up with the legs depen dent for her meals, for physical therapy. Otherwise, she needed to be either at bed rest with the le gs elevated or in her lounge chair with her legs elevated at least to the level of the heart. During her hospitalization, her diabetes were well controlled. Her hemoglobin A1c was 6.4 on 07/31/2018. Her hypertension was controlled. She does have a diastolic dysfunction, but had no evidence of acute congestive failure. During the hospital stay, she was placed on DVT prophylaxis with Lovenox. Expl ored with her option for post-hospital care, her wishes were to return to extended care. The adminis maria isabelcotavia continues to have visit with her and explored this extensively and felt at this point they cou ld not handle her needs. They could not provide the wrappings for the legs nor transportation back t o where she could receive these wrappings twice a week. Eventually, she met again with her administr ator and the sccm administrator of the correction, which is across the street from her assisted living. They felt like they can assist the patient. The wound nurse to do the leg wrappings twice a week. Physical therapy and occupational therapy can continue to work with her and they will encourage her f or the elevation of the legs to the level of the heart and she is not eating or involved in therapy. Patient was agreeable with this. She said she will give this at least a 2 week trial and see how sh e does. Her ultimate goals are to return to the assisted living. The patient was doing very well on the day of discharge of 08/17/2018. Her legs had been wrapped with 2 layer support hose on 08/16/20 18 and she was tolerating this fine. The patient will be moved to [facility] today and the wrappings will be continued twice a week on Monday and and PT and OT will continue to work with her. DISPOSITION: Consistent carbohydrate diet with no added salt. ACTIVITIES: PT and OT. Wound nurse will apply 2 layer compression wraps to the lower extremities that will extend from the b ase of the toe to just below the knee twice a week on Monday and . The patient may be up fo r her meals and for therapy, otherwise, she should be in a lounge chair with the legs elevated to the level of the heart. She is to be involved in the local home activities. MEDICATIONS: Acetaminophen 500 mg 1-2 every 6 hours as needed for pain, Claudia lotion applied to the l egs prior to her compression wraps, famotidine 20 mg daily, furosemide 80 mg daily, gabapentin 200 mg t.i.d., glimepiride 1 mg daily, levothyroxine 100 mg daily, lisinopril 10 mg daily, multivitamins wi th mineral daily, Pen-Vee K 250 mg b.i.d. indefinitely, MiraLax 17 grams, 8 ounces of water daily. DISCHARGE LABORATORY DATA: Lab in a week on Monday, 08/20/2018. The patient will need a CBC and bas ic metabolic panel. FOLLOWUP: The patient will be seen in a week. CODE STATUS: FULL CODE.
== END 2018-08-17 16:05 | DRG 947 ==
LOC: MADMS 17:11
PROVIDERS: ADMIT Family Medicine; ATTEND Family Medicine
DX: R53.1 Weakness (principal); G82.50 Quadriplegia, unspecified; L03.119 Cellulitis of unspecified part of limb; G95.9 Disease of spinal cord, unspecified; Z68.41 Body mass index [BMI] 40.0-44.9, adult; I87.2 Venous insufficiency (chronic) (peripheral); G89.29 Other chronic pain; M54.9 Dorsalgia, unspecified; R20.3 Hyperesthesia; N18.9 Chronic kidney disease, unspecified; E11.22 Type 2 diabetes mellitus with diabetic chronic kidney disease; I12.9 Hypertensive chronic kidney disease with stage 1 through stage 4 chronic kidney disease, or unspecified chronic kidney disease; E03.9 Hypothyroidism, unspecified; M15.9 Polyosteoarthritis, unspecified; M48.02 Spinal stenosis, cervical region; E66.9 Obesity, unspecified; D63.1 Anemia in chronic kidney disease
CPT/HCPCS: 36415; 36416; 80048; 85025; 90471; 90662; G0008; G8987-GO-CL; G8988-GO-CI; J1650

== ENCOUNTER 2018-10-30 13:02 | Outpatient (CLI) | payer MEDICARE | END 2018-10-30 13:03 | disposition home or self-care (01) | LOC: MADLABBHPM 13:02 | PROVIDERS: ATTEND Family Medicine | DX: N39.0 Urinary tract infection, site not specified (principal); R11.0 Nausea; R50.9 Fever, unspecified; R19.7 Diarrhea, unspecified | CPT/HCPCS: 87804 ==

== ENCOUNTER 2019-04-16 05:03 | Inpatient (IN) | payer MEDICARE, MEDICAID ==
[2019-04-16 05:46] LABS: #Basophils 0.1 thou/uL (0.0-0.2); #Eosinphils 0.3 thou/uL (0.0-0.7); #Lymphocytes 1.4 thou/uL (1.20-3.40); #Monocytes 0.3 thou/uL (0.11-0.59); #Neutrophils 2.9 thou/uL (1.40-6.50); %Basophils 1.3 % (0.0-1.0); %Eosinophils 6.1 % (0.0-10.0); %Lymphocytes 28.5 % (21.0-51.0); %Monocytes 6.5 % (0.0-10.0); %Neutrophils 57.6 % (42.0-75.0); Hemoglobin 10.4 g/dL (12.0-16.0); Mean Corpuscular HGB CONC 31.5 g/dL (32.0-36.0); Mean Corpuscular Hemoglobin 26.6 pg (27.0-31.0); Mean Corpuscular Volume 84.6 fL (78.0-98.0); Mean Platelet Volume 7.9 fL (7.4-10.4); Platelet Count 169 thou/uL (130-400); RBC Distribution Width 12.8 % (11.5-14.5)
[2019-04-16 05:56] LABS: INR-International Normal Ratio 1.1; Prothrombin Time 13.7 SEC (12.0-14.7)
[2019-04-16 06:06] LABS: ALT (SGPT) 9 U/L (8-55); AST (SGOT) 14 U/L (5-34); Alkaline Phosphatase 89 U/L (40-150); Anion Gap 15 mmol/L (10-20); BUN (Urea Nitrogen) 30 mg/dL (9.8-20.1); Bilirubin, Total 0.3 mg/dL (0.2-1.2); Calc. Creatinine Clearance 0 mL/min (70-130); Calcium 8.6 mg/dL (7.8-10.44); Carbon Dioxide 27 mmol/L (23-31); Chloride 106 mmol/L (98-107); Estimated GFR-MDRD 40; Globulin 3.1 g/dL (2.4-3.5); Glucose 135 mg/dL (83-110); Potassium 4.3 mmol/L (3.5-5.1); Protein, Total 7.1 g/dL (6.0-8.3); Sodium 144 mmol/L (136-145)
[2019-04-16] MEDS ORDERED: Acetaminophen 500 MG TAB ONE (06:41)
[2019-04-16] MEDS ORDERED: Levothyroxine Sodium 100 MCG TAB ONE (07:23)
[2019-04-16] MEDS ORDERED: Glimepiride 2 MG TAB ONE (07:23)
[2019-04-16] MEDS ORDERED: Sodium Chloride 0.9% 500 ML BAG ONE (07:23)
--- NOTE | 2019-04-16 08:07 | CT ---
CT BRAIN WITHOUT CONTRAST: INDICATIONS: History of fall from a standing position. COMPARISON: Prior exam dated 05/10/2018. FINDINGS: No acute infarct, hemorrhage, or hydrocephalus is present. Mild to moderate chronic small vessel whi te matter ischemic change is stable. The skull appears intact. The mastoid air cells and paranasal sinuses are clear. There are vascular calcifications involving the major intracranial arteries. IMPRESSION: No acute intracranial abnormality. POS: BH
--- NOTE | 2019-04-16 08:09 | CT ---
CT CERVICAL SPINE WITHOUT CONTRAST: INDICATIONS: History of fall with neck injury. COMPARISON: Prior CT cervical spine dated 05/10/2018. FINDINGS: Ankylosis of C3-C4 is stable. Slight anterior translation of C4 and C5 is stable. Moderate to sever e multilevel cervical spondylosis is stable. No definite acute fracture or subluxation is evident. The craniocervical junction appears within normal limits. The prevertebral soft tissues appear withi n normal limits. There is a subcutaneous contusion overlying the posterior right upper back. The vi sualized lung apices are clear. IMPRESSION: 1. No acute osseous abnormality. 2. Spondylosis of the cervical spine appears similar to the comparison, dated 05/10/2018. 3. Subcutaneous contusion of the posterior right upper back. POS: BH
--- NOTE | 2019-04-16 08:14 | CT ---
CT CHEST AND ABDOMEN AND PELVIS WITH IV CONTRAST; INDICATIONS: History of fall with concern for injury to the chest, abdomen, and pelvis. COMPARISON: CT chest, dated 10/25/2015. FINDINGS: The lungs are clear. No pleural effusion or pneumothorax is evident. The heart and great vessels ap pear within normal limits. There are calcified lymph nodes within the right hilar region and subcari nal region. There are coronary artery and thoracic aorta calcifications. No definite solid organ injuries seen involving the abdomen or pelvis. No free fluid or enlarged lymph nodes are evident. Unopacified large and small bowel are within normal limits. There is scattered degenerative and osteoarthritic change. There is diffuse osteopenia. No definite acute osseous abnormality is evident. There is post surgical change involving the lower lumbar spin e, consistent with laminectomies at L4, L5, and S1. There is a subcutaneous contusion overlying the posterior right upper back. IMPRESSION: 1. No definite acute traumatic internal injury involving the chest, abdomen, or pelvis. 2. Subcutaneous contusion of the right upper back. POS: ANNELISE
[2019-04-16] MEDS ORDERED: Acetaminophen/Codeine 30-300mg Tablet ONE (08:56)
[2019-04-16] MEDS ORDERED: Penicillin V Potassium 250 MG TAB ONE (09:19)
[2019-04-16] MEDS ORDERED: Furosemide 40 MG TAB ONE (09:19)
[2019-04-16] MEDS ORDERED: Gabapentin 100 MG CAP ONE ×2 (09:19→09:40)
[2019-04-16] MEDS ORDERED: Lisinopril 10 MG TAB ONE (09:19)
--- NOTE | 2019-04-16 09:51 | RAD ---
EXAM: XR Femur Rt 2 View STANDARD DATE: 04/16/2019 9:19 AM INDICATION: Right leg injury COMPARISON: None FINDING: There is scattered degenerative and osteoarthritic change present. No acute fracture or sub luxation demonstrated. There is diffuse osteopenia. IMPRESSION:No acute fracture or subluxation demonstrated.
[2019-04-16] MEDS ORDERED: Ondansetron ODT 4 MG TAB PO PRN (11:42)
[2019-04-16] MEDS ORDERED: Bisacodyl 5 MG TAB PO PRN (11:42)
[2019-04-16] MEDS ORDERED: Ondansetron PF 4 MG/2 ML Vial SLOW IVP PRN (11:42)
[2019-04-16] MEDS ORDERED: Acetaminophen 325 MG TAB PO PRN (11:42)
[2019-04-16] MEDS ORDERED: Enoxaparin Sodium 40 MG/0.4 ML SYRINGE SC SCH ×2 (12:00→15:00)
[2019-04-16] MEDS ORDERED: Iopamidol 370 76% 100 ML VIAL ONE (13:42)
[2019-04-16] MEDS: Gabapentin 100 MG CAP PO SCH ×2 (14:50→20:52)
[2019-04-16] MEDS: Acetaminophen/Codeine 30-300mg Tablet PO PRN (14:55)
[2019-04-16 16:11] VITALS: BMI 45.6
[2019-04-16] MEDS: Penicillin V Potassium 250 MG TAB PO SCH (20:52)
[2019-04-17 05:17] LABS: #Basophils 0.1 thou/uL (0.0-0.2); #Eosinphils 0.3 thou/uL (0.0-0.7); #Lymphocytes 1.4 thou/uL (1.20-3.40); #Monocytes 0.3 thou/uL (0.11-0.59); #Neutrophils 3.1 thou/uL (1.40-6.50); %Basophils 1.2 % (0.0-1.0); %Eosinophils 6.4 % (0.0-10.0); %Monocytes 5.8 % (0.0-10.0); %Neutrophils 59.6 % (42.0-75.0); Hemoglobin 9.4 g/dL (12.0-16.0); Mean Corpuscular HGB CONC 32.2 g/dL (32.0-36.0); Mean Corpuscular Volume 83.7 fL (78.0-98.0); Platelet Count 152 thou/uL (130-400); RBC Distribution Width 12.6 % (11.5-14.5); Red Blood Cell (RBC) Count 3.48 mill/uL (4.20-5.40); White Blood Cell (WBC) Count 5.1 thou/uL (4.8-10.8)
[2019-04-17] MEDS: Levothyroxine Sodium 100 MCG TAB PO SCH (05:23)
[2019-04-17 05:31] LABS: Anion Gap 11 mmol/L (10-20); BUN (Urea Nitrogen) 26 mg/dL (9.8-20.1); Calc. Creatinine Clearance 73 mL/min (70-130); Carbon Dioxide 27 mmol/L (23-31); Chloride 108 mmol/L (98-107); Estimated GFR-MDRD 44; Glucose 135 mg/dL (83-110); Potassium 4.4 mmol/L (3.5-5.1); Sodium 142 mmol/L (136-145)
[2019-04-17] MEDS: Glimepiride 2 MG TAB PO SCH (07:54)
[2019-04-17] MEDS: Polyethylene Glycol 3350 17 GM Packet PO SCH (08:18)
[2019-04-17] MEDS: Enoxaparin Sodium 40 MG/0.4 ML SYRINGE SC SCH (08:18)
[2019-04-17] MEDS: Furosemide 80 MG TAB PO SCH (08:19)
[2019-04-17] MEDS: Multivit, Therapeutic 1 TAB PO SCH (08:19)
[2019-04-17] MEDS: Acetaminophen/Codeine 30-300mg Tablet PO PRN ×2 (08:19→21:10)
[2019-04-17] MEDS: Gabapentin 100 MG CAP PO SCH ×3 (08:19→21:11)
[2019-04-17] MEDS: Lisinopril 10 MG TAB PO SCH (08:19)
[2019-04-17] MEDS: Penicillin V Potassium 250 MG TAB PO SCH ×2 (08:20→21:11)
--- NOTE | 2019-04-17 08:38 | HP ---
Admitted to [facility] on 04/16/2019. CHIEF COMPLAINT: Fall and hurts in back. HISTORY OF PRESENT ILLNESS: The patient is a 78-year-old white female, who has a history of severe venous insufficiency of the lower extremities, complicated by chronic stasis dermatitis and edema. She has had numerous hospitalizations for cellulitis of the lower extremities. This has been controlled now with long- term prophylactic penicillin and on 2-layer compression wraps to the lower extremities. The patient also has a history of quadriparesis secondary to severe cervical myelopathy with severe spinal stenosis, for which she has undergone a cervical decompression. This has left her with weakness in the upper and lower extremities. She is able to ambulate with the use of her walker and also with the use of wheelchair. She requires some assistance with her ADLs. She also has a history of diabetes, that is well controlled, and diastolic dysfunction. She has chronic low back pain secondary to failed surgical back syndrome. The patient presently resides in [facility]. Early on the morning of 04/16/2019, the patient had gotten up and was going to the bathroom with the aid of her walker. She got into the bathroom and then had to walk backward some to help get the door close. When she stepped backward, she lost her balance and fell to the floor hitting her back, shoulders and head. There was no loss of consciousness, but she was complaining of a lot of pain all through her back and hips, particularly on the right side and some in the right leg. She could not move without pain and also complained for head hurting. EMS was summoned around 5 a.m. and the patient was taken to the emergency room. There she was evaluated and found to be in pain from the fall. She underwent x-rays of the right femur, which showed no fracture or dislocation. CT scan of the abdomen and pelvis with and without contrast showed that she has had previous laminectomies at L4-L5 and L5- S1. She had no acute inter-traumatic or intraabdominal injury to the chest or abdomen or pelvis. She did have subcutaneous contusion to the right upper back. Her CT scan of the brain showed no acute intracranial abnormality. CT scan of the spine showed severe multilevel cervical spondylosis and ankylosis at C3-C4. The patient was having a lot of pain in her back, but was comfortable at rest. Did not think that she could be comfortably managed back at the long-term and she was admitted to [facility] for control of her pain in an effort to try to rebuild her back to her functional capabilities. The patient said she had been doing so well at the long-term prior to this fall that she was considering moving to assisted living. She knows this has to be on hold. PAST HISTORY: Last hospitalization was at [facility] for severe weakness and deconditioning from 07/30 to 08/17/2018 following a hospitalization at [facility] from 07/24 to 07/30 for cellulitis of the lower extremities. The patient has had multiple hospitalizations for cellulitis of the lower extremities. She was hospitalized in May of 2018 for chest pain and has had no recurrence. There was no evidence of acute coronary syndrome. Her Cardiolite stress test showed no evidence of reversible ischemia. Echocardiogram showed an ejection fraction of 60% to 65% with a grade 1 of 3 diastolic dysfunction. The patient has diabetes type 2, which has been well controlled on glimepiride, with her hemoglobin A1c of 6.4 on 03/12/2018, last done on 04/04/2019 was 6.9. The patient had venous Doppler of the lower extremity on 07/24/2018 showing no evidence of DVT. The patient has quadriparesis secondary to severe cervical stenosis, presenting with paralysis of the right upper extremity, severe weakness of the left upper extremity, and severe weakness of the lower extremity. She required cervical decompression and anterior fusion on October 18, 2014. Since then, she has had marked improvement, has some limited use of her arm and able to ambulate short distances. She has chronic low back pain secondary to failed surgical back syndrome. She has had laminectomies done in 2, 1965, and then a third time in 1979. She has had a tonsillectomy and hysterectomy. PRESENT MEDICINES: 1. Pepcid 20 mg daily. 2. Multivitamins one a day. 3. Pen-Vee K 250 mg b.i.d. 4. Levothyroxine 100 mcg daily. 5. MiraLAX 17 g with 8 ounces of water daily as needed. 6. Glimepiride 1 mg daily. 7. Lasix 80 mg one daily. 8. Gabapentin 100 mg two t.i.d. 9. Tylenol 500 mg one or two every 6 hours as needed for pain. 10. Lisinopril 10 mg once a day. ALLERGIES: MORPHINE, NAUSEA AND VOMITING. METFORMIN, NAUSEA AND DIARRHEA. REVIEW OF SYSTEMS: CONSTITUTIONAL: The patient has had no recent change in her weight. The patient has had no fever. HEAD AND NECK: No complaints. PULMONARY: No shortness of breath. CARDIOVASCULAR: No chest pain. GI: No nausea or vomiting. No change in bowel habits. : No complaints. MUSCULOSKELETAL: Complains of pain across her low back. NEUROPSYCHIATRIC: Complains of a headache since her fall. ADLs: The patient sits up in a chair, is able to ambulate with her walker short distances, often will require assistance with transfers, is continent of urine and stools. HABITS: Alcohol, none. Tobacco, none. SOCIAL HISTORY: The patient resides at [facility]. Code status, full code. PHYSICAL EXAMINATION: GENERAL: Shows a 78-year-old white female, who is lying in bed. She looks a little uncomfortable, particularly with any movement. VITAL SIGNS: Show a temperature of 96.3, pulse 61, respirations 18, pulse 82, blood pressure 132/58, and O2 sat 98%. HEENT: Her head is normocephalic, did not find any area of contusion or swelling on her scalp. Ears normal. Eyes, pupils are equal, round, and reactive. Nose normal. Mouth and throat normal. Mucous membranes are moist. NECK: The patient has some decreased range of motion, but no more so than usual for her. There is no point tenderness along the palpation of the cervical spine. There are no bruits. Thyroid not enlarged. LUNGS: Clear. HEART: Regular rate. No murmurs. ABDOMEN: Soft. No organomegaly. No areas of tenderness. EXTREMITIES: The patient has 2-layer compression wraps, that are extending from the base of the toes to just distal to the knees. These are well fitting and have controlled her swelling. These were just placed on her on 04/15/2019 and are due to be changed on 04/18/2019. MUSCULOSKELETAL: Back; the patient is tender along the lumbar spine. She has a well-healed long scar that extends throughout the lumbar spinal area. The patient is tender particularly to palpation over the right paralumbar musculature. Did not see any bruising to the back. Did not fill any point tenderness along the buttocks or the hips or the lower extremities. NEUROLOGIC: The patient is alert and oriented x3. She has generalized weakness , but this is nonfocal. LABORATORY DATA: Lab work that was done in the ER shows a sodium of 144 and potassium of 4.3. BUN 30, creatinine 1.28, and GFR 40. Her liver panel is normal. FBS 149. PT 13.7 and INR 1.1. H and H of 10.4 and 33, white cell count 5000 with 58% segs, 29% lymphocytes, and a platelet count of 169,000. IMPRESSION: 1. Fall, mechanical from tripping, that occurred on 04/16/2019. a. Resulting in marked increase in her chronic low back pain. b. Resulted in contusion to the scalp with headaches with a negative CT scan. c. Contusion to the mid and upper right back. 2. Severe generalized weakness. a. Requires assistance with ADLs. b. Able to ambulate short distance with the use of her walker. 3. Severe cervical spinal spondylosis and spinal stenosis, complicated by myelopathy. a. Presenting with weakness and paralysis of the lower extremity and marked weakness in the upper extremities. b. Status post decompression and anterior fusion of the involved segments in October 2014 with marked improvement. c. 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 4. Chronic low back pain. a. Secondary to severe spondylosis. 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 5. Severe venous insufficiency of the lower extremities. a. Controlled with two-layer compression wraps from the toes to the knees twice a week. b. History of repeated episodes of cellulitis. c. Chronic prophylactic antibiotics with penicillin. 6. Diabetes type 2. a. Good control with hemoglobin A1c of 6.9 on 04/04/2019. 7. Hypertension. 8. Hypothyroidism. 9. Generalized osteoarthritis. 10. Diastolic dysfunction with ejection fraction of 60% to 65%. a. No evidence of acute congestive heart failure. PLAN: The patient presently is having a lot of pain, particularly with movement and not able to manage her ADLs. The patient has been admitted to [facility] for control of her pain. Physical Therapy will work with her to try to help gradually get her functional capabilities back to where they were prior to this fall. We will place the patient on DVT prophylaxis with Lovenox. Continue her routine home medicines. We will apply Gaymar pump, that will provide moist heat to the low back. We will continue the Tylenol as needed and Tylenol No. 3 one every 8 hours for breakthrough pain as needed. CODE STATUS: Full code. See orders. Job ID: [id number]
--- NOTE | 2019-04-17 09:27 | PRG ---
DATE OF SERVICE: 04/17/2019 SUBJECTIVE: The patient says she does feel better today, but still sore. She did use the Tylenol No. 3 and it did help. She was able to sit in a chair yesterday , but the chair was too low and very difficult to get out up even with assistance. A different chair is being obtained for the patient. OBJECTIVE: GENERAL: The patient is lying in bed. She is smiling and appears very comfortable, in no distress. VITAL SIGNS: Temperature 99, pulse 75, respirations 16, O2 saturation 95% on room air, and blood pressure 111/56. LUNGS: Clear. HEART: Regular rate. EXTREMITIES: Lower extremities, the patient has on the knee high two-layer support hose that are fitting well. The edema is well controlled with these. LABORATORY DATA: H and H are 9.4 and 29.1, white blood cell count 5100 with 60% segs, 27% lymphocytes, and a platelet count of 152,000. Sodium 142, potassium 4.4, BUN 26, creatinine 1.19, and GFR 44. FBS 135; at glucometer check at 7:40, it was 58. TSH 2.7. Hemoglobin A1c pending. ASSESSMENT: 1. Fall resulting in exacerbation of her chronic low back pain and contusions to the back with marked decline in her functional capability. a. Improved as of 04/17/2019. 2. Severe venous insufficiency of the lower extremities. a. Well controlled with 2-layer compression wraps to the lower leg from the toe to the knee twice a week. 3. Diabetes mellitus, type 2. a. Well controlled. 4. Generalized weakness. 5. Quadriparesis. a. Secondary to a cervical myelopathy for which she has undergone decompression with improvement. b. Able to ambulate with the use of a walker, has limited use of her shoulders. c. Stable. PLAN: Continue present care. Continue PT and OT. Job ID: [id number] [facility]
[2019-04-17 12:09] LABS: Hemoglobin A1c 6.6 % (4.0-6.0)
[2019-04-17] MEDS ORDERED: Prevnar 13-Val Conj/PF 0.5 ML SYRINGE IM ONE (12:45)
[2019-04-17] MEDS: Famotidine 20 MG TAB PO SCH (21:11)
[2019-04-18] MEDS: Levothyroxine Sodium 100 MCG TAB PO SCH (06:00)
[2019-04-18] MEDS: Penicillin V Potassium 250 MG TAB PO SCH ×2 (08:25→21:10)
[2019-04-18] MEDS: Furosemide 80 MG TAB PO SCH (08:25)
[2019-04-18] MEDS: Enoxaparin Sodium 40 MG/0.4 ML SYRINGE SC SCH (08:25)
[2019-04-18] MEDS: Polyethylene Glycol 3350 17 GM Packet PO SCH (08:25)
[2019-04-18] MEDS: Gabapentin 100 MG CAP PO SCH ×3 (08:25→21:10)
[2019-04-18] MEDS: Acetaminophen/Codeine 30-300mg Tablet PO PRN ×2 (08:26→21:10)
[2019-04-18] MEDS: Lisinopril 10 MG TAB PO SCH (08:27)
[2019-04-18] MEDS: Glimepiride 2 MG TAB PO SCH (08:27)
[2019-04-18] MEDS: Multivit, Therapeutic 1 TAB PO SCH (08:28)
--- NOTE | 2019-04-18 11:45 | PRG ---
DATE OF SERVICE: 04/18/2019 SUBJECTIVE: The patient said she feels a little better, has been able to sit up in a chair some and walk just a few steps. Her pain seems to be adequately controlled. She is still very weak and certainly not back to her baseline with her activities and strength. OBJECTIVE: GENERAL: The patient is lying in bed, looks very comfortable, in no distress. VITAL SIGNS: Her temp is 97.6, pulse 77, respirations 16, O2 saturation 92% on room air, blood pressure 132/60. LABORATORY DATA: Her hemoglobin A1c is 6.6. ASSESSMENT: 1. Fall, mechanical from tripping, that occurred on 04/16/2019. a. Resulting in marked increase in her chronic low back pain. b. Resulted in contusion to the scalp with headaches with a negative CT scan. c. Contusion to the mid and upper right back. d. Pain control. No recurrence or fall as of 04/18. 2. Severe generalized weakness. a. Requires assistance with ADLs. b. Able to ambulate short distance with the use of her walker. 3. Severe cervical spinal spondylosis and spinal stenosis, complicated by myelopathy. a. Presenting with weakness and paralysis of the lower extremity and marked weakness in the upper extremities. b. Status post decompression and anterior fusion of the involved segments in October 2014 with marked improvement. c. 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 4. Chronic low back pain. a. Secondary to severe spondylosis. 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 5. Severe venous insufficiency of the lower extremities. a. Controlled with two-layer compression wraps from the toes to the knees twice a week. b. History of repeated episodes of cellulitis. c. Chronic prophylactic antibiotics with penicillin. 6. Diabetes type 2. a. Good control with hemoglobin A1c of 6.9 on 04/04/2019. 7. Hypertension. 8. Hypothyroidism. 9. Generalized osteoarthritis. 10. Diastolic dysfunction with ejection fraction of 60% to 65%. a. No evidence of acute congestive heart failure. PLAN: Continue present care. Continue PT/OT. The patient due to have occupational therapist change out her 2-layer compression wraps to the lower legs today. Tomorrow, [facility] will [facility] for continued physical therapy to try to get her back to her baseline. Job ID: [id number] [facility]
[2019-04-18] MEDS: Famotidine 20 MG TAB PO SCH (21:09)
[2019-04-19] MEDS: Levothyroxine Sodium 100 MCG TAB PO SCH (05:36)
[2019-04-19 07:27] VITALS: BP 118/58; TEMP 98.8
[2019-04-19] MEDS: Penicillin V Potassium 250 MG TAB PO SCH (08:29)
[2019-04-19] MEDS: Lisinopril 10 MG TAB PO SCH (08:29)
[2019-04-19] MEDS: Enoxaparin Sodium 40 MG/0.4 ML SYRINGE SC SCH (08:29)
[2019-04-19] MEDS: Polyethylene Glycol 3350 17 GM Packet PO SCH (08:29)
[2019-04-19] MEDS: Multivit, Therapeutic 1 TAB PO SCH (08:30)
[2019-04-19] MEDS: Gabapentin 100 MG CAP PO SCH (08:30)
[2019-04-19] MEDS: Glimepiride 2 MG TAB PO SCH (08:30)
[2019-04-19] MEDS: Furosemide 80 MG TAB PO SCH (08:30)
[2019-04-19] MEDS: Acetaminophen/Codeine 30-300mg Tablet PO PRN (12:16)
--- NOTE | 2019-04-19 12:27 | PRG ---
DATE OF SERVICE: 04/19/2019 SUBJECTIVE: The patient is sitting up in Sandra chair, eating her breakfast. She looks very comfortable. She said she is feeling good. She said she is working with therapy. Yesterday, she had her two-layer compression wraps changed out. Photos of the skin showed that the edema is well controlled and the skin looks in good condition. There are no open areas. OBJECTIVE: GENERAL: The patient is alert, appears very comfortable in her Sandra chair. VITAL SIGNS: Show a temperature of 98.8, pulse 68, respirations 20, O2 saturations 93% on room air, blood pressure 118/58. LUNGS: Clear. HEART: Regular rate. EXTREMITIES: Lower extremities; the patient is wearing her two-layer compression wraps to the lower legs. LABORATORY DATA: FBS yesterday morning was 125, this morning pending. ASSESSMENT: 1. Fall, mechanical from tripping, that occurred on 04/16/2019. a. Resulting in marked increase in her chronic low back pain. b. Resulted in contusion to the scalp with headaches with a negative CT scan c. Contusion to the mid and upper right back. d. Pain control. No recurrence or fall as of 04/19/2019. 2. Severe generalized weakness. a. Requires assistance with ADLs. b. Able to ambulate short distance with the use of her walker. 3. Severe cervical spinal spondylosis and spinal stenosis, complicated by myelopathy. a. Presenting with weakness and paralysis of the lower extremity and marked weakness in the upper extremities. b. Status post decompression and anterior fusion of the involved segments in October 2014 with marked improvement. c. 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 4. Chronic low back pain. a. Secondary to severe spondylosis. 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 5. Severe venous insufficiency of the lower extremities. a. Controlled with two-layer compression wraps from the toes to the knees twice a week. b. History of repeated episodes of cellulitis. c. Chronic prophylactic antibiotics with penicillin. 6. Diabetes type 2. a. Good control with hemoglobin A1c of 6.9 on 04/04/2019. 7. Hypertension. 8. Hypothyroidism. 9. Generalized osteoarthritis. 10. Diastolic dysfunction with ejection fraction of 60% to 65%. a. No evidence of acute congestive heart failure. PLAN: The patient is better. Her pain is well controlled. We will move her to extended care for her general weakness, in an effort to try to improve her general strength and her walking and get her back to her baseline of activities prior to her fall. Job ID: [id number] [facility]
== END 2019-04-19 14:44 | disposition swing bed (61) | DRG 91 ==
LOC: MADERS 05:03 → MADMS 10:10
PROVIDERS: ADMIT Family Medicine; ATTEND Family Medicine
DX: G89.29 Other chronic pain (principal); G82.50 Quadriplegia, unspecified; I87.2 Venous insufficiency (chronic) (peripheral); S00.03XD Contusion of scalp, subsequent encounter; R53.1 Weakness; E11.9 Type 2 diabetes mellitus without complications; I10 Essential (primary) hypertension; E03.9 Hypothyroidism, unspecified; M15.9 Polyosteoarthritis, unspecified; W01.0XXD Fall on same level from slipping, tripping and stumbling without subsequent striking against object, subsequent encounter; M47.812 Spondylosis without myelopathy or radiculopathy, cervical region; M24.60 Ankylosis, unspecified joint; M54.5 Low back pain; I51.89 Other ill-defined heart diseases; Z88.5 Allergy status to narcotic agent; Z88.8 Allergy status to other drugs, medicaments and biological substances
CPT/HCPCS: 36415; 36416; 70450; 71260; 72125; 74177; 80048; 80053; 83036; 84443; 85025; 85610; 93005; J1650; J7050; Q0162; Q9967

== ENCOUNTER 2019-04-19 08:19 | Inpatient (IN) | payer MEDICARE, MEDICAID ==
[2019-04-19] MEDS ORDERED: Bisacodyl 5 MG TAB PO PRN (08:53)
[2019-04-19 16:30] VITALS: BMI 42.9
[2019-04-19] MEDS: Famotidine 20 MG TAB PO SCH (17:35)
[2019-04-19] MEDS: Furosemide 80 MG TAB PO SCH (17:36)
[2019-04-19] MEDS: Lisinopril 10 MG TAB PO SCH (17:36)
[2019-04-19] MEDS: Penicillin V Potassium 250 MG TAB PO SCH ×2 (17:36→20:56)
[2019-04-19] MEDS: Gabapentin 100 MG CAP PO SCH ×2 (17:36→20:56)
[2019-04-19] MEDS: Multivit, Therapeutic 1 TAB PO SCH (17:36)
[2019-04-19] MEDS: Polyethylene Glycol 3350 17 GM Packet PO SCH (17:36)
[2019-04-19] MEDS: Acetaminophen 325 MG TAB PO PRN (19:22)
[2019-04-20] MEDS: Levothyroxine Sodium 100 MCG TAB PO SCH (05:31)
[2019-04-20] MEDS: Polyethylene Glycol 3350 17 GM Packet PO SCH (08:17)
[2019-04-20] MEDS: Enoxaparin Sodium 40 MG/0.4 ML SYRINGE SC SCH (08:17)
[2019-04-20] MEDS: Multivit, Therapeutic 1 TAB PO SCH (08:18)
[2019-04-20] MEDS: Furosemide 80 MG TAB PO SCH (08:18)
[2019-04-20] MEDS: Famotidine 20 MG TAB PO SCH (08:18)
[2019-04-20] MEDS: Gabapentin 100 MG CAP PO SCH ×3 (08:18→20:35)
[2019-04-20] MEDS: Lisinopril 10 MG TAB PO SCH (08:18)
[2019-04-20] MEDS: Penicillin V Potassium 250 MG TAB PO SCH ×2 (08:18→20:34)
[2019-04-20] MEDS: Glimepiride 2 MG TAB PO SCH (08:18)
[2019-04-20] MEDS: Keri Lotion 15 oz BOT TOP SCH (08:19)
[2019-04-20] MEDS: Acetaminophen/Codeine 30-300mg Tablet PO PRN (14:49)
[2019-04-21] MEDS: Levothyroxine Sodium 100 MCG TAB PO SCH (05:43)
[2019-04-21] MEDS: Penicillin V Potassium 250 MG TAB PO SCH ×2 (08:58→20:00)
[2019-04-21] MEDS: Lisinopril 10 MG TAB PO SCH (08:58)
[2019-04-21] MEDS: Multivit, Therapeutic 1 TAB PO SCH (08:59)
[2019-04-21] MEDS: Enoxaparin Sodium 40 MG/0.4 ML SYRINGE SC SCH (09:00)
[2019-04-21] MEDS: Famotidine 20 MG TAB PO SCH (09:00)
[2019-04-21] MEDS: Glimepiride 2 MG TAB PO SCH (09:00)
[2019-04-21] MEDS: Polyethylene Glycol 3350 17 GM Packet PO SCH (09:00)
[2019-04-21] MEDS: Gabapentin 100 MG CAP PO SCH ×3 (09:00→20:00)
[2019-04-21] MEDS: Furosemide 80 MG TAB PO SCH (09:00)
[2019-04-21] MEDS: Acetaminophen/Codeine 30-300mg Tablet PO PRN (14:38)
[2019-04-21] MEDS: Acetaminophen 325 MG TAB PO PRN (19:32)
[2019-04-22] MEDS: Levothyroxine Sodium 100 MCG TAB PO SCH (05:28)
[2019-04-22] MEDS: Furosemide 80 MG TAB PO SCH (08:11)
[2019-04-22] MEDS: Penicillin V Potassium 250 MG TAB PO SCH ×2 (08:11→21:44)
[2019-04-22] MEDS: Glimepiride 2 MG TAB PO SCH (08:11)
[2019-04-22] MEDS: Famotidine 20 MG TAB PO SCH (08:11)
[2019-04-22] MEDS: Multivit, Therapeutic 1 TAB PO SCH (08:11)
[2019-04-22] MEDS: Lisinopril 10 MG TAB PO SCH (08:11)
[2019-04-22] MEDS: Gabapentin 100 MG CAP PO SCH ×3 (08:11→21:44)
[2019-04-22] MEDS: Enoxaparin Sodium 40 MG/0.4 ML SYRINGE SC SCH (08:12)
[2019-04-22] MEDS: Polyethylene Glycol 3350 17 GM Packet PO SCH (08:12)
--- NOTE | 2019-04-22 08:50 | PRG ---
DATE OF SERVICE: SUBJECTIVE: The patient is feeling better. She still has pain in her low back that she notices primarily when trying to get up and down and when trying to straighten up right to walk. Overall, though she is doing more than what she was and is feeling a little better. OBJECTIVE: GENERAL: The patient is lying in bed with the head elevated. She looks very comfortable. VITAL SIGNS: Her temp is 98.8, pulse 68, respirations 20, O2 saturation 93% on room air, blood pressure 118/58. LUNGS: Clear. HEART: Regular rate. EXTREMITIES: The patient has a 2-layer compression wraps from the base of the toes to just below the knees, it controls her swelling very well. LABORATORY DATA: Her FBS this morning 122. ASSESSMENT: 1. Fall, mechanical from tripping, that occurred on 04/16/2019. a. Resulting in marked increase in her chronic low back pain. b. Resulted in contusion to the scalp with headaches with a negative CT scan c. Contusion to the mid and upper right back. d. Pain control. No recurrence or fall as of 04/20/2019. 2. Severe generalized weakness. a. Requires assistance with ADLs. b. Able to ambulate short distance with the use of her walker. 3. Severe cervical spinal spondylosis and spinal stenosis, complicated by myelopathy. a. Presenting with weakness and paralysis of the lower extremity and marked weakness in the upper extremities. b. Status post decompression and anterior fusion of the involved segments in October 2014 with marked improvement. c. 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 4. Chronic low back pain. a. Secondary to severe spondylosis. 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 c. Pain has improved, but still has difficulty when transferring and coming to an upright position as of 04/20/2019. 5. Severe venous insufficiency of the lower extremities. a. Controlled with two-layer compression wraps from the toes to the knees twice a week. b. History of repeated episodes of cellulitis. c.Chronic prophylactic antibiotics with penicillin. 6. Diabetes type 2.. a. Good control with hemoglobin A1c of 6.9 on 04/04/2019. 7. Hypertension. 8. Hypothyroidism. 9. Generalized osteoarthritis. 10.Diastolic dysfunction with ejection fraction of 60% to 65%. a. No evidence of acute congestive heart failure. PLAN: Continue present care. Continue PT and OT. Job ID: [id number] [facility]
--- NOTE | 2019-04-22 12:38 | PRG ---
DATE OF SERVICE: 04/22/2019 SUBJECTIVE: The patient says she is doing better. Her back is feeling better. The patient has been up already and walked further than she has in a long time this morning. She still requires help getting up and down, particularly out of bed, but she is doing better from getting up out of the chair. OBJECTIVE: GENERAL: The patient is sitting up in her Sandra chair. She is alert , appears very comfortable, and in no distress. VITAL SIGNS: Her temperature is 97.3, pulse 64, respirations 18, O2 saturation 96% on room air, blood pressure 122/54. LUNGS: Clear. HEART: Regular rate. EXTREMITIES: There is just trace edema. Her two-layer compression wraps were taken off last night are due to be rewrapped this morning. Skin looks in excellent condition. No redness. No ulcerations. ASSESSMENT: 1. Fall, mechanical from tripping, that occurred on 04/16/2019. a. Resulting in marked increase in her chronic low back pain. b. Resulted in contusion to the scalp with headaches with a negative CT scan c. Contusion to the mid and upper right back. d. Pain control. No recurrence or fall as of 04/22/2019. 2. Severe generalized weakness. a. Requires assistance with ADLs. b. Improved. Walking much further with a rolling walker and standby assistance. Still needing assistance with any transfers as of 04/22/2019. 3. Severe cervical spinal spondylosis and spinal stenosis, complicated by myelopathy. a. Presenting with weakness and paralysis of the lower extremity and marked weakness in the upper extremities. b. Status post decompression and anterior fusion of the involved segments in October 2014 with marked improvement. c. 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 4. Chronic low back pain. a. Secondary to severe spondylosis. 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 c. Pain well controlled as of 04/22/2019. 5. Severe venous insufficiency of the lower extremities. a. Controlled with two-layer compression wraps from the toes to the knees twice a week. b. History of repeated episodes of cellulitis. c.Chronic prophylactic antibiotics with penicillin. 6. Diabetes type 2.. a. Good control with hemoglobin A1c of 6.9 on 04/04/2019. 7. Hypertension. 8. Hypothyroidism. 9. Generalized osteoarthritis. 10.Diastolic dysfunction with ejection fraction of 60% to 65%. a. No evidence of acute congestive heart failure. PLAN: Continue present care. Continue PT. Continue two-layer compression wraps to the legs twice the week on Monday and . Job ID: [id number] [facility]
[2019-04-23] MEDS: Acetaminophen/Codeine 30-300mg Tablet PO PRN (04:23)
[2019-04-23] MEDS: Levothyroxine Sodium 100 MCG TAB PO SCH (06:21)
[2019-04-23] MEDS: Enoxaparin Sodium 40 MG/0.4 ML SYRINGE SC SCH (08:24)
[2019-04-23] MEDS: Furosemide 80 MG TAB PO SCH (08:25)
[2019-04-23] MEDS: Gabapentin 100 MG CAP PO SCH ×3 (08:25→20:21)
[2019-04-23] MEDS: Famotidine 20 MG TAB PO SCH (08:25)
[2019-04-23] MEDS: Penicillin V Potassium 250 MG TAB PO SCH ×2 (08:25→20:21)
[2019-04-23] MEDS: Lisinopril 10 MG TAB PO SCH (08:25)
[2019-04-23] MEDS: Multivit, Therapeutic 1 TAB PO SCH (08:25)
[2019-04-23] MEDS: Glimepiride 2 MG TAB PO SCH (08:25)
[2019-04-23] MEDS: Keri Lotion 15 oz BOT TOP SCH (08:34)
[2019-04-23] MEDS: Polyethylene Glycol 3350 17 GM Packet PO SCH (08:34)
--- NOTE | 2019-04-23 10:26 | PRG ---
DATE OF SERVICE: 04/23/2019 SUBJECTIVE: The patient said she is doing all right this morning. She has had the two-layer compression wraps reapplied to her lower extremities yesterday. She has been working well with Physical Therapy. Yesterday, she walked up to 150 feet on four occasions with a rolling walker and caregiver assist. She is needing some assistance with transfers. OBJECTIVE: GENERAL: The patient is lying in bed, alert, talkative, appears very comfortable. VITAL SIGNS: Her temperature is 98.8, pulse 87, respirations 16, O2 saturation 92% on room air, blood pressure 135/60. LUNGS: Clear. HEART: Regular rate. EXTREMITIES: Lower extremities, the swelling is controlled with the two-layer compression wraps. LABORATORY DATA: FBS yesterday morning 140, this morning is pending. ASSESSMENT: 1. Fall, mechanical from tripping, that occurred on 04/16/2019. a. Resulting in marked increase in her chronic low back pain. b. Resulted in contusion to the scalp with headaches with a negative CT scan c. Contusion to the mid and upper right back. d. Pain control. No recurrence or fall as of 04/23/2019. 2. Severe generalized weakness. a. Requires assistance with ADLs. b. Improved. Walking up to 150 feet with a rolling walker and standby assistance up to 4 times a day. Still needs assistance on transfers as of 2018. 3. Severe cervical spinal spondylosis and spinal stenosis, complicated by myelopathy. a. Presenting with weakness and paralysis of the lower extremity and marked weakness in the upper extremities. b. Status post decompression and anterior fusion of the involved segments in October 2014 with marked improvement. c. 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 4. Chronic low back pain. a. Secondary to severe spondylosis. 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 c. Pain well controlled as of 04/23/2019. 5. Severe venous insufficiency of the lower extremities. a. Controlled with two-layer compression wraps from the toes to the knees twice a week. b. History of repeated episodes of cellulitis. c. Chronic prophylactic antibiotics with penicillin. 6. Diabetes type 2.. a. Good control with hemoglobin A1c of 6.9 on 04/04/2019. 7. Hypertension. 8. Hypothyroidism. 9. Generalized osteoarthritis. 10.Diastolic dysfunction with ejection fraction of 60% to 65%. a. No evidence of acute congestive heart failure. PLAN: Continue PT, OT. Continue twice the week two-layer compression wraps of the lower extremities. Job ID: [id number] [facility]
[2019-04-23] MEDS: Acetaminophen 325 MG TAB PO PRN ×2 (14:51→19:40)
[2019-04-24] MEDS: Acetaminophen/Codeine 30-300mg Tablet PO PRN (05:00)
[2019-04-24] MEDS: Levothyroxine Sodium 100 MCG TAB PO SCH (05:02)
[2019-04-24] MEDS: Acetaminophen 325 MG TAB PO PRN ×2 (07:51→21:12)
[2019-04-24] MEDS: Multivit, Therapeutic 1 TAB PO SCH (08:36)
[2019-04-24] MEDS: Polyethylene Glycol 3350 17 GM Packet PO SCH (08:36)
[2019-04-24] MEDS: Gabapentin 100 MG CAP PO SCH ×3 (08:36→21:13)
[2019-04-24] MEDS: Furosemide 80 MG TAB PO SCH (08:37)
[2019-04-24] MEDS: Enoxaparin Sodium 40 MG/0.4 ML SYRINGE SC SCH (08:37)
[2019-04-24] MEDS: Famotidine 20 MG TAB PO SCH (08:37)
[2019-04-24] MEDS: Lisinopril 10 MG TAB PO SCH (08:37)
[2019-04-24] MEDS: Penicillin V Potassium 250 MG TAB PO SCH ×2 (08:37→21:13)
[2019-04-24] MEDS: Glimepiride 2 MG TAB PO SCH (08:47)
--- NOTE | 2019-04-24 11:07 | PRG ---
DATE OF SERVICE: 04/24/2019 SUBJECTIVE: The patient is up in a geriatric chair. She said she does not feel very well this morning. She is just having some pain in her low back. Often her mornings are like this, but she has been medicated for pain and this usually will help her. She has been doing very well with physical therapy. OBJECTIVE: GENERAL: The patient is sitting up in a geriatric chair, looks a little uncomfortable, but not in any acute distress. VITAL SIGNS: Temperature 97.6, pulse 67, respirations 18, O2 sat 95%, and blood pressure 129/64. LUNGS: Clear. HEART: Regular rate. EXTREMITIES: Lower extremities have the 2-layer compression wraps and are controlling the swelling. ASSESSMENT: 1. Fall, mechanical from tripping, that occurred on 04/16/2019. a. Resulting in marked increase in her chronic low back pain. b. Resulted in contusion to the scalp with headaches with a negative CT scan c. Contusion to the mid and upper right back. d. Pain control. No recurrence or fall as of 04/24/2019. 2. Severe generalized weakness. a. Requires assistance with ADLs. b. Improved. Walking much further with a rolling walker and standby assistance. Still needing assistance with any transfers as of 04/24/2019. 3. Severe cervical spinal spondylosis and spinal stenosis, complicated by myelopathy. a. Presenting with weakness and paralysis of the lower extremity and marked weakness in the upper extremities. b. Status post decompression and anterior fusion of the involved segments in October 2014 with marked improvement. c. 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 4. Chronic low back pain. a. Secondary to severe spondylosis. 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 c. Pain controlled, still has intermittent episodes that require her analgesics as of 04/24/2019. 5. Severe venous insufficiency of the lower extremities. a. Controlled with two-layer compression wraps from the toes to the knees twice a week. b. History of repeated episodes of cellulitis. c.Chronic prophylactic antibiotics with penicillin. 6. Diabetes type 2.. a. Good control with hemoglobin A1c of 6.9 on 04/04/2019. 7. Hypertension. 8. Hypothyroidism. 9. Generalized osteoarthritis. 10.Diastolic dysfunction with ejection fraction of 60% to 65%. a. No evidence of acute congestive heart failure. PLAN: Continue present care. Continue PT. Continue compression wraps of the lower extremity twice the week. Job ID: [id number] [facility]
[2019-04-25] MEDS: Levothyroxine Sodium 100 MCG TAB PO SCH (05:33)
[2019-04-25] MEDS: Acetaminophen 325 MG TAB PO PRN ×3 (05:33→21:25)
[2019-04-25] MEDS: Penicillin V Potassium 250 MG TAB PO SCH ×2 (08:06→21:22)
[2019-04-25] MEDS: Glimepiride 2 MG TAB PO SCH (08:06)
[2019-04-25] MEDS: Furosemide 80 MG TAB PO SCH (08:06)
[2019-04-25] MEDS: Multivit, Therapeutic 1 TAB PO SCH (08:07)
[2019-04-25] MEDS: Lisinopril 10 MG TAB PO SCH (08:07)
[2019-04-25] MEDS: Famotidine 20 MG TAB PO SCH (08:07)
[2019-04-25] MEDS: Enoxaparin Sodium 40 MG/0.4 ML SYRINGE SC SCH (08:07)
[2019-04-25] MEDS: Gabapentin 100 MG CAP PO SCH ×3 (08:07→21:22)
[2019-04-25] MEDS: Polyethylene Glycol 3350 17 GM Packet PO SCH (08:07)
--- NOTE | 2019-04-25 11:42 | PRG ---
DATE OF SERVICE: 04/25/2019 SUBJECTIVE: The patient says she is feeling very well. This morning, she feels much better than yesterday. She is not hurting like she was. She did work with therapy yesterday and she is due to have her 2-layer compression wraps changed on the lower legs today. OBJECTIVE: GENERAL: The patient is sitting up in a Sandra chair. She is alert, smiling, in very good spirits and talkative and in no distress. VITAL SIGNS: Shows a temperature 97.4, her pulse is 70, respirations 18, O2 saturation 95% on room air, and blood pressure 146/63. LUNGS: Clear. HEART: Regular rate. EXTREMITIES: Lower extremities, the swelling and edema in the legs controlled with the 2-layer compression wraps. LABORATORY DATA: Her Accu-Chek this morning, fasting, 99. ASSESSMENT: 1. Fall, mechanical from tripping, that occurred on 04/16/2019. a. Resulting in marked increase in her chronic low back pain. b. Resulted in contusion to the scalp with headaches with a negative CT scan c. Contusion to the mid and upper right back. d. Pain control. No recurrence or fall as of 04/25/2019. 2. Severe generalized weakness. a. Requires assistance with ADLs. b. Improved. Walking much further with a rolling walker and standby assistance. Still needing assistance with any transfers as of 04/25/2019. 3. Severe cervical spinal spondylosis and spinal stenosis, complicated by myelopathy. a. Presenting with weakness and paralysis of the lower extremity and marked weakness in the upper extremities. b. Status post decompression and anterior fusion of the involved segments in October 2014 with marked improvement. c. 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 4. Chronic low back pain. a. Secondary to severe spondylosis. 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 c. Pain controlled, still has intermittent episodes that require her analgesics as of 04/25/2019. 5. Severe venous insufficiency of the lower extremities. a. Controlled with two-layer compression wraps from the toes to the knees twice a week. b. History of repeated episodes of cellulitis. c.Chronic prophylactic antibiotics with penicillin. 6. Diabetes type 2.. a. Good control with hemoglobin A1c of 6.9 on 04/04/2019. 7. Hypertension. 8. Hypothyroidism. 9. Generalized osteoarthritis. 10.Diastolic dysfunction with ejection fraction of 60% to 65%. a. No evidence of acute congestive heart failure. PLAN: The patient is doing very well. Continue PT/OT. Continue the 2-layer compression wraps twice a week, on Mondays and . Job ID: [id number] [facility]
[2019-04-26] MEDS: Levothyroxine Sodium 100 MCG TAB PO SCH (05:52)
[2019-04-26] MEDS: Penicillin V Potassium 250 MG TAB PO SCH ×2 (08:16→20:17)
[2019-04-26] MEDS: Enoxaparin Sodium 40 MG/0.4 ML SYRINGE SC SCH (08:16)
[2019-04-26] MEDS: Glimepiride 2 MG TAB PO SCH (08:16)
[2019-04-26] MEDS: Gabapentin 100 MG CAP PO SCH ×3 (08:17→20:17)
[2019-04-26] MEDS: Keri Lotion 15 oz BOT TOP SCH (08:17)
[2019-04-26] MEDS: Famotidine 20 MG TAB PO SCH (08:17)
[2019-04-26] MEDS: Multivit, Therapeutic 1 TAB PO SCH (08:17)
[2019-04-26] MEDS: Lisinopril 10 MG TAB PO SCH (08:17)
[2019-04-26] MEDS: Furosemide 80 MG TAB PO SCH (08:17)
[2019-04-26] MEDS: Polyethylene Glycol 3350 17 GM Packet PO SCH (08:18)
--- NOTE | 2019-04-26 12:46 | PRG ---
DATE OF SERVICE: 04/26/2019 SUBJECTIVE: The patient says she feels very good today. She has felt much more energized. She has been working with Physical Therapy and this morning she has walked 150s to 200 feet with a rolling walker, yesterday 300 feet much further than she had been at the senior living. She is using a rolling walker with standby assistance. Her transfers are also improving and requires a little mild standby assistance and sometimes a minimal assist. OBJECTIVE: GENERAL: The patient is alert, appears very comfortable, in no distress. VITAL SIGNS: Shows a temperature of 97.5, pulse 66, respirations 18, O2 saturation 95% on room air, blood pressure 135/60. LUNGS: Clear. HEART: Regular rate. EXTREMITIES: Lower extremity, the edema is controlled with the two layer compression wraps that were changed out yesterday. ASSESSMENT: 1. Fall, mechanical from tripping, that occurred on 04/16/2019. a. Resulting in marked increase in her chronic low back pain. b. Resulted in contusion to the scalp with headaches with a negative CT scan c. Contusion to the mid and upper right back. d. Pain control. No recurrence or fall as of . 2. Severe generalized weakness. a. Requires assistance with ADLs. b. Improved. Walking 150 to 300 feet with a rolling walker and standby assistance. Transfers are getting easier as of 04/26/2019. 3. Severe cervical spinal spondylosis and spinal stenosis, complicated by myelopathy. a. Presenting with weakness and paralysis of the lower extremity and marked weakness in the upper extremities. b. Status post decompression and anterior fusion of the involved segments in October 2014 with marked improvement. c. 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 4. Chronic low back pain. a. Secondary to severe spondylosis. 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 c. Pain controlled, still has intermittent episodes that require her analgesics as of 04/26/2019. 5. Severe venous insufficiency of the lower extremities. a. Controlled with two-layer compression wraps from the toes to the knees twice a week. b. History of repeated episodes of cellulitis. c.Chronic prophylactic antibiotics with penicillin. 6. Diabetes type 2.. a. Good control with hemoglobin A1c of 6.9 on 04/04/2019. 7. Hypertension. 8. Hypothyroidism. 9. Generalized osteoarthritis. 10.Diastolic dysfunction with ejection fraction of 60% to 65%. a. No evidence of acute congestive heart failure. PLAN: The patient is doing much better. Her pain seemed to be well controlled. She has made excellent progress with physical therapy and feel like with few more days she will further improve prior to going back to the senior living. Job ID: [id number] [facility]
[2019-04-26] MEDS: Acetaminophen 325 MG TAB PO PRN (20:17)
[2019-04-27] MEDS: Levothyroxine Sodium 100 MCG TAB PO SCH (06:08)
[2019-04-27] MEDS: Furosemide 80 MG TAB PO SCH (08:19)
[2019-04-27] MEDS: Penicillin V Potassium 250 MG TAB PO SCH ×2 (08:19→20:39)
[2019-04-27] MEDS: Glimepiride 2 MG TAB PO SCH (08:19)
[2019-04-27] MEDS: Gabapentin 100 MG CAP PO SCH ×3 (08:19→20:39)
[2019-04-27] MEDS: Multivit, Therapeutic 1 TAB PO SCH (08:19)
[2019-04-27] MEDS: Lisinopril 10 MG TAB PO SCH (08:19)
[2019-04-27] MEDS: Enoxaparin Sodium 40 MG/0.4 ML SYRINGE SC SCH (08:19)
[2019-04-27] MEDS: Famotidine 20 MG TAB PO SCH (08:19)
[2019-04-27] MEDS: Polyethylene Glycol 3350 17 GM Packet PO SCH (08:20)
[2019-04-27] MEDS: Acetaminophen/Codeine 30-300mg Tablet PO PRN (14:32)
[2019-04-27] MEDS: Acetaminophen 325 MG TAB PO PRN (20:40)
[2019-04-28] MEDS: Levothyroxine Sodium 100 MCG TAB PO SCH (05:58)
[2019-04-28] MEDS: Famotidine 20 MG TAB PO SCH (08:07)
[2019-04-28] MEDS: Acetaminophen 325 MG TAB PO PRN ×2 (08:07→20:37)
[2019-04-28] MEDS: Multivit, Therapeutic 1 TAB PO SCH (08:07)
[2019-04-28] MEDS: Penicillin V Potassium 250 MG TAB PO SCH ×2 (08:08→20:37)
[2019-04-28] MEDS: Gabapentin 100 MG CAP PO SCH ×3 (08:08→20:37)
[2019-04-28] MEDS: Glimepiride 2 MG TAB PO SCH (08:08)
[2019-04-28] MEDS: Lisinopril 10 MG TAB PO SCH (08:08)
[2019-04-28] MEDS: Furosemide 80 MG TAB PO SCH (08:08)
[2019-04-28] MEDS: Enoxaparin Sodium 40 MG/0.4 ML SYRINGE SC SCH (08:08)
[2019-04-28] MEDS: Polyethylene Glycol 3350 17 GM Packet PO SCH (08:09)
[2019-04-29] MEDS: Levothyroxine Sodium 100 MCG TAB PO SCH (05:43)
--- NOTE | 2019-04-29 07:30 | PRG ---
DATE OF SERVICE: 04/27/2019 SUBJECTIVE: The patient said she is doing good. She is feeling good. Her back is doing well. She is doing better with her therapy. OBJECTIVE: GENERAL: The patient is sitting up in her geriatric chair just coming back from the bathroom with assistance. She looks very comfortable and in no distress. VITAL SIGNS: Her temperature is 97.5, pulse 69, respirations 18, O2 saturation 95% on room air, and blood pressure 151/67. LUNGS: Clear. HEART: Regular rate. EXTREMITIES: The edema is well controlled with 2-layer compression wraps of the lower leg. ASSESSMENT: 1. Fall, mechanical from tripping, that occurred on 04/16/2019. a. Resulting in marked increase in her chronic low back pain. b. Resulted in contusion to the scalp with headaches with a negative CT scan c. Contusion to the mid and upper right back. d. Pain control. No recurrence or fall as of 04/27/2019. 2. Severe generalized weakness. a. Requires assistance with ADLs. b. Improved. Walking 150 to 300 feet with a rolling walker and standby assistance. Transfers are getting easier as of 04/27/2019. 3. Severe cervical spinal spondylosis and spinal stenosis, complicated by myelopathy. a. Presenting with weakness and paralysis of the lower extremity and marked weakness in the upper extremities. b. Status post decompression and anterior fusion of the involved segments in October 2014 with marked improvement. c. 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 4. Chronic low back pain. a. Secondary to severe spondylosis. 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 c. Pain controlled, still has intermittent episodes that require her analgesics as of 04/27/2019. 5. Severe venous insufficiency of the lower extremities. a. Controlled with two-layer compression wraps from the toes to the knees twice a week. b. History of repeated episodes of cellulitis. c.Chronic prophylactic antibiotics with penicillin. 6. Diabetes type 2.. a. Good control with hemoglobin A1c of 6.9 on 04/04/2019. 7. Hypertension. 8. Hypothyroidism. 9. Generalized osteoarthritis. 10.Diastolic dysfunction with ejection fraction of 60% to 65%. a. No evidence of acute congestive heart failure. PLAN: Continue present care. Continue physical therapy. We will plan on discharging the patient back to the [facility] in a few days. This will allow her to further improve her strengthening, gait and transfers. Job ID: [id number] [facility]
[2019-04-29] MEDS: Enoxaparin Sodium 40 MG/0.4 ML SYRINGE SC SCH (08:42)
[2019-04-29] MEDS: Gabapentin 100 MG CAP PO SCH ×3 (08:43→20:12)
[2019-04-29] MEDS: Lisinopril 10 MG TAB PO SCH (08:43)
[2019-04-29] MEDS: Famotidine 20 MG TAB PO SCH (08:43)
[2019-04-29] MEDS: Multivit, Therapeutic 1 TAB PO SCH (08:43)
[2019-04-29] MEDS: Penicillin V Potassium 250 MG TAB PO SCH ×2 (08:43→20:13)
[2019-04-29] MEDS: Furosemide 80 MG TAB PO SCH (08:44)
[2019-04-29] MEDS: Acetaminophen 325 MG TAB PO PRN ×2 (08:44→20:18)
[2019-04-29] MEDS: Glimepiride 2 MG TAB PO SCH (08:44)
[2019-04-29] MEDS: Polyethylene Glycol 3350 17 GM Packet PO SCH (08:45)
[2019-04-29] MEDS: Keri Lotion 15 oz BOT TOP SCH (08:45)
--- NOTE | 2019-04-29 10:34 | PRG ---
DATE OF SERVICE: 04/29/2019 SUBJECTIVE: The patient said she is doing good. She has already been around physical therapy. She is due to have her two-layer compression wraps replaced today. OBJECTIVE: GENERAL: The patient is sitting up in her Sandra chair with her feet elevated. She appears very comfortable. VITAL SIGNS: Her temp is 97.3, pulse 63, respirations 18, O2 saturation 95% on room air, blood pressure is 143/64. Her FBS this morning was 115. LUNGS: Clear. HEART: Regular rate. EXTREMITIES: Lower extremities, the edema well controlled with the two-layer compression wraps. ASSESSMENT: 1. Fall, mechanical from tripping, that occurred on 04/16/2019. a. Resulting in marked increase in her chronic low back pain. b. Resulted in contusion to the scalp with headaches with a negative CT scan c. Contusion to the mid and upper right back. d. Pain control. No recurrence or fall as of 04/29/2019. 2. Severe generalized weakness. a. Requires assistance with ADLs. b. Improved. Walking 150 to 300 feet with a rolling walker and standby assistance. Transfers are getting easier as of 04/29/2019. 3. Severe cervical spinal spondylosis and spinal stenosis, complicated by myelopathy. a. Presenting with weakness and paralysis of the lower extremity and marked weakness in the upper extremities. b. Status post decompression and anterior fusion of the involved segments in October 2014 with marked improvement. c. 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 4. Chronic low back pain. a. Secondary to severe spondylosis. 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 c. Pain well controlled as of 04/29/2019. 5. Severe venous insufficiency of the lower extremities. a. Controlled with two-layer compression wraps from the toes to the knees twice a week. b. History of repeated episodes of cellulitis. c.Chronic prophylactic antibiotics with penicillin. 6. Diabetes type 2.. a. Good control with hemoglobin A1c of 6.9 on 04/04/2019. 7. Hypertension. 8. Hypothyroidism. 9. Generalized osteoarthritis. 10.Diastolic dysfunction with ejection fraction of 60% to 65%. a. No evidence of acute congestive heart failure. PLAN: Continue PT, OT. Continue two-layer compression wraps in lower extremity twice a week. Tentatively, we will plan to discharge to the intermediate on , 05/02. Job ID: [id number] [facility]
[2019-04-30] MEDS: Levothyroxine Sodium 100 MCG TAB PO SCH (05:30)
[2019-04-30] MEDS: Glimepiride 2 MG TAB PO SCH (08:09)
[2019-04-30] MEDS: Acetaminophen 325 MG TAB PO PRN ×3 (08:10→20:41)
[2019-04-30] MEDS: Enoxaparin Sodium 40 MG/0.4 ML SYRINGE SC SCH (08:10)
[2019-04-30] MEDS: Penicillin V Potassium 250 MG TAB PO SCH ×2 (08:10→20:41)
[2019-04-30] MEDS: Polyethylene Glycol 3350 17 GM Packet PO SCH (08:10)
[2019-04-30] MEDS: Multivit, Therapeutic 1 TAB PO SCH (08:10)
[2019-04-30] MEDS: Furosemide 80 MG TAB PO SCH (08:11)
[2019-04-30] MEDS: Lisinopril 10 MG TAB PO SCH (08:11)
[2019-04-30] MEDS: Famotidine 20 MG TAB PO SCH (08:11)
[2019-04-30] MEDS: Gabapentin 100 MG CAP PO SCH ×3 (08:11→20:41)
--- NOTE | 2019-04-30 10:12 | PRG ---
DATE OF SERVICE: 04/30/2019 SUBJECTIVE: The patient said she has already been to therapy this morning and is doing very well with that. She had no complaints this morning. Her 2-layer compression wraps of the lower extremities were changed yesterday. OBJECTIVE: GENERAL: The patient is sitting up in her Sandra chair preparing to eat breakfast. She is alert, talkative, appears very comfortable, and in no distress. VITAL SIGNS: Her temp is 97, pulse 65, respirations 18, O2 saturation 99% on room air, blood pressure 145/63. LUNGS: Clear. HEART: Regular rate. EXTREMITIES: Lower extremities, edema controlled with the 2-layer compression wraps. ASSESSMENT: 1. Fall, mechanical from tripping, that occurred on 04/16/2019. a. Resulting in marked increase in her chronic low back pain. b. Resulted in contusion to the scalp with headaches with a negative CT scan c. Contusion to the mid and upper right back. d. Pain control. No recurrence or fall as of 04/30/2019. 2. Severe generalized weakness. a. Requires assistance with ADLs. b. Improved. Walking 150 to 300 feet with a rolling walker and standby assistance. Transfers are getting easier as of 04/30/2019. 3. Severe cervical spinal spondylosis and spinal stenosis, complicated by myelopathy. a. Presenting with weakness and paralysis of the lower extremity and marked weakness in the upper extremities. b. Status post decompression and anterior fusion of the involved segments in October 2014 with marked improvement. c. 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 4. Chronic low back pain. a. Secondary to severe spondylosis. 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 c. Pain well controlled as of 04/30/2019. 5. Severe venous insufficiency of the lower extremities. a. Controlled with two-layer compression wraps from the toes to the knees twice a week. b. History of repeated episodes of cellulitis. c.Chronic prophylactic antibiotics with penicillin. 6. Diabetes type 2.. a. Good control with hemoglobin A1c of 6.9 on 04/04/2019. 7. Hypertension. 8. Hypothyroidism. 9. Generalized osteoarthritis. 10.Diastolic dysfunction with ejection fraction of 60% to 65%. a. No evidence of acute congestive heart failure. PLAN: Continue present care. Continue PT/OT. Tentatively planned discharge the patient back to the half-way on , 05/02. Job ID: [id number] [facility]
[2019-05-01] MEDS: Levothyroxine Sodium 100 MCG TAB PO SCH (05:50)
[2019-05-01] MEDS: Polyethylene Glycol 3350 17 GM Packet PO SCH (08:51)
[2019-05-01] MEDS: Lisinopril 10 MG TAB PO SCH (08:52)
[2019-05-01] MEDS: Furosemide 80 MG TAB PO SCH (08:52)
[2019-05-01] MEDS: Multivit, Therapeutic 1 TAB PO SCH (08:52)
[2019-05-01] MEDS: Penicillin V Potassium 250 MG TAB PO SCH ×2 (08:52→20:17)
[2019-05-01] MEDS: Gabapentin 100 MG CAP PO SCH ×3 (08:52→20:17)
[2019-05-01] MEDS: Glimepiride 2 MG TAB PO SCH (08:52)
[2019-05-01] MEDS: Enoxaparin Sodium 40 MG/0.4 ML SYRINGE SC SCH (08:53)
[2019-05-01] MEDS: Famotidine 20 MG TAB PO SCH (08:53)
--- NOTE | 2019-05-01 10:03 | PRG ---
DATE OF SERVICE: 05/01/2019 SUBJECTIVE: Patient said she is feeling good this morning. She has already been to therapy. She is now preparing to eat her breakfast. She is looking forward to returning to the correction tomorrow. OBJECTIVE: GENERAL: The patient is sitting up in a geriatric chair. She is alert, appears very comfortable, in no distress. VITAL SIGNS: Her temp is 97.5, pulse 69, respirations 18, O2 saturation 97% on room air, blood pressure 144/70. LUNGS: Clear. HEART: Regular rate. FBS yesterday morning 136. EXTREMITIES: Lower extremity edema controlled with two-layer compression wraps. ASSESSMENT: 1. Fall, mechanical from tripping, that occurred on 04/16/2019. a. Resulting in marked increase in her chronic low back pain. b. Resulted in contusion to the scalp with headaches with a negative CT scan c. Contusion to the mid and upper right back. d. Pain control. No recurrence or fall as of 05/01/2019. 2. Severe generalized weakness. a. Requires assistance with ADLs. b. Improved. Walking 150 to 300 feet with a rolling walker and standby assistance. Transfers are getting easier as of 05/01/2019. 3. Severe cervical spinal spondylosis and spinal stenosis, complicated by myelopathy. a. Presenting with weakness and paralysis of the lower extremity and marked weakness in the upper extremities. b. Status post decompression and anterior fusion of the involved segments in October 2014 with marked improvement. c. 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 4. Chronic low back pain. a. Secondary to severe spondylosis. 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 c. Pain well controlled as of 04/09/2019. 5. Severe venous insufficiency of the lower extremities. a. Controlled with two-layer compression wraps from the toes to the knees twice a week. b. History of repeated episodes of cellulitis. c.Chronic prophylactic antibiotics with penicillin. 6. Diabetes type 2.. a. Good control with hemoglobin A1c of 6.9 on 04/04/2019. 7. Hypertension. 8. Hypothyroidism. 9. Generalized osteoarthritis. 10.Diastolic dysfunction with ejection fraction of 60% to 65%. a. No evidence of acute congestive heart failure. PLAN: Continue present care. Continue PT/OT. Plan on discharge to the correction in the morning. Job ID: [id number] [facility]
[2019-05-01] MEDS: Acetaminophen 325 MG TAB PO PRN (20:21)
[2019-05-02] MEDS: Levothyroxine Sodium 100 MCG TAB PO SCH (06:04)
[2019-05-02 07:28] VITALS: BP 135/60; TEMP 97.1
[2019-05-02] MEDS: Penicillin V Potassium 250 MG TAB PO SCH (08:24)
[2019-05-02] MEDS: Gabapentin 100 MG CAP PO SCH (08:24)
[2019-05-02] MEDS: Furosemide 80 MG TAB PO SCH (08:24)
[2019-05-02] MEDS: Enoxaparin Sodium 40 MG/0.4 ML SYRINGE SC SCH (08:25)
[2019-05-02] MEDS: Keri Lotion 15 oz BOT TOP SCH (08:25)
[2019-05-02] MEDS: Multivit, Therapeutic 1 TAB PO SCH (08:25)
[2019-05-02] MEDS: Glimepiride 2 MG TAB PO SCH (08:25)
[2019-05-02] MEDS: Lisinopril 10 MG TAB PO SCH (08:25)
[2019-05-02] MEDS: Famotidine 20 MG TAB PO SCH (08:25)
[2019-05-02] MEDS: Polyethylene Glycol 3350 17 GM Packet PO SCH (08:26)
--- NOTE | 2019-05-02 14:04 | DIS ---
DATE OF ADMISSION: 04/19/2019 DATE OF DISCHARGE: 05/02/2019 Admitted to [facility] on 04/16/2019, transferred to [facility] on 04/19/2019, and discharged on 05/02/2019. FINAL DIAGNOSES: 1. Fall, mechanical from tripping, that occurred on 04/16/2019. a. Resulting in marked increase in her chronic low back pain. b. Resulted in contusion to the scalp with headaches with a negative CT scan c. Contusion to the mid and upper right back. d. Pain control. No recurrence or fall as of 05/02/2019. 2. Severe generalized weakness. a. Requires assistance with ADLs. b. Improved. Walking 150 to 300 feet with a rolling walker and standby assistance. Transfers are getting easier as of 05/02/2019. 3. Severe cervical spinal spondylosis and spinal stenosis, complicated by myelopathy. a. Presenting with weakness and paralysis of the lower extremity and marked weakness in the upper extremities. b. Status post decompression and anterior fusion of the involved segments in October 2014 with marked improvement. c. 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 4. Chronic low back pain. a. Secondary to severe spondylosis. 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 c. Pain well controlled as of 05/02/2019. 5. Severe venous insufficiency of the lower extremities. a. Controlled with two-layer compression wraps from the toes to the knees twice a week. b. History of repeated episodes of cellulitis. c.Chronic prophylactic antibiotics with penicillin. 6. Diabetes type 2.. a. Good control with hemoglobin A1c of 6.9 on 04/04/2019. 7. Hypertension. 8. Hypothyroidism. 9. Generalized osteoarthritis. 10.Diastolic dysfunction with ejection fraction of 60% to 65%. a. No evidence of acute congestive heart failure. SUMMARY: Mrs. Carroll is a 78-year-old white female, who has severe cervical spinal spondylosis and spinal stenosis that has been complicated by myelopathy, requiring decompression and anterior fusion in October 2014. She had become essentially bed confined and had minimal movement in her extremities. After the surgery, she improved, where she is able to ambulate short distances and has some limited use of her arms, but still has quadriparesis. She also has chronic low back pain secondary to severe spondylosis, severe venous insufficiency, that has with a history of frequent episodes of cellulitis. The venous insufficiency has been controlled with two-layer compression wraps from the base of the toes to just below the knees on Monday and . She is also on prophylactic antibiotics with penicillin-VK. She has diabetes type 2, that is under good control with a hemoglobin A1c of 6.9, hypertension, and hypothyroidism. She does have a diastolic dysfunction, but no evidence of acute congestive heart failure. The patient resides at the skilled nursing, where she has assistance with her ADLs. The patient was admitted to the hospital on 04/16/2019 following a second fall when she attempted to get up going to the bathroom and in the process of turning, fell and had severe pain in her back. She was brought to the emergency room due to the severe pain in her back. She had evaluation there, did not disclose any fractures. She was admitted to the hospital for pain control. She was placed initially at bedrest, was given Tylenol No. 3 as needed for pain and gain more pump for moist heat to apply to the back. She was gradually allowed up in a chair, then Physical Therapy began working with her. She improved and the pain was controlled. She was moved to [facility] on 04/19/2019 for continued physical therapy in an effort to try to improve her functional capabilities. During her stay, she made excellent progress and by the time of her discharge, she was sitting up in a chair without any difficulty. She was ambulating 150 feet several times a day and on occasion, up to 300 feet with a rolling walker with just supervision. She was requiring a little standby assistance with any transfers. Her pain in her back was well controlled. Her hypertension was controlled. Her diabetes was controlled, and her venous insufficiency was controlled with a two-layer compression wraps that were applied twice the week. Prior to these wraps, the skin was rubbed with Claudia lotion with Kenalog to help control the stasis dermatitis. There was no evidence of any cellulitis. By , her condition improved such it is felt that she could return to the skilled nursing and there, continue PT and OT and the two-layer compression wraps to the lower extremities twice the week on Monday and . DISPOSITION: DIET: Regular diet. No added salt. ACTIVITIES: Up in a chair with the feet elevated as tolerated. Two-layer compression wraps to the lower extremities twice the week on Monday and . Ambulate with a rolling walker with wheels in front, not the four-wheel walker. PT and OT evaluation there in the skilled nursing. Glucometer checks daily. MEDICATIONS: 1. Acetaminophen 325 mg two every 4 hours as needed. 2. Tylenol No. 3 one every 8 hours p.r.n. pain. 3. Dulcolax suppository 10 mg 1 per rectum daily p.r.n. 4. Pepcid 20 mg daily. 5. Furosemide 80 mg daily. 6. Neurontin 200 mg t.i.d. 7. Glimepiride 1 mg daily. 8. Levothyroxine 100 mcg daily. 9. Lisinopril 10 mg daily. 10. Multivitamin. 11. Theragran-M one daily. 12. Penicillin V potassium 250 mg b.i.d. 13. MiraLAX 17 g 8 ounces of water daily. 14. Claudia lotion with Kenalog 15 ounces/200 mg apply to the lower legs prior to wrapping. FOLLOWUP: The patient will be seen in 2 weeks. CODE STATUS: Full code. Job ID: [id number] [facility]
== END 2019-05-02 10:54 | DRG 91 ==
LOC: MADMS 13:30
PROVIDERS: ADMIT Family Medicine; ATTEND Family Medicine
DX: G89.29 Other chronic pain (principal); G82.50 Quadriplegia, unspecified; M47.12 Other spondylosis with myelopathy, cervical region; M54.5 Low back pain; S00.03XD Contusion of scalp, subsequent encounter; S30.0XXD Contusion of lower back and pelvis, subsequent encounter; S20.221D Contusion of right back wall of thorax, subsequent encounter; W01.0XXD Fall on same level from slipping, tripping and stumbling without subsequent striking against object, subsequent encounter; R53.1 Weakness; M48.02 Spinal stenosis, cervical region; I87.2 Venous insufficiency (chronic) (peripheral); E11.9 Type 2 diabetes mellitus without complications; I10 Essential (primary) hypertension; E03.9 Hypothyroidism, unspecified; M15.9 Polyosteoarthritis, unspecified; Z74.01 Bed confinement status
CPT/HCPCS: 36416; J1650

== ENCOUNTER 2020-12-04 14:46 | Emergency (ER) | payer MEDICARE ==
[2020-12-04] MEDS ORDERED: Acetaminophen 325 MG TAB ONE (15:22)
[2020-12-04 16:24] LABS: #Eosinphils 0.1 thou/uL (0.0-0.7); #Monocytes 0.5 thou/uL (0.11-0.59); #Neutrophils 2.4 thou/uL (1.40-6.50); %Basophils 0.7 % (0.0-1.0); %Eosinophils 3.3 % (0.0-10.0); %Lymphocytes 25.7 % (21.0-51.0); %Monocytes 11.7 % (0.0-10.0); %Neutrophils 58.7 % (42.0-75.0); Hemoglobin 10.8 g/dL (12.0-16.0); Mean Corpuscular Hemoglobin 26.8 pg (27.0-31.0); Mean Corpuscular Volume 86.3 fL (78.0-98.0); Mean Platelet Volume 7.7 fL (7.4-10.4); Platelet Count 144 thou/uL (130-400); RBC Distribution Width 12.3 % (11.5-14.5); Red Blood Cell (RBC) Count 4.02 mill/uL (4.20-5.40)
[2020-12-04 16:40] LABS: ALT (SGPT) 23 U/L (8-55); AST (SGOT) 32 U/L (5-34); Albumin 3.5 g/dL (3.4-4.8); Alkaline Phosphatase 86 U/L (40-110); Anion Gap 18 mmol/L (10-20); BUN (Urea Nitrogen) 31 mg/dL (9.8-20.1); Bilirubin, Total 0.4 mg/dL (0.2-1.2); Calc. Creatinine Clearance 0 mL/min (70-130); Calcium 7.8 mg/dL (7.8-10.44); Carbon Dioxide 24 mmol/L (23-31); Chloride 102 mmol/L (98-107); Globulin 3.3 g/dL (2.4-3.5); Glucose 90 mg/dL (83-110); Potassium 4.7 mmol/L (3.5-5.1); Protein, Total 6.8 g/dL (5.8-8.1); Sodium 139 mmol/L (136-145)
== END 2020-12-04 17:30 ==
LOC: MADERS 14:46
DX: U07.1 COVID-19 (principal); I13.0 Hypertensive heart and chronic kidney disease with heart failure and stage 1 through stage 4 chronic kidney disease, or unspecified chronic kidney disease; E11.22 Type 2 diabetes mellitus with diabetic chronic kidney disease; N18.9 Chronic kidney disease, unspecified; I50.9 Heart failure, unspecified; E03.9 Hypothyroidism, unspecified; M19.90 Unspecified osteoarthritis, unspecified site; D50.9 Iron deficiency anemia, unspecified
CPT/HCPCS: 36415; 80053; 85025; 99284

== ENCOUNTER 2020-12-10 07:02 | Emergency (ER) | payer MEDICARE, MEDICAID ==
[2020-12-10 07:31] LABS: #Lymphocytes 0.8 thou/uL (1.20-3.40); #Monocytes 0.6 thou/uL (0.11-0.59); #Neutrophils 3.7 thou/uL (1.40-6.50); %Basophils 0.7 % (0.0-1.0); %Eosinophils 0.1 % (0.0-10.0); %Lymphocytes 16.3 % (21.0-51.0); %Neutrophils 70.9 % (42.0-75.0); Hemoglobin 10.1 g/dL (12.0-16.0); Mean Corpuscular Volume 84.4 fL (78.0-98.0); Mean Platelet Volume 7.6 fL (7.4-10.4); Platelet Count 203 thou/uL (130-400); RBC Distribution Width 12.4 % (11.5-14.5); Red Blood Cell (RBC) Count 3.75 mill/uL (4.20-5.40); White Blood Cell (WBC) Count 5.2 thou/uL (4.8-10.8)
[2020-12-10 07:43] LABS: ALT (SGPT) 28 U/L (8-55); AST (SGOT) 43 U/L (5-34); Albumin 3.3 g/dL (3.4-4.8); Alkaline Phosphatase 82 U/L (40-110); Anion Gap 16 mmol/L (10-20); BUN (Urea Nitrogen) 30 mg/dL (9.8-20.1); Bilirubin, Total 0.5 mg/dL (0.2-1.2); Calc. Creatinine Clearance 0 mL/min (70-130); Calcium 7.7 mg/dL (7.8-10.44); Carbon Dioxide 25 mmol/L (23-31); Chloride 104 mmol/L (98-107); Globulin 3.3 g/dL (2.4-3.5); Glucose 65 mg/dL (83-110); Potassium 4.2 mmol/L (3.5-5.1); Protein, Total 6.6 g/dL (5.8-8.1); Sodium 141 mmol/L (136-145)
[2020-12-10] MEDS ORDERED: Dextrose 50% Abboject 50 ML SYRINGE ONE (08:38)
[2020-12-10 10:23] LABS: Bilirubin Negative (Negative); Blood, Urine Moderate (Negative); Clarity Slightly Cloudy (Clear); Glucose, Urine (Dipstick) Negative (Negative); Ketone, Urine Negative (Negative); Leukocyte Moderate (Negative); Nitrite Positive (Negative); Protein, Urine (Dipstick) 30 mg/dL (Neg-Trace); Specific Gravity, Urine 1.015 (1.005-1.030)
[2020-12-10 10:29] LABS: Bacteria/HPF 2+ HPF (None Seen); Squamous Epithelial 0-3 HPF (0-3); WBC/HPF 21-50 HPF (0-3)
[2020-12-10] MEDS ORDERED: Lidocaine 1% 20 ML MDV ONE (10:50)
[2020-12-10] MEDS ORDERED: cefTRIAXone\\ROCEPHIN 1 GM VIAL ONE (10:50)
== END 2020-12-10 10:54 ==
LOC: MADERS 07:02
DX: U07.1 COVID-19 (principal); N30.00 Acute cystitis without hematuria; E11.649 Type 2 diabetes mellitus with hypoglycemia without coma; E03.9 Hypothyroidism, unspecified; N18.9 Chronic kidney disease, unspecified; E11.22 Type 2 diabetes mellitus with diabetic chronic kidney disease; I13.0 Hypertensive heart and chronic kidney disease with heart failure and stage 1 through stage 4 chronic kidney disease, or unspecified chronic kidney disease; I50.9 Heart failure, unspecified; Z79.4 Long term (current) use of insulin; Z79.899 Other long term (current) drug therapy
CPT/HCPCS: 36416; 71045; 80053; 81003; 81015; 83605; 83880; 84484; 85025; 87040; 87077; 87086; 87186; 93005; 94760; 96361; 96372; 96374; J0696

== ENCOUNTER 2021-05-31 20:59 | Inpatient (IN) | payer MEDICARE, MEDICAID ==
[2021-05-31 21:56] LABS: #Basophils 0.1 thou/uL (0.0-0.2); #Eosinphils 0.3 thou/uL (0.0-0.7); #Lymphocytes 1.9 thou/uL (1.20-3.40); #Monocytes 0.6 thou/uL (0.11-0.59); #Neutrophils 8.9 thou/uL (1.40-6.50); %Basophils 0.8 % (0.0-1.0); %Eosinophils 2.8 % (0.0-10.0); %Lymphocytes 16.4 % (21.0-51.0); %Monocytes 5.1 % (0.0-10.0); Hemoglobin 11.7 g/dL (12.0-16.0); Mean Corpuscular HGB CONC 31.3 g/dL (32.0-36.0); Mean Corpuscular Hemoglobin 28.9 pg (27.0-31.0); Mean Corpuscular Volume 92.2 fL (78.0-98.0); Mean Platelet Volume 9.1 fL (7.4-10.4); Platelet Count 282 thou/uL (130-400); Red Blood Cell (RBC) Count 4.05 mill/uL (4.20-5.40); White Blood Cell (WBC) Count 11.9 thou/uL (4.8-10.8)
[2021-05-31 22:20] LABS: ALT (SGPT) 12 U/L (8-55); Albumin 3.9 g/dL (3.4-4.8); Alkaline Phosphatase 97 U/L (40-110); Anion Gap 21 mmol/L (10-20); BUN (Urea Nitrogen) 36 mg/dL (9.8-20.1); Bilirubin, Total 0.6 mg/dL (0.2-1.2); CK (CPK) 39 U/L (29-168); Calc. Creatinine Clearance 0 mL/min (70-130); Calcium 8.8 mg/dL (7.8-10.44); Carbon Dioxide 19 mmol/L (23-31); Chloride 102 mmol/L (98-107); Globulin 3.4 g/dL (2.4-3.5); Glucose 167 mg/dL (83-110); Lipase 17 U/L (8-78); Potassium 5.4 mmol/L (3.5-5.1); Protein, Total 7.3 g/dL (5.8-8.1); Sodium 137 mmol/L (136-145)
[2021-05-31 23:09] LABS: AST (SGOT) 22 U/L (5-34); Magnesium 2.3 mg/dL (1.6-2.6)
[2021-06-01] MEDS ORDERED: cefTRIAXone\\ROCEPHIN 1 GM VIAL ONE (02:16)
[2021-06-01 02:41] LABS: Anion Gap 14 mmol/L (10-20); BUN (Urea Nitrogen) 38 mg/dL (9.8-20.1); Calc. Creatinine Clearance 0 mL/min (70-130); Calcium 8.5 mg/dL (7.8-10.44); Carbon Dioxide 26 mmol/L (23-31); Chloride 103 mmol/L (98-107); Glucose 144 mg/dL (83-110); Potassium 4.9 mmol/L (3.5-5.1); Sodium 138 mmol/L (136-145)
[2021-06-01] MEDS ORDERED: Sodium Chloride 0.9% 1,000 ML ONE (03:10)
[2021-06-01 09:44] LABS: #Basophils 0.1 thou/uL (0.0-0.2); #Eosinphils 0.3 thou/uL (0.0-0.7); #Monocytes 0.9 thou/uL (0.11-0.59); #Neutrophils 11.1 thou/uL (1.40-6.50); %Basophils 0.7 % (0.0-1.0); %Eosinophils 2.6 % (0.0-10.0); %Lymphocytes 7.2 % (21.0-51.0); %Monocytes 6.5 % (0.0-10.0); %Neutrophils 83.1 % (42.0-75.0); Hemoglobin 11.2 g/dL (12.0-16.0); Mean Corpuscular HGB CONC 31.2 g/dL (32.0-36.0); Mean Corpuscular Hemoglobin 28.7 pg (27.0-31.0); Mean Corpuscular Volume 91.8 fL (78.0-98.0); Mean Platelet Volume 8.3 fL (7.4-10.4); Platelet Count 216 thou/uL (130-400); RBC Distribution Width 12.1 % (11.5-14.5); Red Blood Cell (RBC) Count 3.89 mill/uL (4.20-5.40); White Blood Cell (WBC) Count 13.4 thou/uL (4.8-10.8)
[2021-06-01 10:00] LABS: ALT (SGPT) 9 U/L (8-55); AST (SGOT) 12 U/L (5-34); Albumin 3.5 g/dL (3.4-4.8); Alkaline Phosphatase 85 U/L (40-110); Anion Gap 14 mmol/L (10-20); BUN (Urea Nitrogen) 38 mg/dL (9.8-20.1); Bilirubin, Total 0.6 mg/dL (0.2-1.2); CK (CPK) 44 U/L (29-168); Calc. Creatinine Clearance 0 mL/min (70-130); Calcium 8.4 mg/dL (7.8-10.44); Carbon Dioxide 25 mmol/L (23-31); Chloride 105 mmol/L (98-107); Glucose 110 mg/dL (83-110); Potassium 4.4 mmol/L (3.5-5.1); Protein, Total 6.5 g/dL (5.8-8.1); Sodium 140 mmol/L (136-145)
[2021-06-01] MEDS ORDERED: Gabapentin 100 MG CAP ONE (12:15)
[2021-06-01] MEDS ORDERED: Acetaminophen 500 MG TAB ONE (12:15)
[2021-06-01] MEDS ORDERED: Enoxaparin Sodium 30 MG/0.3 ML SYRINGE SC SCH (12:15)
[2021-06-01] MEDS ORDERED: Enoxaparin Sodium 30 MG/0.3 ML SYRINGE ONE (12:34)
[2021-06-01] MEDS ORDERED: Sodium Chloride 0.9% 1,000 ML BAG ONE (13:50)
[2021-06-01 13:54] LABS: SARS-CoV-2 NAA Rapid Test Not Detected (NotDetected)
[2021-06-01] MEDS ORDERED: Acetaminophen 325 MG TAB PO PRN (14:22)
[2021-06-01] MEDS ORDERED: Ondansetron ODT 4 MG TAB PO PRN (14:23)
[2021-06-01] MEDS ORDERED: Sodium Chloride 0.9% 1,000 ML IV SCH (14:30)
[2021-06-01 14:35] VITALS: BMI 42.4
[2021-06-01] MEDS ORDERED: Bisacodyl 5 MG TAB PO PRN (18:23)
[2021-06-01] MEDS: Sodium Chloride 0.9% 1,000 ML IV SCH (19:43)
[2021-06-01 20:37] LABS: Bilirubin Negative (Negative); Blood, Urine Large (Negative); Clarity Cloudy (Clear); Glucose, Urine (Dipstick) Negative (Negative); Ketone, Urine Negative (Negative); Leukocyte Moderate (Negative); Nitrite Negative (Negative); Protein, Urine (Dipstick) Trace mg/dL (Neg-Trace); Specific Gravity, Urine 1.015 (1.005-1.030); Urobilinogen 0.2 mg/dL (Less than 2)
[2021-06-01 20:42] LABS: Bacteria/HPF 2+ HPF (None Seen); WBC/HPF Greater Than 50 HPF (0-3)
[2021-06-01] MEDS: Gabapentin 100 MG CAP PO SCH (21:07)
[2021-06-01] MEDS: Penicillin V Potassium 250 MG TAB PO SCH (21:07)
[2021-06-01] MEDS: Senokot S 8.6-50 MG TAB PO SCH (21:07)
[2021-06-01] MEDS: Famotidine 20 MG TAB PO SCH (21:12)
[2021-06-02] MEDS: Sodium Chloride 0.9% 1,000 ML IV SCH ×3 (01:28→21:05)
[2021-06-02] MEDS: cefTRIAXone\\ROCEPHIN 2 GM in Sodium Chloride 0.9% 100 ML IVPB SCH (02:01)
[2021-06-02 05:32] LABS: #Basophils 0.1 thou/uL (0.0-0.2); #Eosinphils 0.5 thou/uL (0.0-0.7); #Monocytes 0.2 thou/uL (0.11-0.59); #Neutrophils 5.2 thou/uL (1.40-6.50); %Basophils 0.9 % (0.0-1.0); %Eosinophils 7.7 % (0.0-10.0); %Lymphocytes 13.6 % (21.0-51.0); %Monocytes 3.2 % (0.0-10.0); %Neutrophils 74.6 % (42.0-75.0); Mean Corpuscular HGB CONC 31.7 g/dL (32.0-36.0); Mean Corpuscular Hemoglobin 28.9 pg (27.0-31.0); Mean Platelet Volume 8.6 fL (7.4-10.4); Platelet Count 188 thou/uL (130-400); Red Blood Cell (RBC) Count 3.46 mill/uL (4.20-5.40)
[2021-06-02 06:16] LABS: Anion Gap 11 mmol/L (10-20); BUN (Urea Nitrogen) 33 mg/dL (9.8-20.1); Calc. Creatinine Clearance 61 mL/min (70-130); Calcium 7.8 mg/dL (7.8-10.44); Carbon Dioxide 23 mmol/L (23-31); Chloride 111 mmol/L (98-107); Glucose 110 mg/dL (83-110); Potassium 4.4 mmol/L (3.5-5.1); Sodium 141 mmol/L (136-145)
[2021-06-02] MEDS: Lantus 1000 UNITS/10 ML VIAL SC SCH (08:38)
[2021-06-02] MEDS: Gabapentin 100 MG CAP PO SCH ×3 (08:39→20:03)
[2021-06-02] MEDS: Senokot S 8.6-50 MG TAB PO SCH ×2 (08:39→20:02)
[2021-06-02] MEDS: Penicillin V Potassium 250 MG TAB PO SCH ×2 (08:39→20:02)
[2021-06-02] MEDS: Glimepiride 2 MG TAB PO SCH (08:39)
[2021-06-02] MEDS: Triamcinolone 0.1% Cream 15 GM TUBE TOP SCH (08:40)
[2021-06-02] MEDS ORDERED: Lisinopril 10 MG TAB PO SCH (09:00)
[2021-06-02] MEDS ORDERED: Mag-Al Plus 1200 MG/1200 MG/120 MG/30 ML UDCUP PO PRN (09:06)
[2021-06-02] MEDS: Polyethylene Glycol 3350 17 GM Packet PO SCH (09:13)
[2021-06-02] MEDS: Famotidine 20 MG TAB PO SCH (20:03)
[2021-06-03] MEDS: cefTRIAXone\\ROCEPHIN 2 GM in Sodium Chloride 0.9% 100 ML IVPB SCH (02:23)
[2021-06-03 05:40] LABS: #Basophils 0.1 thou/uL (0.0-0.2); #Eosinphils 0.5 thou/uL (0.0-0.7); #Lymphocytes 1.3 thou/uL (1.20-3.40); #Monocytes 0.3 thou/uL (0.11-0.59); #Neutrophils 3.5 thou/uL (1.40-6.50); %Basophils 1.4 % (0.0-1.0); %Lymphocytes 22.3 % (21.0-51.0); %Monocytes 5.7 % (0.0-10.0); %Neutrophils 61.6 % (42.0-75.0); Hemoglobin 9.8 g/dL (12.0-16.0); Mean Corpuscular HGB CONC 32.5 g/dL (32.0-36.0); Mean Corpuscular Hemoglobin 29.4 pg (27.0-31.0); Mean Corpuscular Volume 90.6 fL (78.0-98.0); Mean Platelet Volume 8.8 fL (7.4-10.4); Platelet Count 185 thou/uL (130-400); RBC Distribution Width 11.7 % (11.5-14.5); Red Blood Cell (RBC) Count 3.34 mill/uL (4.20-5.40); White Blood Cell (WBC) Count 5.7 thou/uL (4.8-10.8)
[2021-06-03 05:54] LABS: ALT (SGPT) 12 U/L (8-55); AST (SGOT) 12 U/L (5-34); Alkaline Phosphatase 79 U/L (40-110); Anion Gap 12 mmol/L (10-20); BUN (Urea Nitrogen) 20 mg/dL (9.8-20.1); Bilirubin, Total 0.3 mg/dL (0.2-1.2); Calc. Creatinine Clearance 82 mL/min (70-130); Carbon Dioxide 23 mmol/L (23-31); Chloride 112 mmol/L (98-107); Globulin 2.7 g/dL (2.4-3.5); Glucose 112 mg/dL (83-110); Potassium 4.6 mmol/L (3.5-5.1); Protein, Total 5.7 g/dL (5.8-8.1); Sodium 142 mmol/L (136-145)
[2021-06-03] MEDS: Gabapentin 100 MG CAP PO SCH ×3 (08:39→21:04)
[2021-06-03] MEDS: Penicillin V Potassium 250 MG TAB PO SCH ×2 (08:39→21:05)
[2021-06-03] MEDS: Glimepiride 2 MG TAB PO SCH (08:41)
[2021-06-03] MEDS: Lantus 1000 UNITS/10 ML VIAL SC SCH (08:41)
[2021-06-03] MEDS: Senokot S 8.6-50 MG TAB PO SCH ×2 (08:43→21:06)
[2021-06-03] MEDS: Polyethylene Glycol 3350 17 GM Packet PO SCH (08:43)
[2021-06-03] MEDS: Lisinopril 10 MG TAB PO SCH (08:50)
[2021-06-03] MEDS ORDERED: Keri Lotion 15 oz BOT TOP SCH (09:00)
[2021-06-03] MEDS: Triamcinolone 0.1% Cream 15 GM TUBE TOP SCH (10:18)
[2021-06-03] MEDS: Emollient 15 oz bottle 450 ML, Triamcinolone Acetonide 200 MG TOP SCH (12:09)
[2021-06-03] MEDS: Famotidine 20 MG TAB PO SCH (21:04)
[2021-06-04] MEDS: cefTRIAXone\\ROCEPHIN 2 GM in Sodium Chloride 0.9% 100 ML IVPB SCH (03:37)
[2021-06-04] MEDS: Glimepiride 2 MG TAB PO SCH (08:16)
[2021-06-04] MEDS: Penicillin V Potassium 250 MG TAB PO SCH (08:17)
[2021-06-04] MEDS: Gabapentin 100 MG CAP PO SCH (08:17)
[2021-06-04] MEDS: Senokot S 8.6-50 MG TAB PO SCH (08:17)
[2021-06-04] MEDS: Lisinopril 10 MG TAB PO SCH (08:17)
[2021-06-04] MEDS: Polyethylene Glycol 3350 17 GM Packet PO SCH (08:18)
[2021-06-04] MEDS: Lantus 1000 UNITS/10 ML VIAL SC SCH (08:19)
[2021-06-04] MEDS: Emollient 15 oz bottle 450 ML, Triamcinolone Acetonide 200 MG TOP SCH (08:26)
[2021-06-04 11:39] VITALS: BP 148/81; TEMP 97.6
== END 2021-06-04 11:29 | disposition swing bed (61) | DRG 683 ==
LOC: MADERS 20:59 → MADMS 06-01 12:54
PROVIDERS: ADMIT Family Medicine; ATTEND Family Medicine
DX: N17.9 Acute kidney failure, unspecified (principal); N39.0 Urinary tract infection, site not specified; E86.0 Dehydration; I10 Essential (primary) hypertension; E11.9 Type 2 diabetes mellitus without complications; I95.1 Orthostatic hypotension; E03.9 Hypothyroidism, unspecified; G89.29 Other chronic pain; Z20.822 Contact with and (suspected) exposure to COVID-19; Z98.1 Arthrodesis status; Z90.89 Acquired absence of other organs; Z90.710 Acquired absence of both cervix and uterus; Z79.4 Long term (current) use of insulin; Z79.899 Other long term (current) drug therapy; Z88.5 Allergy status to narcotic agent; Z88.8 Allergy status to other drugs, medicaments and biological substances
CPT/HCPCS: 36416; 71045; 74176; 80048; 80053; 81001; 82550; 83036; 83605; 83690; 83735; 83880; 84443; 84484; 85025; 87040; 87086; J0696; J1650; J1815; J3490; J7050; U0002

== ENCOUNTER 2021-06-04 11:33 | Inpatient (IN) | payer MEDICARE, MEDICAID ==
[2021-06-04 11:57] VITALS: BMI 42.3
[2021-06-04] MEDS ORDERED: Bisacodyl 5 MG TAB PO PRN (13:01)
[2021-06-04] MEDS ORDERED: Ondansetron ODT 4 MG TAB PO PRN (13:03)
[2021-06-04] MEDS ORDERED: Mag-Al Plus 1200 MG/1200 MG/120 MG/30 ML UDCUP PO PRN (13:03)
[2021-06-04] MEDS ORDERED: Emollient 15 oz bottle 450 ML, Triamcinolone Acetonide 200 MG TOP PRN (13:15)
[2021-06-04] MEDS: Gabapentin 100 MG CAP PO SCH ×2 (14:42→20:42)
[2021-06-04] MEDS: Penicillin V Potassium 250 MG TAB PO SCH (20:42)
[2021-06-04] MEDS: Famotidine 20 MG TAB PO SCH (20:42)
[2021-06-04] MEDS ORDERED: Senokot 8.6 MG TAB PO SCH (21:00)
[2021-06-05] MEDS: Levothyroxine Sodium 100 MCG TAB PO SCH (05:48)
[2021-06-05] MEDS: Polyethylene Glycol 3350 17 GM Packet PO SCH (08:50)
[2021-06-05] MEDS: Lisinopril 10 MG TAB PO SCH (08:51)
[2021-06-05] MEDS: Lantus 1000 UNITS/10 ML VIAL SC SCH (08:51)
[2021-06-05] MEDS: Gabapentin 100 MG CAP PO SCH ×3 (08:51→20:13)
[2021-06-05] MEDS: Glimepiride 1 MG TAB PO SCH (08:51)
[2021-06-05] MEDS: Penicillin V Potassium 250 MG TAB PO SCH ×2 (08:51→20:13)
[2021-06-05] MEDS: Senokot S 8.6-50 MG TAB PO SCH ×2 (08:52→20:14)
[2021-06-05] MEDS: Famotidine 20 MG TAB PO SCH (20:13)
[2021-06-06] MEDS: Levothyroxine Sodium 100 MCG TAB PO SCH (05:48)
[2021-06-06] MEDS: Gabapentin 100 MG CAP PO SCH ×3 (08:46→20:41)
[2021-06-06] MEDS: Lisinopril 10 MG TAB PO SCH (08:47)
[2021-06-06] MEDS: Senokot S 8.6-50 MG TAB PO SCH ×2 (08:47→20:42)
[2021-06-06] MEDS: Glimepiride 1 MG TAB PO SCH (08:47)
[2021-06-06] MEDS: Lantus 1000 UNITS/10 ML VIAL SC SCH (08:47)
[2021-06-06] MEDS: Penicillin V Potassium 250 MG TAB PO SCH ×2 (08:47→20:41)
[2021-06-06] MEDS: Polyethylene Glycol 3350 17 GM Packet PO SCH (08:48)
[2021-06-06] MEDS: Famotidine 20 MG TAB PO SCH (20:41)
[2021-06-07] MEDS: Levothyroxine Sodium 100 MCG TAB PO SCH (05:45)
[2021-06-07] MEDS: Senokot S 8.6-50 MG TAB PO SCH ×2 (08:24→20:02)
[2021-06-07] MEDS: Lisinopril 10 MG TAB PO SCH (08:24)
[2021-06-07] MEDS: Glimepiride 1 MG TAB PO SCH (08:24)
[2021-06-07] MEDS: Gabapentin 100 MG CAP PO SCH ×3 (08:24→20:02)
[2021-06-07] MEDS: Polyethylene Glycol 3350 17 GM Packet PO SCH (08:25)
[2021-06-07] MEDS: Lantus 1000 UNITS/10 ML VIAL SC SCH (08:25)
[2021-06-07] MEDS: Penicillin V Potassium 250 MG TAB PO SCH ×2 (08:25→20:02)
[2021-06-07] MEDS: Acetaminophen 325 MG TAB PO PRN (14:03)
[2021-06-07] MEDS: Famotidine 20 MG TAB PO SCH (20:03)
[2021-06-08] MEDS: Levothyroxine Sodium 100 MCG TAB PO SCH (05:30)
[2021-06-08] MEDS: Penicillin V Potassium 250 MG TAB PO SCH ×2 (08:40→21:42)
[2021-06-08] MEDS: Glimepiride 1 MG TAB PO SCH (08:40)
[2021-06-08] MEDS: Gabapentin 100 MG CAP PO SCH ×3 (08:40→21:42)
[2021-06-08] MEDS: Senokot S 8.6-50 MG TAB PO SCH ×2 (08:41→21:42)
[2021-06-08] MEDS: Lisinopril 10 MG TAB PO SCH (08:41)
[2021-06-08] MEDS: Lantus 1000 UNITS/10 ML VIAL SC SCH (08:41)
[2021-06-08] MEDS: Polyethylene Glycol 3350 17 GM Packet PO SCH (08:41)
[2021-06-08] MEDS: Famotidine 20 MG TAB PO SCH (21:42)
[2021-06-09] MEDS: Levothyroxine Sodium 100 MCG TAB PO SCH (05:06)
[2021-06-09] MEDS: Gabapentin 100 MG CAP PO SCH ×3 (08:28→20:35)
[2021-06-09] MEDS: Penicillin V Potassium 250 MG TAB PO SCH ×2 (08:29→20:34)
[2021-06-09] MEDS: Lisinopril 10 MG TAB PO SCH (08:29)
[2021-06-09] MEDS: Senokot S 8.6-50 MG TAB PO SCH ×2 (08:29→20:36)
[2021-06-09] MEDS: Lantus 1000 UNITS/10 ML VIAL SC SCH (08:29)
[2021-06-09] MEDS: Polyethylene Glycol 3350 17 GM Packet PO SCH (08:30)
[2021-06-09] MEDS: Glimepiride 1 MG TAB PO SCH (08:31)
[2021-06-09] MEDS: Famotidine 20 MG TAB PO SCH (20:34)
[2021-06-10] MEDS: Levothyroxine Sodium 100 MCG TAB PO SCH (05:31)
[2021-06-10] MEDS: Gabapentin 100 MG CAP PO SCH ×3 (08:02→21:08)
[2021-06-10] MEDS: Polyethylene Glycol 3350 17 GM Packet PO SCH ×2 (08:03→08:07)
[2021-06-10] MEDS: Senokot S 8.6-50 MG TAB PO SCH ×2 (08:03→21:09)
[2021-06-10] MEDS: Penicillin V Potassium 250 MG TAB PO SCH ×2 (08:03→21:08)
[2021-06-10] MEDS: Lisinopril 10 MG TAB PO SCH (10:54)
[2021-06-10] MEDS: Lantus 1000 UNITS/10 ML VIAL SC SCH (10:56)
[2021-06-10] MEDS: Famotidine 20 MG TAB PO SCH (21:07)
[2021-06-11] MEDS: Levothyroxine Sodium 100 MCG TAB PO SCH (05:33)
[2021-06-11] MEDS: Lantus 1000 UNITS/10 ML VIAL SC SCH (09:18)
[2021-06-11] MEDS: Gabapentin 100 MG CAP PO SCH ×3 (09:18→20:49)
[2021-06-11] MEDS: Senokot S 8.6-50 MG TAB PO SCH ×2 (09:18→20:49)
[2021-06-11] MEDS: Polyethylene Glycol 3350 17 GM Packet PO SCH (09:18)
[2021-06-11] MEDS: Penicillin V Potassium 250 MG TAB PO SCH ×2 (09:18→20:49)
[2021-06-11] MEDS: Lisinopril 10 MG TAB PO SCH (09:18)
[2021-06-11] MEDS: Famotidine 20 MG TAB PO SCH (20:50)
[2021-06-12] MEDS: Levothyroxine Sodium 100 MCG TAB PO SCH (05:47)
[2021-06-12] MEDS: Polyethylene Glycol 3350 17 GM Packet PO SCH (10:00)
[2021-06-12] MEDS: Lisinopril 10 MG TAB PO SCH (10:00)
[2021-06-12] MEDS: Senokot S 8.6-50 MG TAB PO SCH ×2 (10:00→21:05)
[2021-06-12] MEDS: Lantus 1000 UNITS/10 ML VIAL SC SCH (10:01)
[2021-06-12] MEDS: Gabapentin 100 MG CAP PO SCH ×3 (10:01→21:05)
[2021-06-12] MEDS: Penicillin V Potassium 250 MG TAB PO SCH ×2 (10:01→21:05)
[2021-06-12 20:07] LABS: SARS-CoV-2 PCR NAA for Saliva Not Detected (NotDetected)
[2021-06-12] MEDS: Famotidine 20 MG TAB PO SCH (21:05)
[2021-06-13] MEDS: Levothyroxine Sodium 100 MCG TAB PO SCH (05:27)
[2021-06-13] MEDS: Gabapentin 100 MG CAP PO SCH ×3 (09:20→20:20)
[2021-06-13] MEDS: Senokot S 8.6-50 MG TAB PO SCH ×2 (09:20→20:19)
[2021-06-13] MEDS: Penicillin V Potassium 250 MG TAB PO SCH ×2 (09:20→20:20)
[2021-06-13] MEDS: Lisinopril 10 MG TAB PO SCH (09:20)
[2021-06-13] MEDS: Lantus 1000 UNITS/10 ML VIAL SC SCH (09:20)
[2021-06-13] MEDS: Polyethylene Glycol 3350 17 GM Packet PO SCH (09:21)
[2021-06-13] MEDS: Famotidine 20 MG TAB PO SCH (20:20)
[2021-06-14] MEDS: Levothyroxine Sodium 100 MCG TAB PO SCH (05:15)
[2021-06-14] MEDS: Senokot S 8.6-50 MG TAB PO SCH ×2 (09:32→20:39)
[2021-06-14] MEDS: Gabapentin 100 MG CAP PO SCH ×3 (09:32→20:36)
[2021-06-14] MEDS: Penicillin V Potassium 250 MG TAB PO SCH ×2 (09:32→20:39)
[2021-06-14] MEDS: Lisinopril 10 MG TAB PO SCH (09:33)
[2021-06-14] MEDS: Lantus 1000 UNITS/10 ML VIAL SC SCH (09:33)
[2021-06-14] MEDS: Polyethylene Glycol 3350 17 GM Packet PO SCH (09:34)
[2021-06-14] MEDS: Famotidine 20 MG TAB PO SCH (20:39)
[2021-06-15] MEDS: Acetaminophen 325 MG TAB PO PRN (04:53)
[2021-06-15] MEDS: Levothyroxine Sodium 100 MCG TAB PO SCH (05:36)
[2021-06-15] MEDS: Gabapentin 100 MG CAP PO SCH ×3 (08:38→20:23)
[2021-06-15] MEDS: Lantus 1000 UNITS/10 ML VIAL SC SCH (08:38)
[2021-06-15] MEDS: Penicillin V Potassium 250 MG TAB PO SCH ×2 (08:38→20:24)
[2021-06-15] MEDS: Lisinopril 10 MG TAB PO SCH (08:39)
[2021-06-15] MEDS: Senokot S 8.6-50 MG TAB PO SCH ×2 (08:39→20:22)
[2021-06-15] MEDS: Polyethylene Glycol 3350 17 GM Packet PO SCH (08:40)
[2021-06-15] MEDS ORDERED: Artificial Tear Sol 15 ML BOT EA EYE PRN (20:12)
[2021-06-15] MEDS: Famotidine 20 MG TAB PO SCH (20:22)
[2021-06-16] MEDS: Levothyroxine Sodium 100 MCG TAB PO SCH (06:33)
[2021-06-16] MEDS: Senokot S 8.6-50 MG TAB PO SCH ×2 (09:02→19:50)
[2021-06-16] MEDS: Polyethylene Glycol 3350 17 GM Packet PO SCH (09:02)
[2021-06-16] MEDS: Lantus 1000 UNITS/10 ML VIAL SC SCH (09:03)
[2021-06-16] MEDS: Penicillin V Potassium 250 MG TAB PO SCH ×2 (09:03→19:50)
[2021-06-16] MEDS: Lisinopril 10 MG TAB PO SCH (09:03)
[2021-06-16] MEDS: Gabapentin 100 MG CAP PO SCH ×3 (09:03→19:49)
[2021-06-16] MEDS: Acetaminophen 325 MG TAB PO PRN (19:46)
[2021-06-16] MEDS: Famotidine 20 MG TAB PO SCH (19:48)
[2021-06-17] MEDS: Levothyroxine Sodium 100 MCG TAB PO SCH (05:39)
[2021-06-17] MEDS: Acetaminophen 325 MG TAB PO PRN (05:46)
[2021-06-17 07:52] VITALS: BP 116/62; TEMP 97.6
[2021-06-17] MEDS: Gabapentin 100 MG CAP PO SCH (09:14)
[2021-06-17] MEDS: Penicillin V Potassium 250 MG TAB PO SCH (09:14)
[2021-06-17] MEDS: Lisinopril 10 MG TAB PO SCH (09:14)
[2021-06-17] MEDS: Senokot S 8.6-50 MG TAB PO SCH (09:14)
[2021-06-17] MEDS: Lantus 1000 UNITS/10 ML VIAL SC SCH (09:15)
[2021-06-17] MEDS: Polyethylene Glycol 3350 17 GM Packet PO SCH (09:15)
== END 2021-06-17 14:27 | DRG 948 ==
LOC: MADMS 11:33
PROVIDERS: ADMIT Family Medicine; ATTEND Family Medicine
DX: R53.1 Weakness (principal); N17.9 Acute kidney failure, unspecified; G83.9 Paralytic syndrome, unspecified; R26.9 Unspecified abnormalities of gait and mobility; E11.9 Type 2 diabetes mellitus without complications; I10 Essential (primary) hypertension; E03.9 Hypothyroidism, unspecified; Z20.822 Contact with and (suspected) exposure to COVID-19; I87.2 Venous insufficiency (chronic) (peripheral); E86.0 Dehydration; Z98.1 Arthrodesis status; Z90.89 Acquired absence of other organs; Z90.710 Acquired absence of both cervix and uterus; Z79.4 Long term (current) use of insulin; Z79.899 Other long term (current) drug therapy; Z88.5 Allergy status to narcotic agent; Z88.8 Allergy status to other drugs, medicaments and biological substances
CPT/HCPCS: 36416; U0003; U0005